=== PATIENT | female | born 1945 | race Caucasian/White ===

== ENCOUNTER → 2017-06-07 09:07 | Outpatient (CLI) | payer MEDICARE, SELFPAY ==
--- NOTE | 2017-06-07 09:11 | US_ITS ---
STUDY: ABDOMINAL ULTRASOUND - RIGHT UPPER QUADRANT REASON FOR VISIT: Female, 71 years old. Elevated liver function tests TECHNIQUE: Transverse and longitudinal imaging of the right upper quadrant was performed using real-time ultrasound. COMPARISON: None. FINDINGS: Liver: The liver measures 14 cm. There is normal echogenicity of the liver. The direction of portal flow is hepatopetal. There is no demonstrated mass in the liver. Gallbladder: The gallbladder is normal in size. The gallbladder wall measures 1.3 mm. There is a negative sonographic Lewis's sign. There is no demonstrated pericholecystic fluid. There are no abnormalities in the lumen of the gallbladder. Common Bile Duct (C.B.D.): The common bile duct measures 3.2 mm. Pancreas: The visualized pancreas is within normal limits. There is no demonstrated mass in the pancreas. Right Kidney: The right kidney measures 10.7 cm. The right cortex measures 1.4 cm. There is no demonstrated mass in the right kidney. There is no dilatation of the collecting system. There is no demonstrated free fluid. US/Liver IMPRESSION: No acute or significant abnormalities are seen on right upper quadrant ultrasound. Electronically Signed: Jeimy Arias MD at 17:24 EST Tel Direct: [phone], Service support ,
== END ==
PROVIDERS: Family Provider Nurse Practitioner; PCP Nurse Practitioner; Visit Provider Nurse Practitioner
DX: R74.8 Abnormal levels of other serum enzymes (principal)
CPT/HCPCS: 76705

== ENCOUNTER → 2017-11-22 11:57 | Outpatient (CLI) | payer MEDICARE, SELFPAY | PROVIDERS: Family Provider Nurse Practitioner; PCP Nurse Practitioner; Visit Provider Nurse Practitioner | DX: Z12.31 Encounter for screening mammogram for malignant neoplasm of breast (principal); Z78.0 Asymptomatic menopausal state | CPT/HCPCS: 77063; 77067; 77085 ==

== ENCOUNTER 2018-01-04 08:30 | Outpatient (RCR) | payer MEDICARE, SELFPAY ==
--- NOTE | 2018-01-04 08:40 | BH.COMM ---
Communication Note - Communication with Client Communication Note: Met with the pt to complete admission paperwork for IOP level of care. No significant changes since pre-admission screening. Denies any active suicidal ideations, plan, or intent. Appears motivated to start IOP.
--- NOTE | 2018-01-04 10:20 | BH.SGPN.GN ---
Behaviors/Verbalizations/Mental Status: [] Pt alert and oriented, eye contact good, casually dressed, motor activity appropriate, speech and tone WNL, mood dysthymic, affect congruent, no evidence of delusions or hallucinations. Client Response/Progress/Benefit: []Pt contributed positively to discussion and listened attentively to others. Pt connected with another peer about high expectations being a barrier to goal success. Pt reported she often has high expectations of herself which she recognizes is setting herself up for failure. Pt shared although she has this awareness it is difficult for her to not expect a lot from herself. Pt shared she needs to focus on having a balance between challenging self and having realistic expectations when setting goals. Pt seemed to benefit from learning about a goal setting method and rehearsing setting SMART goals.
--- NOTE | 2018-01-04 11:42 | BH.NA ---
Physical Data - Vital Signs Pulse Rate: 70 Respiratory Rate: 14 Blood Pressure: 128/80 - Height/Weight Height: 1.61 m Weight:: 54.431 kg Weight in Pounds: 120.0 lbs Current Medication Compliance - Medication Compliance Do you take your medication as prescribed?: Yes Do you need assistance with taking medication?: No Have you had side effects from medication?: No Nutritional History - Appetite Nutritional Instructions:: If client shows signs of a swallowing problem, weight change of 10 pounds or more in the last month, or is on a diabetic diet, the physician will review and request a dietitian consult, as appropriate. All unintentional weight loss will be referred to the physician for decision on need for dietitian consult. Describe your appetite:: Fair Have you noticed a change in your eating habits lately?: No Functional Assessment - Sleep Pattern Describe any problems with sleeping: Client denies trouble falling or staying asleep. - Activities Motor Activity:: Functional Sensory/Communication Assess - Hearing Problems Do you have any hearing problems?: Adequate - Communication Problems Do you have difficulty understanding what people are saying?: No Do you have trouble putting your thoughts into words or expressing what you want to say?: No Do people ever have trouble understanding what you say?: No What is your primary language?: Kyrgyz Learning Assessment - Education What is your level of education?: Bachelor Degree - Learning Barriers Learning Barriers:: Ready to learn Medical Problems/History - Pain Assessment Do you have acute or chronic pain?: No - Female Reproductive Do you think you may be ?: No Have you reached menopause?: Yes Substance Abuse - Substance Abuse Please describe substance abuse in the last 30 days:: Client notes that she is 2 days sober, had been drinking 4-5 beers daily. Former tobacco user, quit age 58, 25-30 pack years. Denies illicit substance use. Drinks 1 caffienated beverage daily. Mental Status Summary - Mental Status Significant Findings/Observations on Appearance and Mood:: Client is A&Ox4, cooperative with interview, makes good eye contact. She has appropriate/neat grooming and hygiene. Casually dressed. Speech is clear and of normal rate and volume. Mild depression and anxiety. Appropriate affect. Logical associations and normal process. No delusions or hallucinations. Denies HI and SI. Suicide Assessment - Suicidal Ideation Are you currently or have you been suicidal in the past?: No Physician Notification: If Active suicidal thoughts/Will not contract for safety is checked, contact physician and document in the Physician Notification section below. Past Psychiatric History - MH Treatment Hx Past Psychiatric Medications:: fluoxetine Age of first mental health symptoms: sometime in my 30's Describe (age, circumstance, etc) any past hospitalizations: N/A Fall Risk Assessment - Age Age: 69 or older - Mental Status Mental Status: Willing & able to ask for assistance when needed - Physical Status Physical Status: No problems - Impairments Impairments: None - Elimination Elimination: Continent AND independent - Gait or Balance Gait or Balance: Walks independently - Hx of Falls History of falls in the past 6 months: No known history - Medications/Substances Psychotropics:: Antidepressants Medications/substances used within the past 24 hours or ordered to administer: 1-2 of the medications/substances listed above - Total Score Total Points:: 3 Physician Notification - Physician Notification Physician Notified: Ines Rousseau Method of Notification: Face to Face Comments: treatment planning discussion RN Summary of Impressions - Impressions Recommendations: Include psychiatric and medical issues, treatment planning recommendations, and discharge planning needs. Impressions: Psychiatric Issues: MDD, anxiety Impression: General Medical Conditions: N/A Impressions: Treatment Planning Recommendations: Encouraged ongoing ETOH abstinence - Level of Care How do the client's current symptoms and functional deficits support need for this level of care?: Client notes increased depression for the past 2-3 months, which she relates to her dysfunctional marriage. She and her are very unhappy together. Client recognizes that she has been isolating and sleeping to avoid her . She also has been drinking daily as a way of escaping her problems. 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 She denies that her ETOH use has interfered with work or relationships outside her marriage. The client will benefit from IOP to learn skills to promote gains and prevent further decompensation.
--- NOTE | 2018-01-04 13:09 | PCM.HP.BLA ---
History and Physical Identifying information Patient is a 72-year-old female who presents to [facility] with chief complaint of I am a recurring depressed person. History is been obtained per interview with patient, discussion with staff, review of chart. Case discussed with treatment team. History of present illness Patient is a 72-year-old female referred to the behavioral medicine [facility] by primary care physician due to worsening depression over the past 1-2 months. She reports a long-standing history of depression throughout my life. It is been recently exacerbated by marital unhappiness and increased alcohol consumption. She reports consuming 3-4 beers per day over the past month. She endorses a depressed mood with lack of motivation, anhedonia, decreased energy, and passive thoughts of . She states I wonder if it really matters. She denies suicide plan or intent. Feels able to maintain safety. Denies homicidal ideation. Denies symptoms consistent with psychosis. Denies symptoms consistent with discrete episode of byron. Reports some ruminative anxiety regarding dynamics with her . Has a remote history of panic attacks but none for several years. She states they resolved with time in counseling. Denies obsessions or compulsions. Appetite is recently been decreased. Denies history of eating disorder. Sleeping 8-9 hours per night. Denies history of trauma. Past psychiatric history Patient reports 1 previous hospitalization for depression and anxiety on a medical floor at [facility] in her mid 30s. Denies previous suicide attempts or self-harm. Does not currently have a counselor or psychiatrist. Substance use history Reports intermittent alcohol use throughout her life drinking up to 5-6 beers daily. 6 months. Of alcohol abstinence in the fall 2016 and winter 06/26/2017. Over the past month she began drinking 3-4 beers daily. Her last alcohol consumption was 2 days ago. No evidence of alcohol withdrawal. Denies smoking cigarettes. Denies illicit drug use. Consumes 1 cup of caffeinated coffee daily. Past medical history Hypertension Elevated cholesterol Denies history of seizure or head injury Review of systems No fevers chills nausea vomiting chest pain dyspnea. All other systems reviewed and negative. Allergies-penicillin Current medications Cymbalta 40 mg daily Vitamin D 2000 IU daily Hydrochlorothiazide 25 mg daily Metoprolol 25 mg daily Amlodipine 5 mg daily Simvastatin 10 mg daily Family medical psychiatric history Mother in August 2015 at age 102 Brother-depression Developmental social history Patient was born and raised in [facility]. She is the youngest of 2 children. She grew up with her parents and her older brother. She states that growing up was all right. She denies abuse. Her father was alcoholic. Her mother made everything right. She reports her father was a good father as best he could be. 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 She has a masters in education from [employer]. 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 She reports that they are both strong willed. She lives in [place] with her . She exercises 3-[facility]. She and her have 2 daughters. One lives adjacent to her in [place]. The other lives in [place] Mental status exam Vital signs reviewed per nursing database and discussed with nursing. Alert and oriented . No acute distress. Ambulatory with normal gait and station. Appears stated age. Casually dressed and groomed. Appropriate hygiene. Cooperative with interview. Good eye contact. No psychomotor agitation or retardation. Mood depressed. Affect congruent. Speech is clear and with regular rate and rhythm. Language fluent. Thought process organized. Associations logical. Thought content significant for ruminative anxiety and themes of depression. Reports history of passive thoughts of . No current suicidal or homicidal ideation related or detected. No symptoms consistent with psychosis noted or detected. Immediate recent and remote memory grossly intact. Attention and concentration are fair. Estimated intelligence and fund of knowledge average. Judgment and insight fair. Labs and testing Lab work will be requested from primary care physician. Further lab work to be obtained as needed. Diagnosis Major depressive disorder recurrent moderate F 33.2 Anxiety unspecified Alcohol use disorder Plan Admit to IOP. Risk-benefit alternative of medications discussed with patient. Patient acknowledges understanding. Continue Cymbalta 40 mg daily. Start Campral 333 mg p.o. daily. Dispense #90 with 1 refill. Encouraged alcohol abstinence. Encouraged to establish with outpatient providers for when IOP complete. Patient acknowledges understanding and is in agreement with plan. Feels able to maintain safety. Agrees to seek help or emergency care if feeling unsafe to self or others.
--- NOTE | 2018-01-04 13:24 | HP.PCM_ITS ---
History and Physical Identifying information Patient is a 72-year-old female who presents to [facility] with chief complaint of I am a recurring depressed person. History is been obtained per interview with patient, discussion with staff, review of chart. Case discussed with treatment team. History of present illness Patient is a 72-year-old female referred to the behavioral medicine [facility] by primary care physician due to worsening depression over the past 1-2 months. She reports a long-standing history of depression throughout my life. It is been recently exacerbated by marital unhappiness and increased alcohol consumption. She reports consuming 3-4 beers per day over the past month. She endorses a depressed mood with lack of motivation, anhedonia, decreased energy, and passive thoughts of . She states I wonder if it really matters. She denies suicide plan or intent. Feels able to maintain safety. Denies homicidal ideation. Denies symptoms consistent with psychosis. Denies symptoms consistent with discrete episode of byron. Reports some ruminative anxiety regarding dynamics with her . Has a remote history of panic attacks but none for several years. She states they resolved with time in counseling. Denies obsessions or compulsions. Appetite is recently been decreased. Denies history of eating disorder. Sleeping 8-9 hours per night. Denies history of trauma. Past psychiatric history Patient reports 1 previous hospitalization for depression and anxiety on a medical floor at [facility] in her mid 30s. Denies previous suicide attempts or self-harm. Does not currently have a counselor or psychiatrist. Substance use history Reports intermittent alcohol use throughout her life drinking up to 5-6 beers daily. 6 months. Of alcohol abstinence in the fall 2016 and winter 06/26/2017. Over the past month she began drinking 3-4 beers daily. Her last alcohol consumption was 2 days ago. No evidence of alcohol withdrawal. Denies smoking cigarettes. Denies illicit drug use. Consumes 1 cup of caffeinated coffee daily. Past medical history Hypertension Elevated cholesterol Denies history of seizure or head injury Review of systems No fevers chills nausea vomiting chest pain dyspnea. All other systems reviewed and negative. Allergies-penicillin Current medications Cymbalta 40 mg daily Vitamin D 2000 IU daily Hydrochlorothiazide 25 mg daily Metoprolol 25 mg daily Amlodipine 5 mg daily Simvastatin 10 mg daily Family medical psychiatric history Mother in August 2015 at age 102 Brother-depression Developmental social history Patient was born and raised in [facility]. She is the youngest of 2 children. She grew up with her parents and her older brother. She states that growing up was all right. She denies abuse. Her father was alcoholic. Her mother made everything right. She reports her father was a good father as best he could be. 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 She has a masters in education from [employer]. 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 She reports that they are both strong willed. She lives in [place] with her . She exercises 3-4 [facility]. She and her have 2 daughters. One lives adjacent to her in [place]. The other lives in [place] Mental status exam Vital signs reviewed per nursing database and discussed with nursing. Alert and oriented . No acute distress. Ambulatory with normal gait and station. Appears stated age. Casually dressed and groomed. Appropriate hygiene. Cooperative with interview. Good eye contact. No psychomotor agitation or retardation. Mood depressed. Affect congruent. Speech is clear and with regular rate and rhythm. Language fluent. Thought process organized. Associations logical. Thought content significant for ruminative anxiety and themes of depression. Reports history of passive thoughts of . No current suicidal or homicidal ideation related or detected. No symptoms consistent with psychosis noted or d etected. Immediate recent and remote memory grossly intact. Attention and concentration are fair. Estimated intelligence and fund of knowledge average. Judgment and insight fair. Labs and testing Lab work will be requested from primary care physician. Further lab work to be obtained as needed. Diagnosis Major depressive disorder recurrent moderate F 33.2 Anxiety unspecified Alcohol use disorder Plan Admit to IOP. Risk-benefit alternative of medications discussed with patient. Patient acknowledges understanding. Continue Cymbalta 40 mg daily. Start Campral 333 mg p.o. daily. Dispense #90 with 1 refill. Encouraged alcohol abstinence. Encouraged to establish with outpatient providers for when IOP complete. Patient acknowledges understanding and is in agreement with plan. Feels able to maintain safety. Agrees to seek help or emergency care if feeling unsafe to self or others.
--- NOTE | 2018-01-04 13:24 | BH.DR.ITP ---
Initial Treatment Plan - Patient Information Visit Information: ADMISSION DATE: EXPECTED LOS: 4-6 weeks Diagnoses:: Major depressive disorder F 33.1 - Problems/Symptoms Problem #1:: Depression Symptom:: Sad mood, anhedonia, decreased energy, decreased appetite, passive thoughts of Problem #2:: Anxiety Symptom:: Rumination Problem #3:: Alcohol use
[2018-02-08 12:13] VITALS: BP 128/80; PULSE 70; RESP 14
== END 2018-01-06 23:59 ==
LOC: BHIOP 08:30
PROVIDERS: Family Provider Nurse Practitioner; PCP Nurse Practitioner; Visit Provider Psychiatry & Neurology Psychiatry
DX: F33.2 Major depressive disorder, recurrent severe without psychotic features (principal); F41.0 Panic disorder [episodic paroxysmal anxiety]; F10.20 Alcohol dependence, uncomplicated
CPT/HCPCS: H0035; 90853

== ENCOUNTER 2018-01-07 09:00 | Outpatient (RCR) | payer MEDICARE, SELFPAY ==
--- NOTE | 2018-01-07 09:10 | BH.SGPN.GN ---
Behaviors/Verbalizations/Mental Status: [] Pt eye contact fair, casually dressed, motor activity restless, speech normal rate and tone, mood anxious, congruent affect, thoughts linear and logical, no evidence of delusions or hallucinations. Reviewed client?s symptom tracker, no signs of suicidal ideation, plan, or intent as of today. Client Response/Progress/Benefit: [] Patient reported over the weekend she spent a lot of time with her grandchildren even watching them play sports or having them over for dinner. Patient shared she went to dinner with her daughter to celebrate her daughter's 54th birthday. Patient shared she was able to status not drink any alcohol over the weekend. Patient reported she is happy she was able to maintain sobriety because when she drinks it often leads to her being mean and negative. Patient reported overall she had a positive weekend to spend time with her grandchildren. Identified her stressor to be of her relationship because her is often negative which impacts her mood. Patient shared ambivalence about her relationship because she has been with him for 52 years but recognizes how the relationship is going is unhealthy for both herself and her . Patient seemed to benefit from receiving support from peers and expressing her thoughts and emotions. Patient to continue IOP level of care to stabilize moods, increase healthy coping skills, and prevent decompensation. Narrative Note: []
--- NOTE | 2018-01-07 10:23 | BH.SGPN.GN ---
Behaviors/Verbalizations/Mental Status: [Client maintained good eye contact throughout. She was neat and casually dressed, appropriate grooming, motor activity WNL, speech normal rate and tone, mood euthymic and positive, affect bright, congruent with mood, thoughts linear and logical, no evidence of delusions or hallucinations. ] Client Response/Progress/Benefit: [Client receptive of session and well engaged throughout. She was able to connect with the discussion regarding fear of failure and how our definition of failure may hold us back from accomplishing things in life or cause self-doubt. Client discussed that fear of failing at maintaining a strong and healthy relationship as well as fear of letting others down are two things she has struggled with recently. Client benefitted from discussing regarding perception of failure and how assuming that we might fail at something can lead to self-sabotaging behaviors or prevent trying in the first place. Client displaying progress in her ability to connect with the content discussed and relate materials to her own mental health struggles. Recommended continued iop tx to continue to improve insights and ability to manage depressive sx.] Narrative Note: []
--- NOTE | 2018-01-09 09:03 | BH.PSA ---
Source of Information - Presenting Problems/Circumstances Problems, Referral Source, Mental Status, Client: Pt was referred by Padmini Chavez. Pt reports she was drinking, lots of anger, and relationship discord. Pt reports depression since she was in her 30 years. Would have depressive episodes since she was in her 30s where she wouldn't get out of bed, isolate, and at one point didn't go to work for 2 weeks. Pt reports for majority of her life she was a social drinker, however started drinking in solitude in her 60s. 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 Pt reports 4 drinks a day prior to starting the program, would get anger, going to bed, crying all the time, passive thoughts of I wouldn't care if I didn't wake up. Psychiatric Presentation - Psych Issues & Need for Admission Psychiatric Issues:: Pt reports hx of depression since age 28 and has hx of anxiety when in her 40s. Recently experienced panic like symptoms.
--- NOTE | 2018-01-09 14:18 | BH.MDN ---
Multi-Disciplinary Note - Note 60-min Individual Time Started:: 09:00 Date: 01/09/18 Purpose of session/treatment goals addressed:: Purpose of session was to assess current symptoms and stressors. Other topics included: identfiying IOP treatment goals and gathering background information. Eye Contact:: Good Motor Activity:: Restless Appearance:: Casual Speech:: Rambling Mood:: Dysthymic, Other - tearful Affect:: Congruent Thoughts:: Logical, No evidence of hallucinations/delusions noted Staff Interventions:: Therapist used open ended questions to elicit pt's current symptoms and stressors. Therapist elicited pt's thoughts about program thus far. Therapist probed for more background information, exploring what brought pt to IOP. Therapist collaborated with pt to identify IOP treatment goals. Therapist provided support by using active listening and providing feedback. Client Response:: Pt reported she is enjoying the IOP program thus far, enjoys having others to relate to and learn or refresh skills and strategies. Pt opened up about what led pt to seeking help. Pt shared for the past two months she started drinking alcohol more frequently 4-5 beers daily. Pt reported when she drinks alcohol she becomes angry and often mean. Pt shared she also was isolated, sad, sleeping more, and overall not functioning at baseline. Pt reported after her nurse practitioner recommended IOP is when she thought maybe she needs help because she doesn't like how her life is currently going. Pt reported her marriage is not healthy, but has known this for at least 20 years. Pt shared she has just ignored what upsets her which has now led to resentment. Pt reported she recognizes she has three choices she can make, but struggles with communicating effectively and hates conflict. Pt identified while in IOP she'd like to work on improving communication and conflict resolution skills, review effective ways to set goals, address negative self-talk, decrease depression and increase healthy coping. Risks/Concerns:: Pt reports she has passive thoughts of at times, denies plan or intention to date. Pt's grandchildren serve as a protective factor for pt. Pt reports I could never follow through with it. Progress Toward Goals/Plan:: Pt has been showing progress with limiting alcohol use signficiantly over past week. Pt to continue to work on decreasing and eventually eliminating alcohol use. Pt first week in program, session focused on identifying treatment goals. Pt to continue IOP level of care to decrease depression, increased use of healthy skills, and prevent decompensation. Time Stopped:: 10:00
--- NOTE | 2018-01-09 16:05 | BH.MTP_ITS ---
Master Treatment Plan - Patient Information Program Physician:: Dr. Rousseau Primary Therapist:: Angella Guzman, [facility] - Psychiatric Diagnoses Psychiatric Diagnoses:: Major depressive disorder recurrent moderate. Anxiety unspecified. Alcohol use disorder Diagnosis Code(s):: F33.2 - Estimated LOS Estimated LOS (in weeks):: 6 Problem/Goal #1 - Problem/Goal #1 Stated Goal:: Client will decrease depressive symptoms, isolation, and agitation due to Major Depressive Disorder through Intensive Outpatient Program. Description of Barriers: Pt's interpersonal conflict with her seems to have signficiant impact on her mental health symptoms which could be a barrier. Other barriers could include: distorted thought patterns, avoidance, negative thoughts, and anxiety. Functional Impact: Pt endorses a depressed mood with lack of motivation, anhedonia, decreased energy, and passive thoughts of . Pt's marital unhappiness and increased alcohol consumption are exasperating mental health symptoms. Goal Relevant Strengths/Supports: Pt is intelligent, resilient and motivated to get better. - Objectives Objective #1 Stated Objective: Identify and replace 3-4 distorted and negative thought patterns that reinforce depressive symptoms. Interventions: Therapist will help client identify distorted, negative beliefs about self and world and replace those messages with positive, affirmative messages. Discharge Criteria: Client will have achieved this goal when can identify at least 3 distorted or negative thought patterns and replace those messages with positive, affirmative messages. Target Date: 02/15/18 Review Date: 02/01/18 Objective #2 Stated Objective: Pt will decrease depressive symptoms AEB pt?s score on the DSM 5 cross-cutting measure and improve pt?s daily functioning. Interventions: Through groups and individual therapy, pt will be provided with education on cognitive distortions, mistaken beliefs, and identifying and combating negative self-talk. Therapist will assist pt with getting back into the activities she once enjoyed as well as increasing healthy coping strategies. Discharge Criteria: Pt will have met this goal when pt?s score on the DSM 5 cross cutting measure for depression has been decreased and per pt?s report daily functioning has improved. Target Date: 02/15/18 Review Date: 02/01/18 Problem/Goal #2 - Problem/Goal #2 Stated Goal:: Stabilize anxiety level while increasing ability to function and decreasing ruminative thoughts on a daily basis through Intensive Outpatient Program. Description of Barriers: Pt's interpersonal conflict with her seems to have signficiant impact on her mental health symptoms which could be a barrier. Other barriers could include: distorted thought patterns, avoidance, negative thoughts, and anxiety. Functional Impact: Pt endorses a depressed mood with lack of motivation, anhedonia, decreased energy, and passive thoughts of . Pt's marital unhappiness and increased alcohol consumption are exasperating mental health symptoms. Goal Relevant Strengths/Supports: Pt is intelligent, resilient and motivated to get better. - Objectives Objective #1 Stated Objective: Client will learn and utilize 2-3 healthy coping strategies to manage anxious symptoms. Interventions: Therapist will assist client in learning internal coping strategies to manage anxious symptoms, along with helping client identify triggers. Discharge Criteria: Client will have achieved this goal when can verbalize and has practiced at least 2 healthy coping strategies. Target Date: 02/15/18 Review Date: 02/01/18 Objective #2 Stated Objective: Pt will decrease anxious symptoms AEB pt?s score on the DSM 5 cross-cutting measure improve pt?s daily functioning. Interventions: Through groups and individual therapy, pt will be provided educa tion about anxiety?s impact on body and common physiological reaction to anxiety. Therapist will teach pt appropriate breathing techniques and build healthy coping skills to manage daily anxieties. Discharge Criteria: Pt will have met this goal when pt?s score on the DSM 5 cross cutting measure for anxiety has been decreased and per pt?s report daily functioning has improved. Target Date: 02/15/18 Review Date: 02/01/18
--- NOTE | 2018-01-11 10:20 | BH.SGPN.GN ---
Behaviors/Verbalizations/Mental Status: [] Pt eye contact good, casually dressed, motor activity appropriate, speech normal rate and tone, mood dysthymic, congruent affect, thoughts linear and intact, no evidence of delusions or hallucinations. Client Response/Progress/Benefit: [] Client engaged throughout group session as evidenced by her contributed to thoughts and feelings and attentively listening to others. Client connected with others that her negative thoughts result in decreased motivation and stagnation in progress. Client shared she could relate to the distortion of mental filter because she give the example that she just took a shower first time in weeks which she did not identify as positive because it something that she should do. Client seemed to benefit from increased awareness of cognitive distortions and recognizing the impact distorted thought patterns can have on functioning. Narrative Note: []
--- NOTE | 2018-01-11 11:30 | BH.SGPN.GN ---
Behaviors/Verbalizations/Mental Status: []Pt eye contact good, casually dressed, motor activity appropriate, speech normal rate and tone, mood dysthymic, congruent affect, thoughts linear and intact, no evidence of delusions or hallucinations. Client Response/Progress/Benefit: [] Client active participant as evidenced by her contributed to discussion and working cooperatively in her small group. When completing the worksheet of identifying personal examples of distorted thought patterns client could connect with the distortion of mind reading especially in regards to her relationship with her . Client able to connect impact distorted thoughts can have on her emotions and behavior. Client seemed to benefit from having opportunity to practice reframing challenging distorted thought patterns. Client to continue IOP level of care to stabilize mood, increase use of healthy coping skills and prevent decompensation. Narrative Note: []
--- NOTE | 2018-01-14 09:05 | BH.SGPN.GN ---
Behaviors/Verbalizations/Mental Status: [Client maintained good eye contact - tearful when expressing current emotion for the day. Able to provide input to discussion. Client was neat and casually dressed, appropriate grooming/hygiene. Motor activity WNL - at times distracted and interrupting others to provide support prior to them completing their thought. Client speech was a normal rate and tone, mood depressed and expressed as fake fine , affect congruent with mood as client appears to be euthymic and bright though identified use of guarding her emotions and became tearful and upset when expressing feeling disconnected or depressed, thoughts linear and logical, no evidence of delusions or hallucinations. Therapist reviewed client?s symptom tracker to assess for intensity of mental health symptoms and identify risk for suicide. No signs of suicidal ideation, plan, or intent to date.] Client Response/Progress/Benefit: [Client responded well to session, engaged throughout and an active participant in the discussion portion of session. Client provided support and worked with fellow participants on processing various stressors they discussed. In regards to her own mental health, Client had some difficulties in opening up at first and initially minimized her current stressors and difficulties in managing mental health symptoms. This was evidenced by Client quickly stating I drank over the weekend and then changing the topic. She benefitted from being challenged by this therapist and the group to further discuss and process her substance use. Client identified I'm self-sabotaging and experienced difficulties in identifying reasons why she may be falling back on old toxic means of coping. CLient did however display increased levels of insight regarding her use of minimization and indicated that she is tired of putting on a mask that she is fine when she does not really feel fine; however, noted not knowing how to really feel and accept her emotions. Client recommended continued IOP to further explore healthy coping and managing emotions as well as to maintain stability.] Narrative Note: []
--- NOTE | 2018-01-14 10:30 | BH.SGPN.GN ---
Behaviors/Verbalizations/Mental Status: []Client alert and oriented, neatly dressed and groomed. Eye contact good. Motor activity appropriate. Speech within normal limits, engaging in side conversations. Affect constricted, mood dysthymic. Thoughts linear, logical, no signs of hallucinations or delusions. Client Response/Progress/Benefit: []Client responded well to session, active participant, engaged in side conversations at times. Client reported one can have conflict with others or within oneself. Client seemed to connect with peers who discussed different types of internal conflict. Client identified barriers to resolving conflict such as assumptions, cognitive distortions, and emotions. Client helped the group discuss the four different conflict resolution styles including when it is helpful and not helpful to use each style. Client shared she uses the avoidant style because ?it is easier to avoid it than deal with it.? Client shared there are personal benefits to this style such as reduced arguments, but client recognizes problems do not get resolved with this style. Client appeared to benefit from gaining awareness of how client?s current conflict resolution style impacts mental health and relationships. Client to continue IOP as client continues to report depressed mood and difficulty managing interpersonal relationships.
--- NOTE | 2018-01-14 11:35 | BH.SGPN.GN ---
Behaviors/Verbalizations/Mental Status: []Client alert and oriented, neatly dressed and groomed. Eye contact good. Motor activity appropriate. Speech within normal limits. Affect full-laughing and joking with peers, mood euthymic. Thoughts linear, logical, no signs of hallucinations or delusions. Client Response/Progress/Benefit: []Client responded well to session, active participant. Client participated in the group activity, passive at times, but sharing her thoughts and ideas in an assertive manner occasionally. Client shared having fun and listening to others? perspectives helped the group resolve conflict. Client helped the group identify strategies to more effectively manage conflict such as regulating emotions, active listening, and taking breaks when needed. Client to continue IOP as she continues to struggle with minimizing her symptoms and managing emotions regarding her interpersonal relationships.
--- NOTE | 2018-01-15 10:20 | BH.SGPN.GN ---
Behaviors/Verbalizations/Mental Status: [] Pt eye contact good, casually dressed, motor activity appropriate, speech normal rate and tone, mood euthymic, congruent affect, thoughts linear and intact, no evidence of delusions or hallucinations. Client Response/Progress/Benefit: []Pt contributed to discussion and listened attentively to others. Pt reported she could connect with the quote about choosing one thought over another being a way to overcome stress, however stated that is not an easy task to do. Pt recognizes her attitude towards something can make a small stressor into something much bigger. Pt identified current stressors to include: unfinished projects at home, physical environment at home being a mess, lack of communication, negative self-talk, lack of control, and using alcohol as way to cope. Pt reported when feels overwhelmed with stress she will gets sad, isolates and at times drinks alcohol. Pt recognizes her current way of responding to stress only exasperates the problem. Pt seemed to benefit from increased awareness of current stressors. Narrative Note: []
--- NOTE | 2018-01-15 11:30 | BH.SGPN.GN ---
Behaviors/Verbalizations/Mental Status: [] Pt eye contact good, casually dressed, motor activity appropriate, speech normal rate and tone, mood euthymic, congruent affect, thoughts linear and intact, no evidence of delusions or hallucinations. Client Response/Progress/Benefit: []Pt active participant AEB contributing to discussion, working with others, and listening to peers. Pt appeared to be frustrated at times during the activity and did not communicate her thoughts and feelings directly at the time. When reflecting on activity pt able to verbalize frustration, with assistance from therapist recognized it would be helpful to communicate her thoughts and feelings at the time so things can change instead of keeping her thoughts in. Pt identified her goal is to go to the gym to relieve stress. Pt seemed to benefit from increased repertoire of healthy stress relieving skills and strategies. Narrative Note: []
--- NOTE | 2018-01-16 09:05 | BH.SGPN.GN ---
Behaviors/Verbalizations/Mental Status: [] Pt eye contact fair, casually dressed, motor activity restless, speech normal rate and tone, mood anxious, congruent affect, thoughts linear and logical, no evidence of delusions or hallucinations. Reviewed client?s symptom tracker, no signs of suicidal ideation, plan, or intent as of today. Client Response/Progress/Benefit: [] Client reported she accomplished her goal yesterday by doing something for her. 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 Client reported the informational course was really interesting in is making her want to explore this route of helping her hip versus doing another hip replacement. Client reported her last hip replacement resulted in increased depression due to bad reaction from the medications of surgery. Client reports she also spent time just driving around which helped clear her head. Client stated she is feeling a little anxious because she feels like I should be doing more. Client demonstrating progress as evidenced by her following through with the goal she set earlier in the week. Client continuing to struggle with relationship discord and consistent application of healthy skills. Client to continue IOP level of care to decrease depression, improve daily functioning, and prevent decompensation. Narrative Note: []
--- NOTE | 2018-01-16 11:20 | BH.SGPN.GN ---
Behaviors/Verbalizations/Mental Status: []Client alert and oriented, neatly dressed and groomed. Eye contact good. Motor activity appropriate. Speech within normal limits. Affect congruent, mood anxious. Thoughts linear, logical, no signs of hallucinations or delusions. Client Response/Progress/Benefit: []Client responded well to session, participating when prompted. Client engaged in the activity, commenting on how expectations of change can impact the outcome. Client reported coming to IOP was a positive change that gives client hope she can have positive change again in the future. Client filled out the decisional balance sheet and shared she needs to focus on the positives of change. Client appeared to benefit from reflecting on a positive change she went through. Client to continue IOP as she continues to report avoidance behaviors and mood instability.
--- NOTE | 2018-01-23 09:05 | BH.SGPN.GN ---
Behaviors/Verbalizations/Mental Status: [] Eye contact is good. Motor activity is appropriate. Appearance is neat. Speech is Appropriate. Mood is anxious. Affect is congruent. Thoughts are linear and logical. No evidence of psychosis. Reviewed daily check in sheet and no reports of suicidal ideations or intent. Client Response/Progress/Benefit: [] Pt is an active participant in group discussion. Provided appropriate feedback to peers. Emotion for today is stagnant. States I have done nothing to improve myself or make changes that i need to make. Reports that she continues to be stuck in same patterns at home. Does not feel needed or appreciated at home and relationship continues to deteriorate. Discussed how she gets satisfaction and feels needed at work however since [employer] she does not work that much. Admits that fear is the main obstacle to change. Fear of the unknown, fear of finances, and fear of stepping outside of comfort zone. Admits that comfort zone includes daily depressive symptoms and isolative behaviors. States that she continues to ponder actions however never takes action which keeps her stuck and stagnant. States that she is getting ready to have a talk with spouse however is unsure if it will ever happen. Limited progress noted due to fear of making changes. Will continue in IOP to prevent decompensation, stabilize mood, and manage depressive symptoms. Narrative Note: []
--- NOTE | 2018-01-23 09:26 | BH.MDN_ITS ---
Multi-Disciplinary Note - Note 60-min Individual Time Started:: 10:10 Date: 01/16/18 Purpose of session/treatment goals addressed:: Purpose of session was to assess pt's current symptoms and stressors. Other topics included: decisional balance worksheet. Eye Contact:: Good Motor Activity:: Restless Appearance:: Casual Speech:: Appropriate Mood:: Anxious, Depressed Affect:: Constricted Thoughts:: Racing, Circular, No evidence of hallucinations/delusions noted Staff Interventions:: Therapist used open ended questions to elicit pt's current symptoms and stressors. Therapist processed relationship stressor. Therapist taught pt about decisional balance worksheet that can help when ambivalent about two situations. Therapist completed sample of decisional balance worksheet in session to help pt understand what she can do. Therapist gave pt homework to complete decisional balance worksheet about her relationship. Client Response:: Pt noted progress for herself by taking time yesterday to do something she was interested in doing. Pt shared previously she would have talked herself out of going to the stem cell seminar because there are other things that need done. Pt starting to recognize importance of taking care of he rself. Pt reported she took a long car ride to help clear her head, which pt reported she spent a lot of her time thinking about her relationship. Pt stated she is frustrated with how her situation in her relationship has gotten so bad, recognizing she has been ignoring the relationship issues for a very long time. Pt discussed the frustrations within her relationship, verbalizing a lot of animosity towards her in regards to a build up of negativity for many years. Pt reported she knows her options are to either stay in her relationship and find a way to not let the relationship have such an impact on her or she can leave the relationship. Pt agreeable to complete the decisional balance worksheet about her relationship. Risks/Concerns:: Pt denies suicidal ideation, plan or intention to date. Progress Toward Goals/Plan:: Progress noted AEB pt following through with goal established earlier in the week for pt to do one thing that she wants to do. Pt's relationship issues seem to be a significant sources of stress, which appears to be impacting her progress. Pt to continue IOP level of care to decrease depression, improve daily functioning, and prevent decompensation. Time Stopped:: 11:10
--- NOTE | 2018-01-23 10:14 | BH.SGPN.GN ---
Behaviors/Verbalizations/Mental Status: [Client engaged in group and maintained good eye contact. Casual and weather appropriate attire. Appropriate grooming/hygiene. Motor activity WNL - at times appearing restless AEB difficulties in sitting still, fidgeting with materials provided for activity. Client speech was a normal rate and tone - at times appearing puzzled due to client being distracted by own thoughts and missing some of the instruction provided, mood dysthymic, affect congruent with mood - distant, thoughts linear and logical - evidence of rumination as client at times appearing distracted or preoccupied by own thoughts and stressors outside of group environment, no evidence of delusions or hallucinations.] Client Response/Progress/Benefit: [Client receptive of session and a positive participant throughout. She appeared to connect well with group discussion regarding benefits of change and potential barriers to making healthy changes. Client provided input and asked questions relating to the various impacts of change on mental health sx management. CLient additionally indicated connecting with the other group participants as they shared feeling uncomfortable with making healthy changes or struggle to put in the effort needed to sustain these changes. She appeared to benefit from reflecting upon what healthy changes she could benefit from making in order to better manage her own mental health. Client shared wanting to prioritize her own needs before worrying about the needs of others, increase communication with supports, as well as decrease use of distraction. She made progress in her ability to identify how these changes may improve overall mental health sx management as well as what barriers are preventing client from making these changes. Client identified that she often talks herself out of trying things, is self-critical, becomes overwhelmed, or responds emotionally and not rationally. Client would benefit from continuing in [facility] tx to further work on identifying strategies for overcoming the various barriers identified. . ] Narrative Note: []
--- NOTE | 2018-01-24 09:05 | BH.SGPN.GN ---
Behaviors/Verbalizations/Mental Status: [] Eye contact is good. Motor activity is appropriate. Appearance is neat. Speech is Appropriate. Mood is anxious. Affect is congruent. Thoughts are linear and logical. No evidence of psychosis. Reviewed daily check in sheet and no reports of suicidal ideations or intent. Client Response/Progress/Benefit: [] Pt was an active participant in group discussion. Provided appropriate feedback to peers. Emotion for today is calm and quiet. Reports that he thoughts and mood are more stable today than the past week. States that during group activity yesterday it was suggested that she simply be present at home, which meant not isolating or avoiding her spouse. She reports that by being present it led to productive conversation with her spouse in which he was open to conversation about their relationship and what she wants. Continues to struggle with her anxiety, depression, and isolative behaviors however reports progress yesterday and today. Feels that she is finally taking some action with her MH symptoms and needs which makes her more optimistic for the future. Benefited from group support and praise. Will continue in IOP to prevent decompensation, decrease avoidant/isolative behaviors, and decrease depression. Narrative Note: []
--- NOTE | 2018-01-24 11:10 | BH.SGPN.GN ---
Behaviors/Verbalizations/Mental Status: []Client alert and oriented, neatly dressed and groomed. Eye contact good. Motor activity appropriate. Speech within normal limits. Affect congruent, mood anxious. Thoughts linear, logical, no signs of hallucinations or delusions. Client Response/Progress/Benefit: []Client responded well to session, providing feedback. Client helped the group discuss the different categories of coping skills and the purpose each one serves in managing mental health symptoms. Client created a coping skills menu with a coping skill from each category- distraction, grounding, emotional release, self-love, and thought challenge. Client?s menu included: reading ?good fiction,? exercise and eating well, listening to music, spending time outside, and getting another perspective. Client shared ?you have to have a variety because you can?t just self-love or distract all the time.? Client appeared to benefit from gaining numerous coping skills and learning the pros and cons of each coping skill category. Client to continue IOP to prevent decompensation and reduce depressive symptoms.
--- NOTE | 2018-01-24 11:11 | BH.MDN ---
Multi-Disciplinary Note - Note 45-min Individual Time Started:: 10:15 Date: 01/24/18 Purpose of session/treatment goals addressed:: Asessed current functioning and symptoms. Reviewed progress in IOP. Reviewed decisional balance worksheet regarding her relationship which is significant stressor. Eye Contact:: Good Motor Activity:: Restless Appearance:: Casual Speech:: Rambling Mood:: Anxious, Depressed Affect:: Congruent Thoughts:: Linear, Logical, No evidence of hallucinations/delusions noted Staff Interventions:: Reviewed pt's decisional balance worksheet regarding her relationship with spouse. Developed outline to utilize for her talk with her . Client Response:: Pt reviewed the pro's and con's to staying in her relationship. She was tearful for a majority of this exercise. She reprots that she wants to work on improving relationship with spouse and if no progress is made she will re-evaluate. She states I want to find order in my life. Wants structure and clarity with her relationship and daily life. States that she desires 1. physcial order; which is cleaning up house and having own personal space; 2. Financial/Business order- which includes being knowledable about couple's projects, future, and and fianances; 3. Emotional Order- she wants to know spouse's feelings, thoughts on relationship, and his view on thier future. Risks/Concerns:: no risks or concerns noted. Progress Toward Goals/Plan:: Progress noted as she was able to develop a concrete plan to tackle significant emotional stressor which is relationship with spouse. Reports being proud that she is startng to take action rather that avoiding or simply ruminating on the negative. Will continue in IOP to stabilize mood, decrease isolative/avoidant behaviors, decrease depression, and decrease stressors. Time Stopped:: 11:00
--- NOTE | 2018-01-25 09:15 | BH.SGPN.GN ---
Behaviors/Verbalizations/Mental Status: []Client alert and oriented, neatly dressed and groomed. Eye contact good. Motor activity appropriate. Speech within normal limits. Affect congruent-tearful throughout session. Mood anxious, depressed. Thoughts linear, logical, no signs of hallucinations or delusions. Reviewed client?s symptom tracker, no risk for suicidal ideation, plan, or intent as of 01/25/18. Client Response/Progress/Benefit: []Client responded well to session, tearful throughout, receptive to feedback. Client reports feeling ?apprehensive and mentally tired? today as client is in the process of preparing herself to have a conversation with her about the future of their relationship. Client stated this conversation has needed to happen for years, but ?I always say I?ll do it and never follow through.? Client reported the difference this time is she is tired of ?wearing the mask? and only being strong for others. Client shared her goal is to have the conversation without getting emotional. The group gave client ideas to help prepare such as writing out what client wants to say, practicing saying it, managing stress, and recognizing her emotions. Client stated her is aware of the conversation and that her anxiety is making ?this a bigger deal than it probably is.? Client appeared to benefit from gaining support from peers and processing her emotions. Progress noted as client is taking steps to have the conversation, but she continues to struggle with following through with goals which could hinder progress.
--- NOTE | 2018-01-28 09:03 | BH.SGPN.GN ---
Behaviors/Verbalizations/Mental Status: [Client maintained good eye contact - at times appearing intense, casually and neatly dressed, motor activity restless - bouncing legs often nodding her head or fidgeting with hands, speech normal rate and tone, mood anxious, agitated, expressed as irritable, affect constricted, thoughts linear and logical -content appearing self-deprecating in nature at times, no evidence of delusions or hallucinations. Therapist reviewed client?s symptom tracker to assess for intensity of mental health symptoms and identify risk for suicide. No signs of suicidal ideation, plan, or intent to date.] Client Response/Progress/Benefit: [Client engaged and remained an active listener throughout. She discussed feeling irritated and upset with herself on this date as she had not followed through with her goal for the weekend. CLient indicated that she had intended to have a conversation with her regarding the relationship and their plans for moving forward. Client indicated that she is not sure why she had not followed through with the discussion as she knows this is a conversation she both desires and that they need to have in order for them both to work towards improving overall happiness. CLient explained that her has expressed willingness to discuss their relationship and that she had been presented with an opportunity to do so; however, created an excuse to get out of it. CLient benefitted from processing with the group factors that may be preventing her from moving forward in doing so as well as strategies that may ease her anxiety and allow her to take that next step. Client indicated connecting with the idea of having her start the conversation or writing down what she wants to say for him to read so she does not initially have to vocalize her concerns. CLient displaying progress in her decreased use of minimization regarding concerns with the relationship and it's impacts on her overall mental health. Recommended continued IOP tx to improve communication skills and use of healthy coping and emotion release skills. ] Narrative Note: []
--- NOTE | 2018-01-28 10:32 | BH.SGPN.GN ---
Behaviors/Verbalizations/Mental Status: [] Pt eye contact good, casually dressed, motor activity appropriate, speech normal rate and tone, mood anxious, congruent affect, thoughts linear and intact, no evidence of delusions or hallucinations. Client Response/Progress/Benefit: [] Patient listened attentively to others and at times contradictory thoughts and ideas to discussion. Client connected with the quote that sometimes she sees opportunities or situations as impossible to overcome or do what, resulting client not trying to do anything. Client could connect her thought patterns impact whether she tried something new or not he has recognizes if she is negative and she is less likely to try something different. Client seemed to benefit from increasing understanding that there is more than one way to solve a problem and get a positive outcome. Narrative Note: []
--- NOTE | 2018-01-28 11:37 | BH.SGPN.GN ---
Behaviors/Verbalizations/Mental Status: [] Pt eye contact good, casually dressed, motor activity appropriate, speech normal rate and tone, mood anxious, congruent affect, thoughts linear and intact, no evidence of delusions or hallucinations. Client Response/Progress/Benefit: []Pt quiet, listened to others and contributed thoughts and ideas to discussion at times. Pt elected to not share about a time she overcame something that seemed impossible. Pt shared ideas when brainstorming strategies that can help overcome what seems impossible. Pt shared she connects most with importance of changing her mindset because how she thinks impacts how she acts. Pt seemed to benefit from learning about different strategies to help overcome what seems impossible. Pt progress could be hindered by pt struggling to generalize skills she has learned. Pt to continue IOP level of care to decrease anxiety, increase generalization of skills, and prevent decompensation. Narrative Note: []
--- NOTE | 2018-01-29 09:02 | BH.SGPN.GN ---
Behaviors/Verbalizations/Mental Status: [] Pt eye contact fair, casually dressed, motor activity restless, speech normal rate and tone, mood anxious, congruent affect, thoughts linear and logical, no evidence of delusions or hallucinations. Reviewed client?s symptom tracker, no signs of suicidal ideation, plan, or intent as of today. Client Response/Progress/Benefit: [] Client reported she is feeling less anxious compared to yesterday. Client shared she gave her a list of things she wants discussed when they have a conversation about the relationship. Client discounted the positive of giving her the list, recognizing she often disqualifies her positives. Client shared she did recognize after giving her a list of things she wants to discuss she felt a sense of relief. Client reported she went to her granddaughter's soccer game and noticed she was more present throughout the game versus ruminating about how things are going well in her relationship. Client reported the plan is to have the discussion with her today but his concern either herself or will find some way to push it off. Client recognizes avoiding the conversation does not resolve anything and it will continue to build. Client demonstrating progress as evidenced by taking the first step to facing 1 of her main stressors. Client to continue IOP level of care to stabilize mood, increase use of healthy coping skills, and prevent decompensation. Narrative Note: []
--- NOTE | 2018-01-29 10:05 | BH.SGPN.GN ---
Behaviors/Verbalizations/Mental Status: []Client alert and oriented, neatly dressed and groomed. Eye contact good. Motor activity appropriate. Speech within normal limits. Affect congruent, mood anxious. Thoughts linear, logical, no signs of hallucinations or delusions. Client Response/Progress/Benefit: []Client responded well to session, participating in discussion. Client shared effective communication is needed to help set expectations and assert needs. Client identified stress, crying, and ongoing relationship issues as barriers to communication. Client contributed to discussion of the different communication styles. Client reported her upbringing impacted her communication with others as client?s family did not talk about emotions. Client stated now she often uses passive or passive-aggressive communication. Client reported this style negatively impacts her mental health. ?Client appeared to benefit from gaining awareness to how communication styles impact mental health. Client to continue IOP to prevent decompensation and reduce anxiety.
--- NOTE | 2018-01-29 11:10 | BH.SGPN.GN ---
Behaviors/Verbalizations/Mental Status: []Client alert and oriented, neatly dressed and groomed. Eye contact good. Motor activity appropriate. Speech within normal limits. Affect congruent-laughing, mood euthymic. Thoughts linear, logical, no signs of hallucinations or delusions. Client Response/Progress/Benefit: []Client responded well to session, active throughout session. Client engaged in the communication activity and identified barriers that impact one?s communication with supports. Client shared growing up her family did not communicate ?how we felt or what was bothering us? which client reports belief is why it is hard for her verbalize her emotions and needs. Client helped the group identify strategies to improve communication including: one issue at a time, awareness of tone and body language, and being direct. Client appeared to benefit from practicing effective communication and gaining awareness of personal barriers. Client to continue IOP to reduce anxiety and avoidance behaviors.
--- NOTE | 2018-01-30 09:10 | BH.SGPN.GN ---
Behaviors/Verbalizations/Mental Status: []Client alert and oriented, neatly dressed and groomed. Eye contact good. Motor activity appropriate. Speech within normal limits. Affect incongruent AEB client smiling but reporting feeling down and anxious, mood anxious. Thoughts linear, logical, no signs of delusions or hallucinations. Therapist reviewed client's symptom tracker, no signs of risk AEB client denying suicidal ideation, plan, and intent as of 01/30/18. Client Response/Progress/Benefit: []Client responded well to session, engaged and providing supportive statements to peers. Client reports feeling bummed today as client shared she still has not had the conversation with her regarding their relationship. Client stated wanting to have the talk yesterday, but her was not home when she was home. Client reported the anticipatory anxiety she is experiencing because of the talk is a barrier to following through with it. Client receptive to group feedback and client appeared to recognize that by doing the anxious thing it may be uncomfortable at first, but client's anxiety will reduce after. Client identified going to her grandson's soccer game and making it into group today as positives. Client appeared to benefit from peer support. Progress noted as client appears to be using healthy coping skills to manage anxiety such as exercise and being with family, but she continues to put off an important conversation which is leading to increased anxiety symptoms.
--- NOTE | 2018-01-30 10:10 | BH.SGPN.GN ---
Behaviors/Verbalizations/Mental Status: [] Pt eye contact good, casually dressed, motor activity appropriate, speech normal rate and tone, mood euthymic, congruent affect, thoughts linear and intact, no evidence of delusions or hallucinations. Client Response/Progress/Benefit: []Pt engaged in session AEB pt sharing thoughts and feelings and listened attentively to others. Pt connected with the quote reported fear that what she wants isn't as good as she thought it'd be is something that keeps her from making change. Pt reported she is seeking help so she can make changes because she doesn't want the fear to hold her back and knows she doesn't want to be unhappy for the rest of her life. Pt shared the following are things that keep her stuck: unmanaged emotions, minimizing her problems, negativity from others, and other's actions/behavior. Pt identified negativity from others to be keeping her stuck the most. Pt reported she would like the negativity from others to not impact her as much as it currently does. Pt seemed to benefit from increased awareness of what is contributing to pt staying stuck and not moving forward. Narrative Note: []
--- NOTE | 2018-01-30 11:15 | BH.SGPN.GN ---
Behaviors/Verbalizations/Mental Status: [] Pt eye contact good, casually dressed, motor activity appropriate, speech normal rate and tone, mood anxious, congruent affect, thoughts linear and intact, no evidence of delusions or hallucinations. Client Response/Progress/Benefit: []Pt listened attentively to others and was engaged in creating small goals for the next couple of weeks. Pt reported for her plan she is focusing on decreasing avoidance of difficult things. Pt reported working on this will benefit her by improving her personal relationship so she becomes an important and contributing person in her marriage. Pt shared her first small goal is to have a 5 minute conversation with her about something she learned in group. Pt reported her second small goal is to work with to create a plan of cleaning out the garage. Pt seemed to benefit from creating small goals she can focus on throughout the month. Pt to continue IOP level of care to maintain gains and prevent decompensation. Narrative Note: []
--- NOTE | 2018-02-01 09:48 | BH.MDN_ITS ---
Multi-Disciplinary Note - Note 30-min Individual Time Started:: 13:37 Date: 01/31/18 Purpose of session/treatment goals addressed:: Purpose of session was to assess pt's current symptoms and stressors. Other topics: emotional regulation, challenging distorted thoughts, and setting goals. Eye Contact:: Good Motor Activity:: Appropriate Appearance:: Casual Speech:: Appropriate Mood:: Irritable, Depressed Affect:: Congruent Thoughts:: Linear, Logical, No evidence of hallucinations/delusions noted Staff Interventions:: Therapist used open ended questions to elicit pt's current symptoms and stressors. Therapist processed pt's recent argument prior to session. Therapist gently challenged pt's distorted thought patterns. Therapist assisted pt with focusing on what is in her control. Therapist worked with pt on goal setting to help decrease avoidance. Therapist provided support by using active listening and validating emotions. Client Response:: Pt came into session already upset and tearful. Pt shared before she left for counseling she was trying to plan with her when they would sit down to have their talk about the relationship and instead her changed topics to talk about a tenat they have. Pt reported she tried to set the boundary that she didn't have time to talk about that situation, but her persisted then told her she turns everything into an argument. Pt reported this argument has again brought up all the things she is angry about in their relationship and has set me back. Pt shared she has less interest in having the conversation with her in regards to what they will do with their relationship. After therapist challenged pt's distorted thoughts, pt able to recognize she is using this arguement as another reason to avoid dealing with what is difficult. Pt reported she recognizes her pattern of avoiding situations that bring up uncomfortable emotions. Pt shared she recognizes her relationship impacts her mental health. Pt reported her goal for today is to ask her if he will sit down with her tomorrow at 5pm to start their conversation. Risks/Concerns:: Pt denies suicidal ideation, plan or intention to date. Progress Toward Goals/Plan:: Pt has demonstrated progress with increased awareness of her negative thought patterns and recognition of her barriers. Pt continuing to struggle with putting into action her skills and strategies, which seems to be hindrance to treatment progress. Pt to continue IOP level of care to decrease depression, improve use of healthy coping skills, and prevent decompe nsation. Time Stopped:: 14:12
--- NOTE | 2018-02-01 12:40 | PCM.PN.BLA ---
Progress Note Patient seen in follow-up for major depressive disorder recurrent moderate, anxiety unspecified, alcohol use disorder. History is been obtained per interview with patient, discussion with staff, review of chart. Case discussed with treatment team. Chief complaint Depression and anxiety Interim history Moderate depressive symptoms persist but of decreased intensity. Reports feeling sad regarding relationship with . Moderate ruminative anxiety regarding anticipation of an ongoing conversation with her . Tonight is the beginning of a nice conversation. Acknowledges avoidant behavior. I have not taken any action of what my goal is. Recognizes the avoidance and using skills gained through IOP to challenge it. No suicidal or homicidal ideation. No symptoms consistent with psychosis. Sleeping from 11 PM to 8 AM. Appetite normal. Denies nausea vomiting or diarrhea. Compliant with Cymbalta consistently. Reports inconsistent compliance with Campral. Consuming 2 beers per day as a coping mechanism. Able to verbalize adverse effects of beer. Mental status exam Alert and oriented . No acute distress. Ambulatory with normal gait and station. Appears stated age. Casually dressed and groomed. Appropriate hygiene. Cooperative with interview. Good eye contact. No psychomotor agitation or retardation. Mood depressed. Affect congruent. Speech is clear and with regular rate and rhythm. Language fluent. Thought process organized. Associations logical. Thought content significant for ruminative anxiety and themes of depression. No suicidal or homicidal ideation related or detected.. No symptoms consistent with psychosis noted or detected. Immediate recent and remote memory grossly intact. Attention and concentration are fair. Estimated intelligence and fund of knowledge average. Judgment and insight fair. Diagnosis Major depressive disorder recurrent moderate F 33.2 Anxiety unspecified Alcohol use disorder Plan Continue IOP as the structured setting is necessary to maintain gains and prevent decompensation. Risks benefits alternatives of medications discussed with patient. Patient acknowledges understanding. Continue Cymbalta 30 mg daily. Confirm dose. Encouraged Campral compliance. Encouraged alcohol abstinence. Encouraged to establish with outpatient providers for when IOP complete. 18 minutes of Insight oriented psychotherapy provided regarding emotion regulation and alcohol abstinence. Patient acknowledges understanding and is in agreement with plan. Feels able to maintain safety. Agrees to seek help or emergency care if feeling unsafe to self or others.
--- NOTE | 2018-02-01 14:13 | BH.TPR ---
Treatment Plan Review Date of Admission:: 01/04/18 Date of Treatment Plan Review:: 02/01/18 Admitting Diagnoses:: Major depressive disorder recurrent moderate F 33.2. Anxiety unspecified. Alcohol use disorder Current Diagnoses:: Major depressive disorder recurrent moderate F 33.2. Anxiety unspecified. Alcohol use disorder Patient's Response to Treatment:: Pt mala attends her scheduled IOP days. Pt is often engaged in group sessions AEB contributions to discussion and cooperating with others throughout challenges. Pt doesn't often complete goals set during group or individual counseling. Pt has been given several homework assignments in individual session with no follow through. Pt does seem to be more open during group sessions AEB increased sharing and connecting with others. Despite challenges with not following through on established goals pt does report improved moods. Status of Current Problems and Symptoms: Pt continuing to experience moderate depressive symptoms but reports to lesser intensity. Pt continuing to have marital problems that have negative impact on pt's mental health symptoms. Pt reports her biggest stressor to be her marital discord, but continues to avoid dealing with the situation. Pt admits she is continuing to avoid dealing with her relationship because it makes her too anxious. Plan is to continue IOP level of care. She is showing increased awareness of negative thought patterns, decreased isolative behavior, and decreased depression. Pt decrease in alcohol use which has decreased her anger outbursts. Problem #1 Problem Name:: Client will decrease depressive symptoms, isolation, and agitation. Status of Goals:: Objective 1 - Pt can identify at least 3 distorted thought patterns, but struggles to reframe or challenge those thought patterns on a consistent basis. Objective 2 - Pt has shown decrease in depressive symptoms AEB pt's self-reported scores on the DSM 5 cross cutting measure. Pt's intake score was a 5 out of 8 with 8 being severe on depression scale and pt's mid-point score is a 2 out of 8 for the depression scale. Team Recommendations:: Team recommends continued focus on current goal and objective until pt can challenge her distorted thoughts on a more consistent basis. Problem #2 Problem Name:: Stabilize anxiety level while increasing ability to function. Status of Goals:: Objective 1 - pt does know at least 3 healthy coping skills that she could utilize to help manage anxoius symptoms, however pt struggles with generalizing skills. Pt has been taught mindfulness skills, breathing, and thought challenge. Objective 2 - Pt has not met this objective of reducing anxious symptoms as evidenced by pt's scores on the DSM 5 cross cutting measure. Pt's intake score on the anxious scale was a 2 out of 12 with 12 being severe, pt's mid-point score is a 4 out of 12. Pt's score on the DSM 5 cross cutting measure shows increase in anxious symptoms. Team Recommendations:: Team recommends continued focus on goal and objectives until pt is consistently applying skills learned and for continued focus on decreasing anxious symptoms.
--- NOTE | 2018-02-04 09:05 | BH.SGPN.GN ---
Behaviors/Verbalizations/Mental Status: []Client alert and oriented, neatly dressed and groomed. Eye contact good. Motor activity appropriate. Speech within normal limits. Affect incongruent AEB smiling, but reporting feeling tense, mood anxious. Thoughts linear, logical, no signs of hallucinations or delusions. Reviewed client?s symptom tracker, no risk for suicidal ideation, plan, or intent as of 02/04/18. Client Response/Progress/Benefit: []Client responded well to session, active participant. Client reports feeling ?tense? today after starting a conversation with her that client has been dreading. Client shared ?after all these weeks I finally started the talk.? Client identified starting the conversation with her as both a positive and a stressor. Client stated they did not finish the talk due to client becoming ?too emotional to handle it.? Client shared she plans to write down what she wants to say as well as clarifying questions for when they finish the conversation. Client reports the plan is to talk again tonight. Client appeared to benefit from gaining supportive statements from peers. Progress noted as client partially accomplished her goal of talking with her , but she continues to report ongoing anxiety about the situation and difficulty managing her emotions.
--- NOTE | 2018-02-06 09:10 | BH.SGPN.GN ---
Behaviors/Verbalizations/Mental Status: [] Eye contact is good. Motor activity is appropriate. Appearance is neat. Speech is Appropriate. Mood is anxious. Affect is congruent. Thoughts are linear and logical. No evidence of psychosis. Reviewed daily check in sheet and no reports of suicidal ideations or intent. Client Response/Progress/Benefit: [] Pt was an active participant in group discussion. Provided appropriate feedback. Emotion for today is anxious and uncertain. Shared with the group that she is continuing to converse with her spouse and is optimistic. States that this conversation is life changing. ble to identify emotions related to change which group discussed. Benefited from group support and feedback. Will continue in IOP to prevent decompensation and improve mood. Narrative Note: []
== END 2018-02-06 23:59 ==
LOC: BHIOP 09:00
PROVIDERS: Family Provider Nurse Practitioner; PCP Nurse Practitioner; Visit Provider Psychiatry & Neurology Psychiatry
DX: F33.2 Major depressive disorder, recurrent severe without psychotic features (principal); F41.9 Anxiety disorder, unspecified; Z72.89 Other problems related to lifestyle
CPT/HCPCS: H0035; 90832; 90834; 90837; 90853

== ENCOUNTER 2018-02-11 09:00 | Outpatient (RCR) | payer MEDICARE, SELFPAY ==
--- NOTE | 2018-02-11 09:02 | BH.SGPN.GN ---
Behaviors/Verbalizations/Mental Status: []Client alert and oriented, neatly dressed and groomed. Eye contact good. Motor activity appropriate. Speech within normal limits. Affect constricted, mood anxious. Thoughts linear, logical, no signs of hallucinations or delusions. Reviewed client?s symptom tracker, no risk for suicidal ideation, plan, or intent as of 02/11/18. Client Response/Progress/Benefit: []Client responded well to session, active participant. Client reports feeling ?anxious? today due to ongoing communication issues at home. Client shared her relationship with her continues to be an ongoing stressor as client feels ?on edge? whenever she is around him. Client reported she has tried to continue the conversation about their relationship, but ?he shuts it down.? The group helped client reflect that she was able to talk about the situation without crying which demonstrates progress. The group also told client her confidence has improved since starting IOP which client reported appreciating. Client identified current positives including getting new sinks, going to the book fair, and watching her granddaughter play soccer. Client appeared to benefit from receiving supportive statements from peers. Progress noted as evidenced by client?s increased assertive communication and emotional regulation skills when discussing stressors. Client to continue IOP to prevent decompensation and increase mood stability.
--- NOTE | 2018-02-11 10:10 | BH.SGPN.GN ---
Behaviors/Verbalizations/Mental Status: [] Pt eye contact good, casually dressed, motor activity appropriate, speech normal rate and tone, mood anxious, congruent affect, thoughts linear and intact, no evidence of delusions or hallucinations. Client Response/Progress/Benefit: []Pt active participant AEB pt contributing thoughts and ideas throughout session and listened attentively to peers. When processing activity pt connected the group was resilient by not giving up when the group dropped the ball, instead kept going and not focusing on the fails. Pt agreed with peers that resilience is something that can be learned and strengthened. Pt worked cooperatively with her small group to identify how the different factors can help improve one's resilience. Pt seemed to benefit from increased awareness of the different components that can help increase pt's resiliency. Narrative Note: []
--- NOTE | 2018-02-11 11:15 | BH.SGPN.GN ---
Behaviors/Verbalizations/Mental Status: []Pt eye contact good, casually dressed, motor activity appropriate, speech normal rate and tone, mood euthymic, congruent affect, thoughts linear and intact, no evidence of delusions or hallucinations. Client Response/Progress/Benefit: []Pt engaged throughout session AEB pt contributing thoughts and ideas to discussion and listening attentively to peers. Pt worked cooperatively with others during the challenge activity. When processing activity pt reported the factors that helped the group be successful were adapting to change and being persistent. Pt reported the resiliency factor she wants to strengthen is moving towards her goals. Pt reported she has hx of avoiding goals she makes due to fear of the unknown, however pt recognizes the importance of working on her goals or she will remain stagnant. Pt seemed to benefit from focusing on which resiliency factor pt would like to strengthen. Pt to continue IOP level of care to decrease depression and prevent decompensation. Narrative Note: []
--- NOTE | 2018-02-12 10:10 | BH.SGPN.GN ---
Behaviors/Verbalizations/Mental Status: []Eye contact is good. Motor activity is appropriate. Appearance is casual. Speech is Appropriate. Mood is depressed and anxious. Affect is congruent. Thoughts are linear and logical. No evidence of psychosis. Client Response/Progress/Benefit: []Pt active participant as evidenced by pt contributing to discussion and engaging in group activity. Pt connected with the quote that we can create problems that aren't there just by the way we think. Pt shared a personal example of how she has made situations worse when having disagreement with her due to the negative thoughts like he doesn't care, that she creates with her thinking and ultimately creates more problems with . Pt agreed with peers problem solving requires ability and willingness to do something different and challenge distorted thought patterns. When processing activity pt noted importance of communicating to others when brainstorming solutions as well as communicating throughout the implementation of the plan. Pt seemed to benefit from increased awareness of a problem solving method. Narrative Note: []
--- NOTE | 2018-02-12 11:20 | BH.SGPN.GN ---
Behaviors/Verbalizations/Mental Status: []Eye contact is good. Motor activity is appropriate. Appearance is casual. Speech is Appropriate. Mood is anxious. Affect is congruent. Thoughts are linear and logical. No evidence of psychosis. Client Response/Progress/Benefit: []Pt listened attentively to others and contributed to discussion. Pt reported her problem to be: not being social. Pt identified steps she can take to reach solution of increased socialization include: finding a book club, contacting other people to start own book club, go to library for book club, setting routine of that includes social events. Pt reported she believed the steps she identified to increase her social network were attainable. Pt stated she will work on step one first by finding different book clubs she can attend. Pt seemed to benefit from identifying ways to overcome one of her identified problems. Pt to continue IOP level of care to maintain gains, increase social network and prevent decompensation. Narrative Note: []
--- NOTE | 2018-02-12 13:22 | BH.MDN ---
Multi-Disciplinary Note - Note 45-min Individual Time Started:: 09:10 Date: 02/12/18 Purpose of session/treatment goals addressed:: Purpose of session was to assess pt's current symptoms and stressors. other topics: processing recent conversation with , challenging thoughts, and increasing social interactions/extracurricular activities. Eye Contact:: Fair Motor Activity:: Appropriate Appearance:: Casual Speech:: Appropriate Mood:: Anxious, Other - tearful Affect:: Congruent Thoughts:: Linear, Logical, No evidence of hallucinations/delusions noted Staff Interventions:: Therapist utilized open ended questions to elicit pt's current symptoms and stressors. Therapist processed pt's recent discussion with pt's . Therapist gently challenged pt's distorted thought patterns. Therapist assisted pt with identifying potential activities she could engage in with goal of increase social interactions and connections. Pt provided pt with homework to follow through with getting more information on at least one of the ideas developed in session. Client Response:: Pt reported she did have the conversation with her about her unhappienss with the relationship. Pt shared she was able to verbalize what she is not happy about in the marriage. Reported both herself and agree the relationship is unhealthy and not something that will be fixed. Pt stated neither or herself are interested in , but the plan is for pt's to live in the downstairs apartment of their house at the end of February. Pt shared she is anxious her will back out of this agreed upon plan because he is asking for another sit down. Pt reported she gets frustrated with him when he starts being nice. After challenging of thoughts, pt able to recognize if she continues to be mean to her it will be challenging to coexist in the same house. Pt reported feeling much better the conversation has finally occurred because she has been putting it off for a long time. Pt reported she has a desire to increase her social network becasue right now she has a limited support network. Pt shared she has interest in joining a book club. Pt also open to the idea of joining yoga and seeing what the local library has to offer. Pt agreeable to go to the library to see what options the library has to offer to increase her social interactions. Risks/Concerns:: Pt denies suicidal ideation, plan or intention to date. Progress Toward Goals/Plan:: Pt demonstrating progress AEB pt following through with goal of talking with about marital dissatisfaction and coming up with a plan that both pt's and self agree upon. Pt also demonstrating progress with expressed interest in increasing her social connections and interactions. Pt continuing to express anxiety when around her , but hopes when her moves to the apartment her anxiety will reduce. Pt to continue IOP level of care to decrease anxiety, increase social support and prevent decompensation. Time Stopped:: 09:55
--- NOTE | 2018-02-13 09:02 | BH.SGPN.GN ---
Behaviors/Verbalizations/Mental Status: []Client alert and oriented, neatly dressed and groomed. Eye contact good. Motor activity appropriate. Speech within normal limits. Affect congruent to mood, mood anxious Thoughts linear, logical, no signs of hallucinations or delusions. Reviewed client?s symptom tracker, no risk for suicidal ideation, plan, or intent as of 02/13/18. Client Response/Progress/Benefit: []Client responded well to session, providing supportive statements to peers. Client reports feeling ?impatient? today due to ongoing issues at home. Client shared she continues to struggle with ?the waiting game? and client would like to know what the next steps will look like based on the decisions she and her have made regarding their relationship. Client able to identify current positives which included client going to the library to find out more about book club, exercising, and voting yesterday. Client appeared to benefit from connecting with peers. Client to continue IOP as she has made progress with regulating her emotions, but she continues to struggle with anxiety and interpersonal relationship issues.
--- NOTE | 2018-02-13 10:08 | BH.SGPN.GN ---
Behaviors/Verbalizations/Mental Status: []Client alert and oriented, neatly dressed and groomed. Eye contact good. Motor activity appropriate. Speech within normal limits. Affect congruent, mood euthymic, anxious. Thoughts linear, logical, no signs of hallucinations or delusions. Client Response/Progress/Benefit: []Client responded well to session, active participant. Client appeared to connect with the quote and topic of cognitive distortions sharing, ?your thoughts make your reality so if they?re negative then you?re negative.? Client stated negative people can reinforce cognitive distortions. Client reported if one does not challenge cognitive distortions it can lead to increased anxiety, avoidance, and rumination. Client helped the group discuss the most common types of distortions and stated she most often uses all or nothing thinking, catastrophizing, and personalizing. Client shared she sometimes uses all or nothing thinking with others which leads to anger. Client appeared to benefit from gaining insight to the cognitive distortions she uses and how they impact mental health. Client to continue IOP to promote emotional regulation and reduce anxiety.
--- NOTE | 2018-02-13 11:15 | BH.SGPN.GN ---
Behaviors/Verbalizations/Mental Status: [Client receptive of session and engaged throughout. She maintained positive eye contact and provided supportive feedback. Client wearing neat and comfortable attire, appropriate grooming/hygiene. Motor activity remained WNL some restlessness AEN shifting in seat and moving around room. Client speech a normal rate and tone remaining on topic throughout w/little side conversation, mood euthymic. Affect congruent with mood. Client thoughts remained linear and logical, no evidence of delusions or hallucinations.] Client Response/Progress/Benefit: [Client responded well to session and indicated connecting well with topic of challenging negative thoughts. Client contributed to discussion reviewing potential barriers in combating distorted thoughts as well as strategies for improving ability to do so. Client benefitted from the visual illustration provided by egg drop activity regarding how thought distortions reinforce negative and mistaken core believes. She noted connecting with the fact that sometimes replacing distorted thoughts takes a lot of effort and practice and indicated that she has had some of her negative thoughts for more than 30 years. Client displaying progress in her ability to recognize small strategies for improving daily self-talk and challenging her expectations for herself. Client reports wanting to continue to work on reducing her use of minimization.] Narrative Note: []
--- NOTE | 2018-02-18 09:10 | BH.SGPN.GN ---
Behaviors/Verbalizations/Mental Status: [] Eye contact is good. Motor activity is appropriate. Appearance is casual. Speech is Appropriate. Mood is anxious and irritable. Affect is congruent. Thoughts are linear and logical. No evidence of psychosis. Reviewed daily check in sheet and no reports of suicidal ideations or intent. Client Response/Progress/Benefit: [] Pt was an active participant in group activity. Provided appropriate feedback to peers. Emotion for today is anxious and angry. Notes a positive this weekend was spending time playing cards with daughter and grand-daughter. She reports that she believes that she has gotten better at managing her emotions more effectively however continues to feel stuck. Shared stressors related to spouse. States that she wants to continue to be active in managing her concerns and plans on engaging spouse in more conversations about the future. No progress noted per pt. Will continue in IOP to prevent decompensation and manage life stressors. Benefited from group support and encouragement. Narrative Note: []
--- NOTE | 2018-02-18 10:20 | BH.SGPN.GN ---
Behaviors/Verbalizations/Mental Status: []Client alert and oriented, neatly dressed and groomed. Eye contact good. Motor activity appropriate. Speech within normal limits. Affect congruent-looking confused at times, mood anxious. Thoughts linear, logical, no signs of hallucinations or delusions. Client Response/Progress/Benefit: []Client responded well to session, contributing to discussion. Client connected with the quote sharing ?there?s things we don?t sign up for, but we can make it worse.? Client helped the group identify things in life that can keep a person stuck. Client reported one?s negative thought patterns can keep a person stuck as thoughts impact behaviors and emotions. Client shared negative thought patterns that have kept her stuck such as ?there?s nothing I can do? ?I don?t know how to handle this? and ?I?m too emotional and nothing will change.? Client stated the negative thoughts have kept her trapped because they have led to avoidance or client ?exploding.? Client appeared to benefit from gaining awareness of negative thoughts keeping client trapped. Progress noted as client reported she can challenge these thoughts more easily. Client to continue IOP to promote gains and increase emotional regulation.
--- NOTE | 2018-02-18 11:25 | BH.SGPN.GN ---
Behaviors/Verbalizations/Mental Status: []Client alert and oriented, neatly dressed and groomed. Eye contact good. Motor activity appropriate. Speech within normal limits. Affect constricted, mood anxious. Thoughts linear, logical, no signs of hallucinations or delusions. Client Response/Progress/Benefit: []Client responded well to session, active in discussion. Client participated in a thought challenging activity to help client reframe a thought keeping her stuck. Client selected ?there?s nothing I can do about it? as the thought she wanted to reframe. Client shared the thought is unrealistic and realistic stating, ?nothing is an absolute?I can?t change others, but I can change what I can control.? Client reported this thought leads to increased depression, isolation, criticism of others, and anger. Client replaced this thought with a more realistic, positive thought of ?I cannot make someone else change, I can change my part.? Client shared this thought would help client be more mindful of her emotions and hopeful. Client appeared to benefit from learning strategies to replace one of the negative thoughts keeping her stuck. Progress noted in client?s report of increase emotional regulation, but she continues to struggle with avoidance behaviors.
--- NOTE | 2018-02-21 09:10 | BH.SGPN.GN ---
Behaviors/Verbalizations/Mental Status: [] Client Response/Progress/Benefit: [] Narrative Note: []
--- NOTE | 2018-02-21 10:10 | BH.SGPN.GN ---
Behaviors/Verbalizations/Mental Status: []Client alert and oriented, casual dress. Eye contact good. Motor activity appropriate. Speech within normal limits. Affect full, mood euthymic, anxious during the activity. Thoughts linear, logical, no signs of hallucinations or delusions Client Response/Progress/Benefit: []Client responded well to session, contributing positively to discussion. Client appeared to connect with the quote sharing, ?you can manage your emotions in a way that doesn?t hurt anyone.? Client reported being able to communicate when experiencing strong emotions is important, but one can face communication barriers. Client shared communication style, avoidance, and negative thinking can be barriers. Client participated in the activity and recognized her anxiety during the activity was impacting her ability to communicate. Client stated, ?I kept doubting myself and reacting anxiously.? Client processed the activity with peers and gained insight to how emotional regulation impacts communication. Progress noted as shown by client?s report of generalization of coping skills to manage mental health symptoms. Recommended to continue IOP increase mood stability and application of healthy coping skills.
--- NOTE | 2018-02-21 11:15 | BH.SGPN.GN ---
Behaviors/Verbalizations/Mental Status: []Client alert and oriented, casual dress. Eye contact good. Motor activity appropriate. Speech within normal limits-went off topic once. Affect congruent to mood, mood euthymic, anxious. Thoughts linear, logical, no signs of hallucinations or delusions Client Response/Progress/Benefit: []Client responded well to session, providing to discussion. Client reported relating to the zones of regulation and re-triggering emotions. Client stated, ?we can think ourselves into emotions.? Client helped the group identify emotions and behaviors in the different zones and what a person might need in each zone to help them return to baseline or maintain baseline. Client reported ?we can get stuck in a zone.. it can be a comfort zone.? Client reported today she is in the ?yellow/green? zones as she feels stable now, ?but I know I?m going to feel anxious when I get home to my .? Client?s goal for today is to change her communication style with her which client hopes will help her return to baseline. Client appeared to benefit from learning different emotions, behaviors, and coping skills for each zone. Client to continue IOP to further increase emotional regulation and application of healthy coping skills.
--- NOTE | 2018-02-22 10:12 | BH.SGPN.GN ---
Behaviors/Verbalizations/Mental Status: [] Pt eye contact good, casually dressed, motor activity appropriate, speech normal rate and tone, mood euthymic, congruent affect, thoughts linear and intact, no evidence of delusions or hallucinations. Client Response/Progress/Benefit: []Pt shared thoughts and ideas during discussion, attentively listened to others. Pt reported making changes is not easy for her because it becomes easier to stay on the current path even when know the decisions she were making wouldn't help her move forward. Pt shared barrier to making positive changes to be the need for immediate gratification. Pt shared she has always wanted the quick fix, struggling to be patient and take things step by step. pt recognized by wanting immediate gratification it typically led to impulsive and unhealthy coping skills. During activity about avoiding pitfalls pt tended to use humor as a defense mechanism and often impulsive in her reactions which negatively impacted group process. Pt able to connect that her impulsivity tends to be a problem in her daily life. Pt seemed to benefit from increased awareness of how pitfalls can impact her ability to progress. Narrative Note: []
--- NOTE | 2018-02-22 11:20 | BH.SGPN.GN ---
Behaviors/Verbalizations/Mental Status: [] Pt eye contact good, casually dressed, motor activity appropriate, speech normal rate and tone, mood anxious, congruent affect, thoughts linear and logical, no evidence of delusions or hallucinations. Client Response/Progress/Benefit: [] Client listened to others and share thoughts and feelings throughout discussion. Client identified her personal pitfalls to include: Not thinking she has any control, impulsivity, negative thoughts about self and others, cognitive distortions, and avoidance. Client could connect how the various pitfalls are interconnected. Client identified her focus is on increasing her sense of control by increasing her social activities outside the home and focusing on little projects on her property that she can take care of to show progress. Client demonstrating progress as evidenced by client's increased focus on positive thoughts and focusing on what she can do to take back control in her life. Client to continue IOP level of care to maintain gains, increase social connections, and prevent decompensation. Narrative Note: []
--- NOTE | 2018-02-22 15:34 | BH.MDN ---
Multi-Disciplinary Note - Note 45-min Individual Time Started:: 09:14 Date: 02/22/18 Purpose of session/treatment goals addressed:: Purpose of session was to assess current symptoms and stressors. Other topics: review treatment progress, review homework from last session, and discuss aftercare follow up. Eye Contact:: Good Motor Activity:: Appropriate Appearance:: Casual Speech:: Appropriate Mood:: Euthymic, Other - tearful at times Affect:: Congruent Thoughts:: Linear, Logical, No evidence of hallucinations/delusions noted Staff Interventions:: Therapist utilized open ended questions to elicit pt's current symptoms and stressors. Therapist reviewed pt's homework from last individual session. Therapist elicited pt's thoughts about treatment progress. Therapist elicited thoughts about discharge and aftercare. Provided support by using active listening and providing feedback. Client Response:: Pt reported she has followed through with the goals set from last individual session of potentially joining yoga and getting more information on joining a book club. Pt shared she attended a yoga class and is planning to attend at least twice a week because she really enjoyed it. Pt reported she went to the local [employer] and plans to attend the next book club to see if she will like it. Pt shared thngs at home have been improving with her . Pt stated the plan is still for [facility] of [facility]. Pt shared she believes things are less tense when around her because she finally communicated her thoughts and feelings to him. Pt reported she notes decrease in depression and anxiety. Pt reported she is continuing to work on challenging her negative thoughts, especially towards her . Pt shared she recognizes she would rather have a cordial relationship with her rather than being angry constantly. Pt reported she is willing to attend outpatient counseling so she has continued support and accountability. Pt stated she would like to continue IOP through the upcoming holiday and allow herself time to get appointment with an outpatient counselor. Risks/Concerns:: Pt denies suicidal ideation, plan or intention to date. Progress Toward Goals/Plan:: Pt demonstrating progress AEB pt reporting decreased depression and anxiety. Pt reported following through with attending yoga and planning to attend a book club in an effort to be more active and increase social connections. Pt also showing progress with increased awareness of her unhealthy thought patterns, with ability to challenge and reframe thoughts. Pt to continue IOP level of care to maintain gains, consitently apply healthy skills, and prevent decompensation. Time Stopped:: 10:00
--- NOTE | 2018-02-25 09:05 | BH.SGPN.GN ---
Behaviors/Verbalizations/Mental Status: [] Pt eye contact good, casually dressed, motor activity appropriate, speech normal rate and tone, mood euthymic, congruent affect, thoughts linear and intact, no evidence of delusions or hallucinations. Reviewed client?s symptom tracker, no signs of suicidal ideation, plan, or intent as of today. Client Response/Progress/Benefit: [] Client reported a negative is her sister in law and has been are staying the night over the holiday which client identified this is a stressor because she does not tend to get along with her [id number] . However client able to do this negative as a positive because it is encouraging her to clean the spare bedroom that he is currently sleeping and which client reports is a disaster. Client recognizes this upcoming stressor is going to help reduce a different stressor of having the spare bedroom to be a mess. Client reported a positive over the weekend was having a situation in which her and self were laughing at a situation together and it felt really relieving to have that since typically it has been anger and animosity when the 2 are together. Client shared another positive is going to the gym when needing to get a house when feeling stressed. Client demonstrated progress as evidenced by being able to see a negative and change into a positive as well as changed behavior and attitude when around her which seems to be positively impacting the relationship. Client to continue IOP level of care to maintain gains in preventing decompensation. Narrative Note: []
--- NOTE | 2018-02-25 10:10 | BH.SGPN.GN ---
Behaviors/Verbalizations/Mental Status: [] Eye contact is good. Motor activity is appropriate. Appearance is neat. Speech is Appropriate. Mood is anxious. Affect is congruent. Thoughts are linear and logical. No evidence of psychosis. Client Response/Progress/Benefit: [] Pt was an active participant in group activity and discussion. Provided some thoughts into the definition and benefits to social support in mental wellness. Also participated in group discussion on obstacles to seeking support. Did well during activity and was able to connect activity to social supports stating that asking questions, being specific, clarifying perspectives, and clarifying emotions are necessary when seeking support. Benefited from psychoeducation. Progress noted as pt was able to identify the role that support plays in recovery and some obstacles to utilizing support. Will continue in IOP to maintain gains and manage psycho-social stressors. Narrative Note: []
--- NOTE | 2018-02-25 11:40 | BH.MDN ---
Multi-Disciplinary Note - Note 30-min Individual Time Started:: 11:08 Date: 02/25/18 Purpose of session/treatment goals addressed:: Purpose of session was to assess current symptoms and stressors. Other topics: set up aftercare, and identify positives. Eye Contact:: Good Motor Activity:: Appropriate Appearance:: Neat Speech:: Appropriate Mood:: Euthymic Affect:: Congruent Thoughts:: Linear, Logical, No evidence of hallucinations/delusions noted Staff Interventions:: Therapist used open ended questions to elicit pt's current symptoms and stressors. Therapist elicited positives and processed upcoming stressor. Discussed upcoming discharge and provided handout listing various counselors that pt can choose to have continued counseling once discharges from IOP. Client Response:: Pt reported she is continuing to have decreased anxiety and depression. Pt shared relatinship with is improving because now can be around him without feeling anger and constantly being tense. Pt recognizes both her and self have changed the way they communicate to each other. Pt reported previously she would be nasty to her and viewed even nice comments as a negative. Pt identified her change in attitude has made a positive impact on how she sees herself and others. Pt reported the change in attitude has decreased her negativity and now she is trying to be more active and social throughout her day. Pt initially was stressed that her husbands sister and will be staying the night at pt's house for the holiday. However, pt reported she was able to reframe this situation from a negative to a positive by viewing it has the catalyst to getting the guest bedroom clean, which has been a stressor for pt. Pt reported she is continuing to attend yoga and [facility] Pt reported she will call the potential counselors provided to her today and set up an appointment for either next week or the week after. Risks/Concerns:: Pt denies suicidal ideation, plan or intention to date. Progress Toward Goals/Plan:: Pt demonstrating progress with reporting decrease depressive and anxious symptoms. Pt continuing to be mindful of her thought patterns and is able to reframe her thoughts on a more consistent basis. Pt reports changing the way she communicates to her which has postivitely impacted relationship and decreased anger in pt. Plan is for pt to discharge from [facility] level of care next week. Pt homework is to schedule counseling to have once discharges from [facility]. Pt to continue IOP to maintain gains, set up aftercare and prevent decompensation. Time Stopped:: 11:34
--- NOTE | 2018-02-25 11:53 | BH.MDN_ITS ---
Multi-Disciplinary Note - Note 30-min Individual Time Started:: 11:08 Date: 02/25/18 Purpose of session/treatment goals addressed:: Purpose of session was to assess current symptoms and stressors. Other topics: set up aftercare, and identify positives. Eye Contact:: Good Motor Activity:: Appropriate Appearance:: Neat Speech:: Appropriate Mood:: Euthymic Affect:: Congruent Thoughts:: Linear, Logical, No evidence of hallucinations/delusions noted Staff Interventions:: Therapist used open ended questions to elicit pt's current symptoms and stressors. Therapist elicited positives and processed upcoming stressor. Discussed upcoming discharge and provided handout listing various counselors that pt can choose to have continued counseling once discharges from IOP. Client Response:: Pt reported she is continuing to have decreased anxiety and depression. Pt shared relatinship with is improving because now can be around him without feeling anger and constantly being tense. Pt recognizes both her and self have changed the way they communicate to each other. Pt reported previously she would be nasty to her and viewed even nice comments as a negative. Pt identified her change in attitude has made a positive impact on how she sees herself and others. Pt reported the change in attitude has decreased her negativity and now she is trying to be more active and social throughout her day. Pt initially was stressed that her husbands sister and will be staying the night at pt's house for the holiday. However, pt reported she was able to reframe this situation from a negative to a positive by viewing it has the catalyst to getting the guest bedroom clean, which has been a stressor for pt. Pt reported she is continuing to attend yoga and is [facility]. Pt reported she will call the potential counselors provided to her today and set up an appointment for either next week or the week after. Risks/Concerns:: Pt denies suicidal ideation, plan or intention to date. Progress Toward Goals/Plan:: Pt demonstrating progress with reporting decrease depressive and anxious symptoms. Pt continuing to be mindful of her thought patterns and is able to reframe her thoughts on a more consistent basis. Pt reports changing the way she communicates to her which has postivitely impacted relationship and decreased anger in pt. Plan is for pt to discharge from [facility] level of care next week. Pt homework is to schedule counseling to have once discharges from [facility]. Pt to continue IOP to maintain gains, set up aftercare and prevent decompensation. Time Stopped:: 11:34
--- NOTE | 2018-02-26 09:10 | BH.SGPN.GN ---
Behaviors/Verbalizations/Mental Status: [] Eye contact is good. Motor activity is appropriate. Appearance is casual. Speech is Appropriate. Mood is anxious. Affect is congruent. Thoughts are linear and logical. No evidence of psychosis. Reviewed daily check in sheet and no reports of suicidal ideations or intent. Client Response/Progress/Benefit: [] Pt was an active participant in group discussion. Provided appropriate feedback to peers. Emotion for today is calm. Pt states that she has been feeling more at ease in the past week. Completed assignments that were given to her by counselor. Shared how she attended a book club last evening with the goals of increase social outlets. She was unsure of the club however is willing to keep an open mind. Progress noted as she feels that she is managing her emotions, specifically her anxiety more effectively. Benefited from group support and encouragement. Will continue in IOP to maintain gains and decrease psychosocial stressors. Narrative Note: []
--- NOTE | 2018-02-26 10:10 | BH.SGPN.GN ---
Behaviors/Verbalizations/Mental Status: []Client alert and oriented, neatly dressed and groomed. Eye contact good. Motor activity appropriate. Speech within normal limits. Affect constricted, mood euthymic. Thoughts linear, logical, no signs of hallucinations or delusions. Client Response/Progress/Benefit: [] Client responded well to session, active participant. Client appeared to connect with quote sharing ?communication is all practice.? Client stated she has been working on overcoming barriers by advocating for herself and communicating her needs which demonstrates progress. Client able to identify benefits of effective communication and helped the group discuss the four different communication styles. Client reported before coming to IOP she mostly used passive or passive-aggressive communication styles. However, client stated she now more assertive and can control her emotions while communicating with her . Client appeared to benefit from increasing awareness of how her communication style impacts her mental health and wellbeing. Progress noted per client?s report of improved communication and emotional regulation, but she can continue to increase consistent application of healthy coping skills.
--- NOTE | 2018-02-26 11:12 | BH.SGPN.GN ---
Behaviors/Verbalizations/Mental Status: []Client alert and oriented, neatly dressed and groomed. Eye contact good. Motor activity appropriate. Speech within normal limits. Affect constricted, mood anxious during activity, euthymic overall. Thoughts linear, logical, no signs of hallucinations or delusions. Client Response/Progress/Benefit: []Client responded well to session, providing to discussion. Client participated in the activity and at one point struggled to remember the name of something, but with support from the group was able to figure it out. Client stated, ?I was so anxious about getting it right my mind blanked.? The group used the situation to process how high emotions can be a barrier to communication. Client helped the group identify ways to improve communication including being specific, direct, and avoiding blaming statements. Client acknowledged that overall, she has improved with using more assertive communication with her . Client?s goal to increase effective communication is to continue to ?expressive my needs and advocate for myself? as client works on finding hobbies that support her mental health. Client appeared to benefit from reflecting on progress and learning strategies to improve communication. Progress noted in per client?s report of improved communication.
--- NOTE | 2018-03-04 09:05 | BH.SGPN.GN ---
Behaviors/Verbalizations/Mental Status: [] Eye contact is good. Motor activity is appropriate. Appearance is neat. Speech is Appropriate. Mood is euthymic. Affect is full. Thoughts are linear and logical. No evidence of psychosis. Reviewed daily check in sheet and no reports of suicidal ideations or intent. Client Response/Progress/Benefit: [] Pt was an active participant in group discussion. Emotion for today is relaxed. Group noticed that her check-ins for the past couple weeks have been calm and relaxed. Pt shared that she is not allowing others in her life to control her emotions or take up space in her head. States I'm not tapping into the negatives and believes that she is better able to manage emotions. Reports that she is completing self-care and focusing on activities that she wants to do (i.e. book club). Reports that her anxiety was elevated at one point over the holiday weekend however she utilized skills which were effective. Progress noted per pt report. Benefited from group support and feedback. Will continue in IOP to maintain gains. Expected discharge tomorrow. Narrative Note: []
--- NOTE | 2018-03-04 10:15 | BH.SGPN.GN ---
Behaviors/Verbalizations/Mental Status: [] Eye contact is good. Motor activity is appropriate. Appearance is casual. Speech is Appropriate. Mood is euthymic. Affect is full. Thoughts are linear and logical. No evidence of psychosis. Client Response/Progress/Benefit: [] Pt was an active participant in group discussion and activity. Participated in group discussion on the role of fear on mental health. Along with peers discussed how failure impacts motivation and mental health. Group identified that failure often leads to thinking such as; I'm not good enough, I've let other down, failure is a reflection of who I am, and feelings of being dumb or inadequate. Further group discussion on how fear of failing can impact behaviors, choices, and mental health. Pt benefited by being able to connect group activity with fear of failure by identifying how fear of failing impacts decisions and actions. During group activity made several connections even if I fail I still will learn something Will continue in IOP to maintain gains. Narrative Note: []
--- NOTE | 2018-03-04 11:16 | BH.SGPN.GN ---
Behaviors/Verbalizations/Mental Status: [Client alert and oriented. Appearance is casual, grooming well tended to - wearing eye liner. Eye contact good. Motor activity appropriate. Speech appropriate, positive input provided. Affect full. mood reflective, euthymic. Thoughts linear, logical, no signs of hallucinations or delusions.] Client Response/Progress/Benefit: [Client receptive of session, actively engaged. Reflected with group on barriers and supports identified in challenge activity during previous session and connected this with fear of failure in dx life. Identified how impatience has caused client to miss warning signs in her own life and resulted in making mistakes or setbacks. Client willing to complete reflection worksheet aimed at identifying how fear of failure is currently holding her back as well as barriers in overcoming this. Indicated currently fears failing at ?communicating openly/clearly about my needs for being successful? and reports current barriers include: worrying about others, being realistic about progress, not prioritizing self-care. Benefitted from working with group to identify strategies for overcoming fear of failure. Progress in levels of insight regarding internal barriers, as well as ability to distinguish one step she could take to begin overcoming fears. Plans to work on improving ability to identify what she truly needs and wants as well as increase ability to ?be kinder with myself?. ] Narrative Note: []
--- NOTE | 2018-03-05 09:06 | BH.SGPN.GN ---
Behaviors/Verbalizations/Mental Status: []Client alert and oriented, neatly dressed and groomed. Eye contact good. Motor activity appropriate. Speech rapid-talking over others at times. Affect congruent, mood euthymic, calm. Thoughts linear, logical, no signs of hallucinations or delusions. Reviewed client?s symptom tracker, no risk for suicidal ideation, plan, or intent as of 03/05/18. Client Response/Progress/Benefit: []Client responded well to session, providing encouragement to peers and reflecting on her last day. Client reports feeling ?balanced? today. Client shared ?I had a revelation while I was here, and it took looking inward.? Client?s advice to peers in the program was to have awareness and not let ?the outside? control one's personal emotions and thoughts. Client stated she is somewhat scared to leave as per client?s report she has become somewhat dependent on the groups. After gentle challenging from therapist, client acknowledged she deserves the credit as client applied the coping skills and made changes. Client identified maintaining a routine, using self-reflection, and focusing on what she can control as ways client can maintain progress once she discharges. Client appeared to benefit from gaining support from peers and acknowledging personal strengths. Client to discharge from [facility] as she has made significant progress.
--- NOTE | 2018-03-05 10:05 | BH.SGPN.GN ---
Behaviors/Verbalizations/Mental Status: [] Pt eye contact good, casually dressed, motor activity appropriate, speech normal rate and tone, mood euthymic, congruent affect, thoughts linear and intact, no evidence of delusions or hallucinations. Client Response/Progress/Benefit: []Pt contributed positively to group AEB many contributions to discussion and attentive to others. Pt reported when in a crisis it can be challenging to open your heart to others because sometimes pushing others away or isolation becomes the way people cope with crisis. Pt shared she recognizes the importance of being willing to open up to others because when closes others off it can exasperate symptoms. Pt reported when she is in a crisis she feels sadness, anger, and disappointment. pt shared she has hx of going from one crisis to another crisis in which she stayed stuck in some crises for a long time. Pt seemed to benefit from increased awareness of how she experiences crisis and how her reaction to crisis can result in a personal crisis. Narrative Note: []
--- NOTE | 2018-03-05 11:07 | BH.SGPN.GN ---
Behaviors/Verbalizations/Mental Status: [] Pt eye contact good, casually dressed, motor activity appropriate, speech normal rate and tone, mood euthymic, congruent affect, thoughts linear and intact, no evidence of delusions or hallucinations. Client Response/Progress/Benefit: []Pt listened attentively to others and shared thoughts and feelings throughout discussion. Pt identified top warning signs of a personal crisis includes: isolating/avoiding, increased sleep, crying more frequently, and increased negativity. Pt reported for her crisis survival kit she chose the following items that will remind her of either a positive skill or happy memory: rock that reminds her she is strong, letter C to remind her she is important, star to remind her she is doing the best she can, bubble to remind her to let things go, and a straw to remind her to use deep breathing. Pt seemed to benefit from creating a crisis kit that will remind her of skills that could help when noticing warning signs of a personal crisis. Pt to continue IOP level of care to decrease depression, increase self-confidence, and prevent decompensation. Narrative Note: []
--- NOTE | 2018-03-05 12:24 | BH.AFTERPLAN ---
Aftercare Plan - Demographics Treatment End Date:: 03/05/18 Psychiatrist:: Ines Rousseau Psychiatrist Office #:: [phone] [facility] Therapist:: Angella Guzman Therapist Phone #:: [phone] - Medications Home Medications: Home Medications Acamprosate Calcium 333 mg PO DAILY 02/08/18 Duloxetine Hcl [Cymbalta] 30 mg PO DAILY 02/08/18 - Plan Details Progress/Aftercare Plan Details:: You have made significant progress since starting IOP! You report decrease in anger, resentment, and animosity which has had a positive impact on your mind and body. You report experiencing a calm and relaxed state with decreased negativity. You are able to recognize unhelpful and distorted thoughts with ability to challenge those thoughts. Your anxiety and depressive symptoms have decreased significantly and you are getting back to you. Progress noted with getting out of the house and engaging in activities that you enjoy. Aftercare plan is to attend counseling at [facility] and return to nurse practitioner for medication management. Strategies for Success:: 1. Recognize and challenge the negative. 2. Look for positives in self and others. 3. Remember things take time, delay the need for immediate gratification. 4. Radical Acceptance - accept those things that are out of your control. 5. Get out of the house! 6. Social connections are important - reach out to others. 7. Continue to exercise, attend book club and yoga! 8. Communicate, communicate,communicate!! no one can read your mind and nothing gets accomplished by bottling thoughts and feelings. 9. Remember to take care of you! 10. Refer back to [facility] binder for refresher of skills. - Appointments Appointments/Referrals to Other Services:: 1. Odilia Nova - March 21 for counseling. 2. Padmini Santoro - April 2018 for medication management.
--- NOTE | 2018-03-05 12:31 | BH.IGGP_ITS ---
Aftercare Plan - Demographics Treatment End Date:: 03/05/18 Psychiatrist:: Ines Rousseau Psychiatrist Office #:: [phone] [facility] Therapist:: Angella Guzman Therapist Phone #:: [phone] - Medications Home Medications: Home Medications Acamprosate Calcium 333 mg PO DAILY 02/08/18 Duloxetine Hcl [Cymbalta] 30 mg PO DAILY 02/08/18 - Plan Details Progress/Aftercare Plan Details:: You have made significant progress since starting IOP! You report decrease in anger, resentment, and animosity which has had a positive impact on your mind and body. You report experiencing a calm and relaxed state with decreased negativity. You are able to recognize unhelpful and distorted thoughts with ability to challenge those thoughts. Your anxiety and depressive symptoms have decreased significantly and you are getting back to you. Progress noted with getting out of the house and engaging in activities that you enjoy. Aftercare plan is to attend counseling at [facility] and return to nurse practitioner for medication management. Strategies for Success:: 1. Recognize and challenge the negative. 2. Look for positives in self and others. 3. Remember things take time, delay the need for immediate gratification. 4. Radical Acceptance - accept those things that are out of your control. 5. Get out of the house! 6. Social connections are important - reach out to others. 7. Continue to exercise, attend book club and yoga! 8. Communicate, communicate,communicate!! no one can read your mind and nothing gets accomplished by bottling thoughts and feelings. 9. Remember to take care of you! 10. Refer back to [facility] binder for refresher of skills. - Appointments Appointments/Referrals to Other Services:: 1. Odilia Nova - March 21 for counseling. 2. Padmini Santoro - April 2018 for medication management.
--- NOTE | 2018-03-05 14:00 | BH.MDN ---
Multi-Disciplinary Note - Note 30-min Individual Time Started:: 12:07 Date: 03/05/18 Purpose of session/treatment goals addressed:: Purpose of session was to assess current symptoms and stressors. Other topics included: progress, strategies for success and aftercare. Eye Contact:: Good Motor Activity:: Appropriate Appearance:: Casual Speech:: Appropriate Mood:: Euthymic, Other - tearful Affect:: Congruent Thoughts:: Linear, Logical, No evidence of hallucinations/delusions noted Staff Interventions:: Therapist used open ended questions to elicit pt's current symptoms and stressors. Therapist explored pt's thoughts about treatment progress while in IOP. Therapist collaborated with pt to identify strategies and skills that will assist pt with maintaining progress. Therapist reviewed aftercare plan with pt. Client Response:: Pt reported she is feeling a little sad today that it is her last day in IOP because the program has become a comfort to her. Pt shared she can recognize a lot of treatment progress since starting IOP. Pt stated she has decreased anger, animosity and resentment towards her . Pt reported she no longer feels tense when around her . Recognizes her constant negativity made it extremely difficult for her to see any positive in her , but now is able to challenge and view life in a more positive light. Pt reported although she will not get back with her she does believe she can have a more cordial relationship with her instead of in constant state of anxiety and tenseness. Pt shared she is not experiencing any depressive or anxious symptoms. Is able to manage her emotions by thought challenge and other healthy skills. Pt reported she is more active throughout her day with going to [employer], attending yoga, and bookclub. Pt shared she is finally doing things for herself and is feeling more balanced in her life. Pt reported strategies to help her maintain success include: staying positive, remembering things take time, getting out of the house, using healthy skills, socializing, and self-care. Pt shared she has an appointmen to March 21 to see her counseling Odilia Nova. Pt reported she has appointment with her nurse practitioner for medication management in 2018. Risks/Concerns:: Pt denies suicidal ideation, plan or intention to date. Progress Toward Goals/Plan:: Pt has demonstrated progress with decreased anxiety, decreased depression and overall improvement in daily functioning. Pt has awareness of her distorted thought patterns with ability to challenge and reframe. Pt going to the gym several times a week, attending yoga, and joining a book club to stay active and socialize. Pt agreeable to follow up with counseling and medication management. Plan is for pt to discharge from [facility] today. Time Stopped:: 12:36
--- NOTE | 2018-03-05 14:28 | BH.MDN_ITS ---
Multi-Disciplinary Note - Note 30-min Individual Time Started:: 12:07 Date: 03/05/18 Purpose of session/treatment goals addressed:: Purpose of session was to assess current symptoms and stressors. Other topics included: progress, strategies for success and aftercare. Eye Contact:: Good Motor Activity:: Appropriate Appearance:: Casual Speech:: Appropriate Mood:: Euthymic, Other - tearful Affect:: Congruent Thoughts:: Linear, Logical, No evidence of hallucinations/delusions noted Staff Interventions:: Therapist used open ended questions to elicit pt's current symptoms and stressors. Therapist explored pt's thoughts about treatment progress while in IOP. Therapist collaborated with pt to identify strategies and skills that will assist pt with maintaining progress. Therapist reviewed aftercare plan with pt. Client Response:: Pt reported she is feeling a little sad today that it is her last day in IOP because the program has become a comfort to her. Pt shared she can recognize a lot of treatment progress since starting IOP. Pt stated she has decreased anger, animosity and resentment towards her . Pt reported she no longer feels tense when around her . Recognizes her constant negativity made it extremely difficult for her to see any positive in her , but now is able to challenge and view life in a more positive light. Pt reported although she will not get back with her she does believe she can have a more cordial relationship with her instead of in constant state of anxiety and tenseness. Pt shared she is not experiencing any depressive or anxious symptoms. Is able to manage her emotions by thought challenge and other healthy skills. Pt reported she is more active throughout her day with going to [employer], attending yoga, and bookclub. Pt shared she is finally doing things for herself and is feeling more balanced in her life. Pt reported strategies to help her maintain success include: staying positive, remembering things take time, getting out of the house, using healthy skills, socializing, and self- care. Pt shared she has an appointmen to March 21 to see her counseling Odilia Nova. Pt reported she has appointment with her nurse practitioner for medication management in 2018. Risks/Concerns:: Pt denies suicidal ideation, plan or intention to date. Progress Toward Goals/Plan:: Pt has demonstrated progress with decreased anxiety, decreased depression and overall improvement in daily functioning. Pt has awareness of her distorted thought patterns with ability to challenge and reframe. Pt going to the gym several times a week, attending yoga, and joining a book club to stay active and socialize. Pt agreeable to follow up with counseling and medication management. Plan is for pt to discharge from [facility] today. Time Stopped:: 12:36
--- NOTE | 2018-03-05 14:28 | BH.DS ---
Discharge Summary - Demographics Date of Admission:: 01/04/18 Discharge Date: 03/05/18 Presenting Problems at Admission:: Patient referred to the behavioral health [facility] by primary care physician due to worsening depression over the past 1-2 months. She reported a long-standing history of depression throughout my life. Depression was exacerbated by marital unhappiness and increased alcohol consumption. She reported consuming 3-4 beers per day over the past month. She endorsed a depressed mood with lack of motivation, anhedonia, decreased energy, and passive thoughts of . She stated I wonder if it really matters. Discharge Diagnoses:: Major depressive disorder recurrent moderate F 33.2. Anxiety unspecified. Alcohol use disorder Reason for Discharge:: Pt has made significant progress on her treatment goals and no longer meets medical necessity for [facility] level of care. - Treatment Progress During Treatment & Response: Pt has made progress with decreasing depressive symptoms AEB pt scores on DSM 5 cross-cutting measure. At intake pt scored a 5 out of 8 for the depression scale with 8 being severe and at discharge pt scored a 0 out of 8. This demonstrates a significant reduction in depressive symptoms. Pt has also decreased anxious symptoms AEB pt's scores on DSM 5 measure. At intake pt scored a 2 out of 12 with 12 being severe on anxiety scale and at discharge pt scored a 1 out of 12. This also demonsrates a reduction in anxious symptoms. Pt also shown progress with increased awareness of distorted thought patterns. Pt able to defeat and reframe unhelpful thinking. Pt reports being able to see positive in self and others. Pt reports significant decrease in use of alcohol, denies use of alcohol as a form of coping. Pt responded well to [facility] AEB contributions during group discussion, engaging in activities, and open during individual sessions.pt did initially struggle with generalization of skills, seemed to gain insight but lacked follow through. Towards last couple weeks of pt's time in [facility] she showed increased generalization of skills and applying skills more consistently. Issues Still to be Addressed:: Pt could benefit from continued focus on managing emotions and conflict resolution with her . Pt needs continued work on identifying and challenging negative thoughts about self and others. Pt could benefit from exploring the concept of Radical Acceptance further. Continued work on emotional regulation and use of healthy coping skills. Discharge Recommendations/Instructions:: Pt is recommended to follow up with outpatient counseling Odilia Nova and follow up with Padmini Santoro for medication management. It is also encouraged pt continue to attend [employer], yoga, and book club to help pt get out of the house and increase socialization. Discharge Handout: Complete Discharge Handout with client on aftercare options and continuity of care.
--- NOTE | 2018-03-05 15:13 | BH.DS_ITS ---
Discharge Summary - Demographics Date of Admission:: 01/04/18 Discharge Date: 03/05/18 Presenting Problems at Admission:: Patient referred to the behavioral health [facility] by primary care physician due to worsening depression over the past 1-2 months. She reported a long-standing history of depression throughout my life. Depression was exacerbated by marital unhappiness and increased alcohol consumption. She reported consuming 3-4 beers per day over the past month. She endorsed a depressed mood with lack of motivation, anhedonia, decreased energy, and passive thoughts of . She stated I wonder if it really matters. Discharge Diagnoses:: Major depressive disorder recurrent moderate F 33.2. Anxiety unspecified. Alcohol use disorder Reason for Discharge:: Pt has made significant progress on her treatment goals and no longer meets medical necessity for [facility] level of care. - Treatment Progress During Treatment & Response: Pt has made progress with decreasing depr essive symptoms AEB pt scores on DSM 5 cross-cutting measure. At intake pt scored a 5 out of 8 for the depression scale with 8 being severe and at discharge pt scored a 0 out of 8. This demonstrates a significant reduction in depressive symptoms. Pt has also decreased anxious symptoms AEB pt's scores on DSM 5 measure. At intake pt scored a 2 out of 12 with 12 being severe on anxiety scale and at discharge pt scored a 1 out of 12. This also demonsrates a reduction in anxious symptoms. Pt also shown progress with increased awareness of distorted thought patterns. Pt able to defeat and reframe unhelpful thinking. Pt reports being able to see positive in self and others. Pt reports significant decrease in use of alcohol, denies use of alcohol as a form of coping. Pt responded well to [facility] AEB contributions during group discussion, engaging in activities, and open during individual sessions.pt did initially struggle with generalization of skills, seemed to gain insight but lacked follow through. Towards last couple weeks of pt's time in [facility] she showed increased generalization of skills and applying skills more consistently. Issues Still to be Addressed:: Pt could benefit from continued focus on managing emotions and conflict resolution with her . Pt needs continued work on identifying and challenging negative thoughts about self and others. Pt could b enefit from exploring the concept of Radical Acceptance further. Continued work on emotional regulation and use of healthy coping skills. Discharge Recommendations/Instructions:: Pt is recommended to follow up with outpatient counseling Odilia Rohini and follow up with Padmini Santoro for medication management. It is also encouraged pt continue to attend [employer]point, yoga, and b ook club to help pt get out of the house and increase socialization. Discharge Handout: Complete Discharge Handout with client on aftercare options and continuity of care.
== END 2018-03-05 14:00 | disposition home or self-care (01) ==
LOC: BHIOP 09:00
PROVIDERS: Family Provider Nurse Practitioner; PCP Nurse Practitioner; Visit Provider Psychiatry & Neurology Psychiatry
DX: F33.2 Major depressive disorder, recurrent severe without psychotic features (principal); F41.9 Anxiety disorder, unspecified; F10.20 Alcohol dependence, uncomplicated
CPT/HCPCS: H0035; 90832; 90834; 90853

== ENCOUNTER → 2018-12-06 | Outpatient (CLI) | payer MEDICARE, SELFPAY ==
[2018-07-08 16:18] VITALS: BMI 22.0
--- NOTE | 2018-12-06 15:15 | BI_ITS ---
MAMMOGRAPHY - BILATERAL SCREENING REASON FOR EXAM: Female, 73 years old. Routine annual screening examination. PERTINENT HISTORY: Non-contributory. TECHNIQUE: Digital bilateral breast maria e (3D mammographic acquisition) in the CC and MLO projections. 2-D mediolateral oblique (MLO) and craniocaudad (CC) views of both breasts were obtained. CAD: Full Field Digital Mammography with Computer Added Detection was performed. COMPARISON: Comparison is made with prior study dated November 22, 2017 and November 21, 2016. FINDINGS: Breast Composition: The breasts are heterogeneously dense, which may obscure small masses. There are no dominant masses or suspicious calcifications. No other significant abnormalities are identified. There has been no significant change since the prior study. BI/SCREEN MAMM (CAD) W/MARIA E BILAT IMPRESSION: Stable bilateral screening mammogram. Yearly follow-up mammogram recommended. (A) ASSESSMENT CATEGORY: BIRADS Category 1: Negative. A letter regarding these results will be sent to the patient by the facility within 30 days. Approximately 10% of breast cancers are not detected by mammography. A normal mammogram should not delay biopsy of a clinically suspicious abnormality. [id number] Electronically Signed: Dimitry Franco, at 8:30 EDT , Service support ,
== END | disposition home or self-care (01) ==
LOC: OPBI 15:13
PROVIDERS: Family Provider Nurse Practitioner; PCP Nurse Practitioner; Referring Provider Nurse Practitioner; Visit Provider Nurse Practitioner
DX: Z12.31 Encounter for screening mammogram for malignant neoplasm of breast (principal)
CPT/HCPCS: 77063; 77067

== ENCOUNTER → 2019-02-25 15:00 | Outpatient (CLI) | payer MEDICARE, SELFPAY ==
[2019-01-10 11:35] VITALS: BMI 22.0
[2019-02-25 15:19] VITALS: BP 124/72; PULSE 65; RESP 16; TEMP 36.9; O2SAT 98; BMI 21.6
--- NOTE | 2019-02-25 15:33 | SDCEKG_ITS ---
Test Reason : Blood Pressure : / mmHG Vent. Rate : 060 BPM Atrial Rate : 060 BPM P-R Int : 180 ms QRS Dur : 090 ms QT Int : 468 ms P-R-T Axes : 038 031 033 degrees QTc Int : 468 ms Normal sinus rhythm Normal ECG Confirmed by CARROL CAMPBELL, ORA ([id number]), book or script editor CORTEZ MARTINEZ ([id number]) on 03/03/2019 9:50:47 AM Referred By: Jarrell Welsh Confirmed By:ORA BRANHAM MD
[2019-02-25 16:34] LABS: Absolute Lymphocyte Count 1.82 X10^3/uL (0.83-4.51); Absolute Neutrophil Count 4.3 X10^3/uL (2.0-7.7); Basophil# 0.06 X10^3/uL; Basophil% 0.9 % (0-1); Eosinophils% 1.4 % (0-5); Hematocrit 44.6 % (37-47); Hemoglobin 14.3 g/dL (12.0-15.0); Lymphocyte # 1.82 X10^3/ul (4.0); Lymphocyte % 26.3 % (19-41); Mean Corp Hgb Conc 32.1 g/dL (32-36); Mean Corpuscular Hgb 29.7 pg (27.0-32.0); Mean Corpuscular Volume 92.5 fL (81-99); Mean Platelet Vol. 9.2 fl (6.2-12.0); Monocyte% 8.7 % (0-10); NRBC Flagged by Analyzer 0 % (0-5); Neutrophil # 4.31 X10^3/uL (2.7-7.7); Neutrophil % 62.4 % (47-70); Platelet Count 403 K/mm3 (150-450); RBC Distribution Width CV 13.6 % (11.6-14.6); RBC Distribution Width SD 46.5 fl (35.1-43.9); Red Blood Count 4.82 M/mm3 (4.2-5.4); White Blood Count 6.9 K/mm3 (4.4-11.0)
[2019-02-25 16:54] LABS: Anion Gap 7 (5-15); BUN 10 mg/dL (7-18); BUN/Creat Ratio 12.5 RATIO (10-20); Calcium,Total 9.6 mg/dL (8.5-10.1); Chloride 99 mmol/L (98-107); EST Glomerular Filtration Rate 74 mL/min (>60); Est Glom Filt Rate - Afr Amer 90 mL/min (>60); Estimated Creatinine Clearance 50.26 ml/min; Glucose 88 mg/dL (74-106); Potassium 3.5 mmol/L (3.5-5.1); Sodium Level 134 mmol/L (136-145)
== END ==
PROVIDERS: Family Provider Nurse Practitioner; PCP Nurse Practitioner; Referring Provider Orthopaedic Surgery; Visit Provider Orthopaedic Surgery
DX: Z01.810 Encounter for preprocedural cardiovascular examination (principal); Z01.818 Encounter for other preprocedural examination
CPT/HCPCS: 36415; 80048; 85025; 87081; 93005

== ENCOUNTER 2019-05-19 07:42 | Inpatient (IN) | payer MEDICARE, SELFPAY ==
[2019-03-05 12:40] VITALS: BMI 21.6
[2019-05-08 15:21] VITALS: BP 132/77; PULSE 63; RESP 16; TEMP 36.8; O2SAT 98; BMI 21.5
[2019-05-08 16:09] LABS: Absolute Lymphocyte Count 1.58 X10^3/uL (0.83-4.51); Absolute Neutrophil Count 3.1 X10^3/uL (2.0-7.7); Basophil# 0.06 X10^3/uL; Basophil% 1.1 % (0-1); Eosinophil# 0.09 X10^3/uL; Eosinophils% 1.6 % (0-5); Hematocrit 42.2 % (37-47); Hemoglobin 13.9 g/dL (12.0-15.0); Lymphocyte # 1.58 X10^3/ul (4.0); Lymphocyte % 28.8 % (19-41); Mean Corp Hgb Conc 32.9 g/dL (32-36); Mean Corpuscular Hgb 30.2 pg (27.0-32.0); Mean Corpuscular Volume 91.5 fL (81-99); Mean Platelet Vol. 8.6 fl (6.2-12.0); Monocyte# 0.66 X10^3/uL; NRBC Flagged by Analyzer 0 % (0-5); Neutrophil # 3.08 X10^3/uL (2.7-7.7); Neutrophil % 56.1 % (47-70); Platelet Count 395 K/mm3 (150-450); RBC Distribution Width CV 13.4 % (11.6-14.6); RBC Distribution Width SD 45.2 fl (35.1-43.9); Red Blood Count 4.61 M/mm3 (4.2-5.4); White Blood Count 5.5 K/mm3 (4.4-11.0)
[2019-05-08 16:48] LABS: Anion Gap 6 (5-15); BUN 8 mg/dL (7-18); BUN/Creat Ratio 10.5 RATIO (10-20); Calcium,Total 9.5 mg/dL (8.5-10.1); Chloride 97 mmol/L (98-107); Creatinine, Serum 0.76 mg/dL (0.55-1.02); EST Glomerular Filtration Rate 79 mL/min (>60); Est Glom Filt Rate - Afr Amer 95 mL/min (>60); Estimated Creatinine Clearance 41.97 ml/min; Glucose 80 mg/dL (74-106); Potassium 3.5 mmol/L (3.5-5.1); Sodium Level 131 mmol/L (136-145)
[2019-05-09 11:30] LABS: Thyroid Stim Hormone (TSH) 1.96 uIU/mL (0.358-3.74)
[2019-05-19] VITALS (15 sets, daily range): BP systolic 78–132; BP diastolic 45–77; PULSE 60–77; RESP 14–18; TEMP 35.9–36.8; O2SAT 95–100; BMI 21.2
[2019-05-19 08:15] LABS: Bedside Glucose 152 mg/dL (70-110)
[2019-05-19] MEDS: Acetaminophen 500 MG Tablet 1000 MG PO ×2 (08:24→21:54)
[2019-05-19] MEDS: Gabapentin 600 MG Tablet PO (08:25)
[2019-05-19] MEDS: Scopolamine 1mg/72hr Patch 1 PATCH TRANSDERM. (08:25)
[2019-05-19] MEDS: Lactated Ringers 1,000 ML 999 ML IV (08:30)
[2019-05-19] MEDS: Magnesium Sulfate 4gm/100mL 4 GM/100 ML IV.SOLN. IV (08:35)
--- NOTE | 2019-05-19 10:00 | HIP_PTH ---
PATIENT: RORY MALDONADO LOC: MS3 U#:[id number] AGE/SX: 73/F ROOM: SD321 RE05/19/[address]: Dr. Jarrell Welsh DO : 1945 BED: 1 DIS: 05/20/2019 SPEC #: [id number] RECD: 05/19/19 14:15 STATUS: JUNO RELuca #: [id number] GRACY: 05/19/19 10:[address]: Jarrell Welsh DEPT: SURGICAL PATHOLOGY RECD BY: Philomena Burk ENTERED: 05/19/19 14:16 SP TYPE: TOTAL HIP OTHR DR: Padmini Santoro, REVERSER-C Tissues: Hip, NOS Procedures: Decalcification bone/plaque Surgery Specimen Level IV HEADER OPERATION: Total hip replacement PRE-OP DIAGNOSIS: Unilateral primary osteoarthritis right hip TISSUE SUBMITTED: Bone and soft tissue right hip MICROSCOPIC DIAGNOSIS Bone and soft tissue of right hip, total hip resection: Consistent with degenerative joint disease. Mild synovial hyperplasia. AM:sharad 05/22/19 MICROSCOPIC DESCRIPTION Slides are reviewed. GROSS DESCRIPTION Received is one container labeled with the patient's name and designated bone and soft tissue hip, right. The specimen consists of a berrios femoral head measuring 5.8 x 4 x 4 cm. The articular surface displays prominent osteophyte formation and eburnation. Also present in the specimen container are multiple irregular fragments of bone reamings and pink-yellow soft tissue measuring in aggregate 9.5 x 6 x 1 cm. Cake Puller sections are submitted in two cassettes as follows: 1 - soft tissue, 2 - bone after decalcification. / AM:sharad 05/19/19 TC:5 CPT: 59685, 71442
[2019-05-19] MEDS: Lactated Ringers 1,000 ML 75 ML IV (12:00)
--- NOTE | 2019-05-19 12:14 | RAD_ITS ---
STUDY: X-RAY - PELVIS AND RIGHT HIP REASON FOR EXAM: Female, 73 years old. Post op right hip TECHNIQUE: 1 views of the pelvis and hip. COMPARISON: None. FINDINGS: In view of both hips and a spot of the right is provided. There is a right hip arthroplasty subcutaneous gas surgical skin sergio. There is a left hip arthroplasty. Both appear to be in anatomic position and alignment. RAD/Hip Min 2 Views (Portable) IMPRESSION: Bilateral hip arthroplasties. Recent postoperative changes right hip. Electronically Signed: Savanna Nevarez MD at 13:47 EST Tel , Service support ,
[2019-05-19 12:43] LABS: Hemoglobin 12.4 g/dL (12.0-15.0); Mean Corp Hgb Conc 32.6 g/dL (32-36); Mean Corpuscular Hgb 30.5 pg (27.0-32.0); Mean Corpuscular Volume 93.6 fL (81-99); Mean Platelet Vol. 8.5 fl (6.2-12.0); Platelet Count 341 K/mm3 (150-450); RBC Distribution Width CV 13.4 % (11.6-14.6); Red Blood Count 4.06 M/mm3 (4.2-5.4); White Blood Count 11.3 K/mm3 (4.4-11.0)
[2019-05-19 12:51] LABS: Anion Gap 5 (5-15); BUN 14 mg/dL (7-18); BUN/Creat Ratio 18.8 RATIO (10-20); Calcium,Total 8.5 mg/dL (8.5-10.1); Chloride 104 mmol/L (98-107); Creatinine, Serum 0.74 mg/dL (0.55-1.02); EST Glomerular Filtration Rate 81 mL/min (>60); Est Glom Filt Rate - Afr Amer 98 mL/min (>60); Estimated Creatinine Clearance 41.97 ml/min; Glucose 143 mg/dL (74-106); Potassium 3.7 mmol/L (3.5-5.1); Sodium Level 136 mmol/L (136-145)
[2019-05-19] MEDS: Lactated Ringers 1,000 ML 125 ML IV ×2 (13:43→21:53)
--- NOTE | 2019-05-19 16:25 | PCM.OPRPT ---
Report of Operation Date of Procedure: 05/19/19 Pre-Operative Diagnosis: OA right hip Post-Operative Diagnosis: same Surgery/Procedure Performed:: Right THR Description of Surgical Findings:: Primary Surgeon/Physician: Jarrell Welsh promotor group ticket sales: Fidel Brownlee PA-C promotor group ticket sales: Pre-Operative Diagnosis: OA right hip Post-Operative Diagnosis: same Surgery/Procedure Performed: Right THR Estimated Blood Loss: 75 cc Specimen's Removed: bone Type of Anesthesia: spinal ASA Class: ASA3 Severe Disease Implants: [Praful Tritanium cup size 48 mm with MDM liner, Size 2 Accolade 2 stem, 132 degree neck, +0] Surgical Indications: Patient has severe end-stage osteoarthritic changes in the [right ] hip. They have failed conservative measures including activity modification, anti-inflammatories, use of assistive devices. This to the point where the pain affects their ability to enjoy life and complete activities of daily living without discomfort. Patient has elected to undergo the above procedure Procedure Description: The patient was greeted in the preoperative area the [right ] hip was marked with surgical marker preoperative antibiotics administered. The patient was then taken to or suite in stable condition. Preoperative tranexamic acid was also utilized. Once the patient was placed in the supine position on the operating room table and once adequate anesthesia was obtained they were then placed in the lateral decubitus position with the surgical hip facing the field. All bony prominences were well-padded. A commercial hip position was utilized. The appropriate extremity was then prepped and draped in usual sterile fashion. Ioban was placed on the skin. Surgical timeout was performed and surgery was commenced. A standard posterior approach to the hip was then performed. Incision was planned and carried out with a #10 blade scalpel. Dissection was then carried length of the incision to the IT band which was split proximally and distally. A Charnley retractor was then placed for soft tissue retraction exposing the piriformis. A standard posterior capsulotomy was performed. Severe eburnation of bone was noted and periarticular osteophytes were identified consistent with severe end-stage osteoarthritis. A femoral neck osteotomy guide was used to noah the proximal femur. A femoral osteotomy was then created approximately 1 fingerbreadth above the lesser trochanter. This was measured and placed on the back table. Once this was complete acetabular retractors were placed anteriorly and posteriorly. Labrum was then removed from the acetabulum exposing the entire cup of the acetabulum. Sequential reaming was then commenced and the acetabulum was medialized and sequentially widened in order to accommodate appropriate size cup. The acetabular cup was then impacted into position to the appropriate depth referencing approximately 30? anteversion and 45? of inclination. Excellent purchase was obtained. An appropriate size MDM liner was then placed. Attention was then turned to the femoral preparation. The hip was placed in the 90/90 position and a lateralizing box osteotome was utilized. Femoral starting awl was used followed by sequential broaching to the appropriate size. Excellent purchase was obtained with the stem no stem subsidence and excellent rotational stability was confirmed. A calcar reamer was then used in the trial head neck was placed on the broach. The hip was then located and taken through full range of motion flexion internal and external rotation as well as extension. Excellent stability was noted no impingement was identified of the components and leg lengths appear to be appropriate. The hip was at this point dislocated and the trial femoral components were removed. The final femoral stem was then implanted and impacted to the appropriate depth. Again excellent purchase was obtained no stem subsidence or rotational instability was noted. The hip was once again trialed and confirmation of leg length and stability was performed. Soft tissue tension also appeared to be appropriate. At this point the hip was redislocated and the trunnion was cleaned and dried meticulously in the appropriate size MDM femoral head was placed on the clean dry trunnion using a 12/14 Rao taper. The hip was once again relocated and again taken through full range of motion. I did inject a cocktail of postoperative pain medication in the deep and superficial tissues. Copious irrigation was performed. Anatomic closure of the piriformis tendon was performed through drill holes in the greater trochanter. A #1 Vicryl 0 Vicryl was utilized in subcutaneous tissue and surgical sergio were placed in the skin. A well-padded nonadherent dressing was applied. Patient was taken to PACU in stable condition. No complications were identified. Will follow standard postop protocol for total hip arthroplasty. My assistant corporation counsel played a vital role in the procedure beginning with positioning, holding retraction of soft tissues, positioning the leg to optimize visualization during the procedure and assisting with wound closure. promotor group ticket sales: Juan Brownlee Type of Anesthesia:: Spinal Anesthesiologist: DeHorta,Ryan Estimated Blood Loss (mL): 75cc - Admit VTE Documentation VTE Present on Admission: No VTE Mechan Device Prophylaxis: SCD's, Thigh High KYLAH Hose VTE Pharm Prophylaxis ordered?: Yes
[2019-05-19] MEDS: Ondansetron 4 MG/2 ML Vial IV (20:29)
[2019-05-19] MEDS: Senna/Docusate Sodium 1 Tablet 2 TABLET PO (21:53)
[2019-05-19] MEDS: Atorvastatin Calcium 10 MG Tablet 5 MG PO (21:53)
[2019-05-20 03:47] VITALS: BP 133/70; PULSE 64; RESP 16; TEMP 36.4; O2SAT 95
[2019-05-20] MEDS: 0.9% Saline Lock 10 ML Syringe IV (05:20)
[2019-05-20] MEDS: Acetaminophen 500 MG Tablet 1000 MG PO ×2 (05:22→14:05)
[2019-05-20 05:54] LABS: Hematocrit 33.4 % (37-47); Hemoglobin 11.1 g/dL (12.0-15.0); Mean Corp Hgb Conc 33.2 g/dL (32-36); Mean Corpuscular Hgb 31.1 pg (27.0-32.0); Mean Corpuscular Volume 93.6 fL (81-99); Mean Platelet Vol. 8.5 fl (6.2-12.0); Platelet Count 300 K/mm3 (150-450); RBC Distribution Width CV 13.3 % (11.6-14.6); RBC Distribution Width SD 45.9 fl (35.1-43.9); Red Blood Count 3.57 M/mm3 (4.2-5.4); White Blood Count 7.3 K/mm3 (4.4-11.0)
[2019-05-20 06:12] LABS: Anion Gap 6 (5-15); BUN 11 mg/dL (7-18); BUN/Creat Ratio 15.9 RATIO (10-20); Calcium,Total 8.5 mg/dL (8.5-10.1); Chloride 100 mmol/L (98-107); Creatinine, Serum 0.69 mg/dL (0.55-1.02); EST Glomerular Filtration Rate 88 mL/min (>60); Est Glom Filt Rate - Afr Amer 106 mL/min (>60); Estimated Creatinine Clearance 41.97 ml/min; Glucose 90 mg/dL (74-106); Potassium 3.4 mmol/L (3.5-5.1); Sodium Level 135 mmol/L (136-145)
[2019-05-20 07:29] VITALS: PULSE 70
--- NOTE | 2019-05-20 08:13 | PN.ORTHO_ITS ---
Subjective: Patient sitting at bedside eating breakfast. Patient states pain is well- managed. Patient denies chest pain, shortness of breath, calf pain, nausea vomiting. She has no other complaints at this time. Patient states she is ready for discharge home. - Physical Exam Vitals/I&O's: Vital Signs Temp Pulse Resp BP Pulse Ox 97.6 F L 70 16 133/70 H 95 05/20/19 03:47 05/20/19 07:29 05/20/19 03:47 05/20/19 03:47 05/20/19 03:47 Oxygen Flow Rate (L/min) 6 Oxygen Delivery Method Room Air Weight: 55.973 kg Body Mass Index (BMI) 21.2 Intake and Output for Last 24 Hours 05/18/19 05/19/19 05/20/19 23:59 23:59 23:59 Intake Total 3017.49 / 3337.49 1260.08 / 1260.08 Balance 3017.49 / 3337.49 1260.08 / 1260.08 General: Alert, Oriented x3, Cooperative HEENT: PERRLA Oral: Moist Mucosa Cardiovascular: Regular rate Neurological: Cranial nerves II-XII grossly intact Psych/Mental Status: Normal Affect, Alert and oriented to time, place, person, mood and affect Laboratory Results 05/19/19 08:09: POC Glucose 152 H 05/19/19 12:30: WBC 11.3 H, RBC 4.06 L, Hgb 12.4, Hct 38.0, MCV 93.6, MCH 30.5, MCHC 32.6, RDW Std Deviation 46.0 H, RDW Coeff of Jam 13.4, Plt Count 341, MPV 8.5 05/19/19 12:30: Sodium 136, Potassium 3.7, Chloride 104, Carbon Dioxide 27.0, Anion Gap 5, BUN 14, Creatinine 0.74, Estim Creat Clear Calc 41.97, Est GFR (MDRD) Af Amer 98, Est GFR (MDRD) Non-Af 81, BUN/Creatinine Ratio 18.8, Glucose 143 H, Calcium 8.5 05/20/19 05:20: WBC 7.3, RBC 3.57 L, Hgb 11.1 L, Hct 33.4 L, MCV 93.6, MCH 31.1, MCHC 33.2, RDW Std Deviation 45.9 H, RDW Coeff of Jam 13.3, Plt Count 300, MPV 8.5 05/20/19 05:20: Sodium 135 L, Potassium 3.4 L, Chloride 100, Carbon Dioxide 29.0, Anion Gap 6, BUN 11, Creatinine 0.69, Estim Creat Clear Calc 41.97, Est GFR (MDRD) Af Amer 106, Est GFR (MDRD) Non-Af 88, BUN/Creatinine Ratio 15.9, Glucose 90, Calcium 8.5 Current Medications Acetaminophen (Tylenol) 1,000 mg PO Q8 [facility] Last Admin: 05/20/19 05:22 Dose: 1,000 mg Documented by: Amlodipine Besylate (Norvasc) 5 mg PO DAILY [facility] Aspirin (Aspirin, Baby) 81 mg PO BID [facility] Atorvastatin Calcium (Lipitor) 5 mg PO QHS [facility] Last Admin: 05/19/19 21:53 Dose: 5 mg Documented by: Cholecalciferol (Vitamin D) 2,000 unit PO DAILY [facility] Duloxetine HCl (Cymbalta) 40 mg PO DAILY [facility] Hydrochlorothiazide (Hctz) 25 mg PO DAILY [facility] Insulin Human Lispro (Humalog Kwikpen (Bkc)) 1 - 6 unit SC Q4H PRN PRN; Protocol PRN Reason: BG>/= 180, SEE PROTOCOL Metoprolol Tartrate (Lopressor (Beta Pio)) 25 mg PO DAILY [facility] Nutritional Formula (Lactose Free) (Ensure Enlive) 120 ml PO 4X/DAY [facility] Last Admin: 05/19/19 21:52 Dose: 120 ml Documented by: Ondansetron HCl (Zofran) 4 mg IV Q8H PRN PRN PRN Reason: NAUSEA Last Admin: 05/19/19 20:29 Dose: 4 mg Documented by: Oxycodone HCl (Oxyir) 5 - 10 mg PO Q4H PRN PRN PRN Reason: Pain Score 4-10/10 Promethazine HCl (Phenergan) 12.5 mg IM Q6H PRN PRN; Protocol PRN Reason: NAUSEA/VOMITING Senna/Docusate Sodium (Senokot-S, [place]-Colace) 2 tablet PO BID [facility] Last Admin: 05/19/19 21:53 Dose: 2 tablet Documented by: Sodium Chloride () 10 - 40 ml IV UD PRN PRN Reason: SALINE FLUSH Last Admin: 05/20/19 05:20 Dose: 10 ml Documented by: Medical Necessity - Tobacco Use Smoking Status: Former smoker Assessment/Plan All Active Problems (Last Updated 07/08/18 @ 16:26 by Loly Montelongo) Impacted cerumen of right ear (Acute) Status post right total hip arthroplasty Plan 1. Continue all pain medications as prescribed 2. Continue physical therapy weight-bear as tolerated with walker. 3. Aspirin 81 mg 1 p.o. every 12 hours x30 days for postop DVT prophylaxis 4. Encourage incentive spirometry 5. Continue physical therapy outpatient 6. Discharge home today
--- NOTE | 2019-05-20 08:20 | PCM.DC.THR ---
Discharge Diet: No Restrictions Discharge Activity: May Drive, May Shower, Use Walker May shower in (days): 3 - only if incision is dry and without drainage. Do NOT soak/submerge in tub/pool/duke/stream/hot tub. May resume sexual activity in: No Restrictions Ice area for (Minutes): 20 - every hour while awake Weight Bearing Status: Weight bearing as tolerated Lifting Restrictions: 20 pounds Elevate: Operative Extremity Call your doctor if your incision/area has: Continuous Slow Oozing, Sudden Increased Bleeding, Increased Pain/ Swelling, Increased Redness, Foul Smelling Discharge Call your doctor if you observe: Fever of 101 or Higher, Inability to urinate, Inability to have a bowel movement, Shortness of breath, Fainting spells, Chest pain, Increased palpitations (irregular heartbeat), Calf discomfort, Uncontrolled pain Change Dressing in (Days):: 0 - Change daily and as needed. Remove Dressing in (days):: 8 Cleanse incision/area with: Soap & Water Allergies/Adverse Reactions: Allergies Penicillins [PCN] Allergy (Verified 05/19/19 08:15) Hives Medications to take at Discharge amlodipine 5 mg tablet 5 mg PO DAILY 30 Days #30 tab 07/08/18 duloxetine 40 mg capsule,delayed release 40 mg PO DAILY 30 Days #30 cap 07/08/18 hydrochlorothiazide 25 mg tablet 25 mg PO DAILY 30 Days #30 tab 07/08/18 simvastatin 10 mg tablet 10 mg PO QHS 30 Days #30 tab 07/08/18 Cholecalciferol (Vitamin D3) [Vitamin D3] 2,000 unit PO DAILY 02/25/19 Metoprolol Tartrate 25 mg PO DAILY 02/25/19 Acetaminophen [Tylenol] 1,000 mg PO Q8 #90 tab 05/20/19 Aspirin [Aspirin, Baby] 81 mg PO BID #60 tab.chew 05/20/19 Oxycodone [Oxyir] 5 - 10 mg PO Q6H PRN PRN 7 Days #56 tablet 05/20/19 Senna/Docusate Sodium [Senokot-S] 2 tablet PO BID tablet 05/20/19 The following prescriptions were given: Aspirin [Aspirin, Baby] 81 mg PO BID #60 tab.chew Transmission Status: Pending to [facility] Oxycodone [Oxyir] 5 - 10 mg PO Q6H PRN PRN 7 Days #56 tablet PRN Reason: Pain Score 4-1010 Transmission Status: Sent to [facility] Acetaminophen [Tylenol] 1,000 mg PO Q8 #90 tab Transmission Status: Pending to [facility] Orders to be completed after discharge: Thyroid Stim Hormone (TSH) Time Frame: 05/09/19, Facility: [facility], Location: Laboratory Primary Care Physician: Padmini Santoro NP-C [Primary Care Provider] - Test Results: Test results from this visit will be discussed in further detail at your follow-up appointment, if applicable. Please Follow Up With: Juan Brownlee PA-C When: see pink sheet
[2019-05-20 09:04] VITALS: BP 125/67; PULSE 67; RESP 16; TEMP 36.7; O2SAT 94
[2019-05-20 09:07] VITALS: PULSE 67
[2019-05-20] MEDS: DULoxetine Hcl 20 MG Capsule 40 MG PO (09:07)
[2019-05-20] MEDS: Aspirin 81 MG TAB.CHEW PO (09:07)
[2019-05-20] MEDS: hydroCHLOROthiazide 25 MG Tablet PO (09:07)
[2019-05-20] MEDS: Metoprolol Tartrate 25 MG Tablet PO (09:07)
[2019-05-20] MEDS: Senna/Docusate Sodium 1 Tablet 2 TABLET PO (09:08)
[2019-05-20] MEDS: amLODIPine 5 MG Tablet PO (09:08)
--- NOTE | 2019-05-20 09:40 | CASEMGMT ---
GIOVANNA HARGROVE Face to Face with patient for initial transition planning/care coordination assessment. RN BEENA introduced self and role at [facility]. Patient lying in bed, alert and oriented. Patient willing to participate in assessment and is able to answer all questions appropriately. Care providers, pharmacy, and demographics verified. Patient wishes to discharge home and is setup with [facility] for outpatient therapy. Patient states she has no further needs or concerns at this time. CM to follow for discharge planning needs that may arise. PCP: Maude Specialists: Anitha Sharma Pharmacy: [facility] Insurance: [employer] [facility] Prescription Benefit: yes Living Will/HPOA: none LNOK: Living Arrangements: Patient lives with in 2 story home with first floor setup. Patient independent at home prior to surgery Transportation: DME/HHC: Patient has walker, shower chair, raised toilet Disposition Plan: Patient to discharge home with outpatient therapy, family support, and follow-up plans in place. Evi ISIDRO, RN, CM
[2019-05-20 13:55] VITALS: BP 137/64; PULSE 64; RESP 18; TEMP 36.9; O2SAT 94
== END 2019-05-20 14:56 | disposition home or self-care (01) | DRG 470 ==
LOC: MS3 13:28 → ACINP 05-20 07:23 → MS3 05-20 07:24
PROVIDERS: Admitting Provider Orthopaedic Surgery; Family Provider Nurse Practitioner; PCP Nurse Practitioner; Referring Provider Orthopaedic Surgery; Visit Provider Orthopaedic Surgery
PROC: 0SR90JZ Replacement of Right Hip Joint with Synthetic Substitute, Open Approach (ICD-10-PCS; CPT 27130; principal; 2019-05-19 09:35)
DX: M16.11 Unilateral primary osteoarthritis, right hip (principal); Z79.1 Long term (current) use of non-steroidal anti-inflammatories (NSAID); Z79.899 Other long term (current) drug therapy; I10 Essential (primary) hypertension; E78.00 Pure hypercholesterolemia, unspecified; F32.9 Major depressive disorder, single episode, unspecified; F41.9 Anxiety disorder, unspecified; Z87.891 Personal history of nicotine dependence
CPT/HCPCS: 36415; 73502; 80048; 82962; 84443; 85025; 85027; 87081; 88305; 88311; 97116; 97161; 97167; 97530; 97535; 99251; C1776; J7120; A4216; G0463; J2405

== ENCOUNTER → 2019-06-04 14:29 | Outpatient (CLI) | payer MEDICARE, SELFPAY ==
[2019-05-19 13:32] VITALS: BMI 21.2
[2019-06-04 16:31] LABS: Vitamin D,25 Hydroxy 53.8 ng/mL
[2019-06-05 08:32] LABS: PTHIN 32.6 pg/mL (18.4-80.1)
[2019-06-06 16:08] LABS: Alkaline Phosphatase, Serum 265 IU/L (39-117); Bone Fraction 32 % (14-68); Liver Fraction 64 % (18-85)
[2019-06-07 00:14] LABS: Intestinal Fraction 4 % (0-18)
== END ==
PROVIDERS: PCP Nurse Practitioner; Referring Provider Nurse Practitioner; Visit Provider Nurse Practitioner
DX: E83.52 Hypercalcemia (principal)
CPT/HCPCS: 36415; 82306; 83970; 84075; 84080

== ENCOUNTER 2019-11-25 09:00 | Outpatient (RCR) | payer MEDICARE, SELFPAY ==
[2019-05-19 13:32] VITALS: BMI 21.2
--- NOTE | 2019-11-25 09:05 | BH.SGPN.GN ---
Behaviors/Verbalizations/Mental Status: [] Client alert and oriented, casual dress, hygiene tended to. Eye contact fair to good, though often struggling with connection errors via telehealth. Motor activity appropriate. Speech within normal limits. Affect unable to accurately assess as client internet connection poor and screen often freezing- though appeared congruent, mood dysthymic. Thoughts linear, logical, no signs of hallucinations or delusions. Reviewed client?s symptom tracker, pt denies suicidal ideation, plan, or intent as of 11/25/19. Client Response/Progress/Benefit: [] Pt new to IOP treatment on this date. She responded well to session, remaining attentive and willing to provide input. Reports feeling ?relieved to be back here as pt had been in the IOP program previously and found it to be beneficial. Pt reported struggling with ongoing marital issues that have begun to impact her mood more significantly since the COVID-19 pandemic. Indicated she had previously been getting out and exercising more often, but now is less able to do so and has found herself resorting back to prior unhealthy means of coping. Indicated her goals for tx include improving healthy coping skill application, better challenging negative thoughts, and increasing use of healthy communication with her spouse. Appeared to benefit from support of the group environment. Pt to continue IOP tx to increase coping skill repertoire, improve thought challenge skills, reduce depressive symptoms, and prevent decompensation. Narrative Note: []
--- NOTE | 2019-11-25 11:13 | BH.SGPN.GN ---
This psychotherapy group was provided via telehealth using two-way, real-time interactive telecommunication technology between the patients and the provider. The interactive telecommunication technology included audio and video. The patient was offered telemedicine as an option for care delivery during the COVID-19 pandemic and consented to the option. Patient location: [place]. Provider located at [facility] Behaviors/Verbalizations/Mental Status: []Client alert and oriented, casual appearance. Eye contact good. Motor activity appropriate. Speech within normal limits. Affect congruent, mood euthymic. Thoughts linear, logical, no signs of hallucinations or delusions. Connection was poor at times which made it difficult to understand client's responses. Client Response/Progress/Benefit: []Client responded well to session, participating, but due to internet connection issues client was unable to fully engage. Client reported that fear of failure has kept client from changing her marriage status. Client able to identify barriers that reinforce her fear of failure which included: effort needed for change, negative thinking, and anxiety. Client attentive during discussion of the different strategies to help overcome fear of failure. Group identified strategies such as: self-compassion, grounding, using ?fan? thinking, challenging distortions, and positive affirmations. Client?s connection prevented client from sharing what past failures has taught client. Client appeared to benefit from learning ways to overcome fear of failure. First day of IOP tx. Will continue to reduce drinking, improve mood stability, and reduce isolation. Narrative Note: []
--- NOTE | 2019-11-26 11:48 | PCM.BH.PSYEV ---
Psychiatric Evaluation - Initial Evaluation Initial Evaluation: Chief Complaint: [] I am depressed and drinking again. History of Present Illness: [] Patient is a 74-year-old female who was referred to [facility] behavior health IOP program by her primary care doctor due to worsening symptoms of depression, anxiety and increased alcohol use. Patient has been for 54 years and describes her marriage as tense and states that her and her are both very critical of each other. She currently lives in a house she owns with her only. Apparently she has numerous acres and other houses on the property where family lives nearby. The patient says that her home is very disorganized because her is kind of a hoarder. Patient says she cannot do or say anything about this because her then gets mad. Her is critical and says things that make her cry. The patient did cry during the interview when speaking of the derogatory comments her makes about her. For primary support she says I do not have anyone.. She denies hopelessness or worthlessness. She currently walks with friends once a week for exercise. She used to exercise more but cannot go to the health gym anymore due to the COVID pandemic. She feels her marriage has gotten worse since the pandemic since they are more homebound. Patient states her alcohol use has increased in the past few months and it is up to 4-5 beers per day. She said that she drinks heavily and then this makes her depression worse. She also is somewhat irritable especially with her . She denies any seizures, blackouts, or withdrawal from alcohol use. She states that she avoids coming home in recent months because she does like to be with her . She endorses feeling sad and frustrated and somewhat irritable and overwhelmed. She enjoys reading and being on her property. Her weight is stable but her appetite is somewhat decreased. Her sleep is good at 8 to 9 hours a night. She says her energy level is okay but she has no motivation to do much. Her concentration is good. She denies any passive thoughts of . Denies suicidal or homicidal ideation. Denies any history of self-harm or plan for suicide. She denies symptoms of byron, seizures, head trauma, OCD, panic attacks, eating disorder, trauma, PTSD. She states that she does describe her self as a worrier. Current Psychiatric Medications: [] Duloxetine 40 mg p.o. daily (x10 years and dose has changed but she has been on the same dose for 2 years or more.) Past Psychiatric History: [] The patient had one psychiatric admission many years ago around age 18. She denies any suicide attempts. She did the [facility] IOP program from December to February 2018 and did find it beneficial. She says she has been depressed since she was very young. She has no counselor now but she saw in the past and it was helpful. Her past medications include Prozac and Cymbalta but no other meds. She drinks 1 cup of coffee in the morning only. Substance Use History: [] The patient first used alcohol in college and has been drinking alcohol heavily off and on all her life. The most she drinks is 5-6 beers daily. She was abstinent from alcohol in the fall 2016 and in June 2017. She smokes cigarettes 20 years ago for about 5 years but then quit. She denies any rehab ever. Denies any other illicit drug use. No marijuana use. Allergies: [] Penicillin Medications: [] Zocor, hydrochlorothiazide, Toprol XL, amlodipine, vitamin D, probiotic Past Medical History: [] High blood pressure, elevated cholesterol, 2 para 2 postmenopausal female, 2 hip replacement surgeries with the most recent one in May 2019. Family Psychiatric History: [] Her mother in August 2015 at age 102. Father, paternal uncles and maternal grandfather were all alcoholics. She says depression was undiagnosed in her family but she feels her mother and grandson have depression. She had a maternal great uncle who committed suicide. Personal/Social History: [] Patient was born and raised in [place]. She is the youngest of 2 children. She grew up with her parents and her older brother. She denies abuse growing up. Her father was an alcoholic but her mother made everything right. Her father was as good a father as he could be. 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 She has a masters in education from [employer]. 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 She has been for 54 years. She describes her marriage as tense and not great. She lives in [place] with her . She exercises few times a week by walking or at [employer] when it is open. She and her have 2 daughters and one lives adjacent to her in [place]. The other lives in [facility] [place] [facility]. Legal History: [] Negative Review of Systems: [] Negative except as noted in present illness Vital Signs: [] We will review in nurse's notes. Mental Status Examination: [] Patient is a 74-year-old female who is seen by telehealth and appears normal for stated age and casually dressed and groomed with good hygiene. Eye contact is good and speech is normal rate and rhythm and fluent with no pressure. Mood is depressed and affect is constricted and tearful at times and consistent with depression. Thought process is goal-directed and organized. Thought content: No evidence of suicidal or homicidal ideation. No passive thoughts of . No evidence of hallucinations or delusions. Concentration is intact. Judgment is intact. Insight is good. Impulsivity is moderate due to alcohol use. Diagnoses: [] [place] I: [] Major depressive disorder, recurrent, severe without psychosis; generalized anxiety disorder; alcohol use disorder [place] II: [] Deferred [place] III: [] Hypertension [place] IV: [] Primary support (marital) issues Plan: [] Patient will do the IOP program at [facility] as the structure, support, education, individual and group therapy will hopefully prevent worsening of the patient's symptoms that might require hospitalization. The patient felt safe during the interview and if at any time she does not feel safe she will let us know or go to the emergency room. The risks, options, possible complications and side effects of medications were discussed with the patient and she understands and accepts these. She agreed to increase her duloxetine to 60 mg p.o. daily. Prescription was sent in for this. In addition discussion was had about naltrexone 50 mg p.o. daily. I will see the patient in 2 weeks and at that time if she agrees and is tolerating the Cymbalta we will start naltrexone 50 mg p.o. daily to decrease the craving for alcohol and to decrease the amount of alcohol she drinks. Patient will continue to follow-up with outpatient providers.
--- NOTE | 2019-11-26 12:02 | BH.PSY.EVA_ITS ---
Initial Treatment Plan - Patient Information Visit Information: ADMISSION DATE: EXPECTED LOS: 4-6 weeks - Problems/Symptoms Problem #1:: Depression Symptom:: Sadness, feeling overwhelmed, decreased appetite, low motivation, irr itable Problem #2:: Anxiety Symptom:: Worrying, avoidance
--- NOTE | 2019-11-28 09:00 | BH.SGPN.GN ---
Behaviors/Verbalizations/Mental Status: [] Eye contact is good. Motor activity is appropriate. Appearance is casual. Speech is Appropriate. Mood is depressed. Affect is flat. Thoughts are linear and logical. No evidence of psychosis. Reviewed daily check in sheet and no reports of suicidal ideations or intent. Client Response/Progress/Benefit: [] Pt participated at times during the group discussion. Emotion for today is anxious. Shared that her goal today is to be less critical of others and to appreciate things more. She did not elaborate on these goals except to say that this has been difficult for her to do recently. No progress noted. Benefited from group support, encouragement, and feedback. Will continue in IOP to prevent decompensation, increase healthy coping, and improve functioning. Narrative Note: [] This psychotherapy group was provided via telehealth using two-way, real-time interactive telecommunication technology between the patients and the provider.?The interactive telecommunication technology included audio and video.? ?The patient was offered telemedicine as an option for care delivery during the COVID-19 pandemic and consented to this option. ?Patient location: [place] ?Provider located at [facility]
--- NOTE | 2019-11-28 10:00 | BH.SGPN.GN ---
This psychotherapy group was provided via telehealth using two-way, real-time interactive telecommunication technology between the patients and the provider.?The interactive telecommunication technology included audio and video.? ?The patient was offered telemedicine as an option for care delivery during the COVID-19 pandemic and consented to this option. ?Patient location: [place] ?Provider located at [facility] Behaviors/Verbalizations/Mental Status: []Client alert and oriented, casual appearance. Eye contact good. Motor activity appropriate. Speech within normal limits. Affect constricted, mood dysthymic. Thoughts linear, logical, no signs of hallucinations or delusions. Client Response/Progress/Benefit: []Client attempted to join group session, but her wifi connection was a barrier to client fully engaging in the group. Client connected with the quote and the barriers associated with making changes. Client appeared to be taking notes. Group reported even though change can be scary, change can be positive. Listened to the group as they identified barriers to making change, which included: toxic supports, lack of resources and money, lack of time, cognitive distortions, and fear of failure. Client participated in the activity where they identified and discussed the emotions related to change. Benefited from increased awareness and understanding of emotions, benefits, and barriers related to change. Will continue IOP tx to reduce intensity of depression and decrease the use of unhealthy coping skills. Narrative Note: []
--- NOTE | 2019-11-28 11:14 | BH.SGPN.GN ---
This psychotherapy group was provided via telehealth using two-way, real-time interactive telecommunication technology between the patients and the provider. The interactive telecommunication technology included audio and video. The patient was offered telemedicine as an option for care delivery during the COVID-19 pandemic and consented to this option. Patient location: [place] Provider located at [facility] Behaviors/Verbalizations/Mental Status: [] Client alert and oriented, casually dressed and groomed. Eye contact fair to good, often struggling with internet connection which impacted pt ability to engage at times. Motor activity appropriate. Speech within normal limits. Affect unable to gather due to attending telehealth and struggling with poor internet connection, mood euthymic. Thoughts linear, logical, no signs of hallucinations or delusions. Client Response/Progress/Benefit: []Client was an active participant throughout AEB actively listening, providing some input, taking notes. Client attentive during discussion on the change process and review of emotions one might experience throughout the process of change. Expressed feeling she is currently in the ?precontemplation to contemplation stages?. Client indicated frustration, impatience, and anxiety as emotions she has associated with change in the past. Client benefited from working with the group to identify potential strategies for promoting healthy change behaviors. Identified wanting to make more of an effort to track personal progress as a means of reminding herself of progress she has already made towards the desired change. Shared this will help challenge negative mindset when faced with setbacks. Progress variable as pt continues to struggle with distorted thought patterns impacting overall mood. Recommended continued IOP tx to prevent decompensation, promote increase use of thought challenging, and increase application of healthy coping skills. Narrative Note: []
--- NOTE | 2019-12-01 09:01 | BH.SGPN.GN ---
This psychotherapy group was provided via telehealth using two-way, real-time interactive telecommunication technology between the patients and the provider. The interactive telecommunication technology included audio and video. The patient was offered telemedicine as an option for care delivery during the COVID-19 pandemic and consented to this option. Patient location: [place] Provider located at [facility] Behaviors/Verbalizations/Mental Status: []Client alert and oriented, casually dressed and groomed. Eye contact good. Motor activity appropriate. Speech within normal limits. Affect congruent-tearful, mood dysthymic. Thoughts linear, logical, no signs of hallucinations or delusions. Reviewed client?s symptom tracker, no risk for suicidal ideation, plan, or intent as of 12/01/19. Client Response/Progress/Benefit: []Client responded well to session, attentive and participating. Client's connection to the internet was poor, so there were times when client's screen froze. Client reports feeling tired and negative today. Client shared she is struggling with managing her 's negativity towards client. Client stated she constantly fees criticized by him and that he invades my space. When asked what client can do to cope she said I'll find something to do today. Client shared she could go for a walk to get some space and get exercise. Client also encouraged to challenge distortions and remind herself she is enough. Client shared she wrote in her COVID journal this weekend and tracked her mood which was helpful. Appeared to benefit from gaining emotional support. Will continue IOP tx to prevent decompensation, reduce negative thinking, and improve mood stability. Narrative Note: []
--- NOTE | 2019-12-01 10:10 | BH.SGPN.GN ---
Behaviors/Verbalizations/Mental Status: [] Client alert and oriented, casual dress, hygiene tended to. Eye contact fair to good, though difficult to assess due to telehealth connectivity issues. Motor activity appropriate. Speech within normal limits. Affect could not be assessed due to issues with telehealth connectivity. Mood depressed. Thoughts linear, logical, no signs of hallucinations or delusions. Client Response/Progress/Benefit: [] Pt remained a mostly passive participant AEB pt providing limited input during discussion, however did well to listen attentively to peers throughout. Difficulties with telehealth connection may have contributed to limited input provided. Appeared to connect with topic of healthy boundaries. Identified that for her a barrier to establishing healthy boundaries in the past has been a desire to please others as well as avoid conflict. She listened to the group identify potential benefits of healthy boundaries which included: increased mental health stability, improved balance regarding responsibilities, improved relationships, and letting others know what we are and are not okay with. Pt participated in self-assessment activity in which participants analyzed their own personal boundaries. Identified struggling say ?no? to others and often has difficulties in setting aside time for her own self-care. Shared that she believes this has had significant impacts on her ability to manage her own mental health sx and prevented her from ensuring her needs get met. Appeared to benefit from increased awareness of benefits and costs associated with healthy and unhealthy boundaries, as well as gaining insight into her own personal boundaries. Progress variable as difficulties with telehealth connection continue to impact overall ability to engage in group. Will continue IOP tx to improve self-care, improve communication, challenge negative and distorted thoughts, and prevent decompensation. Narrative Note: []
--- NOTE | 2019-12-01 11:15 | BH.SGPN.GN ---
This psychotherapy group was provided via telehealth using two-way, real-time interactive telecommunication technology between the patients and the provider. The interactive telecommunication technology included audio and video. The patient was offered telemedicine as an option for care delivery during the COVID-19 pandemic and consented to this option. Patient location: [place] Provider located at [facility] Behaviors/Verbalizations/Mental Status: [] Client alert and oriented, casually dressed. Eye contact fair. Motor activity appropriate. Speech within normal limits. Affect constricted, mood depressed. Thoughts linear, logical, no signs of hallucinations or delusions. Client Response/Progress/Benefit: [] Client responded well to session, contributing at times to discussion, and appeared to listen attentively to peers. Remained attentive during psychoeducation on the boundary setting styles and nodded as fellow participants discussed areas in which they have struggled with each style. Pt stated she has porous boundaries with others which she stated negatively impacts her mental health because feels like she has lost her self-identity. Pt attributed having porous boundaries to having a whom is very rigid so she doesn't feel like her opinions matter. Pt did complete task of identifying a small goal she can work towards to improve her boundaries. Seemed to benefit from increased awareness of how her current boundary style impacts her mental health. Will continue IOP tx to increase use of healthy coping skills, decrease alcohol use, and prevent decompensation. Narrative Note: []
--- NOTE | 2019-12-02 10:05 | BH.SGPN.GN ---
This psychotherapy group was provided via telehealth using two-way, real-time interactive telecommunication technology between the patients and the provider.?The interactive telecommunication technology included audio and video.? ?The patient was offered telemedicine as an option for care delivery during the COVID-19 pandemic and consented to this option. ?Patient location: [place] ?Provider located at [facility] Behaviors/Verbalizations/Mental Status: []Client alert and oriented, casual appearance. Eye contact good. Motor activity appropriate. Speech within normal limits. Affect constricted, mood dysthymic. Thoughts linear, logical, no signs of hallucinations or delusions. Client Response/Progress/Benefit: []Client was an attentive participant AEB by client taking notes, but client did not participate in the discussion. Client?s wifi connection continues to be a barrier to participating in group sessions. Listened as the group discussed the costs of not practicing self-care which included: poor functioning, increased depression and anxiety, poor memory, lack of concentration, more negative thinking, and harms relationships. Listened to the discussion of the common myths about self-care including: ?one and done,? selfish, not a big deal, makes a person look weak, and not having time. Listened to the discussion on debunking of these myths. Client seemed to benefit from increased awareness of the importance of self-care and challenging common myths that prevent practicing self-care. Will continue IOP tx to decrease depressive symptoms and use of unhealthy coping skills such as drinking. Narrative Note: []
--- NOTE | 2019-12-02 13:44 | BH.MDN_ITS ---
Multi-Disciplinary Note - Note 45-min Individual Time Started:: 11:42 Date: 12/02/19 Purpose of session/treatment goals addressed:: Purpose of session was to assess pt's current symptoms and stressors. Other topics included: conflict resolution strateiges, setting boundaries, and discussion about decreasing alcohol consumption. Eye Contact:: Fair Motor Activity:: Restless Appearance:: Casual Speech:: Appropriate Mood:: Anxious, Depressed, Other - tearful Affect:: Constricted Thoughts:: Linear, Logical, No evidence of hallucinations/delusions noted Staff Interventions:: Therapist used open ended questions to elicit pt's current symptoms and stressors. Therapist validated pt's frustrations about her . Provided psychoeducation about fair fighting rules during a conflict. Reviewed importance of setting firm, clear boundaries with . Discussed and reviewed strategies to increase assertiveness. Taught pt calming skills including breathing techniques and grounding tools to help pt mananage emotions in the moment. Provided pt with handout about fair fighting rules. Client Response:: Pt stated she has been having ups and downs over the past week. Pt reported continually stressed and overwhelmed with her 's hoarding behavior. Pt stated this morning her agreed that he was also frustrated and was willing to work with pt to create a plan to organize and clean. Pt reported she is worried once they start to have this conversation it will turn into an argument. Pt stated she often will feel attacked by her and blamed which results in her being defensive and nothing gets accomp lished. Pt receptive and connected with various conflict resolution strategies and connected with fair fighting rules. Pt stated she often feels invalidated by her which results in feeling resentment towards him and increased anger. Pt reported she knows she needs to work on keeping herself calm by using calming tools in the moment. Pt reported she does struggle with setting firm boundaries, but recognizes she needs to follow through. Pt stated she does think it will be better to break up her conversation with her into smaller parts. Pt stated she is still drinking 2-4 beers daily. Stated she wants to cut back on her drinking and admits to not using other skills to replace the behavior. Pt reported feeling less anxious after talking out her stressor and creating a plan of action. Risks/Concerns:: Pt denies current suicidal ideation, plan or intention to date. Progress Toward Goals/Plan:: Progress noted with pt expressing increased motivation to address frustrations she has with her versus continuing to avoid the stressor. Pt continuing to struggle with depressive and anxious symptoms as well as using alcohol as a coping skill daily. Pt to continue IOP level of care to increase consistent application of healthy skills, improve assertive communication and prevent decompensation. Time Stopped:: 12:25
--- NOTE | 2019-12-02 15:52 | BH.MTP ---
Master Treatment Plan - Patient Information Program Physician:: Dr. Worthington Primary Therapist:: Angella Guzman, [facility] - Psychiatric Diagnoses Psychiatric Diagnoses:: Major depressive disorder, recurrent, severe without psychosis; generalized anxiety disorder; alcohol use disorder Diagnosis Code(s):: F33.2 - Estimated LOS Estimated LOS (in weeks):: 6 Problem/Goal #1 - Problem/Goal #1 Stated Goal:: Client will reduce depressive symptoms, irritability, and alcohol use as a coping skill due to Major Depressive Disorder through Intensive Outpatient Program. Description of Barriers: Pt's distorted thought patterns, low self confidence, difficulty setting boundaries, and avoidance of anxious provoking situations are all potential barriers to treatment. Functional Impact: Pt referred to [facility] behavior health IOP program by her primary care doctor due to worsening symptoms of depression, anxiety and increased alcohol use. Pt identifies her marriage to be a significant source of stress for several years. Pt reported COVID-19 has further worsened their relationship due to having to be around each other more often. Pt has limited support system. Pt endorses depressed mood with crying, anhedonia, no motivation, irritability, avoidance and passive thoughts of . Pt reported using 4-5 beers everyday has a way to cope with mental health symptoms. Pt?s mental health symptoms interfering with ADLs, social relationships, and familial relationships. Goal Relevant Strengths/Supports: Intelligent, resilient, and expresses motivation to get better. - Objectives Objective #1 Stated Objective: Client will learn and utilize 2-3 healthy coping strategies to manage depressive symptoms and decrease use of unhealthy coping skills. Interventions: Therapist will assist client in learning internal coping strategies to manage depressive symptoms, along with helping client identify triggers and replace unhealthy coping skills. Discharge Criteria: Client will have achieved this goal when can verbalize 2-3 healthy coping skills and reports coping skills effectively managing depressive symptoms. Target Date: 01/06/20 Review Date: 12/23/19 Objective #2 Stated Objective: Pt will decrease depressive symptoms AEB pt?s score on the DSM 5 cross-cutting measure and improve pt?s daily functioning. Interventions: Through groups and individual therapy, pt will be provided with education on cognitive distortions, mistaken beliefs, and identifying and combating negative self-talk. Therapist will assist pt with getting back into the activities she once enjoyed as well as increasing healthy coping strategies. Discharge Criteria: Pt will have met this goal when pt?s score on the DSM 5 cross cutting measure for depression has been decreased and per pt?s report daily functioning has improved Target Date: 01/06/20 Review Date: 12/23/19 Problem/Goal #2 - Problem/Goal #2 Stated Goal:: Stabilize anxiety level while increasing ability to function and decreasing ruminative thoughts on a daily basis through Intensive Outpatient Program. Description of Barriers: Pt's distorted thought patterns, low self confidence, difficulty setting boundaries, and avoidance of anxious provoking situations are all potential barriers to treatment. Functional Impact: Pt referred to [facility] behavior health IOP program by her primary care doctor due to worsening symptoms of depression, anxiety and increased alcohol use. Pt identifies her marriage to be a significant source of stress for several years. Pt reported COVID-19 has further worsened their relationship due to having to be around each other more often. Pt has limited support system. Pt endorses depressed mood with crying, anhedonia, no motivation, irritability, avoidance and passive thoughts of . Pt reported using 4-5 beers everyday has a way to cope with mental health symptoms. Pt?s mental health symptoms interfering with ADLs, social relationships, and familial relationships. Goal Relevant Strengths/Supports: Intelligent, resilient, and expresses motivation to get better. - Objectives Objective #1 Stated Objective: Client will learn and implement 2-3 calming skills to reduce overall anxiety and decrease avoidance behavior. Interventions: Therapist will teach client calming/relaxation skills. Assist pt with identifying warning signs and triggers to increased anxiety. Teach pt in the moment strategies to manage emotions when in anxiety provoking situation. Discharge Criteria: Client will have achieved this goal when can verbalize at least 2 calming skills and report decrease in avoidance of anxious situations. Target Date: 01/06/20 Review Date: 12/23/19 Objective #2 Stated Objective: Pt will decrease anxious symptoms AEB pt?s score on the DSM 5 cross-cutting measure improve pt?s daily functioning. Interventions: Through groups and individual therapy, pt will be provided education about anxiety?s impact on body and common physiological reaction to anxiety. Therapist will teach pt appropriate breathing techniques and build healthy coping skills to manage daily anxieties. Discharge Criteria: Pt will have met this goal when pt?s score on the DSM 5 cross cutting measure for anxiety has been decreased and per pt?s report daily functioning has improved. Target Date: 01/06/20 Review Date: 12/23/19
--- NOTE | 2019-12-04 09:03 | BH.SGPN.GN ---
This psychotherapy group was provided via telehealth using two-way, real-time interactive telecommunication technology between the patients and the provider. The interactive telecommunication technology included audio and video. The patient was offered telemedicine as an option for care delivery during the COVID-19 pandemic and consented to this option. Patient location: [place] Provider located at [facility] Behaviors/Verbalizations/Mental Status: []Client alert and oriented, casually dressed and groomed. Eye contact good. Speech soft. Motor activity appropriate. Affective- congruent. Mood euthymic. Thoughts linear, no signs of hallucinations or delusions. Reviewed client's symptoms tracker, no risk noted today. Client Response/Progress/Benefit: []Client responded well to session, attentive and offering supportive feedback. Client reports feeling confident and prepared this morning. Client shared her gameplan from group was to communicate her needs with her . Client stated I only put this off for a day which is really good for me. Client reported she took the first step in communicating with her and they plan to have a discussion tonight. Client's other positives today were that client has been journaling, breaking down her stressors into chunks, and using calming skills more during confrontation. Client reports she has some anxiety anticipating the conversation tonight, but reports it is manageable. Appeared to benefit from reflecting on her generalization of coping skills. Will continue IOP tx to prevent decompensation, improve mood stability, and increase interpersonal effectiveness skills. Narrative Note: []
--- NOTE | 2019-12-04 10:15 | BH.SGPN.GN ---
This psychotherapy group was provided via telehealth using two-way, real-time interactive telecommunication technology between the patients and the provider. The interactive telecommunication technology included audio and video. The patient was offered telemedicine as an option for care delivery during the COVID-19 pandemic and consented to this option. Patient location: [place] Provider located at [facility] Behaviors/Verbalizations/Mental Status: []Client alert and oriented, casually dressed and appropriately groomed. Eye contact fair. Motor activity appropriate. Speech within normal limits. Affect constricted. mood anxious. Thoughts linear, logical, no signs of hallucinations or delusions. Client Response/Progress/Benefit: []Pt was an active participant AEB pt providing input throughout discussion and attentively listening to peers. Pt stated ?past experiences? can impact our perspective. Pt reported she has made a comment like ?nothing ever goes right?, which she stated results in her looking for evidence to support this thought. Pt reported having a negative perspective can keep you stuck and leads to no personal growth. Pt worked with group to identify how negative perspective can impact mental health which included: self-fulfilling prophecy, staying stuck, increase depression, and increase anxiety.?Pt appeared to benefit from increasing understanding of mental health benefits of a positive perspective and potential consequences to progress when perspective is negative. Pt to continue IOP level of care to continue use of healthy coping, increase assertive communication, and prevent decompensation. Narrative Note: []
--- NOTE | 2019-12-04 11:14 | BH.SGPN.GN ---
This psychotherapy group was provided via telehealth using two-way, real-time interactive telecommunication technology between the patients and the provider.?The interactive telecommunication technology included audio and video.? ?The patient was offered telemedicine as an option for care delivery during the COVID-19 pandemic and consented to this option. ?Patient location: [place] ?Provider located at [facility] Behaviors/Verbalizations/Mental Status: [] Client alert and oriented, casually dressed, hygiene appeared to be tended to. Eye contact good. Motor activity appropriate. Speech within normal limits. Affect congruent, mood dysthymic. Thoughts linear, logical, no signs of hallucinations or delusions Client Response/Progress/Benefit: []Client responded well to session, attentive and actively sharing input throughout session. Group discussed the mental health consequences of not acknowledging one?s strengths and benefits in actively doing so. Connected with the benefits of recognizing personal strengths which included: increased self-confidence, increased willingness to try new things, improved relationships, and increased resilience. Client able to identify personal strengths she possesses which includes: creativity, love to learn, kindness, confidence, humor, and open-mindedness. Group discussed how personal strengths can help client make progress for mental health and identified strategies to help them acknowledge strengths more often. Client noted she often becomes easily distracted which has prevented effective use of strengths in the past. Identified making a more intentional effort to schedule uninterrupted time for specifically learning to do new things or develop new hobbies as a means of better utilizing that strength. Appeared to benefit from recognizing personal strengths and identifying strategies to increase recognition of strengths. Will continue IOP tx to prevent decompensation, better use healthy communication, as well as reduce avoidance behaviors. Narrative Note: []
--- NOTE | 2019-12-08 09:05 | BH.SGPN.GN ---
This psychotherapy group was provided via telehealth using two-way, real-time interactive telecommunication technology between the patients and the provider. The interactive telecommunication technology included audio and video. The patient was offered telemedicine as an option for care delivery during the COVID-19 pandemic and consented to this option. Patient location: [place] Provider located at [facility] Behaviors/Verbalizations/Mental Status: []Client alert and oriented, casual dress, hygiene tended to. Eye contact fair. Motor activity appropriate. Speech within normal limits. Affect congruent, mood euthymic, slightly anxious. Thoughts linear, logical, no signs of hallucinations or delusions. Reviewed client?s symptom tracker, pt denies current suicidal thoughts or intention to date. Client Response/Progress/Benefit: []Pt responded well to session AEB pt listening attentively to others and openly sharing thoughts and feelings. Pt stated her game plan from last week was to communicate with her her thoughts and feelings about what needs to get done at their house to decrease clutter. Pt reported she was able to have two short conversations with her . Pt stated she managed her emotions during both conversations and they were able to create a list of what needs to get done. Pt reported she was pleased that they would be civil with each other. Pt recognizes the next step will to talk to her about when the plan they created will start. Pt stated she is feeling more hopeful. Progress noted with pt facing her anxiety of talking with and regulating her emotions during the conversation. Pt to continue IOP to continue to increase assertiveness, challenge distorted thoughts and prevent decompensation. Narrative Note: []
--- NOTE | 2019-12-08 10:13 | BH.SGPN.GN ---
This psychotherapy group was provided via telehealth using two-way, real-time interactive telecommunication technology between the patients and the provider.?The interactive telecommunication technology included audio and video.? ?The patient was offered telemedicine as an option for care delivery during the COVID-19 pandemic and consented to this option. ?Patient location: [place] ?Provider located at [facility] Behaviors/Verbalizations/Mental Status: []Client alert and oriented, casual dress, hygiene tended to. Eye contact fair. Motor activity appropriate. Speech within normal limits. Affect constricted, mood anxious. Thoughts linear, logical, no signs of hallucinations or delusions. Client Response/Progress/Benefit: []Client responded well to session, attentive throughout. Listened and participated throughout group discussion defining conflict and the differences between internal and external conflict. Group reported the benefits of addressing conflict as well as identified and discussed consequences of not addressing conflict. Client attentive and contributing during psychoeducation of the different conflict resolution styles. Client reports her conflict style is ?all of them? but she is not trying to be more collaborating. Client shared she used to be avoiding and competing, especially with her . Client stated these styles negatively impacted client?s mental health and caused resentment in her relationship. Progress noted as client reports she has been practicing assertive communication with her . Will continue IOP tx to promote the use of health coping skills, further reduce depressive symptoms, and improve mood stability. Narrative Note: []
--- NOTE | 2019-12-08 11:13 | BH.SGPN.GN ---
This psychotherapy group was provided via telehealth using two-way, real-time interactive telecommunication technology between the patients and the provider. The interactive telecommunication technology included audio and video. The patient was offered telemedicine as an option for care delivery during the COVID-19 pandemic and consented to this option. Patient location: [place] Provider located at [facility] Behaviors/Verbalizations/Mental Status: []Client alert and oriented, casually dressed and groomed. Eye contact fair to good, at times struggling with becoming distracted by outside stimuli. Motor activity appropriate. Speech within normal limits. Affect appearing congruent, mood dysthymic. Thoughts linear, logical, no signs of hallucinations or delusions, at times appearing distracted. Client Response/Progress/Benefit: []Pt engaged in session AEB listening attentively to others and providing input throughout, however at times struggled with becoming distracted by outside interruptions as pt attending via telehealth. Did well to redirect attention when prompted, however. Pt participated during the activity in which participants were challenged to eliminate various items through group census. Pt contributed to discussion identifying conflict resolution skills used to complete the task, as well as additional skills for better managing conflict in daily life. Reported that asking for clarification in an area she has struggled with in the past and has been making efforts to improve upon as miscommunication can often result in avoidable conflict. Appeared to benefit from psychoeducation regarding impact of conflict on mental health and relationships. Worked with group to identify healthy skills for conflict resolution. Pt identified ?attacking the problem not the person? as a conflict resolution skill she could use this week to improve her ability to improve communication and better cope with potential conflict. Progress noted in pt self-report of improved boundaries and assertive communication with supports. Will continue IOP tx to promote use of healthy coping skills, continue to improve boundaries and effective communication, and improve mood stability. Narrative Note: []
== END 2019-12-08 23:59 ==
LOC: BHIOP 09:00
PROVIDERS: PCP Nurse Practitioner; Referring Provider Psychiatry & Neurology Psychiatry; Visit Provider Psychiatry & Neurology Psychiatry
DX: F33.2 Major depressive disorder, recurrent severe without psychotic features (principal); F41.8 Other specified anxiety disorders; Z72.89 Other problems related to lifestyle; I10 Essential (primary) hypertension; Z79.899 Other long term (current) drug therapy; Z87.891 Personal history of nicotine dependence
CPT/HCPCS: H0035; 90834; 90853

== ENCOUNTER 2019-12-09 09:00 | Outpatient (RCR) | payer MEDICARE, SELFPAY ==
[2019-05-19 13:32] VITALS: BMI 21.2
--- NOTE | 2019-12-09 09:03 | BH.SGPN.GN ---
Behaviors/Verbalizations/Mental Status: [] Client alert and oriented, casually dressed and groomed. Eye contact good. Motor activity appropriate. Speech within normal limits. Affect congruent, mood dysthymic. Thoughts linear, logical, no signs of hallucinations or delusions. Reviewed client?s symptom tracker, no risk for suicidal ideation, plan, or intent as of 12/09/19. Client Response/Progress/Benefit: [] Pt responded well to session, engaged and willing to process with group. Reports feeling ?anxious today and expressed that this is related to an ongoing current stressor of setting boundaries with her . Shared wanting to organize the house more but often struggles to get her to aid in doing so and finds it difficult to assert her needs when becoming frustrated by unkept promises. Pt identified use of catastrophizing and predicting the future regarding current thoughts that ?things are just going to revert back to the way they always are?. Did well to challenge these thoughts and appeared to benefit from supportive suggestions for increasing use of assertive communication provided by the group. Progress noted in improved communication and use of healthy emotion regulation skills. Will continue IOP tx to continue to promote healthy change behaviors, reduce anxiety and depression, and prevent decompensation. Narrative Note: []
--- NOTE | 2019-12-09 10:20 | BH.SGPN.GN ---
This psychotherapy group was provided via telehealth using two-way, real-time interactive telecommunication technology between the patients and the provider. The interactive telecommunication technology included audio and video. The patient was offered telemedicine as an option for care delivery during the COVID-19 pandemic and consented to this option. Patient location: [place] Provider located at [facility] Behaviors/Verbalizations/Mental Status: []Client alert and oriented, casually dressed and groomed. Eye contact good. Motor activity appropriate. Speech within normal limits. Affect congruent to mood. Mood euthymic. Thoughts linear, logical, no signs of hallucinations or delusions. Client Response/Progress/Benefit: []Client responded well to session, engaged and contributed throughout session. Client listened during group discussion on importance of managing emotions on continued mental health and wellness. Appeared to connect with group as participants identified potential costs of not managing their emotions. Group identified barriers emotions can cause during communication. These barriers included: jumping topics, irrational thinking, shutting down, name-calling, and passive-aggressive behaviors. Client participated in the challenge activity and did well to remain calm and positive despite running into barriers. Expressed experiencing some stress, but mostly had fun during the activity. Client appeared to benefit from increasing awareness of how emotions can impact mental health and practicing in the moment coping skills. Progress noted in client?s self-report of less avoidance behaviors. Will continue IOP tx to further decrease depressive and anxiety symptoms. Narrative Note: []
--- NOTE | 2019-12-09 11:22 | BH.SGPN.GN ---
This psychotherapy group was provided via telehealth using two-way, real-time interactive telecommunication technology between the patients and the provider. The interactive telecommunication technology included audio and video. The patient was offered telemedicine as an option for care delivery during the COVID-19 pandemic and consented to this option. Patient location: [place] Provider located at [facility] Behaviors/Verbalizations/Mental Status: []Client alert and oriented, casually dressed and appropriately groomed. Eye contact fair. Motor activity appropriate. Speech within normal limits. Affect constricted. mood euthymic. Thoughts linear, logical, no signs of hallucinations or delusions. Client Response/Progress/Benefit: []Client engaged in session AEB client providing input during discussion and completing worksheet. Attentive during psychoeducation on 4 zones of regulation. Client able to identify feelings and behaviors for each zone. Client connected with the various emotions and behaviors for each of the zones. Group identified coping skills one can use to support self in each zone which included: opposite action, exercise, positive self-talk, upbeat music, self-care, thought challenge and grounding. Client reported she will practice the skills of walking, positive self-talk, and positive affirmations. Benefited from increased education on zones of regulation or stages of alertness for emotions and healthy coping skills to use for each zone. Will continue IOP tx to continue use of healthy coping skills, work on following through with boundaries and prevent decompensation. Narrative Note: []
--- NOTE | 2019-12-10 15:34 | BH.MDN ---
Multi-Disciplinary Note - Note 30-min Individual Time Started:: 11:18 Date: 12/12/19 Time Stopped:: 11:50
--- NOTE | 2019-12-12 09:07 | BH.SGPN.GN ---
Behaviors/Verbalizations/Mental Status: []Client alert and oriented, neatly dressed and groomed. Eye contact good. Motor activity appropriate. Speech within normal limits. Affect congruent, mood agitated. Thoughts linear, logical, no signs of hallucinations or delusions. Reviewed client?s symptom tracker, no risk for suicidal ideation, plan, or intent as of 12/12/19. Client Response/Progress/Benefit: []Client responded well to session, connecting with peers and providing supportive statements. Client reports feeling slow and impatient this morning. Client shared she has been following through with her gameplan which has been to have small conversations with her . Client stated the environment at home has been more calm and that her has been respecting her needs. Client shared she has been journaling and sticking to a schedule which has been helpful to manage her mental health. Client stated because there is less tension at home there's more energy for me. Client stated she is feeling a little impatient and worries that things will just go back to how it was before. Client encouraged to practice self-compassion and realistic expectations. Client stated she knows change will require a lot of work, but client reports I'm up for it. Appeared to benefit from reflecting on wins and progress. Will continue IOP tx t promote use of healthy coping skills, decrease drinking, and further improve interpersonal effectiveness skills. Narrative Note: []
--- NOTE | 2019-12-12 10:13 | BH.SGPN.GN ---
This psychotherapy group was provided via telehealth using two-way, real-time interactive telecommunication technology between the patients and the provider. The interactive telecommunication technology included audio and video. The patient was offered telemedicine as an option for care delivery during the COVID-19 pandemic and consented to this option. Patient location: [place] Provider located at [facility] Behaviors/Verbalizations/Mental Status: []Client alert and oriented, casual dress, hygiene tended to. Eye contact fair. Motor activity appropriate. speech and tone WNL. Affect congruent, mood euthymic. Thoughts linear, logical, no signs of hallucinations or delusions. Client Response/Progress/Benefit: []Client was an engaged participant AEB client providing input throughout session and listened attentively to others. When discussing quote client reported we all have choices but doesn't mean it is easy. Client reported there are a lot of obstacles that keep us from making healthy choices. The group worked together to identify barriers that keep one from choosing a new and healthier path to mental wellness. Attentive during psychoeducation on the chapters of life. Benefited from increased awareness and education on barriers to choosing new wellness paths and chapters of life. Progress noted with client continuing to be engaged in sessions and reporting decrease in depressive symptoms. Will continue IOP tx continue use of healthy coping skills and prevent decompensation. Narrative Note: []
--- NOTE | 2019-12-16 09:07 | BH.SGPN.GN ---
This psychotherapy group was provided via telehealth using two-way, real-time interactive telecommunication technology between the patients and the provider.?The interactive telecommunication technology included audio and video.? ?The patient was offered telemedicine as an option for care delivery during the COVID-19 pandemic and consented to this option. ?Patient location: [place] ?Provider located at [facility] Behaviors/Verbalizations/Mental Status: []Client alert and oriented, neatly dressed and groomed. Eye contact good. Motor activity appropriate. Speech within normal limits. Affect congruent, mood anxious. Thoughts linear, logical, no signs of hallucinations or delusions. Reviewed client?s symptom tracker, no risk for suicidal ideation, plan, or intent as of 12/16/19. Client Response/Progress/Benefit: []Client responded well to session, attentive and providing good insight to group discussion. Client reports feeling apprehensive today. Client stated she has been following through with her goal to be more open and assertive with her needs to client's . Client shared now I have to follow through with my end of things. Client reported she should be more excited about taking steps to accomplish tasks she has wanted accomplished for a long time, but I'm apprehensive in my ability to get excited. Driver Messenger helped client normalize her emotions and encouraged client to practice opposite action. Client shared she has been practicing setting realistic goals and small steps as well as emotional regulation skills. Appeared to benefit from reframing her thinking in the moment. Progress noted in client's report of increased follow through with goals. Will continue IOP tx to promote the use of healthy coping skills and to further improve mood stability. Narrative Note: []
--- NOTE | 2019-12-16 10:11 | BH.SGPN.GN ---
This psychotherapy group was provided via telehealth using two-way, real-time interactive telecommunication technology between the patients and the provider. The interactive telecommunication technology included audio and video. The patient was offered telemedicine as an option for care delivery during the COVID-19 pandemic and consented to this option. Patient location: [place] Provider located at [facility] Behaviors/Verbalizations/Mental Status: []Client alert and oriented, casually dressed and appropriately groomed. Eye contact fair. Motor activity appropriate. Speech within normal limits. Affect congruent, mood euthymic, slightly anxious. Thoughts linear, logical, no signs of hallucinations or delusions. Client Response/Progress/Benefit: []Client was an engaged participant AEB client providing input throughout discussion and appeared to listen attentively to others. Client connected with the topic of obstacles and solutions and worked with group to identify common obstacles that keep people stuck. Client shared current reality as feeling isolated and disconnected within her home environment. Stated feeling stuck which impacts her depression and increases anger. Client's realistic, desired reality is to have improved communication, working cooperatively with her , having a more organized environment, and feeling more mentally stable. Identified barriers holding her back from desired reality to include: avoidance, disappointment with self and others, feeling overwhelmed, and having no clear path. Benefited from group as client was able to identify current and desired mental health state and increase awareness of how barriers can impact progress. Progress noted with pt able to recognize making gains with being more assertive and less avoidant within her relationship. Will continue IOP to continuing improve assertive communication, decrease avoidance behaviors, and prevent decompensation. Narrative Note: []
--- NOTE | 2019-12-16 11:10 | BH.SGPN.GN ---
This psychotherapy group was provided via telehealth using two-way, real-time interactive telecommunication technology between the patients and the provider.?The interactive telecommunication technology included audio and video.? ?The patient was offered telemedicine as an option for care delivery during the COVID-19 pandemic and consented to this option. ?Patient location: [place] ?Provider located at [facility] Behaviors/Verbalizations/Mental Status: []Client alert and oriented, casually dressed and appropriately groomed. Eye contact good. Motor activity appropriate. Speech within normal limits. Affect congruent, mood euthymic. Thoughts linear, logical, no signs of hallucinations or delusions. Client Response/Progress/Benefit: [] Client was an active participant in group discussion and attentive during the activity. Engaged during activity and provided ideas on how to cope with internal barriers that keep clients stuck from moving towards goals. Barriers identified by client were: poor communication skills, avoiding thoughts, and disappointment in self and others. Group helped identify strategies to combat barriers identified by group members. Client reported she would like to work on communication skills. Client shared she will do this by practicing her communication skills daily and ?chunking it down.? Benefited from group by identifying obstacles and solutions to desired reality. Progress noted in client?s increased social skills and continue to be more assertive with her . Will continue IOP tx to continue the use of coping skills and decrease depression. Narrative Note: []
--- NOTE | 2019-12-18 09:04 | BH.SGPN.GN ---
This psychotherapy group was provided via telehealth using two-way, real-time interactive telecommunication technology between the patients and the provider.?The interactive telecommunication technology included audio and video.? ?The patient was offered telemedicine as an option for care delivery during the COVID-19 pandemic and consented to this option. ?Patient location: [place] ?Provider located at [facility] Behaviors/Verbalizations/Mental Status: []Client alert and oriented, casually dressed and groomed. Eye contact good. Motor activity appropriate. Speech within normal limits. Affect congruent, mood dysthymic, anxious. Thoughts linear, logical, no signs of hallucinations or delusions. Reviewed client?s symptom tracker, no risk for suicidal ideation, plan, or intent as of 12/18/19. Client Response/Progress/Benefit: []Client responded well to session, receptive of support, and providing feedback to the group. Client reports feeling somewhat skeptical this morning as she continues to struggle with worrying that things with her will revert back to how they had been in the past. Did well to identify that continuing to use open and assertive communication would aid in preventing that. Additionally recognized that one setback does not mean they are back at ?square one?. Did well to work with the group to identify strategies she can use to hold herself accountable for continuing to communicate with him as well as follow through with personal goals she has set for herself. Shared that she could report back to the group tomorrow as to whether or not she completed her goal of spending 2 hours organizing the garage rather than letting it consume her entire day. Client progress noted in improved use of emotion regulation skills, however continues to struggle with passive communication and maintaining boundaries with supports. Appeared to benefit from connecting with others and reflecting on application of coping skills. Will continue IOP tx to reinforce healthy coping skills, continue to reduce depressive sx, and prevent decompensation. Narrative Note: []
--- NOTE | 2019-12-18 11:00 | BH.SGPN.GN ---
This psychotherapy group was provided via telehealth using two-way, real-time interactive telecommunication technology between the patients and the provider. The interactive telecommunication technology included audio and video. The patient was offered telemedicine as an option for care delivery during the COVID-19 pandemic and consented to this option. Patient location: [place] Provider located at Behaviors/Verbalizations/Mental Status: [] Client alert and oriented, casually dressed and appropriately groomed. Eye contact good. Motor activity appropriate. Speech within normal limits. Affect congruent, mood euthymic, Thoughts linear, logical, no signs of hallucinations or delusions. Client Response/Progress/Benefit: []Client responded well to the session, attentive and contributing to discussion. Group discussed the benefits of healthy communication on mental health which included: getting help, better relationships, less misinterpretations, and improved emotional regulation. Group additionally discussed potential barriers to communication including: shutting down, tone of voice, assumptions, yelling, passive aggressive behaviors, and poor emotional regulation. Attentive during psychoeducation on the four communication styles. Client self-reports identifying most with the passive communication style. As a result of being passive, client is impacted by feelings of increased depression and avoidance behaviors. Client desires to to be more assertive with her communication. Progress noted in increased insight into personal communication styles and barriers, as well as continue to be more assertive with her . Client will continue in IOP to continue the use of communication skills, coping skills, and decrease depression. Narrative Note: []
--- NOTE | 2019-12-18 11:15 | BH.SGPN.GN ---
This psychotherapy group was provided via telehealth using two-way, real-time interactive telecommunication technology between the patients and the provider. The interactive telecommunication technology included audio and video. The patient was offered telemedicine as an option for care delivery during the COVID-19 pandemic and consented to this option. Patient location: [place] Provider located at [facility] Behaviors/Verbalizations/Mental Status: []Client alert and oriented, casually dressed and appropriately groomed. Eye contact fair. Motor activity appropriate. Speech within normal limits. Affect congruent, mood euthymic. Thoughts linear, logical, no signs of hallucinations or delusions. Client Response/Progress/Benefit: []Client responded well to session AEB client listening attentively to others and providing input at times during discussion. Engaged in activity and processing importance of being clear and specific when communicating with others. Attentive during psychoeducation on reviewing assertiveness strategies to improve communication, and selected a assertiveness skill to practice. Client stated she plans to work on changing her verbiage from passive to assertive. Pt stated instead of saying what do you think about this she will work on saying I will be doing this. Client reported she recognizes being passive within her relationship has increased her anger so she is driven to improve her communication now. Client seemed to benefit from increasing awareness of healthy strategies to improve communication. Progress noted with client stating improved ability to be assertive. Will continue IOP tx to promote the use of healthy coping skills, continuing improving communication and prevent decompensation.
--- NOTE | 2019-12-18 14:56 | BH.MDN ---
Multi-Disciplinary Note - Note 30-min Individual Time Started:: 12:10 Date: 12/18/19 Purpose of session/treatment goals addressed:: Purpose of session was to assess pt's current symptoms and stressors. Reinforced assertiveness, discussed gameplan for today and discussed treatment progress. Eye Contact:: Good Motor Activity:: Appropriate Appearance:: Casual Speech:: Appropriate Mood:: Euthymic, Anxious Affect:: Congruent Thoughts:: Linear, Logical, No evidence of hallucinations/delusions noted Staff Interventions:: Therapist used open ended questions to elicit pt's current symptoms and stressors. Therapist reviewed homework from last session. Discussed strategies to continue assertiveness with . Collaborated with pt to identify plan of action for today. Elicited pt's thoughts about treatment progress. Provided support by using active listening and validating emotions. Client Response:: Pt reported she was able to accomplish her goal from last session of having another conversation with her to identify an area of their property to focus on decluttering. Pt stated they had come up with a plan and she knew what tasks she was responsible to complete. Pt reported despite having a plan in place when she got home yesterday she found out her had worked on areas of the plan that were supposed to be her tasks. Pt stated instead of blowing up on him she expressed her frustration that he did not follow the plan. Pt reported her seemed to understand her perspective. Pt reported her gameplan today is to work on the garage for two hours when she gets home. Pt expressed worry that she will become overwhlemed by everything that needs to get done in the garage. With assistance from therapist pt narrowed her focus to emptying a desk in the garage that they are donating. Pt stated having a focus area to clean/organize her will be helpful. Pt identified treatment progress to include improved motivation, improved mood, decreased anger, able to be around her for longer time periods, reduction in alcohol use and finding enjoyment in her day. Pt reported I'm no longer waking up and thinking that I can't wait until night time so I can go back to sleep. Pt agreeable to work on goal of completing two hours of work in her garage. Risks/Concerns:: denies suicidal ideation, plan or intention to date. Pt reports decrease in alcohol use and no longer planning her day around getting alcohol. Progress Toward Goals/Plan:: Pt identified treatment progress to include improved motivation, improved mood, decreased anger, able to be around her for longer time periods, reduction in alcohol use and finding enjoyment in her day. Pt applying skills consistently outside treatment enviornment. Continues to struggle with moderate anxiety and depressive symptoms but starting to observe improvement in symptoms. Pt to continue IOP to continue use of healthy coping, challenge distorted thougths and prevent decompensation. Time Stopped:: 12:35
--- NOTE | 2019-12-22 09:05 | BH.SGPN.GN ---
This psychotherapy group was provided via telehealth using two-way, real-time interactive telecommunication technology between the patients and the provider. The interactive telecommunication technology included audio and video. The patient was offered telemedicine as an option for care delivery during the COVID-19 pandemic and consented to this option. Patient location: [place] Provider located at [facility] Behaviors/Verbalizations/Mental Status: []Client alert and oriented, casual dress, hygiene tended to. Eye contact fair. Motor activity appropriate. Speech within normal limits. Affect congruent, mood euthymic. Thoughts linear, logical, no signs of hallucinations or delusions. Reviewed client?s symptom tracker, pt denies current suicidal thoughts or intention to date. Client Response/Progress/Benefit: []Pt responded well to session AEB pt listening attentively to others and sharing thoughts and feelings. Pt stated she has been less reactive and no crying for the past couple of days. Pt reported her goal was to work in her garage for two hours to organize it. Pt stated she struggled the first day of her goal because she got overwhelmed. Pt reported she went back the next day and was able to get through one of her tasks. Pt stated she utilized the skills of: facing anxieties, calming skills, self-awareness of emotions, and ability to walk away. Pt identified her current stressor is continuing to work on the garage with her . Pt seemed to benefit from support from peers. pt to continue IOP to promote use of healthy coping, reinforce assertiveness skills, and prevent decompensation. Narrative Note: []
--- NOTE | 2019-12-22 10:14 | BH.SGPN.GN ---
This psychotherapy group was provided via telehealth using two-way, real-time interactive telecommunication technology between the patients and the provider.?The interactive telecommunication technology included audio and video.? ?The patient was offered telemedicine as an option for care delivery during the COVID-19 pandemic and consented to this option. ?Patient location: [place] ?Provider located at [facility] Behaviors/Verbalizations/Mental Status: []Client alert and oriented, neatly dressed and groomed. Eye contact fair-often looking off in the distance. Motor activity appropriate. Speech within normal limits. Affect constricted, mood euthymic. Thoughts linear, logical, no signs of hallucinations or delusions. Client Response/Progress/Benefit: []Client was an active participant in group discussion and was engaged in group. Client discussed the quote and stated, ?chances come along, but growth isn?t a chance.? Client stated one has to actively decide to grow from hardships. Group discussed and then identified forces that can impact growth and overall mental health. Client worked with peers to identify and define internal and external forces in mental health and their role in growth. Client gave examples of self-awareness, adverse experiences, people, and thought patterns during group psychoeducation on examples and impact of negative/positive internal and external forces. Progress noted in client?s self-report of more assertive communication and active thought challenging, but client continues to struggle with managing her emotions. Will continue in IOP to promote gains, further improve emotional regulation, and improve interpersonal effectiveness skills. Narrative Note: []
--- NOTE | 2019-12-22 11:15 | BH.SGPN.GN ---
Addendum entered and electronically signed by Kell Buchanan LSW 12/22/19 16:06: his psychotherapy group was provided via telehealth using two-way, real-time interactive telecommunication technology between the patients and the provider.?The interactive telecommunication technology included audio and video.? ?The patient was offered telemedicine as an option for care delivery during the COVID-19 pandemic and consented to this option. ?Patient location: [place] ?Provider located at [facility] Original Note: Behaviors/Verbalizations/Mental Status: []Eye contact is good. Motor activity is appropriate. Appearance is casual. Speech is Appropriate. Mood is euthymic. Affect is congruent. Thoughts are linear and logical. No evidence of psychosis. Client Response/Progress/Benefit: [] Pt receptive of session, actively engaged in activity AEB providing supportive feedback and encouragement to fellow participants. Worked with group to process the challenge activity and did well to relate this back to daily life. Pt identified personal negative forces impacting mental health progress to include: negative thoughts, poor communication, self-doubt, habit, and being passive. Group then worked together to identify common positive forces in activity and life which help us grow. Pt identified personal positive forces to include: positive supports, counseling, and willingness to keep learning and working on her mental health. Pt was attentive during psychoeducation and appeared to benefit from increased insight on the impact of negative and positive forces on mental wellness. Identified wanting to improve her willingness to more actively use her supports by increasing her awareness of when she needs them as well as more actively communicating. Progress noted in pt ability to identify areas she is improving communication as well as more actively challenge negative thoughts. Pt recommended continued IOP tx to improve emotion regulation, improve healthy boundaries, and continue to work on increasing use of effective communication skills. Narrative Note: []
--- NOTE | 2019-12-24 08:55 | PCM.BH.PN ---
Progress Note Progress Note: History of Present Illness/Interim History: [] Patient is a 74-year-old female who is seen in follow-up at the [facility] behavioral health IOP program. I last saw the patient about 4 weeks ago and at that time I increased her Cymbalta to 60 mg daily. The patient feels that she has improved significantly on this dose. She feels that her mood is still tends to be somewhat depressed but much less sad and much less irritable than a month ago. She feels that she can make some choice full decisions when she becomes sad or upset which she was unable to do before. Her alcohol use has been improved in the past 3 weeks also. She says she will have 1-2 beers on some days but yesterday was the first day that she had 6 beers. She does estimate that in the past 3 weeks or 2 weeks she is only had about 112 pack of beer per week. So that she has somewhat decreased her alcohol use on her own. Patient feels she is learning valuable skills in the IOP program that helps her set boundaries with her and with her other issues. The ongoing stressor of the pandemic and being isolated with her somewhat is still quite stressful. She is still enjoying reading and being on her property. Sleep and energy level remains okay and motivation is somewhat improved. She denies any passive thoughts of , suicidal or homicidal ideation. She denies any hallucinations or delusions. Current Psychiatric Medications: [] Duloxetine 60 mg p.o. daily (dose increased 1 month ago). Mental Status Examination: [] Patient is a 74-year-old female who is seen by telehealth and appears casually dressed and groomed with good hygiene. She had no psychomotor agitation or retardation. Eye contact was good and speech is normal rate and rhythm and fluent with no pressure. Mood is depressed but much improved. Affect is approaching euthymia and there were no tears during the interview. Thought process is goal-directed and organized. Thought content: No evidence of suicidal or homicidal ideation. No evidence of passive thoughts or thoughts of self-harm. No evidence of hallucinations or delusions. Impulsivity: Moderate. Judgment: Intact. Insight: Improving and some present. Diagnoses: [] Mcgraw I: [] Major depressive disorder recurrent, severe without psychosis; generalized anxiety disorder; alcohol use disorder Mcgraw II: [] Deferred Mcgraw III: [] Hypertension Mcgraw IV:[]] Primary support (marital) issues and pandemic issues Plan: [] Patient will continue the IOP program at [facility] as the structure, support, education, individual and group therapy will hopefully prevent worsening of the patient's symptoms that might require hospitalization. The patient felt safe during the interview and if at any time she does not feel safe she will let us know or go to the emergency room. The risks, options, possible side effects and complications of the medications were discussed with the patient and she understands and accepts these. We discussed again the addition of naltrexone to decrease the amount of alcohol she uses and the patient felt at this time that since she has been somewhat successful in decreasing her use we will wait and not start naltrexone at this time. The patient is 74 years old and wishes to take the least amount of medication possible Pap. If her alcohol use increases again later I may consider starting naltrexone with at a lower dose of 25 mg daily. No medication changes were made and a prescription was sent in for Cymbalta 60 mg, #30, 1 refill. Patient will continue to follow-up with outpatient providers and I will see the patient regularly in follow-up while she is in the IOP program.
--- NOTE | 2019-12-25 10:17 | BH.SGPN.GN ---
This psychotherapy group was provided via telehealth using two-way, real-time interactive telecommunication technology between the patients and the provider.?The interactive telecommunication technology included audio and video.? ?The patient was offered telemedicine as an option for care delivery during the COVID-19 pandemic and consented to this option. ?Patient location: [place] ?Provider located at [facility] Behaviors/Verbalizations/Mental Status: []Client alert and oriented, casually dressed and groomed. Eye contact fair. Motor activity appropriate. Speech within normal limits. Affect constricted, mood euthymic. Thoughts linear, logical, no signs of hallucinations or delusions. Client Response/Progress/Benefit: []Client was an engaged participant throughout group session, providing frequent insight to session. Client connected with the quote sharing ?you can take on other people?s issues until the load bursts.? Group discussed healthy versus unhealthy coping skills and what contributes to people using unhealthy skills. The group stated unhealthy coping skills tend to be easy and habitual, temporary relief, and learned behaviors. Client gained aware of unhealthy coping skills she has used such as overworking, avoiding, drinking, and binge-watching TV. Client shared she know recognizes that using these skills only worsened client?s mental health. Client reports she now has more awareness. Client seemed to benefit from increased awareness of importance of increasing healthy coping skills and consequences of utilizing unhealthy coping skills. Client will continue IOP tx to further improve emotional regulation skills and decrease depression. Narrative Note: []
--- NOTE | 2019-12-25 11:21 | BH.SGPN.GN ---
Addendum entered and electronically signed by Kell Buchanan LSW 12/26/19 12:05: This psychotherapy group was provided via telehealth using two-way, real-time interactive telecommunication technology between the patients and the provider.?The interactive telecommunication technology included audio and video.? ?The patient was offered telemedicine as an option for care delivery during the COVID-19 pandemic and consented to this option. ?Patient location: [place] ?Provider located at [facility] Original Note: Behaviors/Verbalizations/Mental Status: []Client alert and oriented, casually dressed and groomed. Eye contact good. Motor activity appropriate. Speech within normal limits. Affect congruent, mood euthymic. Thoughts linear, logical, no signs of hallucinations or delusions Client Response/Progress/Benefit: []Client responded well to session, connected with fellow participant?s contributions, and participating in discussion. Client contributed as the group discussed the different categories of coping skills which included distraction, emotional release, grounding, self-love, and thought challenging. Provided examples for each category, but reported she struggles with the categories of thought challenging and self-love. Client participated in creating a coping skills ?menu? for the five categories of coping skills. Client's coping skill menu included: reaching out to supports, meditation, journaling and writing letters, self-forgiveness, and asking others to help reframe her thoughts. Client appeared to benefit from increasing repertoire of healthy coping skills. Client progress shown by increased engagement in groups and improved communication with supports. Will continue IOP tx to further decrease anxiety, depression, and improve mood stability. Narrative Note: []
--- NOTE | 2019-12-26 09:00 | BH.SGPN.GN ---
Behaviors/Verbalizations/Mental Status: [] Eye contact is good. Motor activity is appropriate. Appearance is causal. Speech is Appropriate. Mood is euthymic. Affect is full. Thoughts are linear and logical. No evidence of psychosis. Reviewed daily check in sheet and no reports of suicidal ideations or intent. Client Response/Progress/Benefit: [] Pt was an active participant in group discussion. Attentive. Provided appropriate feedback to peers. Pt began her check-in by discussing the ways in which she has made progress in IOP. Mentioned less negative self-talk, increased communication skills, and feeling overall much more positive. States that she is beginning to laugh again which she did not do for several months. Insight into significant obstacles that are keeping her from progressing and discussed that she is feeling stuck in certain areas of her life. Fearful and worry if she addresses these obstacles it could cause regression. Has given these obstacles much thought and talked about the necessity of setting up a plan to address these obstacle with her therapist. Progress noted per pt reported. Benefited from group support, encouragement, and feedback. Will continue in IOP to improve functioning, increase healthy coping, and stabilize mood. Narrative Note: []
--- NOTE | 2019-12-26 10:05 | BH.SGPN.GN ---
This psychotherapy group was provided via telehealth using two-way, real-time interactive telecommunication technology between the patients and the provider.?The interactive telecommunication technology included audio and video.? ?The patient was offered telemedicine as an option for care delivery during the COVID-19 pandemic and consented to this option. ?Patient location: [place] ?Provider located at [facility] Behaviors/Verbalizations/Mental Status: []Client alert and oriented, casually dressed and groomed. Eye contact good. Motor activity appropriate. Speech within normal limits. Affect congruent, mood anxious and euthymic. Thoughts linear, logical, no signs of hallucinations or delusions. Client Response/Progress/Benefit: []Client was an active participant AEB providing input during discussion and listening attentively to others. Contributed to discussion of the quote and expressed agreement that sitting with the uncomfortable is something she has struggled significantly with in the past. Did well to identify benefits of sitting with the uncomfortable and facing anxieties rather than ?running?. Client connected with discussion on the difference between ?normal? anxiety and when anxiety becomes problematic. Gained awareness of personal physical symptoms of anxiety which included: crying, increased heart rate, and nausea. Client also identified common negative or anxious thoughts she has used when experiencing anxiety which included: self-doubting, catastrophizing, and thoughts that ?things will always be the same and there?s nothing I can do about it?. Client appeared to benefit from gaining insight into physical signs of anxiety and common cognitive symptoms as well. Progress noted in increased willingness to address her fears and communicate more with supports, as well as self-report of improved thought challenging. Continues to struggle with negative thoughts and passive communication. Will continue IOP to increase application of healthy coping skills, challenge distorted thoughts, and continue to promote healthy change behaviors. Narrative Note: []
--- NOTE | 2019-12-26 15:25 | BH.MDN ---
Multi-Disciplinary Note - Note 30-min Individual Time Started:: 11:32 Date: 12/26/19 Time Stopped:: 12:00
--- NOTE | 2019-12-26 15:29 | BH.TPR ---
Treatment Plan Review Date of Admission:: 11/25/19 Date of Treatment Plan Review:: 12/26/19
--- NOTE | 2019-12-29 09:05 | BH.SGPN.GN ---
This psychotherapy group was provided via telehealth using two-way, real-time interactive telecommunication technology between the patients and the provider. The interactive telecommunication technology included audio and video. The patient was offered telemedicine as an option for care delivery during the COVID-19 pandemic and consented to this option. Patient location: [place] Provider located at [facility] Behaviors/Verbalizations/Mental Status: []Client alert and oriented, casually dressed. Eye contact good. Motor activity appropriate. Speech within normal limits. Affect congruent, mood dysthymic. Thoughts linear, logical, no signs of hallucinations or delusions. Reviewed client?s symptom tracker, no risk for suicidal ideation, plan, or intent as of 12/29/19. Client Response/Progress/Benefit: []Client responded well to session, attentive and engaged throughout session. Client?s goal was to decrease negative self-talk and to have a meeting with her . Client shared that the meeting with her was stressful, as her started using blameful messages. Client left the situation and used I-statements to express her feelings. Client was able to set boundaries with her and did not ruminate on the conflict. Client was tearful, but she was able to recognize all of the positives like making progress, taking control, remaining calm, walking away, and setting boundaries. Client engaged in self-care yesterday which included reading, eating ice cream, and spending time outside. Client shared she was feeling ?hesitant for today, but hopeful.? Client benefited from group by sharing processing her stressors and reflecting on generalization of skill application. Will continue IOP to improve self-confidence with setting appropriate boundaries and to promote mood stability. Narrative Note: []
--- NOTE | 2019-12-29 10:24 | BH.SGPN.GN ---
This psychotherapy group was provided via telehealth using two-way, real-time interactive telecommunication technology between the patients and the provider.?The interactive telecommunication technology included audio and video.? ?The patient was offered telemedicine as an option for care delivery during the COVID-19 pandemic and consented to this option. ?Patient location: [place] ?Provider located at [facility] Behaviors/Verbalizations/Mental Status: []Client alert and oriented, casually dressed and groomed. Eye contact fair-distracted at times. Motor activity appropriate. Speech within normal limits. Affect constricted, mood anxious. Thoughts linear, logical, no signs of hallucinations or delusions. Client Response/Progress/Benefit: []Client active participant AEB client providing input to discussion and listening attentively to peers. Group identified the benefits of having a support system such as: accountability, increased self-esteem, gain perspective, and not feeling alone. Client discussed different types of support, and client noted self, mentors, and counselors as supports. Group also discussed the barriers to accessing support and client shared sometimes supports are not healthy to a person?s mental health. Seemed to benefit from increased awareness of different supports available and identifying benefits of social support. Progress noted in client?s self-report of practicing assertive communication. Will continue IOP tx to promote gains and further decrease depression. Narrative Note: []
--- NOTE | 2020-01-01 09:05 | BH.SGPN.GN ---
This psychotherapy group was provided via telehealth using two-way, real-time interactive telecommunication technology between the patients and the provider. The interactive telecommunication technology included audio and video. The patient was offered telemedicine as an option for care delivery during the COVID-19 pandemic and consented to this option. Patient location: [place] Provider located at [facility] Behaviors/Verbalizations/Mental Status: []Client alert and oriented, casual dress, hygiene tended to. Eye contact fair. Motor activity appropriate. Speech within normal limits. Affect congruent, mood euthymic. Thoughts linear, logical, no signs of hallucinations or delusions. Reviewed client?s symptom tracker, pt denies current suicidal thoughts or intention to date. Client Response/Progress/Benefit: [] Patient reported her game plan has been to communicate more effectively, set boundaries, and utilize positive self talk. Patient stated she has been doing well with working on all of her goals. Patient stated early in the week she attempted to have her conversation with her about creating a plan of action for cleaning of the garage however she stated her started to utilize blaming communication so she stopped that conversation. Patient stated the next day she addressed the conversation again and they were able to set a date to work together in the garage to identify what would be thrown away, given away, or kept. Patient stated on Sunday they were together and identified with tape what they were to do with the different items. Patient reported feeling less overwhelmed because now she has an idea of what she can do. Patient stated she has been working on compromising with her instead of getting fed up and ending with an argument. Progress noted with patient continuing to communicate with her , decrease in isolation, and decrease in avoidance behavior. Patient to continue IOP level of care to maintain gains, continue to work on communicating honestly, and prevent decompensation. Narrative Note: []
--- NOTE | 2020-01-01 10:16 | BH.SGPN.GN ---
This psychotherapy group was provided via telehealth using two-way, real-time interactive telecommunication technology between the patients and the provider.?The interactive telecommunication technology included audio and video.? ?The patient was offered telemedicine as an option for care delivery during the COVID-19 pandemic and consented to this option. ?Patient location: [place] ?Provider located at [facility] Behaviors/Verbalizations/Mental Status: []Client alert and oriented, neatly dressed and groomed. Eye contact poor-appeared distracted by surroundings. Motor activity appropriate. Speech within normal limits. Affect constricted, mood euthymic. Thoughts linear, logical, no signs of hallucinations or delusions Client Response/Progress/Benefit: []Client was an active participant in group discussion, but did appear distracted AEB poor eye contact. Client worked with peers on defining what goals are. Brainstormed with the group the benefits of goal setting which included: increased motivation, sense of accomplishment, increased confidence, growth, and purpose. Client stated personally goal setting gives her a sense of self-worth. Client helped group discussed the barriers that keep people from either setting goals are following through with goals. Client gave an example of black and white thinking and fear of success as barriers to following through with goals. Able to provide feedback during psychoeducation on SMART goals. Client appeared to benefit from learning the mental health benefits of setting goals that are SMART. Will continue IOP tx to further improve mood stability and reinforce boundary setting. Narrative Note: []
--- NOTE | 2020-01-01 11:19 | BH.SGPN.GN ---
Behaviors/Verbalizations/Mental Status: []Eye contact is fair to good. Motor activity is appropriate. Appearance is casual. Speech is Appropriate. Mood is euthymic. Affect congruent. Thoughts are linear and logical. No evidence of psychosis Client Response/Progress/Benefit: []Client was engaged during discussion, did well to provide encouragement throughout activity and process with the group. Provided input regarding the importance of focusing on positives rather than setbacks to continue to promote goal progress. Client was willing to develop a personal SMART goal for her own mental health. Client however indicated she would rather not share her goal with the group. Identified potential barriers and solutions for continuing to work towards he goal. One solution or resource client identified she could use was positive self-talk and continuing to remind herself why she wants to work towards her goal in the first place. Benefited from this group by developing a short-term SMART goal related to mental health. Progress continued in area s of communication and boundary setting with herself and her . Will continue IOP tx to prevent decompensation, improve daily functioning, and continue to promote healthy change behaviors. Narrative Note: []
--- NOTE | 2020-01-05 10:15 | BH.SGPN.GN ---
This psychotherapy group was provided via telehealth using two-way, real-time interactive telecommunication technology between the patients and the provider. The interactive telecommunication technology included audio and video. The patient was offered telemedicine as an option for care delivery during the COVID-19 pandemic and consented to this option. Patient location: [place] Provider located at [facility] Behaviors/Verbalizations/Mental Status: []Client alert and oriented, casual dress, hygiene tended to. Eye fair. Motor activity appropriate. Speech within normal limits. Affect congruent. mood euthymic. Thoughts linear, logical, no signs of hallucinations or delusions. Client Response/Progress/Benefit: []Pt responded well to session AEB contributing to discussion. Pt appeared to connect well with the topic of resilience AEB pt stating being flexible helps us cope because gives the opportunity to look at the stressor/emotion in a different way. Pt worked with the group during discussion of the costs of resisting change and the benefits of adapting to adversity. Group identified costs of resisting change included: staying stuck, difficulty managing crises, increased depression, increased anxiety, and decrease in self-care. Attentive during psychoeducation on various stewart factors in developing personal resilience. Pt contributed during group discussion identifying benefits of each factor in fostering resilience. Pt seemed to benefit from increasing awareness of strategies to increase personal resilience and the impacts of resilience on managing mental health sx. Progress noted with pt continuing to practice assertiveness. Will continue IOP tx to promote the use of healthy coping skills, maintain gains, and decrease negative self-talk. Narrative Note: []
--- NOTE | 2020-01-05 11:15 | BH.SGPN.GN ---
This psychotherapy group was provided via telehealth using two-way, real-time interactive telecommunication technology between the patients and the provider.?The interactive telecommunication technology included audio and video.? ?The patient was offered telemedicine as an option for care delivery during the COVID-19 pandemic and consented to this option. ?Patient location: [place] ?Provider located at [facility] Behaviors/Verbalizations/Mental Status: []Client alert and oriented, casually dressed and groomed. Eye contact fair. Motor activity appropriate. Speech within normal limits. Affect congruent, mood euthymic. Thoughts linear, logical, no signs of hallucinations or delusions. Client's internet connection was poor at times. Client Response/Progress/Benefit: []Client engaged participant as evidenced by client providing input throughout discussion and listening attentively to peers. Client participated in the discussion of how each resiliency component can help increase personal resiliency. Client identified current resiliency traits she currently possesses and then identified what trait she would like to improve. Client reports belief she has been using the resiliency traits of making connections, being flexible, and self-care. Client stated she would like to work on having a more positive attitude and challenging her perspective. Client shared ?I?m making progress, but I?m still very rigid on some things.? Client reported she will do this by practicing self-talk statements such as ?what is important right now and what is possible.? Client appeared to benefit from increasing insight to ways in which client can improve resilience to adversity and daily stressors. Client to continue IOP tx to reduce negative thinking, increase assertive communication, and improve daily functioning. Narrative Note: []
--- NOTE | 2020-01-06 09:05 | BH.SGPN.GN ---
This psychotherapy group was provided via telehealth using two-way, real-time interactive telecommunication technology between the patients and the provider. The interactive telecommunication technology included audio and video. The patient was offered telemedicine as an option for care delivery during the COVID-19 pandemic and consented to this option. Patient location: [place] Provider located at [facility] Behaviors/Verbalizations/Mental Status: []Client alert and oriented, casual dress, hygiene tended to. Eye contact fair. Motor activity appropriate. Speech within normal limits. Affect congruent, mood euthymic. Thoughts linear, logical, no signs of hallucinations or delusions. Reviewed client?s symptom tracker, pt denies current suicidal thoughts or intention to date. Client Response/Progress/Benefit: []Pt responded well to session AEB pt appearing to listen attentively to peers and openly sharing thoughts and feelings. Pt stated her goal has been to change her perspective which she reported she is now in a place in which she can see situations in a different way. Pt identified a positive is since making changes she has noticed a calmer household and ability to be around her without feeling the need to go off. Pt stated her stressor is things going slowly with cleaning the garage but keeps reminding herself it will take time. Progress noted with pt continuing to challenge perspective, face anxieties, and improved emotional regulation. Pt to continue IOP level of care to maintain gains, continue being assertive, and prevent decompensation. Narrative Note: []
--- NOTE | 2020-01-06 11:22 | BH.SGPN.GN ---
This psychotherapy group was provided via telehealth using two-way, real-time interactive telecommunication technology between the patients and the provider. The interactive telecommunication technology included audio and video. The patient was offered telemedicine as an option for care delivery during the COVID-19 pandemic and consented to this option. Patient location: [place] Provider located at [facility] Behaviors/Verbalizations/Mental Status: []Client alert and oriented, casually dressed and groomed. Eye contact fair to good. Motor activity appropriate. Speech within normal limits. Affect congruent. mood euthymic. Thoughts linear, logical, no signs of hallucinations or delusions. Client Response/Progress/Benefit: [] Client actively listening during discussion, as well as provided some input and taking notes throughout. She did well to listen as group worked on identifying characteristics and benefits of adopting a growth mindset. Client discussed one potential benefit as improved relationships and willingness to take constructive feedback more positively. CLient again remained attentive during activity in which participants helped reframe examples of fixed thoughts into growth mindset thoughts. Client worked to apply skills learned to reframe own personal fixed thoughts; however, indicated she did not want to share her fixed or growth mindset thoughts with the group. Client did report she was able to connect with potential benefits of reframing her thoughts and indicated one potential benefit as feeling more capable and motivated to keep moving forwards when faced with potential setbacks. Benefitted from discussing benefits of growth mindset and brainstorming strategies for prompting growth-mindset. Client progress noted in continued improvements with healthy communication as well as increased use of thought challenging. Will continue IOP tx to continue to promote use of healthy change behaviors and improve skill application as well as improve healthy coping repertoire. Narrative Note: []
--- NOTE | 2020-01-06 15:26 | BH.MDN ---
Multi-Disciplinary Note - Note 30-min Individual Time Started:: 10:25 Date: 01/06/20 Time Stopped:: 10:55
== END 2020-01-07 23:59 ==
LOC: BHIOP 09:00
PROVIDERS: PCP Nurse Practitioner; Referring Provider Psychiatry & Neurology Psychiatry; Visit Provider Psychiatry & Neurology Psychiatry
DX: F33.2 Major depressive disorder, recurrent severe without psychotic features (principal); F41.8 Other specified anxiety disorders; Z72.89 Other problems related to lifestyle; Z79.899 Other long term (current) drug therapy
CPT/HCPCS: H0035; 90832; 90853

== ENCOUNTER 2020-01-08 09:00 | Outpatient (RCR) | payer MEDICARE, SELFPAY ==
[2019-05-19 13:32] VITALS: BMI 21.2
--- NOTE | 2020-01-05 09:05 | BH.SGPN.GN ---
This psychotherapy group was provided via telehealth using two-way, real-time interactive telecommunication technology between the patients and the provider. The interactive telecommunication technology included audio and video. The patient was offered telemedicine as an option for care delivery during the COVID-19 pandemic and consented to this option. Patient location: [place] Provider located at [facility] Behaviors/Verbalizations/Mental Status: []Behaviors/Verbalizations/Mental Status: []Client alert and oriented, casually dressed. Eye contact fair. Motor activity appropriate. Rapid speech. Affect congruent, mood euthymic. Thoughts linear, logical, no signs of hallucinations or delusions. Reviewed client?s symptom tracker, no risk for suicidal ideation, plan, or intent as of 01/05/20. Client Response/Progress/Benefit: []Client responded well to session and engaged in self-check in and provided feedback to other group members. Client?s goal was to increase communication skills in her relationships. Progress was noted over the weekend due to accomplishing goals at home with . When an argument arose, client remained patient and both client and her apologized the following morning which allowed the client to feel ?relieved.? Client shared that she recognizes her growth in IOP and reports she refuses to be talked to in a blameful way from supports. Client applied communication skills and participated in self-care. Client was excited to see her grandson play soccer over the weekend. Client will continue IOP to further promote the use of communication skills and setting healthy boundaries with and other supports. Narrative Note: []
--- NOTE | 2020-01-08 09:05 | BH.SGPN.GN ---
Addendum entered and electronically signed by Kell Buchanan LSW 01/09/20 12:16: This psychotherapy group was provided via telehealth using two-way, real-time interactive telecommunication technology between the patients and the provider. The interactive telecommunication technology included audio and video. The patient was offered telemedicine as an option for care delivery during the COVID-19 pandemic and consented to this option. Patient location: [place] Provider located at [facility] Original Note: This psychotherapy group was provided via telehealth using two-way, real-time interactive telecommunication technology between the patients and the provider. The interactive telecommunication technology included audio and video. The patient was offered telemedicine as an option for care delivery during the COVID-19 pandemic and consented to this option. Patient location: [place] Provider located at [facility] Behaviors/Verbalizations/Mental Status: []Client alert and oriented, casually dressed and groomed. Eye contact good. Motor activity appropriate. Speech within normal limits. Affect congruent, mood euthymic. Thoughts linear, logical, no signs of hallucinations or delusions. Reviewed client?s symptom tracker, no risk for suicidal ideation, plan, or intent as of 01/08/20. Client Response/Progress/Benefit: []Pt responded well to session, provided supportive feedback to peers, and openly processed with group. Client reports feeling weary this morning as she continues to struggle with ?waiting for the other shoe to drop? regarding her progress and improved communication with her . Client did well to identify distortions reinforcing her doubts and worked to challenge these thoughts. She identified that reminding herself to ?be more open to the possibility of things improving? as an affirmation that has been effective thus far. Reports positives include: continued progress on maintaining positive communication with her , as well as doing well to practice self-care. Noted however, that her stressor is concern she is ?overdoing? self-care. Expressed feeling she is falling behind on other responsibilities as a result. Receptive of education on tough areas of self-care. Client appeared to benefit from connecting with peers and identifying personal wins. Progress noted in self-report of continued application of self-care and thought challenge skills. Will continue IOP tx to prevent decompensation, continue to promote mood stability, and improve daily functioning. Narrative Note: []
--- NOTE | 2020-01-08 10:16 | BH.SGPN.GN ---
This psychotherapy group was provided via telehealth using two-way, real-time interactive telecommunication technology between the patients and the provider. The interactive telecommunication technology included audio and video. The patient was offered telemedicine as an option for care delivery during the COVID-19 pandemic and consented to this option. Patient location: [place] Provider located at [facility] Behaviors/Verbalizations/Mental Status: []Client alert and oriented, casually dressed, hygiene appeared to be tended to. Eye contact fair. Motor activity appropriate. Speech within normal limits. Affect constricted, mood anxious and distracted. Thoughts linear, logical, no signs of hallucinations or delusions Client Response/Progress/Benefit: []Client active participant as shown by contribution to discussion and active listening, but client was sharing feeling disengaged today. Client shared connecting to group topic of self-care, but she shared she struggles to practice self-care. Client helped the group discuss benefits of self-care which included; less irritability, increased productivity, improved emotional regulation, and better relationships. Client stated for her self-care ?helps me value myself.? Client participated in the discussion of the common myths about self-care. Client participated in the discussion on debunking of these myths. Client?s group challenged the myths: costs too much, makes a person weak, not deserving of it, and there are more important things than self-care. Client did well to encourage the use of self-care and challenge barriers with the group. Client seemed to benefit from increased awareness of the importance of self-care and challenging common myths that prevent practicing self-care. Will continue IOP tx to promote the use of healthy coping skills and reduce avoidance behaviors that reinforce depression and anxiety. Narrative Note: []
--- NOTE | 2020-01-08 11:15 | BH.SGPN.GN ---
This psychotherapy group was provided via telehealth using two-way, real-time interactive telecommunication technology between the patients and the provider. The interactive telecommunication technology included audio and video. The patient was offered telemedicine as an option for care delivery during the COVID-19 pandemic and consented to this option. Patient location: [place] Provider located at [facility] Behaviors/Verbalizations/Mental Status: [] Client alert and oriented, casually dressed, hygiene appeared to be tended to. Eye contact distracted. Motor activity appropriate. Speech within normal limits. Affect restricted, mood agitated. Thoughts linear, logical, no signs of hallucinations or delusions. Client Response/Progress/Benefit: []Client appeared to be distracted AEB client being on her phone throughout the group. Client stated she was tired and was in and out of discussion. Participated in some group discussion on the various areas of self-care, benefits, and types of self-care activities for each area. Client identified her current self-care practices to be ?reaching out to support, walking with friends once a week at a park, and reflecting on personal needs vs wants.? Client completed self-assessment activity on her own utilization of the different areas of self-care and was able to identify current practices she actively practices and areas she can improve upon. Client stated that her laptop was overheating, and lost connection before client was able to share goals. Progress noted as client has been able to increase application of healthy coping skills. Will continue IOP tx to further promote the use of self-care practice and set appropriate boundaries with . Narrative Note: []
--- NOTE | 2020-01-13 10:20 | BH.SGPN.GN ---
This psychotherapy group was provided via telehealth using two-way, real-time interactive telecommunication technology between the patients and the provider.?The interactive telecommunication technology included audio and video.? ?The patient was offered telemedicine as an option for care delivery during the COVID-19 pandemic and consented to this option. ?Patient location: [place] ?Provider located at [facility] Behaviors/Verbalizations/Mental Status: []Client alert and oriented, neatly dressed and groomed. Eye contact good. Motor activity appropriate. Speech within normal limits. Affect congruent, mood euthymic. Thoughts linear, logical, no signs of hallucinations or delusions. Client Response/Progress/Benefit: []Client was an active participant AEB contributing to discussion and participating in activity. Connected with the topic of pitfalls and helped the group discuss barriers that keep them from choosing a healthier path to mental wellness such as pitfalls. Client defined personal pitfalls as ?berry we put up and not letting people in.? Group worked together to identify examples of personal pitfalls which included; not expressing self, not reaching out to supports, having the mindset ?that I can do it on my own,? and not having awareness. Engaged during the activity and did well to provide support and encouragement to the group. Client reported even though she was on telehealth, client still experienced some tension and anxiety. Client coped with these emotions by breathing and self-talk. Client benefited from increased awareness on the impact that pitfalls can have on mental health. Will continue IOP tx to further decrease negative thinking that impacts anxiety, improve communication with supports, and better manage her mental health sx. Narrative Note: []
--- NOTE | 2020-01-19 10:15 | BH.SGPN.GN ---
This psychotherapy group was provided via telehealth using two-way, real-time interactive telecommunication technology between the patients and the provider. The interactive telecommunication technology included audio and video. The patient was offered telemedicine as an option for care delivery during the COVID-19 pandemic and consented to this option. Patient location: [place] Provider located at [facility] Behaviors/Verbalizations/Mental Status: []Client alert and oriented, casually dressed. Eye contact fair. Motor activity appropriate. Speech within normal limits. Affect congruent, mood euthymic, anxious. Thoughts linear, logical, no signs of hallucinations or delusions. Client Response/Progress/Benefit: []Client engaged throughout session AEB providing input to discussion and receptive to feedback. Connected with discussion on how coping with external crises by using unhealthy coping skills could result in a personal crisis. Group reported that it is important to have awareness of warning signs which can prevent reaching crisis point. Group identified warning signs for crisis and client completed the personal warning signs worksheet. Client identified personal crisis warning signs to include: isolation, negative thinking, lack of confidence, and loss of appetite. Client stated ignoring warning signs can cause physical issues. Benefited by increasing awareness of crisis and personal warning signs. Progress noted AEB client?s self-report of reduce depression and isolation. Will discharge from IOP as client has made significant progress. Narrative Note: []
--- NOTE | 2020-01-19 11:15 | BH.SGPN.GN ---
This psychotherapy group was provided via telehealth using two-way, real-time interactive telecommunication technology between the patients and the provider. The interactive telecommunication technology included audio and video. The patient was offered telemedicine as an option for care delivery during the COVID-19 pandemic and consented to this option. Patient location: [place] Provider located at [facility] Behaviors/Verbalizations/Mental Status: []Client alert and oriented, casually dressed, hygiene appeared to be tended to. Eye contact fair. Motor activity appropriate. Speech within normal limits. Affect congruent, mood euthymic. Thoughts linear, logical, no signs of hallucinations or delusions Client Response/Progress/Benefit: []Client responded well to session as evidenced by client listening attentively to others and providing strategies during discussion. Client used the warning signs: isolation, negative thinking and decreased eating to create her crisis plan. Client created a crisis action plan to help client better manage warning signs for crisis. Client?s plan included: opposite action, challenging perspective, starting small, asking for help, and setting boundaries. Client appeared to benefit from creating a crisis action plan and increasing self-awareness. Client has made significant progress since starting IOP and will discharge from IOP today. Narrative Note: []
--- NOTE | 2020-01-19 14:41 | BH.MDN_ITS ---
Multi-Disciplinary Note - Note 45-min Individual Time Started:: 09:29 Date: 01/19/20 Purpose of session/treatment goals addressed:: Purpose of session was to review treatment progress, identify strategies to maintain success and solidify aftercare plans. Eye Contact:: Good Motor Activity:: Appropriate Appearance:: Casual Speech:: Appropriate Mood:: Euthymic Affect:: Full Thoughts:: Linear, Logical, No evidence of hallucinations/delusions noted Staff Interventions:: Therapist used open ended questions to elicit pt's thoughts about treatment progress since starting IOP. Therapist collaborated with pt to identify strategies to help pt maintain treatment progress. Worked with pt to identify aftercare plans following discharge today. Client Response:: Pt stated she has observed so much progress within herself since starting IOP. Pt reported she has a calming mindset with increased awareness of her emotions and improved ability to manage emotions in the moment. Pt stated she is able to set boundaries specifically with her which is something she has struggled with for some time. Pt reported she is able to see more positives and her perspective has switched. Pt stated her relationship with her is improving AEB pt being able to be in the same room as her without extreme anger and less arguing. Pt stated improved confidence with verbalizing her opinions and not backing down. Pt identified some strateiges to maintain progress include: self-care, being aware of thoughts, challenging distorted thoughts, challenging perspective and using healthy communication. Pt stated she would call her previous outpatient counselor Odilia oNva for individual counseling and return to her PCP for medication management. Pt reported she would also join the [facility] Transitions Aftercare Group. Risks/Concerns:: denies suicidal ideation, plan or intention to date. Progress Toward Goals/Plan:: Pt has demonstrated signficiant progress with improved mood, increased self-awareness, improved emotional regulation, growth mindset, and improved ability to set boundaries. Pt's progress has positively impacted her relationship with her . Pt stated since having a better relatoinship with her she feels less tense, anxious and irritable at home. Pt coudl benefit from continued work on decreasing alcohol consumption. Pt stated she did not decreae in how much she driniks but reported she no longer wakes up planning when she will drink. Pt is to discharge from IOP today. Time Stopped:: 10:10
--- NOTE | 2020-01-19 15:14 | BH.DS_ITS ---
Discharge Summary - Demographics Date of Admission:: 11/25/19 Discharge Date: 01/19/20 Presenting Problems at Admission:: Pt referred to [facility] health IOP program by her primary care doctor due to worsening symptoms of depression, anxiety and increased alcohol use. Pt identified her marriage to be a significant source of stress for several years. Pt reported COVID-19 had further worsened their relationship due to having to be around each other more often. Pt has limited support system. Pt endorsed depressed mood with crying, anhedonia, no motivation, irritability, avoidance and passive thoughts of . Pt reported using 4-5 beers everyday as a way to cope with mental health symptoms. Pt?s mental health symptoms were interfering with ADLs, social relationships, and familial relationships. 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 - Treatment Progress During Treatment & Response: Pt demonstrated significant treatment progress in decreasing her depression and anxiety per results of DSM 5 self- report. Compared to pt's intake scores on the DSM 5 questionnaire pt decreased depression by 100% and anxiety by 50%. Pt's scores on her alcohol use has increased compared to intake. However, pt states she no longer wakes up waiting until the evening so she can drink. Pt reports she isn't planning out when she is going to drink everyday. Pt states she believes she has decreased using alcohol as a form of coping. Pt showing progress with increased assertiveness, decreased avoidance behaviors, and improved emotional regulation. Pt responded well to IOP AEB pt consistently attending IOP and following through with homework from individual sessions. Pt often active participant throughout group sessions. Issues Still to be Addressed:: Pt could benefit from continued reinforcement of healthy coping skills, assertive communication, and self-advocacy. Pt also could benefit from working on strategies to decrease alcohol use. Discharge Recommendations/Instructions:: Pt is to continue medication management with PCP and follow up with outpatient therapist Odilia Nova at [facility]. Pt will also be joining the [facility] Transitions Aftercare group once a week. Discharge Handout: Complete Discharge Handout with client on aftercare options a nd continuity of care.
== END 2020-01-19 13:58 | disposition home or self-care (01) ==
LOC: BHIOP 09:00
PROVIDERS: PCP Nurse Practitioner; Referring Provider Psychiatry & Neurology Psychiatry; Visit Provider Psychiatry & Neurology Psychiatry
DX: F33.2 Major depressive disorder, recurrent severe without psychotic features (principal); F41.8 Other specified anxiety disorders; Z72.89 Other problems related to lifestyle; Z79.899 Other long term (current) drug therapy
CPT/HCPCS: H0035; 90834; 90853

== ENCOUNTER 2020-01-29 14:00 | Outpatient (RCR) | payer MEDICARE, SELFPAY ==
[2019-05-19 13:32] VITALS: BMI 21.2
--- NOTE | 2020-02-20 11:29 | BH.MTP ---
Master Treatment Plan - Patient Information Program Physician:: Dr. Gricelda Han Primary Therapist:: Angella Guzman - Psychiatric Diagnoses Psychiatric Diagnoses:: Major depressive disorder, recurrent, severe without psychosis; generalized anxiety disorder; alcohol use disorder Diagnosis Code(s):: F 33.2 - Estimated LOS Estimated LOS (in weeks):: 12 Problem/Goal #1 - Problem/Goal #1 Stated Goal:: Client will maintain or see a reduction in symptoms AEB client score on the DSM 5 cross-cutting measure and improve client's daily functioning. - Objectives Objective #1 Stated Objective: Client will continue to consistently apply healthy coping skills to maintain progress made in IOP tx. Interventions: Through group therapy, client will review warning signs and triggers as well as healthy coping skills learned in IOP tx to successfully maintain gains while transitioning into outpatient therapy. Discharge Criteria: Client will have accomplished this goal when client's score on the DSM-5 cross-cutting measure has either maintained or reduced over a 12 week period. Target Date: 04/15/20 Review Date: 02/26/20 Objective #2 Stated Objective: Client will learn and utilize 2-3 maintenance strategies to prevent decompensation. Interventions: Through group therapy, client will be provided with education on healthy maintenance behaviors, relapse prevention techniques, and healthy coping strategies. Discharge Criteria: Client will have accomplished this goal when can report using at least 2 maintenance skills to prevent decompensation. Target Date: 04/15/20 Review Date: 02/26/20
--- NOTE | 2020-02-26 14:01 | BH.SGPN.GN ---
Behaviors/Verbalizations/Mental Status: []Client alert and oriented, neat and casual dress, hygiene tended to. Eye contact good. Motor activity appropriate. Speech within normal limits. Affect congruent, mood euthymic. Thoughts linear, logical. No signs of hallucinations or delusions. Client Response/Progress/Benefit: [] Client responded well to session, attentive and engaged throughout. Client reported she made progress on goal to remind herself of her own self-worth. Expressed that she has been making more active efforts to practice daily gratitude which has aided in applying self-gratitude. Identified skills used to work towards goal as: reframing negative thoughts, reminding herself of her boundaries, and reaching out to supports. Client stated stressor today as struggling to adjust to the reduced contact she has had with her supports as a result of the COVID-19 pandemic. Contributed during discussion on making healthy choices and the barriers that prevent doing so. Client identified personal barriers to be: fear, difficulties accepting help and advocating for her own needs, as well as self-doubt. Client attentive throughout discussion of strategies to improve healthy decision making. Noted wanting to improve healthy decision making regarding personal relationships and selected the strategies of writing a letter and not sending it, as well as creating a pro/con list as the game plan for the week. Appeared to benefit from reflecting on application of coping skills, identifying barriers, and creating a game plan to improve healthy decision-making skills. Narrative Note: []
== END 2020-02-07 23:59 ==
LOC: BHOG 14:00
PROVIDERS: PCP Nurse Practitioner; Referring Provider Psychiatry & Neurology Psychiatry; Visit Provider Psychiatry & Neurology Psychiatry
DX: F33.2 Major depressive disorder, recurrent severe without psychotic features (principal); F41.1 Generalized anxiety disorder; Z72.89 Other problems related to lifestyle
CPT/HCPCS: 90853

== ENCOUNTER 2020-02-18 14:00 | Outpatient (RCR) | payer MEDICARE, SELFPAY ==
[2019-05-19 13:32] VITALS: BMI 21.2
--- NOTE | 2020-02-26 13:47 | BH.TPR ---
Treatment Plan Review Date of Admission:: 01/29/20 Date of Treatment Plan Review:: 02/26/20 Admitting Diagnoses:: F33.2 Major depressive disorder, recurrent, severe without psychosis; generalized anxiety disorder; alcohol use disorder Current Diagnoses:: F33.2 Major depressive disorder, recurrent, severe without psychosis; generalized anxiety disorder; alcohol use disorder Patient's Response to Treatment:: Pt responding well to program AEB pt attending most aftercare sessions. Pt active participant in sessions AEB pt openly sharing thoughts and feelings, providing feedback and support to others, and engaging in group discusions. Status of Current Problems and Symptoms: Client has been reaching out to supports, thought challenging, and focusing on maintaining boundaries to help manage symptoms and stressors. Recently client has reported some increased sadness due to not being able to see her supports because of the coronavirus. Despite being isolated due to the coronavirus, client has been able to manage stressors more effectively on a daily basis. Problem #1 Problem Name:: Pt. will maintain or see a reduction in sx Status of Goals:: Obj 1 - Unable to attain DSM 5 cross-cutting measure scores. Per pt's report she is recently struggling with loneliness and sadness. However pt reporting being able to use healthy coping skills to manage her mental health symptoms. Obj 2 - complete with ongoing work encouraged. Client has been consistently reporting use of thought challenging and reaching out to supports. Team Recommendations:: Recommended client continue IOP aftercare group to promote consistent use of healthy coping skills.
--- NOTE | 2020-04-15 14:00 | BH.SGPN.GN ---
This psychotherapy group was provided via telehealth using two-way, real-time interactive telecommunication technology between the patients and the provider.?The interactive telecommunication technology included audio and video.? ?The patient was offered telemedicine as an option for care delivery during the COVID-19 pandemic and consented to this option. ?Patient location: [place] ?Provider located at [facility] Behaviors/Verbalizations/Mental Status: []Client alert and oriented, casually dressed and groomed. Eye contact good. Motor activity appropriate. Speech within normal limits. Affect congruent- tearful at times, mood anxious and frustrated. Thoughts linear, logical, no signs of hallucinations or delusions. Client Response/Progress/Benefit: []Client responded well to session, actively contributing. Client?s last day of aftercare group and client expressed she will miss the support. Client reports feeling overwhelmed and frustrated today as client and her tested positive for COVID after being very cautious for the last several months. Client stated the symptoms are mild and they will recover. Client has been practicing gratitude and challenging her perspective to cope with symptoms and stressors this week. Client contributed to the discussion on gratitude and its benefits. Client attentive during discussion of internal vs. external gratitude. Client receptive to participating in the group seven-day gratitude challenge. Client selected one gratitude reflection per day and stated she will implement this through drawing each evening. Receptive to discussion on intentionality and self-accountability. Appeared to benefit from connecting with peers and practicing gratitude. Will continue discharge from [facility] aftercare as client has received maximum benefit from the program. Narrative Note: []
== END 2020-03-08 23:59 ==
LOC: BHOG 14:00
PROVIDERS: PCP Nurse Practitioner; Referring Provider Psychiatry & Neurology Psychiatry; Visit Provider Psychiatry & Neurology Psychiatry
DX: F33.2 Major depressive disorder, recurrent severe without psychotic features (principal); F41.8 Other specified anxiety disorders; Z72.89 Other problems related to lifestyle
CPT/HCPCS: 90853

== ENCOUNTER 2020-03-11 14:00 | Outpatient (RCR) | payer MEDICARE, SELFPAY ==
[2019-05-19 13:32] VITALS: BMI 21.2
--- NOTE | 2020-03-11 14:00 | BH.SGPN.GN ---
This psychotherapy group was provided via telehealth using two-way, real-time interactive telecommunication technology between the patients and the provider.?The interactive telecommunication technology included audio and video.? ?The patient was offered telemedicine as an option for care delivery during the COVID-19 pandemic and consented to this option. ?Patient location: [place] ?Provider located at [facility] Behaviors/Verbalizations/Mental Status: []Client alert and oriented, casually dressed and groomed. Eye contact good. Motor activity appropriate. Speech within normal limits. Affect constricted, mood dysthymic. Thoughts linear, logical, no signs of hallucinations or delusions. Client Response/Progress/Benefit: []Client responded well to session, checking in using GAPS. Client?s emotion today is ?impatient? due to feeling distant from her friends and family because of COVID. Client reported multiple wins including being able to reframe negative thinking and remind self of all client is grateful for during this stressful time. Client states using opposite action and reaching out to friends through letters to cope with daily stressors. Receptive of discussion on self-talk and its influence in maintaining long-term mental health stability. Contributed to strategies for improving effective creation and application of believable personal affirmations. Client?s affirmational statements were ?I am still learning,? ?I have the ability to cope,? and ?I choose to listen and understand others.? Progress noted in client?s ability to reframe negative thinking. Client to continue aftercare group to promote gains and further increase application of healthy coping skills. Narrative Note: []
--- NOTE | 2020-03-25 14:00 | BH.SGPN.GN ---
This psychotherapy group was provided via telehealth using two-way, real-time interactive telecommunication technology between the patients and the provider.?The interactive telecommunication technology included audio and video.? ?The patient was offered telemedicine as an option for care delivery during the COVID-19 pandemic and consented to this option. ?Patient location: [place] ?Provider located at [facility] Behaviors/Verbalizations/Mental Status: []Client alert and oriented, casually dressed and groomed. Eye contact good. Motor activity appropriate. Speech within normal limits. Affect constricted, mood euthymic. Thoughts linear, logical, no signs of hallucinations or delusions. Client Response/Progress/Benefit: []Client responded well to session, checked in using her GAPs worksheet. Client?s goal from last session was to work on patience and being a better active listener. Client reports this has been going well most of the time. Client states she has been reframing her thinking and enjoying the ?slower moments.? Client reports ongoing isolation due to COVID has been very hard for client. Client engaged well during the discussion of the components of self-compassion. Client connected with the benefits of self-compassion and agreed with peers that it is much easier to be compassionate to others than to self. Client participated in the activity of reframing a recent setback using self-compassion. Client used the example of a recent argument with her . Client was able to reframe this situation using self-compassion and stated, ?the other person has struggles also and communication takes time.? Client appeared to benefit from practicing self-compassion and connecting with peers. Will continue aftercare to promote mood stability and reinforce healthy coping skills. Narrative Note: []
--- NOTE | 2020-03-25 14:34 | BH.TPR ---
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 Pt cotinues to be an active participant in sessions AEB pt openly sharing thoughts and feelings, providing feedback and support to others, and engaging in group discussions. Status of Current Problems and Symptoms: Client reports continuing to struggle with being isolated due to the coronavirus. Client reports still connecting with supports at times. Client reports doing better with reframing negative thought patterns. Client states struggles at times with managing emotions in the moment when frustrated with . Client has increased awareness when she needs to take a break from a situation. Problem #1 Problem Name:: Pt. will maintain or see a reduction in sx Status of Goals:: Obj 1 - Unable to attain DSM 5 cross-cutting measure scores. Per pt's report she is continuing to struggle with being isolated due to the pandemic. However pt reporting being able to use healthy coping skills and thought challenge to manage mental health symptoms. Obj 2 - complete with ongoing work encouraged. Client has been consistently reporting use of thought challenging and reaching out to supports. Team Recommendations:: Recommended client continue IOP aftercare group to promote consistent use of healthy coping skills.
== END 2020-04-08 23:59 ==
LOC: BHOG 14:00
PROVIDERS: PCP Nurse Practitioner; Referring Provider Psychiatry & Neurology Psychiatry; Visit Provider Psychiatry & Neurology Psychiatry
DX: F33.2 Major depressive disorder, recurrent severe without psychotic features (principal); F41.1 Generalized anxiety disorder; Z72.89 Other problems related to lifestyle
CPT/HCPCS: 90853

== ENCOUNTER 2020-04-15 14:00 | Outpatient (RCR) | payer MEDICARE, SELFPAY ==
[2019-05-19 13:32] VITALS: BMI 21.2
--- NOTE | 2020-04-15 14:49 | BH.DS_ITS ---
Discharge Summary - Demographics Date of Admission:: 01/29/20 Discharge Date: 04/15/20 Presenting Problems at Admission:: Client discharged from IOP tx and transitioned to IOP aftercare to maintain gains client made in IOP and to reinforce healthy coping skills. At admission to IOP aftercare, client reported worsening symptoms of depression, anxiety, and increased alcohol use. Pt identified her marriage to be a significant source of stress for several years. Pt reported COVID-19 had further worsened their relationship due to having to be around each other more often. Pt had limited support system. Pt endorsed depressed mood with crying, anhedonia, no motivation, irritability, avoidance, and passive thoughts of . At admission to aftercare pt reported significant decrease in depression, however continuing to report anxoius symptoms. 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 Client will transition to traditional outpatient counseling. - Treatment Progress During Treatment & Response: Client was engaged in IOP aftercare as evidenced by client's participation in group discussions and self-report of consistently applying coping skills. Client reported challenges throughout therapy, especially connected with the isolation from covid, but overall client was positive and reported mood stability. Client reported an improved mood, more positive thinking patterns, improved communication, consistent use of healthy coping skills, improved boundary setting, and improved emotional regulatoin. Issues Still to be Addressed:: client can benefit from continued individual counseling to maintain symptom reductoin. Discharge Recommendations/Instructions:: Client is encouraged to re-engage in o utpatient counseling with her previous counselor, Odilia Nova. Client recommended to follow up with PCP for medication managment. Discharge Handout: Complete Discharge Handout with client on aftercare options and continuity of care.
== END 2020-04-15 16:00 | disposition home or self-care (01) ==
LOC: BHOG 14:00
PROVIDERS: PCP Nurse Practitioner; Referring Provider Psychiatry & Neurology Psychiatry; Visit Provider Psychiatry & Neurology Psychiatry
DX: F33.1 Major depressive disorder, recurrent, moderate (principal); F41.1 Generalized anxiety disorder; Z72.89 Other problems related to lifestyle
CPT/HCPCS: 90853

== ENCOUNTER → 2020-12-23 10:59 | Outpatient (CLI) | payer MEDICARE, SELFPAY ==
--- NOTE | 2020-12-23 11:02 | BI_ITS ---
MAMMOGRAPHY - BILATERAL SCREENING REASON FOR EXAM: Female, 75 years old. Routine annual screening examination. PERTINENT HISTORY: Non-contributory. TECHNIQUE: Digital bilateral breast maria e (3D mammographic acquisition) in the CC and MLO projections. 2-D mediolateral oblique (MLO) and craniocaudad (CC) views of both breasts were obtained. CAD: Full Field Digital Mammography with Computer Added Detection was performed. COMPARISON: Comparison is made with prior study 11/09/2018 and 11/22/2017. FINDINGS: Breast Composition: The breasts are heterogeneously dense, which may obscure small masses. There are no dominant masses or suspicious calcifications. No other significant abnormalities are identified. There has been no significant change since the prior study. BI/SCRN MAMM (CAD)W/MARIA E BILAT IMPRESSION: Stable bilateral screening mammogram. Yearly follow-up mammogram recommended. (A) ASSESSMENT CATEGORY: BIRADS Category 1: Negative. A letter regarding these results will be sent to the patient by the facility within 30 days. Approximately 10% of breast cancers are not detected by mammography. A normal mammogram should not delay biopsy of a clinically suspicious abnormality. [id number] Electronically Signed: Dimitry Franco MD at 12:27 EDT , Service support ,
--- NOTE | 2020-12-23 11:02 | BD_ITS ---
STUDY: DUAL ENERGY X-RAY ABSORPTIOMETRY / DXA REASON FOR EXAM: Female, 75 years old. 627.8Menopausal postmenopausalBONE DENSITY REASON FOR EXAM TECHNIQUE: Bone Mineral Density (BMD) measurements of lumbar spine and both forearms were obtained. COMPARISON: Comparison is made with prior examination in 11/22/2017. FINDINGS: Lumbar Spine (L1-L4): g/cm2 (0.998) / T-score (-0.4) / Z-score (2.1) Findings are suggestive of normal bone density with a low fracture risk. Right Forearm: g/cm2 (0.466) / T-score (-2.1) / Z-score (0.6) Left Forearm: g/cm2 (0.55) / T-score (-1.4) / Z-score (1.3) The T-Scores on the most recent prior examination were: Lumbar Spine (L1-L4): There has been worsening of bone density since the previous examination. BD/Dexa Bone Density Study IMPRESSION: The patient is considered osteopenic as outlined below according to World Sameer Organization (WHO) criteria with a moderate fracture risk. There has been worsening of bone density since the previous examination. Reference Information: The T-score is the number of standard deviations above or below the standard which is normal for young adults at their peak bone mineral density. The World Health Organization (WHO) interprets the T-scores as follows: Above -1 Normal bone density Between -1 and -2.5 Osteopenia Equal to / or below -2.5 Osteoporosis As a practical clinical guideline, osteopenia may be graded as follows: Mild -1 through -1.5 Moderate -1.6 through -2.0 Severe -2.1 through -2.4 The Z-score is the number of standard deviations above or below age-matched controls. A Z-score of less than -1.5 would be considered abnormal. References: 1. NIH Osteoporosis and Related Bone Diseases www osteo.org 2. International Society for Clinical Densitometry www iscd.org 3. National Osteoporosis Foundation www nof.org Electronically Signed: Dimitry Franco MD at 13:26 EDT , Service support ,
== END ==
PROVIDERS: PCP Nurse Practitioner; Referring Provider Nurse Practitioner; Visit Provider Nurse Practitioner
DX: Z78.0 Asymptomatic menopausal state (principal); Z12.31 Encounter for screening mammogram for malignant neoplasm of breast
CPT/HCPCS: 77063; 77067; 77080

== ENCOUNTER → 2021-03-24 08:14 | Outpatient (CLI) | payer MEDICARE, SELFPAY ==
--- NOTE | 2021-03-24 08:20 | US_ITS ---
STUDY: ABDOMINAL ULTRASOUND REASON FOR EXAM: Female, 75 years old. ABD PAIN TECHNIQUE: Transabdominal ultrasound was performed with real-time and static anna scale imaging. TECHNICAL QUALITY: Adequate. COMPARISON: Comparison is made with prior examination dated 06/07/2017. FINDINGS: Liver: The liver measures 11.4 cm. There is increased echogenicity consistent with mild degree of fatty infiltration. The bile ducts are within normal limits. There is hepatic color flow. The direction of portal flow is hepatopetal. There is no demonstrated mass lesion. Portal vein measurement: Gallbladder: Normal distended gallbladder. The gallbladder wall measures 2.2 mm. There is a negative sonographic Lewis''s sign. There is no pericholecystic fluid. There are no gallstones. Common Bile Duct (C.B.D.): The common bile duct measures 2.4 mm. Pancreas: Normal size of the head, body of the pancreas. The tail portion was obscured due to overlying bowel gas. There is normal echogenicity of the pancreas. There is no demonstrated pancreatic mass or cyst. Spleen: Normal size of the spleen. The spleen measures 7 cm x 2 cm x 2.8 cm. Right Kidney: Normal size of the right kidney. The right kidney measures 9.3 cm x 4.5 cm x 3.7 cm. Normal renal cortex. The right cortex measures 1.2 cm. There is no demonstrated renal mass or cyst. There is no right hydronephrosis. Left Kidney: Normal size of the left kidney. The left kidney measures 11 cm x 4 cm x 4.6 cm. Normal renal cortex. The left cortex measures 1.8 cm. There is a 1 cm x 0.8 cm x 1 cm cyst. There is no left hydronephrosis. Aorta: Unremarkable I.V.C.: The IVC is patent. There is no ascites. US/Abdomen Complete IMPRESSION: Mild degree of fatty infiltration of the liver. Small right renal cyst. Electronically Signed: Dmiitry Franco MD at 12:20 EST , Service support ,
== END ==
PROVIDERS: PCP Nurse Practitioner; Referring Provider Nurse Practitioner; Visit Provider Nurse Practitioner
DX: R10.9 Unspecified abdominal pain (principal)
CPT/HCPCS: 76700

== ENCOUNTER 2021-04-11 14:06 | Outpatient (CLI) | payer MEDICARE, SELFPAY ==
[2021-04-11 15:16] LABS: Absolute Lymphocyte Count 1.48 X10^3/uL (0.83-4.51); Absolute Neutrophil Count 4.6 X10^3/uL (2.0-7.7); Basophil# 0.06 X10^3/uL; Basophil% 0.9 % (0-1); Eosinophil# 0.08 X10^3/uL; Eosinophils% 1.2 % (0-5); Hematocrit 45.1 % (37-47); Hemoglobin 14.7 g/dL (12.0-15.0); Lymphocyte # 1.48 X10^3/ul (0.83-4.51); Lymphocyte % 21.7 % (19-41); Mean Corp Hgb Conc 32.6 g/dL (32-36); Mean Corpuscular Hgb 30.2 pg (27.0-32.0); Mean Corpuscular Volume 92.8 fL (81-99); Mean Platelet Vol. 8.6 fl (6.2-12.0); Monocyte# 0.56 X10^3/uL; Monocyte% 8.2 % (0-10); NRBC Flagged by Analyzer 0 % (0-5); Neutrophil # 4.62 X10^3/uL (2.7-7.7); Neutrophil % 67.6 % (47-70); Platelet Count 389 K/mm3 (150-450); RBC Distribution Width SD 47.8 fl (35.1-43.9); Red Blood Count 4.86 M/mm3 (4.2-5.4); White Blood Count 6.8 K/mm3 (4.4-11.0)
[2021-04-11 15:36] LABS: Erythrocyte Sedimentation Rate 9 mm/hr (0-30)
[2021-04-11 15:37] LABS: International Normalized Ratio 0.9; Partial Thromboplast Time 35.6 Seconds (24.1-36.2); Prothrombin Time (Protime)PT. 11.3 SECONDS (11.7-14.9)
[2021-04-11 16:09] LABS: BUN 10 mg/dL (7-18); Creatinine, Serum 0.82 mg/dL (0.55-1.02); Glucose 89 mg/dL (74-106)
[2021-04-11 16:10] LABS: AST(SGOT) 27 U/L (15-37); Alanine Aminotransfer ALT/SGPT 38 U/L (13-56); Albumin, Serum 4.3 g/dL (3.2-5.0); Alkaline Phosphatase 106 U/L (45-117); Anion Gap 9 (5-15); BUN/Creat Ratio 12.1 RATIO (10-20); Bilirubin, Direct 0.18 mg/dL (0.00-0.30); CRP < 2.90 mg/L (0.0-3.0); Calcium,Total 9.6 mg/dL (8.5-10.1); Chloride 96 mmol/L (98-107); EST Glomerular Filtration Rate 71 mL/min (>60); Est Glom Filt Rate - Afr Amer 86 mL/min (>60); Globulin 4.3 g/dL (2.2-4.2); LDH 205 U/L (84-246); Potassium 3.6 mmol/L (3.5-5.1); Protein, Total 8.6 g/dL (6.4-8.2); Sodium Level 133 mmol/L (136-145)
[2021-04-13 16:21] LABS: ANTINUCLEAR ANTIBODIES DIRECT Negative (Negative); Anti-Mitochondrial AB <20.0 Units (0.0-20.0)
[2021-04-14 16:10] LABS: Angiotensin Convert Enzyme 57 U/L (14-82); Ceruloplasmin 33.2 mg/dL (19.0-39.0); Cytoplasmic Ab (C-ANCA) <1:20 titer (Neg:<1:20); HEPATITIS B SURFACE AG Negative (Negative); Hepatitis A IgM Antibody Negative (Negative); Hepatitis B Core AB IgM Negative (Negative)
[2021-04-15 14:16] LABS: AFP, Tumor Marker 6.5 ng/mL (0.0-8.3); Anti-Smooth Muscle ABS 5 Units (0-19); Copper, Serum or Plasma 128 ug/dL (80-158); Haptoglobin 186 mg/dL (42-346); Hep C Antibodies 0.1 s/co ratio (0.0-0.9); Perinuclear Ab (P-ANCA) <1:20 titer (Neg:<1:20)
== END 2021-04-11 23:59 | disposition short-term general hospital (02) ==
LOC: LAB 14:07
PROVIDERS: PCP Nurse Practitioner; Referring Provider Nurse Practitioner Adult Health; Visit Provider Nurse Practitioner Adult Health
DX: K76.0 Fatty (change of) liver, not elsewhere classified (principal)
CPT/HCPCS: 36415; 80053; 80074; 82105; 82164; 82248; 82390; 82525; 83010; 83516; 83615; 85025; 85610; 85652; 85730; 86038; 86140; 86256

== ENCOUNTER 2021-04-12 11:47 | Outpatient (CLI) | payer MEDICARE, SELFPAY ==
[2021-04-15 13:59] LABS: Calprotectin, Stool 24 ug/g (0-120)
== END 2021-04-12 23:59 | disposition short-term general hospital (02) ==
LOC: LABSPEC 11:49
PROVIDERS: PCP Nurse Practitioner; Referring Provider Nurse Practitioner Adult Health; Visit Provider Nurse Practitioner Adult Health
DX: K76.0 Fatty (change of) liver, not elsewhere classified (principal); R15.9 Full incontinence of feces; R19.7 Diarrhea, unspecified
CPT/HCPCS: 83993; 87493; 87506

== ENCOUNTER 2021-04-19 10:13 | Outpatient (CLI) | payer MEDICARE, SELFPAY ==
--- NOTE | 2021-04-19 10:24 | US_ITS ---
STUDY: ABDOMINAL ULTRASOUND - ELASTOGRAPHY REASON FOR VISIT: Female, 75 years old. Fatty infiltration of the liver. TECHNIQUE: Liver stiffness measurements were obtained on a CITIA RS 85 ultrasound machine using a CA 1-7 probe following the SRU guidelines. 3 measurements were obtained using a 2-D-SWE method. The IQR/M was 19% suggesting a quality data set. TECHNICAL QUALITY: Adequate. COMPARISON: Comparison is made with prior sonogram of the right upper quadrant dated 03/24/2021. FINDINGS: Liver: Fatty infiltration of the liver. Median liver stiffness measured 6.6 kPa. US/Elastography Parenchyma/Organ IMPRESSION: Liver stiffness measures 6.6 kPa compatible with F2 Metavir score. Electronically Signed: Dimitry Franco MD at 12:17 EST , Service support ,
== END 2021-04-19 23:59 | disposition short-term general hospital (02) ==
LOC: US 10:16
PROVIDERS: PCP Nurse Practitioner; Referring Provider Nurse Practitioner Adult Health; Visit Provider Nurse Practitioner Adult Health
DX: K76.0 Fatty (change of) liver, not elsewhere classified (principal)
CPT/HCPCS: 76981

== ENCOUNTER 2021-06-09 06:23 | Day surgery (SDC) | payer MEDICARE, SELFPAY ==
[2021-06-09] VITALS (7 sets, daily range): BP systolic 84–147; BP diastolic 55–81; PULSE 63–76; RESP 16–18; TEMP 36.1–36.8; O2SAT 96–100; BMI 20.7
[2021-06-09] MEDS: Lactated Ringers 1,000 ML 15 ML IV (07:05)
--- NOTE | 2021-06-09 07:30 | EGD_PTH ---
PATIENT: RORY MALDONADO LOC: [facility] U#:[id number] AGE/SX: 75/F ROOM: RE06/09/[address]: Dr. Hay Ayala DO : 1945 BED: DIS: 06/09/2021 SPEC #: [id number] RECD: 06/09/21 13:42 STATUS: JUNO KRISTINE #: [id number] GRACY: 06/09/21 07:[address]: Hay Ayala DEPT: SURGICAL PATHOLOGY RECD BY: Eduarda Valadez ENTERED: 06/10/21 09:31 SP TYPE: EGD BIOPSY OT DR: Padmini Santoro, TEST EXAMINER-C Tissues: A - Duodenum, NOS B - Stomach, NOS C - Esophagus, NOS D - Cecum, NOS Procedures: Special Stain Group II Surgery Specimen Level IV Alcian Blue/PAS (control) HEADER OPERATION: Colonoscopy, E[place] [place] PRE-OP DIAGNOSIS: Fatty liver, fecal incontinence, diarrhea TISSUE SUBMITTED: A ? Duodenum biopsy, B ? Greater curvature submucosal region biopsy, C ? Distal esophagus biopsy, D ? Cecal polyp biopsy MICROSCOPIC DIAGNOSIS A. Duodenum, biopsy: Fragments of duodenal mucosa, no pathologic diagnosis. B. Greater curvature submucosal region, biopsy: A submucosal calcified fibrous nodule. Focal minimal chronic inflammation. See comment. C. 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 Chronic inflammation. Negative for dysplasia. See comment. D. Cecal polyp, biopsy: Hyperplastic polyp. SJ:sharad 06/13/2021 COMMENT B. Immunohistochemistry for Helicobacter pylori can be performed if clinically indicated. Please notify the Laboratory if it is needed. C. Alcian blue/PAS stain with matched control is used in the evaluation of the specimen. Case has been reviewed in consultation with Dr. Ely who concurs with the above diagnosis. IDC:AM MICROSCOPIC DESCRIPTION Slides are reviewed. GROSS DESCRIPTION A - Received in fixative is one container labeled with the patient's name and designated duodenum biopsy. The specimen consists of multiple irregular fragments of light berrios soft tissue that in aggregate measure 0.6 x 0.5 x 0.1 cm. The specimen is totally submitted in one cassette. B - Received in fixative is one container labeled with the patient's name and designated greater curvature submucosal region biopsy. The specimen consists of multiple irregular fragments of light berrios soft tissue that in aggregate measure 0.8 x 0.4 x 0.1 cm. The specimen is totally submitted in one cassette. C - Received in fixative is one container labeled with the patient's name and designated distal esophagus biopsy. The specimen consists of two irregular fragments of light berrios soft tissue that in aggregate measure 0.6 x 0.4 x 0.1 cm. The specimen is totally submitted in one cassette. D - Received in fixative is one container labeled with the patient's name and designated cecal polyp biopsy. The specimen consists of multiple irregular fragments of light berrios soft tissue that in aggregate measure 0.8 x 0.3 x 0.1 cm. The specimen is totally submitted in one cassette. / SJ:rg 06/10/2021 TC:3 CPT: 80972 x4, [id number]
--- NOTE | 2021-06-09 08:35 | OP.EGD_ITS ---
Patient Name: Ruthann Medina Procedure Date: 06/09/2021 8:05 AM Date of : 1945 Age: 75 Procedure: Upper GI endoscopy Indications: Dyspepsia, Dysphagia Providers: Hay Ayala DO Medicines: See the Anesthesia note for documentation of the administered medications Patient Profile: This is a 75 year old female. Refer to note in patient chart for documentation of history and physical. Patient has symptoms of acute abdominal cramping and acute dysphagia. Complications: No immediate complications. Procedure: Pre-Anesthesia Assessment: - Prior to the procedure, a History and Physical was performed, and patient medications and allergies were reviewed. The risks and benefits of the procedure and the sedation options and risks were discussed with the patient. All questions were answered and informed consent was obtained. Patient identification and proposed procedure were verified by the physician in the pre-procedure area. Mental Status Examination: alert and oriented. Airway Examination: normal oropharyngeal airway and neck mobility. Respiratory Examination: clear to auscultation. CV Examination: normal. Prophylactic Antibiotics: The patient does not require prophylactic antibiotics. Prior Anticoagulants: The patient has taken no previous anticoagulant or antiplatelet agents. ASA Grade Assessment: II - A patient with mild systemic disease. After reviewing the risks and benefits, the patient was deemed in satisfactory condition to undergo the procedure. The anesthesia plan was to use moderate sedation / analgesia (conscious sedation). Immediately prior to administration of medications, the patient was re-assessed for adequacy to receive sedatives. The heart rate, respiratory rate, oxygen saturations, blood pressure, adequacy of pulmonary ventilation, and response to care were monitored throughout the procedure. The physical status of the patient was re-assessed after the procedure. After obtaining informed consent, the endoscope was passed under direct vision. Throughout the procedure, the patient's blood pressure, pulse, and oxygen saturations were monitored continuously. The pediatric colonoscope was introduced through the mouth, and advanced to the second part of duodenum. The upper GI endoscopy was accomplished without difficulty. The patient tolerated the procedure well. Moderate Sedation: Moderate (conscious) sedation was administered by the endoscopy nurse and supervised by the endoscopist. The patient's oxygen saturation, heart rate, blood pressure and response to care were monitored. Total physician intraservice time was 15 minutes. Moderate (conscious) sedation was administered by the endoscopy nurse and supervised by the endoscopist. The patient's oxygen saturation, heart rate, blood pressure and response to care were monitored. Total physician intraservice time was 15 minutes. Scope In: 8:20:51 AM Scope Out: 8:29:16 AM Total Procedure Duration Time 0 hours 8 minutes 25 seconds Findings: LA Grade A (one or more mucosal breaks less than 5 mm, not extending between tops of 2 mucosal folds) esophagitis with no bleeding was found 34 to 38 cm from the incisors. Biopsies were taken with a cold forceps for histology. Verification of patient identification for the specimen was done. Estimated blood loss was minimal. A medium-sized, submucosal, non-circumferential mass with no bleeding and no stigmata of recent bleeding was found on the greater curvature of the stomach. Biopsies were taken with a cold forceps for histology. Verification of patient identification for the specimen was done. Estimated blood loss was minimal. There were multiple small bowel gastric polyps seen. These were all benign in appearance. Patchy mild inflammation characterized by friability was found in the first portion of the duodenum. Biopsies were taken with a cold forceps for histology. Verification of patient identification for the specimen was done. Estimated blood loss was minimal. Impression: - LA Grade A reflux esophagitis. Biopsied. 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 Biopsied. - Duodenitis. Biopsied. Recommendation: - Discharge patient to home. - Resume previous diet. - Continue present medications. - Await pathology results. - Repeat upper endoscopy (date not yet determined) for surveillance based on pathology results. Procedure Code(s): --- Professional --- 22462, Esophagogastroduodenoscopy, flexible, transoral; with biopsy, single or multiple 85853, 59, Moderate sedation services provided by the same physician or other qualified health medicare specialist performing the diagnostic or therapeutic service that the sedation supports, requiring the presence of an independent trained observer to assist in the monitoring of the patient's level of consciousness and physiological status; initial 15 minutes of intraservice time, patient age 5 years or older 36473, 59, Moderate sedation services provided by the same physician or other qualified health medicare specialist performing the diagnostic or therapeutic service that the sedation supports, requiring the presence of an independent trained observer to assist in the monitoring of the patient's level of consciousness and physiological status; initial 15 minutes of intraservice time, patient age 5 years or older CPT copyright 2017 [employer]. All rights reserved. The codes documented in this report are preliminary and upon sheriffs review may be revised to meet current compliance requirements. Hay Ayala DO 06/09/2021 8:34:28 AM This report has been signed electronically. Number of Addenda: 1 Note Initiated On: 06/09/2021 8:05 AM Addendum Number: 1 Addendum Date: 01/04/2022 6:38:54 AM MAC was used as sedation for this procedure. Hay Ayala DO 01/04/2022 6:38:58 AM This report has been signed electronically.
--- NOTE | 2021-06-09 08:36 | OP.CCLET_ITS ---
01/04/2022 Padmini Santoro, SEVERINO [address] [place] [address] Re : Upper GI endoscopy procedure for Ruthann Rosefelice Dear Ms. Santoro This procedure was performed on June. My impressions and recommendations are as follows: Impressions : - LA Grade A reflux esophagitis. Biopsied. 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 Biopsied. - Duodenitis. Biopsied. Recommendations : - Discharge patient to home. - Resume previous diet. - Continue present medications. - Await pathology results. - Repeat upper endoscopy (date not yet determined) for surveillance based on pathology results. My findings are described in the full procedure note, which is enclosed. If I can be of further assistance, please feel free to contact me at . Sincerely, Hay Ayala, 06/09/2021 8:34:28 AM This report has been signed electronically.
--- NOTE | 2021-06-09 09:05 | OP.CCLET_ITS ---
01/04/2022 Padmini Santoro, SEVERINO [address] [place] [address] Re : Colonoscopy procedure for Ruthann Medina Dear Ms. Santoro This procedure was performed on June. My impressions and recommendations are as follows: Impressions : - Two 1 to 2 mm polyps in the cecum, removed with a jumbo cold forceps. Resected and retrieved. - Moderate diverticulosis in the recto-sigmoid colon, in the sigmoid colon and in the descending colon. There was narrowing of the colon in association with the diverticular opening. There was evidence of diverticular spasm. Recommendations : - Discharge patient to home. - Resume regular diet. - Continue present medications. - Await pathology results. - Repeat colonoscopy in 5 years for surveillance based on pathology results. - Return to GI office. My findings are described in the full procedure note, which is enclosed. If I can be of further assistance, please feel free to contact me at . Sincerely, Hay Ayala, 06/09/2021 9:04:09 AM This report has been signed electronically.
--- NOTE | 2021-06-09 09:05 | OP.COLON_ITS ---
Patient Name: Ruthann Medina Procedure Date: 06/09/2021 8:29 AM Date of : 1945 Age: 75 Procedure: Colonoscopy Indications: Abdominal pain in the left lower quadrant Providers: Hay Ayala DO Medicines: See the Anesthesia note for documentation of the administered medications Patient Profile: This is a 75 year old female. Refer to note in patient chart for documentation of history and physical. Patient has symptoms of acute abdominal cramping and acute dysphagia. Last Colonoscopy: date unknown. Complications: No immediate complications. Procedure: Pre-Anesthesia Assessment: - Prior to the procedure, a History and Physical was performed, and patient medications and allergies were reviewed. The risks and benefits of the procedure and the sedation options and risks were discussed with the patient. All questions were answered and informed consent was obtained. Patient identification and proposed procedure were verified by the physician in the pre-procedure area. Mental Status Examination: alert and oriented. Airway Examination: normal oropharyngeal airway and neck mobility. Respiratory Examination: clear to auscultation. CV Examination: normal. Prophylactic Antibiotics: The patient does not require prophylactic antibiotics. Prior Anticoagulants: The patient has taken no previous anticoagulant or antiplatelet agents. ASA Grade Assessment: II - A patient with mild systemic disease. After reviewing the risks and benefits, the patient was deemed in satisfactory condition to undergo the procedure. The anesthesia plan was to use moderate sedation / analgesia (conscious sedation). Immediately prior to administration of medications, the patient was re-assessed for adequacy to receive sedatives. The heart rate, respiratory rate, oxygen saturations, blood pressure, adequacy of pulmonary ventilation, and response to care were monitored throughout the procedure. The physical status of the patient was re-assessed after the procedure. After I obtained informed consent, the scope was passed under direct vision. Throughout the procedure, the patient's blood pressure, pulse, and oxygen saturations were monitored continuously. The pediatric colonoscope was introduced through the anus and advanced to the cecum, identified by appendiceal orifice and ileocecal valve. The colonoscopy was performed without difficulty. The patient tolerated the procedure well. The quality of the bowel preparation was good. Moderate Sedation: Moderate (conscious) sedation was administered by the endoscopy nurse and supervised by the endoscopist. The patient's oxygen saturation, heart rate, blood pressure and response to care were monitored. Total physician intraservice time was 15 minutes. Moderate (conscious) sedation was administered by the endoscopy nurse and supervised by the endoscopist. The patient's oxygen saturation, heart rate, blood pressure and response to care were monitored. Total physician intraservice time was 15 minutes. Scope In: 8:36:16 AM Scope Withdrawal Time 0 hours 10 minutes 44 seconds Scope Out: 8:54:22 AM Total Procedure Duration Time 0 hours 18 minutes 6 seconds Findings: The perianal and digital rectal examinations were normal. Two sessile polyps were found in the cecum. The polyps were 1 to 2 mm in size. These polyps were removed with a jumbo cold forceps. Resection and retrieval were complete. Verification of patient identification for the specimen was done. Estimated blood loss was minimal. Multiple small and large-mouthed diverticula were found in the recto-sigmoid colon, sigmoid colon and descending colon. There was narrowing of the colon in association with the diverticular opening. There was evidence of diverticular spasm. Impression: - Two 1 to 2 mm polyps in the cecum, removed with a jumbo cold forceps. Resected and retrieved. - Moderate diverticulosis in the recto-sigmoid colon, in the sigmoid colon and in the descending colon. There was narrowing of the colon in association with the diverticular opening. There was evidence of diverticular spasm. Recommendation: - Discharge patient to home. - Resume regular diet. - Continue present medications. - Await pathology results. - Repeat colonoscopy in 5 years for surveillance based on pathology results. - Return to GI office. Procedure Code(s): --- Professional --- 18534, Colonoscopy, flexible; with biopsy, single or multiple 77507, 59, Moderate sedation services provided by the same physician or other qualified health urgent care technician performing the diagnostic or therapeutic service that the sedation supports, requiring the presence of an independent trained observer to assist in the monitoring of the patient's level of consciousness and physiological status; initial 15 minutes of intraservice time, patient age 5 years or older 42941, 59, Moderate sedation services provided by the same physician or other qualified health urgent care technician performing the diagnostic or therapeutic service that the sedation supports, requiring the presence of an independent trained observer to assist in the monitoring of the patient's level of consciousness and physiological status; initial 15 minutes of intraservice time, patient age 5 years or older CPT copyright 2017 [employer]. All rights reserved. The codes documented in this report are preliminary and upon research group director review may be revised to meet current compliance requirements. Hay Ayala DO 06/09/2021 9:04:09 AM This report has been signed electronically. Number of Addenda: 1 Note Initiated On: 06/09/2021 8:29 AM Addendum Number: 1 Addendum Date: 01/04/2022 6:39:06 AM MAC was used as sedation for this procedure. Hay Ayala DO 01/04/2022 6:39:12 AM This report has been signed electronically.
--- NOTE | 2021-06-10 16:30 | PCM.HP.BLA ---
History and Physical Date of Admission: 06/09/21 75 F who presents to the office today for Ruthann has been having issues with bowel incontinence with urgent BM and some stool leaking, hemorrhoids and LUQ abdominal pain. BM consistency is always loose. This occurs a couple times a week with explosive type incontinence occurring every couple of weeks usually in the morning. Food intake, food types are not identified as triggers. Last colonoscopy six years prior. Reports rectal itching with stool leaking and some blood she then uses hemorrhoid cream and feels this is helpful. Has attempted to increase roughage and attempted to identify diet sources but this has not been helpful. Reports some bloating, abdominal pain and cramping. Reports urinary incontinence and is seeing someone for this. Additional history elevated LFT, JANA positive, osteopenia/osteoporosis, HTN, depression (duloxetine), history of alcohol abuse. US abdomen performed 03/24/21. Liver measures 11.4cm with findings consistent with fatty infiltration. Small right renal cyst. Otherwise unremarkable. ROS Gastro GI: Positive for abdominal pain, bloating, change in bowel habits, diarrhea and heartburn Musc Musculoskeletal: Positive for Arthritis Exam Const General: cooperative and comfortable Nutritional Appearance: average body habitus and well nourished HENMT Head: normal to inspection Ears: hearing grossly normal bilaterally Nose: external nose normal Face and sinus: normal facial exam Mouth: oral mucosae normal Throat: posterior oropharynx normal Eyes General: appearance normal, both eyes and all related structures Neck Neck: normal visual inspection Chest Chest palpation & inspection: normal inspection of the chest and normal palpation of entire chest wall Resp Effort & Inspection: normal respiratory effort Auscultation: Bilateral: Clear to Auscultation Cardio Palpation: normal PMI Rate: regular rate Rhythm: regular rhythm GI Inspection: normal to inspection Auscultation: normal bowel sounds Percussion: normal to percussion Palpation: no hepatosplenomegaly Skin General: no rashes or lesions noted Neuro General: patient alert Extrem General: normal to inspection Psych Affect: normal affect Quality Reporting Tobacco Screening ([facility] 138) Smoking Status: Former smoker Assessment and Plan Assessment and Plan (1) Fatty liver: Status: Acute Orders: Orders: Elastography Parenchyma/Organ Today Comprehensive Metabolic Profil Today CRP Today LDH Today CBC W/Diff, Automated Today Erythrocyte Sed Rate Today Anti-Mitochondrial AB Today Angiotensin Convert Enzyme Today AFP, Tumor Marker Today ANCA Today Anti-Smooth Muscle ABS Today Ceruloplasmin Today Copper, Serum or Plasma Today Partial Thromboplast Time Today Prothrombin Time w/INR Today Hepatitis Panel Acute Today Haptoglobin Today Calprotectin, Stool Today CDIFF (PCR) Today ENTERIC PATHOGEN PANEL STOOL Today Plan - Dr. Hay Ayala, DO: Who was previously 14 cm and is down to 11 cm. In the setting of fatty liver disease possibly secondary to alcohol I am concerned that she may be developing cirrhosis. We will send the chemical work-up for underlying chronic liver disease and we will also order a FibroScan to see if she needs a liver biopsy. (2) Fecal incontinence: Status: Acute Orders: Orders: Calprotectin, Stool Today CDIFF (PCR) Today ENTERIC PATHOGEN PANEL STOOL Today Plan - Dr. Hay Ayala, DO: She has not sent any stairs any signs of infection we will check and see if there are any signs of infection in her stool (3) Diarrhea: Status: Acute Orders: Orders: ENTERIC PATHOGEN PANEL STOOL Today Plan - Dr. Hay Ayala, DO: Diagnosis for diarrhea could be overflow incontinence, bile induced with diarrhea, microscopic colitis. I feel that colestipol is the safest thing to give her at this time. After we get stool studies and blood work back she will undergo colonoscopy so we can do biopsies for eosinophilic gastroenteritis, microscopic colitis, villous adenoma secreting potassium leading to diarrhea and overflow incontinence secondary to diverticular disease. I have re-examined the patient. There are no clinical changes since date of exam.
== END 2021-06-09 23:59 | disposition home or self-care (01) ==
LOC: EN 06:23 → AC 06:26
PROVIDERS: PCP Nurse Practitioner; Referring Provider Nurse Practitioner; Visit Provider Internal Medicine Gastroenterology
PROC: 0DJD8ZZ Inspection of Lower Intestinal Tract, Via Natural or Artificial Opening Endoscopic (ICD-10-PCS; CPT 45378; principal; 2021-06-09 07:25)
DX: K29.70 Gastritis, unspecified, without bleeding (principal); K21.00 Gastro-esophageal reflux disease with esophagitis, without bleeding; K76.0 Fatty (change of) liver, not elsewhere classified; Z87.891 Personal history of nicotine dependence; K63.5 Polyp of colon; K57.30 Diverticulosis of large intestine without perforation or abscess without bleeding; K29.80 Duodenitis without bleeding; M81.0 Age-related osteoporosis without current pathological fracture; I10 Essential (primary) hypertension; F32.A Depression, unspecified; Z79.899 Other long term (current) drug therapy; F41.9 Anxiety disorder, unspecified; E78.00 Pure hypercholesterolemia, unspecified; K31.7 Polyp of stomach and duodenum
CPT/HCPCS: 45380; 43239; 88305; 88313; J7120; J2405

== ENCOUNTER 2021-07-21 13:02 | Outpatient (CLI) | payer MEDICARE, SELFPAY ==
--- NOTE | 2021-07-21 13:05 | RAD_ITS ---
STUDY: X-RAY - LEFT HAND REASON FOR EXAM: Female, 75 years old. INFLAMMATORY POLYARTHROPATHY TECHNIQUE: 3 view(s) of the hand. COMPARISON: None. FINDINGS: Normal radiocarpal articulation. Normal distal radioulnar joint. Normal visualized carpal bones. There is degenerative joint disease of the scaphotrapezium / trapezoid articulation. The remainder of the carpal articulations are normal. There is degenerative arthrosis of the carpometacarpal (CMC) articulation of the thumb. Normal second through fifth carpometacarpal joints. Normal metacarpi. Normal metacarpophalangeal joint of the thumb. Normal interphalangeal joint of the thumb. Normal proximal and distal phalanges of the thumb. Normal metacarpophalangeal joints of the second through fifth fingers. There is diffuse articular joint space narrowing of the proximal and distal interphalangeal joints of the second through fifth fingers, but without erosive changes or periarticular soft tissue swelling. Normal phalanges of the second through fifth fingers. The soft tissue structures are unremarkable. RAD/Hand Min 3 Views IMPRESSION: Degenerative joint disease of the hand and wrist, as described above. Electronically Signed: Jacob Ya MD at 15:27 EDT ,
--- NOTE | 2021-07-21 13:05 | RAD_ITS ---
STUDY: X-RAY - RIGHT HAND REASON FOR EXAM: Female, 75 years old. INFLAMMATORY POLYARTHROPATHY TECHNIQUE: 3 view(s) of the hand. COMPARISON: None. FINDINGS: Normal radiocarpal articulation. Normal distal radioulnar joint. Normal visualized carpal bones. There is degenerative joint disease of the scaphotrapezium / trapezoid articulation. The remainder of the carpal articulations are normal. There is degenerative arthrosis of the carpometacarpal (CMC) articulation of the thumb. Normal second through fifth carpometacarpal joints. Normal metacarpi. Normal metacarpophalangeal joint of the thumb. Normal interphalangeal joint of the thumb. Normal proximal and distal phalanges of the thumb. Normal metacarpophalangeal joints of the second through fifth fingers. There is diffuse articular joint space narrowing of the proximal and distal interphalangeal joints of the second through fifth fingers, but without erosive changes or periarticular soft tissue swelling. Normal phalanges of the second through fifth fingers. The soft tissue structures are unremarkable. RAD/Hand Min 3 Views IMPRESSION: Degenerative joint disease of the hand and wrist, as described above. Electronically Signed: Jacob Ya MD at 15:27 EDT ,
[2021-07-21 15:10] LABS: Absolute Lymphocyte Count 1.16 X10^3/uL (0.83-4.51); Absolute Neutrophil Count 7.2 X10^3/uL (2.0-7.7); Basophil# 0.05 X10^3/uL; Basophil% 0.5 % (0-1); Color, Urine Yellow (Yellow); Eosinophil# 0.05 X10^3/uL; Eosinophils% 0.5 % (0-5); Glucose, Dipstick Normal (Normal); Hematocrit 41.7 % (37-47); Hemoglobin 13.9 g/dL (12.0-15.0); Ketone-Dipstick 5 mg/dl (Negative); Leukocyte Esterase-Dipstick 100 /ul (Negative); Lymphocyte # 1.16 X10^3/ul (0.83-4.51); Lymphocyte % 12.3 % (19-41); Mean Corp Hgb Conc 33.3 g/dL (32-36); Mean Corpuscular Hgb 30.5 pg (27.0-32.0); Mean Corpuscular Volume 91.6 fL (81-99); Mean Platelet Vol. 9.1 fl (6.2-12.0); Monocyte# 0.87 X10^3/uL; Monocyte% 9.3 % (0-10); NRBC Flagged by Analyzer 0 % (0-5); Neutrophil # 7.24 X10^3/uL (2.7-7.7); Neutrophil % 77.1 % (47-70); Nitrite-Dipstick Negative (Negative); Occult Blood-Urine 10 /ul (Negative); Platelet Count 402 K/mm3 (150-450); Protein-Dipstick 30 mg/dl (Negative); RBC Distribution Width CV 12.8 % (11.6-14.6); RBC Distribution Width SD 43.3 fl (35.1-43.9); Red Blood Count 4.55 M/mm3 (4.2-5.4); Urine Clarity Clear (Clear); Urine Urobilinogen 1 mg/dl (Normal); White Blood Count 9.4 K/mm3 (4.4-11.0)
[2021-07-21 15:11] LABS: Urine Bilirubin Dipstick 1 mg/dL (Negative)
[2021-07-21 15:36] LABS: Protein, Urine (Random) 27.9 mg/dL (<11.9); Protein:Creat Ratio 91 mg/g CRE (0-200)
[2021-07-21 15:37] LABS: AST(SGOT) 24 U/L (15-37); Alanine Aminotransfer ALT/SGPT 24 U/L (13-56); Albumin, Serum 3.8 g/dL (3.2-5.0); Alkaline Phosphatase 127 U/L (45-117); Anion Gap 8 (5-15); BUN 11 mg/dL (7-18); Calcium,Total 8.9 mg/dL (8.5-10.1); Chloride 93 mmol/L (98-107); Creatinine, Serum 0.85 mg/dL (0.55-1.02); EST Glomerular Filtration Rate 69 mL/min (>60); Est Glom Filt Rate - Afr Amer 84 mL/min (>60); Glucose 88 mg/dL (74-106); Potassium 3.1 mmol/L (3.5-5.1); Protein, Total 7.8 g/dL (6.4-8.2); Rheumatoid Factor < 10.0 IU/mL (<15); Sodium Level 131 mmol/L (136-145)
[2021-07-21 15:43] LABS: Erythrocyte Sedimentation Rate 36 mm/hr (0-30)
[2021-07-24 16:19] LABS: ANTINUCLEAR ANTIBODIES DIRECT Negative (Negative)
[2021-07-25 14:43] LABS: CCP IgG Antibodies 1 units (0-19)
== END 2021-07-21 23:59 | disposition home or self-care (01) ==
PROVIDERS: PCP Nurse Practitioner; Referring Provider Internal Medicine Rheumatology; Visit Provider Internal Medicine Rheumatology
DX: M06.4 Inflammatory polyarthropathy (principal); M19.041 Primary osteoarthritis, right hand; M18.0 Bilateral primary osteoarthritis of first carpometacarpal joints; M16.0 Bilateral primary osteoarthritis of hip; Q66.70 Congenital pes cavus, unspecified foot; K52.9 Noninfective gastroenteritis and colitis, unspecified; H93.13 Tinnitus, bilateral; I10 Essential (primary) hypertension; E78.5 Hyperlipidemia, unspecified; K22.70 Barrett's esophagus without dysplasia; M81.0 Age-related osteoporosis without current pathological fracture; F41.9 Anxiety disorder, unspecified
CPT/HCPCS: 36415; 73130; 80053; 81002; 82570; 84156; 85025; 85652; 86038; 86140; 86200; 86431

== ENCOUNTER 2021-09-13 12:06 | Day surgery (SDC) | payer MEDICARE, SELFPAY ==
[2021-09-13 12:33] VITALS: BP 162/76; PULSE 63; RESP 16; TEMP 36.4; O2SAT 100; BMI 21.4
[2021-09-13] MEDS: Lactated Ringers 1,000 ML 15 ML IV (12:39)
--- NOTE | 2021-09-13 12:42 | HP.PCM_ITS ---
History and Physical Date of Admission: 09/13/21 CATALINA MALDONADO, is a 75 F who presents to the office today for discussion of EGD and colonoscopy results. She is being evaluated and treated for diarrhea with bowel incontinence. Colestipol helps with diarrhea but she has difficulty with the size of the pills, she would much prefer powder form of the medication. Biochemical work up revealed positive p-ANCA titer; colon biopsy negative for IBD so we will now refer to Rheumatology. The size of her liver decreased, so because of that and hx of alcohol, we got a liver elastography which showed liver stiffness of F2 (F0-F4). 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 She is positive for Billings's esophagus, negative for dysplasia. Benign colon polyp. 06/09/21 EGD: Impression: - LA Grade A reflux esophagitis. Biopsied. 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 Biopsied. - Duodenitis. Biopsied. 06/09/21 Colonoscopy: Impression: - Two 1 to 2 mm polyps in the cecum, removed with a jumbo cold forceps. Resected and retrieved. - Moderate diverticulosis in the recto-sigmoid colon, in the sigmoid colon and in the descending colon. There was narrowing of the colon in association with the diverticular opening. There was evidence of diverticular spasm. MICROSCOPIC DIAGNOSIS A. Duodenum, biopsy:Fragments of duodenal mucosa, no pathologic diagnosis. B. Greater curvature submucosal region, biopsy:A submucosal calcified fibrous nodule.Focal minimal chronic inflammation.See comment. C. Distal esophagus, biopsy:Fragments of gastroesophageal mucosa with rare cells with intestinal metaplasia (goblet cell metaplasia).Chronic inflammation.Negative for dysplasia.See comment. D. Cecal polyp, biopsy:Hyperplastic polyp ROS Const Constitutional: Positive for weight change (lost a few lbs from colonoscopy prep); No fatigue, fever(s), headache(s), sleep problems, abnormal sleep pattern or change in appetite ENT ENT: No headache(s), difficulty swallowing, hoarseness or sore throat Resp Respiratory: No cough, hemoptysis or shortness of breath Cardio Cardiology: No chest pain at rest or generalized swelling Gastro GI: Positive for bloating and diarrhea; No abdominal pain, belching, change in bowel habits, change in stool character, coffee ground emesis, constipation, cramping, heartburn, difficulty swallowing, feeling full early, excessive flatus, incontinent of stools, Vomiting blood/hematemesis, Blood in stool, loose stools, Black,tarry stools, nausea/dyspepsia, pain with swallowing or vomiting Musc Musculoskeletal: No joint pain, back pain, joint swelling, numbness or tingling Skin Skin: Positive for itchy eyes; No rash Neuro Neurology: No behavioral changes, confusion, headache(s), numbness or tingling Psych Psychiatric: No abnormal sleep pattern, No anxiety, No behavioral changes, No change in appetite, No confusion and No depression Endo Endocrine: Positive for weight change (lost a few lbs from colonoscopy prep); No cold intolerance, fatigue, heat intolerance or increased thirst/drinking Aller/Imm Allergy/Immunologic: Positive for itchy eyes; No food intolerance Nelson/Lymp Hematologic/Lymphatic: No easy bleeding, easy bruising or enlarged lymph nodes Exam Const General: cooperative, healthy appearing, comfortable, no acute distress, well developed and well groomed Eyes Conjunctivae: conjunctivae normal Sclera: sclerae normal GI Inspection: normal to inspection Palpation: soft Quality Reporting Tobacco Screening ([facility] 138) Smoking Status: Former smoker Assessment and Plan Assessment and Plan (1) Barretts esophagus: Status: Acute (2) Gastric lesion: Status: Acute (3) Diarrhea: Status: Acute (4) P-ANCA titer positive: Status: Acute Orders: Referrals: Rheumatology R76.8 Plan: We discussed results from upper and lower endoscopy in detail. The gastric tumor was benign but Dr Ayala would like to re-biopsy it in 3 mos. Because of that stomach lesion and new diagnosis of Billings's esophagus, we will treat with PPI--she will take pantoprazole 40 mg bid x 2 mos and then will decrease to once daily which she will continue indefinitely. She will take sucralfate for one month. We will change to powder form of cholestyramine, start with once a day but we can increase dose of needed for diarrhea. Referral to Rheumatology for positive p-ANCA. f/u 2 wks after the EGD which is scheduled in September. Plan Details Other Medications: New: pantoprazole 40 mg PO DAILY 90 tabs 3RF cholestyramine (with sugar) 4 gram administer w/meal; avoid other meds within 1hr before or 4-6hr after dose 4 grams PO DAILY 60 ea 5RF sucralfate 1 g PO QAC 90 tabs 0RF Discontinued: colestipol (Colestid) Discontinued Reason: Discontinued by PCP/other physicians 1 g PO BID I have re-examined the patient. There are no clinical changes since date of exam.
--- NOTE | 2021-09-13 13:15 | IMM_PTH ---
PATIENT: RORY MALDONADO LOC: [facility] U#:[id number] AGE/SX: 76/F ROOM: RE09/13/[address]: Dr. Hay Ayala DO : 1945 BED: DIS: 09/13/2021 SPEC #: [id number] RECD: 09/14/21 11:53 STATUS: JUNO RELuca #: [id number] GRACY: 09/13/21 13:[address]: Hay Ayala DEPT: IMMUNOHISTOCHEMISTRY RECD BY: Yolie Ward ENTERED: 09/14/21 11:54 SP TYPE: IMMUNO OTHR DR: Padmini Santoro, BAT LATHE OPERATOR-C Tissues: B - Stomach, NOS A - Esophageal mucous membrane Procedures: H Pylori (initial) P53 (initial) KI-67 (add) PHYSICIAN & INSTITUTION [place] [id number] SPECIMEN INFORMATION: Tissue Source: A ? Distal esophagus biopsy, B ? Greater curvature biopsy Clinical Info: Billings?s esophagus, gastric lesion, diarrhea Specimen Number: [id number] A & B CPT code: 38084 x2, 24644 METHODOLOGY: Deparaffinized sections of prefer/formalin-fixed tissue or PAP/DQ stained slides are incubated with monoclonal/polyclonal antibodies/oligonucleotide probes. Localization is made via biotin free immunoperoxidase method. Appropriate controls are performed and reacted as expected. Results on target cell population are indicated in the following table: RESULTS: ANTIBODY / CLONE RESULT Block A P53 (DO-7) negative Ki-67 (30-9) positive, very low Block B H Pylori (polyclonal) negative These tests were developed and their performance characteristics determined by [facility]. They may not have been cleared or approved by the U.S. Food and Drug Administration. The FDA has determined that such clearance or approval is not necessary. The above immunohistochemical/dualISH markers are ordered and reviewed by the Pathologist. INTERPRETATION: A. Distal esophagus, biopsy: Negative for dysplasia. B. Greater curvature, biopsy: Negative for Helicobacter pylori organisms. SJ:sharad 09/16/2021
--- NOTE | 2021-09-13 13:15 | EGD_PTH ---
PATIENT: RORY MALDONADO LOC: [facility] U#:[id number] AGE/SX: 76/F ROOM: RE09/13/[address]: Dr. Hay Ayala DO : 1945 BED: DIS: 09/13/2021 SPEC #: [id number] RECD: 09/13/21 16:03 STATUS: JUNO KRISTINE #: [id number] GRACY: 09/13/21 13:[address]: Hay Ayala DEPT: SURGICAL PATHOLOGY RECD BY: Eduarda Valadez ENTERED: 09/14/21 08:26 SP TYPE: EGD BIOPSY OT DR: Padmini Santoro, FISHER TROT LINE-C Tissues: A - Esophagus, NOS B - Stomach, NOS Procedures: Special Stain Group II Surgery Specimen Level IV Alcian Blue/PAS (control) HEADER OPERATION: EGD with biopsy and dilation (MAC) PRE-OP DIAGNOSIS: Billings?s esophagus, gastric lesion, diarrhea TISSUE SUBMITTED: A ? Distal esophagus biopsy, B ? Greater curvature biopsy MICROSCOPIC DIAGNOSIS A. Distal esophagus, biopsy: Fragments of gastroesophageal mucosa with intestinal metaplasia (goblet cell metaplasia), consistent with Billings?s esophagus. Focal chronic inflammation. Negative for dysplasia. See comment. B. Greater curvature, biopsy: Mild gastritis, mucosal congestion and hemorrhage. See microscopic description and comment. SJ:rg 09/15/2021 COMMENT A. Immunohistochemistry ([id number]) for P53 and Ki-67 will be performed and results will be reported separately. Alcian blue/PAS stain with matched control is used in the evaluation of the specimen. B. The results of immunohistochemistry for Helicobacter pylori will be reported separately ([id number]). MICROSCOPIC DESCRIPTION Slides are reviewed. B. The specimen shows fragments of gastric mucosa with chronic inflammatory cell infiltrates in the lamina propria consisting of lymphocytes and plasma cells, consistent with mild chronic gastritis. Focal mucosal congestion and hemorrhage are also noted. GROSS DESCRIPTION A - Received in fixative is one container labeled with the patient's name and designated distal esophagus biopsy. The specimen consists of multiple irregular fragments of light berrios soft tissue that in aggregate measure 0.8 x 0.3 x 0.1 cm. The specimen is totally submitted in one cassette. B - Received in fixative is one container labeled with the patient's name and designated greater curvature biopsy. The specimen consists of multiple irregular fragments of light berrios soft tissue that in aggregate measure 0.5 x 0.5 x 0.1 cm. The specimen is totally submitted in one cassette. / SJ:rg 09/14/2021 TC:3 CPT: 63581 x2, 14517
[2021-09-13 13:45] VITALS: BP 121/59; BP 162/76; PULSE 75; RESP 16; TEMP 36.9; O2SAT 93
--- NOTE | 2021-09-13 13:47 | OP.EGD_ITS ---
Patient Name: Ruthann Medina Procedure Date: 09/13/2021 1:15 PM Date of : 1945 Age: 76 Procedure: Upper GI endoscopy Indications: Surveillance procedure, Billings's esophagus Providers: Hay Ayala DO Medicines: Monitored Anesthesia Care Patient Profile: This is a 76 year old female. Refer to note in patient chart for documentation of history and physical. Complications: No immediate complications. Procedure: Pre-Anesthesia Assessment: - Prior to the procedure, a History and Physical was performed, and patient medications and allergies were reviewed. The patient is competent. The risks and benefits of the procedure and the sedation options and risks were discussed with the patient. All questions were answered and informed consent was obtained. Patient identification and proposed procedure were verified by the physician in the pre-procedure area. Mental Status Examination: alert and oriented. Airway Examination: normal oropharyngeal airway and neck mobility. Respiratory Examination: clear to auscultation. CV Examination: normal. Prophylactic Antibiotics: The patient does not require prophylactic antibiotics. Prior Anticoagulants: The patient has taken no previous anticoagulant or antiplatelet agents. ASA Grade Assessment: II - A patient with mild systemic disease. After reviewing the risks and benefits, the patient was deemed in satisfactory condition to undergo the procedure. The anesthesia plan was to use moderate sedation / analgesia (conscious sedation). Immediately prior to administration of medications, the patient was re-assessed for adequacy to receive sedatives. The heart rate, respiratory rate, oxygen saturations, blood pressure, adequacy of pulmonary ventilation, and response to care were monitored throughout the procedure. The physical status of the patient was re-assessed after the procedure. After obtaining informed consent, the endoscope was passed under direct vision. Throughout the procedure, the patient's blood pressure, pulse, and oxygen saturations were monitored continuously. The gastroscope was introduced through the mouth, and advanced to the second part of duodenum. The upper GI endoscopy was accomplished without difficulty. The patient tolerated the procedure well. Scope In: 1:28:42 PM Scope Out: 1:38:41 PM Total Procedure Duration Time 0 hours 9 minutes 59 seconds Findings: One benign-appearing, intrinsic stenosis was found 20 to 21 cm from the incisors. This stenosis was moderately severe and. The stenosis was traversed. A guidewire was placed and the scope was withdrawn. Dilation was performed with a Savary dilator with no resistance at 60 Fr. The dilation site was examined following endoscope reinsertion and showed complete resolution of luminal narrowing. Estimated blood loss was minimal. Multiple 5 mm sessile polyps with no stigmata of recent bleeding were found in the gastric body. Mild mucosal changes characterized by congestion and nodularity were found on the greater curvature of the stomach. Biopsies were taken with a cold forceps for histology. Verification of patient identification for the specimen was done. Estimated blood loss was minimal. The first portion of the duodenum was normal. Impression: - Benign-appearing esophageal stenosis. Dilated. - Multiple gastric polyps. - Congested and nodular mucosa in the greater curvature. Biopsied. - Normal first portion of the duodenum. Recommendation: - Discharge patient to home. - Resume previous diet. - Continue present medications. - Await pathology results. Procedure Code(s): --- Professional --- 81560, Esophagogastroduodenoscopy, flexible, transoral; with insertion of guide wire followed by passage of dilator(s) through esophagus over guide wire 53499, 59,51, Esophagogastroduodenoscopy, flexible, transoral; with biopsy, single or multiple CPT copyright 2017 [employer]. All rights reserved. The codes documented in this report are preliminary and upon technical clerk review may be revised to meet current compliance requirements. Hay Ayala DO 09/13/2021 1:46:54 PM This report has been signed electronically. Number of Addenda: 1 Note Initiated On: 09/13/2021 1:15 PM Addendum Number: 1 Addendum Date: 01/10/2022 6:28:18 AM MAC was used as sedation for this procedure. Hay Ayala DO 01/10/2022 6:28:22 AM This report has been signed electronically.
--- NOTE | 2021-09-13 13:48 | OP.CCLET_ITS ---
01/10/2022 Padmini Santoro, SEVERINO [address] [place] [address] Re : Upper GI endoscopy procedure for Ruthann Carol Dear Ms. Santoro This procedure was performed on Monday, September 13, 2021. My impressions and recommendations are as follows: Impressions : - Benign-appearing esophageal stenosis. Dilated. - Multiple gastric polyps. - Congested and nodular mucosa in the greater curvature. Biopsied. - Normal first portion of the duodenum. Recommendations : - Discharge patient to home. - Resume previous diet. - Continue present medications. - Await pathology results. My findings are described in the full procedure note, which is enclosed. If I can be of further assistance, please feel free to contact me at . Sincerely, Hay Ayala, 09/13/2021 1:46:54 PM This report has been signed electronically.
[2021-09-13 13:50] VITALS: BP 162/76; BP 98/63; PULSE 69; RESP 16; O2SAT 94
[2021-09-13 13:55] VITALS: BP 115/47; BP 162/76; PULSE 62; RESP 16; O2SAT 96
[2021-09-13 14:00] VITALS: BP 124/63; BP 162/76; PULSE 61; RESP 17; TEMP 36.5; O2SAT 98
[2021-09-13 14:07] VITALS: BP 162/76
== END 2021-09-13 14:35 | disposition home or self-care (01) ==
LOC: EN 12:07 → AC 12:08
PROVIDERS: PCP Nurse Practitioner; Referring Provider Nurse Practitioner; Visit Provider Internal Medicine Gastroenterology
PROC: 0DJ08ZZ Inspection of Upper Intestinal Tract, Via Natural or Artificial Opening Endoscopic (ICD-10-PCS; CPT 43235; principal; 2021-09-13 13:10)
DX: K31.7 Polyp of stomach and duodenum (principal); K31.89 Other diseases of stomach and duodenum; K29.50 Unspecified chronic gastritis without bleeding; K22.2 Esophageal obstruction; K22.70 Barrett's esophagus without dysplasia; E78.00 Pure hypercholesterolemia, unspecified; I10 Essential (primary) hypertension; Z87.891 Personal history of nicotine dependence; Z79.899 Other long term (current) drug therapy
CPT/HCPCS: 43248; 43239; 88305; 88313; 88341; 88342; J7120; C1769

== ENCOUNTER → 2021-10-03 | Outpatient (CLI) | payer MEDICARE, SELFPAY ==
[2021-10-03 15:17] LABS: Absolute Lymphocyte Count 1.47 X10^3/uL (0.83-4.51); Basophil# 0.06 X10^3/uL; Basophil% 1.1 % (0-1); Eosinophil# 0.08 X10^3/uL; Eosinophils% 1.5 % (0-5); Hematocrit 42.2 % (37-47); Hemoglobin 13.7 g/dL (12.0-15.0); Lymphocyte # 1.47 X10^3/ul (0.83-4.51); Lymphocyte % 27.4 % (19-41); Mean Corp Hgb Conc 32.5 g/dL (32-36); Mean Corpuscular Hgb 29.7 pg (27.0-32.0); Mean Corpuscular Volume 91.5 fL (81-99); Mean Platelet Vol. 9.2 fl (6.2-12.0); Monocyte# 0.72 X10^3/uL; Monocyte% 13.4 % (0-10); NRBC Flagged by Analyzer 0 % (0-5); Neutrophil # 3.01 X10^3/uL (2.7-7.7); Neutrophil % 56.2 % (47-70); Platelet Count 434 K/mm3 (150-450); RBC Distribution Width CV 13.7 % (11.6-14.6); RBC Distribution Width SD 46.3 fl (35.1-43.9); Red Blood Count 4.61 M/mm3 (4.2-5.4); White Blood Count 5.4 K/mm3 (4.4-11.0)
[2021-10-03 15:38] LABS: AST(SGOT) 16 U/L (15-37); Alanine Aminotransfer ALT/SGPT 19 U/L (13-56); Albumin, Serum 3.9 g/dL (3.2-5.0); Alkaline Phosphatase 79 U/L (45-117); Anion Gap 9 (5-15); BUN 11 mg/dL (7-18); BUN/Creat Ratio 16.3 RATIO (10-20); Chloride 95 mmol/L (98-107); Creatinine, Serum 0.68 mg/dL (0.55-1.02); EST Glomerular Filtration Rate 90 mL/min (>60); Est Glom Filt Rate - Afr Amer 108 mL/min (>60); Globulin 3.8 g/dL (2.2-4.2); Glucose 90 mg/dL (74-106); Potassium 3.7 mmol/L (3.5-5.1); Protein, Total 7.7 g/dL (6.4-8.2); Sodium Level 132 mmol/L (136-145)
== END | disposition home or self-care (01) ==
LOC: MTLAB 13:35
PROVIDERS: PCP Nurse Practitioner; Referring Provider Internal Medicine Rheumatology; Visit Provider Internal Medicine Rheumatology
DX: M06.4 Inflammatory polyarthropathy (principal); M19.041 Primary osteoarthritis, right hand; M19.042 Primary osteoarthritis, left hand; M18.0 Bilateral primary osteoarthritis of first carpometacarpal joints; M16.0 Bilateral primary osteoarthritis of hip; Q66.70 Congenital pes cavus, unspecified foot; K52.9 Noninfective gastroenteritis and colitis, unspecified; H93.13 Tinnitus, bilateral; I10 Essential (primary) hypertension; E78.5 Hyperlipidemia, unspecified; F41.9 Anxiety disorder, unspecified; F10.11 Alcohol abuse, in remission
CPT/HCPCS: 36415; 80053; 85025

== ENCOUNTER → 2021-11-16 | Outpatient (CLI) | payer MEDICARE, SELFPAY ==
[2021-11-16 14:59] LABS: Absolute Lymphocyte Count 1.45 X10^3/uL (0.83-4.51); Absolute Neutrophil Count 2.9 X10^3/uL (2.0-7.7); Basophil# 0.04 X10^3/uL; Basophil% 0.8 % (0-1); Eosinophil# 0.11 X10^3/uL; Eosinophils% 2.2 % (0-5); Hematocrit 40.5 % (37-47); Hemoglobin 13.4 g/dL (12.0-15.0); Lymphocyte # 1.45 X10^3/ul (0.83-4.51); Lymphocyte % 28.4 % (19-41); Mean Corp Hgb Conc 33.1 g/dL (32-36); Mean Corpuscular Hgb 30.5 pg (27.0-32.0); Mean Platelet Vol. 8.9 fl (6.2-12.0); Monocyte# 0.56 X10^3/uL; NRBC Flagged by Analyzer 0 % (0-5); Neutrophil # 2.92 X10^3/uL (2.7-7.7); Platelet Count 416 K/mm3 (150-450); RBC Distribution Width SD 50.5 fl (35.1-43.9); White Blood Count 5.1 K/mm3 (4.4-11.0)
[2021-11-16 15:25] LABS: ALB/GLOB Ratio 0.9 RATIO (0.9-2.4); AST(SGOT) 24 U/L (15-37); Alanine Aminotransfer ALT/SGPT 28 U/L (13-56); Albumin, Serum 3.6 g/dL (3.2-5.0); Alkaline Phosphatase 105 U/L (45-117); Anion Gap 7 (5-15); BUN 12 mg/dL (7-18); BUN/Creat Ratio 12.4 RATIO (10-20); Calcium,Total 9.5 mg/dL (8.5-10.1); Chloride 98 mmol/L (98-107); Creatinine, Serum 0.96 mg/dL (0.55-1.02); EST Glomerular Filtration Rate 59 mL/min (>60); Est Glom Filt Rate - Afr Amer 72 mL/min (>60); Globulin 3.8 g/dL (2.2-4.2); Glucose 105 mg/dL (74-106); Potassium 4.1 mmol/L (3.5-5.1); Protein, Total 7.4 g/dL (6.4-8.2); Sodium Level 133 mmol/L (136-145)
== END | disposition home or self-care (01) ==
LOC: MTLAB 11:43
PROVIDERS: PCP Nurse Practitioner; Referring Provider Internal Medicine Rheumatology; Visit Provider Internal Medicine Rheumatology
DX: M06.4 Inflammatory polyarthropathy (principal); M19.041 Primary osteoarthritis, right hand; M18.0 Bilateral primary osteoarthritis of first carpometacarpal joints; M16.0 Bilateral primary osteoarthritis of hip; Q66.70 Congenital pes cavus, unspecified foot; K52.9 Noninfective gastroenteritis and colitis, unspecified; H93.13 Tinnitus, bilateral; I10 Essential (primary) hypertension; E78.5 Hyperlipidemia, unspecified; K22.70 Barrett's esophagus without dysplasia; M81.0 Age-related osteoporosis without current pathological fracture; F41.9 Anxiety disorder, unspecified; F10.11 Alcohol abuse, in remission; Z79.899 Other long term (current) drug therapy
CPT/HCPCS: 36415; 80053; 85025

== ENCOUNTER → 2022-01-03 | Outpatient (CLI) | payer MEDICARE, SELFPAY ==
[2022-01-03 17:42] LABS: Absolute Lymphocyte Count 1.02 X10^3/uL (0.83-4.51); Absolute Neutrophil Count 4.4 X10^3/uL (2.0-7.7); Basophil# 0.04 X10^3/uL; Basophil% 0.6 % (0-1); Eosinophil# 0.09 X10^3/uL; Eosinophils% 1.4 % (0-5); Hematocrit 39.1 % (37-47); Hemoglobin 13.2 g/dL (12.0-15.0); Lymphocyte # 1.02 X10^3/ul (0.83-4.51); Lymphocyte % 15.9 % (19-41); Mean Corp Hgb Conc 33.8 g/dL (32-36); Mean Corpuscular Hgb 31.9 pg (27.0-32.0); Mean Corpuscular Volume 94.4 fL (81-99); Mean Platelet Vol. 8.6 fl (6.2-12.0); Monocyte# 0.82 X10^3/uL; Monocyte% 12.8 % (0-10); NRBC Flagged by Analyzer 0 % (0-5); Neutrophil # 4.44 X10^3/uL (2.7-7.7); Platelet Count 411 K/mm3 (150-450); RBC Distribution Width CV 15.1 % (11.6-14.6); RBC Distribution Width SD 52.2 fl (35.1-43.9); Red Blood Count 4.14 M/mm3 (4.2-5.4); White Blood Count 6.4 K/mm3 (4.4-11.0)
[2022-01-03 18:01] LABS: ALB/GLOB Ratio 0.9 RATIO (0.9-2.4); AST(SGOT) 21 U/L (15-37); Alanine Aminotransfer ALT/SGPT 21 U/L (13-56); Albumin, Serum 3.6 g/dL (3.2-5.0); Alkaline Phosphatase 97 U/L (45-117); Anion Gap 9 (5-15); BUN 15 mg/dL (7-18); BUN/Creat Ratio 16.1 RATIO (10-20); Calcium,Total 9.4 mg/dL (8.5-10.1); Chloride 97 mmol/L (98-107); Creatinine, Serum 0.93 mg/dL (0.55-1.02); EST Glomerular Filtration Rate 62 mL/min (>60); Est Glom Filt Rate - Afr Amer 75 mL/min (>60); Glucose 89 mg/dL (74-106); Potassium 3.6 mmol/L (3.5-5.1); Protein, Total 7.6 g/dL (6.4-8.2); Sodium Level 135 mmol/L (136-145)
== END | disposition home or self-care (01) ==
LOC: MTLAB 15:23
PROVIDERS: PCP Nurse Practitioner Family; Referring Provider Internal Medicine Rheumatology; Visit Provider Internal Medicine Rheumatology
DX: M06.4 Inflammatory polyarthropathy (principal); M19.041 Primary osteoarthritis, right hand; M18.0 Bilateral primary osteoarthritis of first carpometacarpal joints; M16.0 Bilateral primary osteoarthritis of hip; Q66.70 Congenital pes cavus, unspecified foot; I10 Essential (primary) hypertension; E78.5 Hyperlipidemia, unspecified; K22.70 Barrett's esophagus without dysplasia; M81.0 Age-related osteoporosis without current pathological fracture; F10.11 Alcohol abuse, in remission; Z79.899 Other long term (current) drug therapy
CPT/HCPCS: 36415; 80053; 85025

== ENCOUNTER → 2022-01-31 | Outpatient (CLI) | payer MEDICARE, SELFPAY ==
--- NOTE | 2022-01-31 12:13 | BI_ITS ---
MAMMOGRAPHY - BILATERAL SCREENING REASON FOR EXAM: Female, 76 years old. Routine annual screening examination. PERTINENT HISTORY: Non-contributory. TECHNIQUE: Digital bilateral breast maria e (3D mammographic acquisition) in the CC and MLO projections. 2-D mediolateral oblique (MLO) and craniocaudad (CC) views of both breasts were obtained. CAD: Full Field Digital Mammography with Computer Added Detection was performed. COMPARISON: Comparison is made with prior study of 12/23/2020 and 12/06/2018. FINDINGS: Breast Composition: The breasts are heterogeneously dense, which may obscure small masses. There are no dominant masses or suspicious calcifications. No other significant abnormalities are identified. There has been no significant change since the prior study. BI/SCRN MAMM (CAD)W/MARIA E BILAT IMPRESSION: Stable bilateral screening mammogram. Yearly follow-up mammogram recommended. (A) ASSESSMENT CATEGORY: BIRADS Category 1: Negative. A letter regarding these results will be sent to the patient by the facility within 30 days. Approximately 10% of breast cancers are not detected by mammography. A normal mammogram should not delay biopsy of a clinically suspicious abnormality. [id number] Electronically Signed: Dimitry Franco MD at 13:00 EDT ,
== END | disposition home or self-care (01) ==
LOC: OPBI 12:12
PROVIDERS: PCP Nurse Practitioner Family; Visit Provider Nurse Practitioner Family
DX: Z12.31 Encounter for screening mammogram for malignant neoplasm of breast (principal)
CPT/HCPCS: 77063; 77067

== ENCOUNTER → 2022-02-24 | Outpatient (CLI) | payer MEDICARE, SELFPAY ==
[2022-02-24 17:45] LABS: Absolute Neutrophil Count 3.1 X10^3/uL (2.0-7.7); Basophil# 0.05 X10^3/uL; Eosinophil# 0.06 X10^3/uL; Eosinophils% 1.2 % (0-5); Hematocrit 41.5 % (37-47); Hemoglobin 13.8 g/dL (12.0-15.0); Lymphocyte % 22.1 % (19-41); Mean Corp Hgb Conc 33.3 g/dL (32-36); Mean Corpuscular Hgb 32.5 pg (27.0-32.0); Mean Corpuscular Volume 97.9 fL (81-99); Monocyte# 0.61 X10^3/uL; Monocyte% 12.3 % (0-10); NRBC Flagged by Analyzer 0 % (0-5); Neutrophil # 3.13 X10^3/uL (2.7-7.7); Platelet Count 406 K/mm3 (150-450); RBC Distribution Width CV 14.3 % (11.6-14.6); RBC Distribution Width SD 50.6 fl (35.1-43.9); Red Blood Count 4.24 M/mm3 (4.2-5.4)
[2022-02-24 18:15] LABS: ALB/GLOB Ratio 0.9 RATIO (0.9-2.4); AST(SGOT) 16 U/L (15-37); Alanine Aminotransfer ALT/SGPT 24 U/L (13-56); Albumin, Serum 3.7 g/dL (3.2-5.0); Alkaline Phosphatase 73 U/L (45-117); Anion Gap 6 (5-15); BUN 11 mg/dL (7-18); BUN/Creat Ratio 14.6 RATIO (10-20); Calcium,Total 9.1 mg/dL (8.5-10.1); Chloride 94 mmol/L (98-107); Creatinine, Serum 0.75 mg/dL (0.55-1.02); EST Glomerular Filtration Rate 79 mL/min (>60); Est Glom Filt Rate - Afr Amer 96 mL/min (>60); Globulin 3.9 g/dL (2.2-4.2); Glucose 92 mg/dL (74-106); Potassium 4.2 mmol/L (3.5-5.1); Protein, Total 7.6 g/dL (6.4-8.2); Sodium Level 129 mmol/L (136-145)
== END | disposition home or self-care (01) ==
LOC: MTLAB 14:49
PROVIDERS: PCP Nurse Practitioner Family; Referring Provider Internal Medicine Rheumatology; Visit Provider Internal Medicine Rheumatology
DX: M06.4 Inflammatory polyarthropathy (principal); Z79.899 Other long term (current) drug therapy; M19.041 Primary osteoarthritis, right hand; M18.0 Bilateral primary osteoarthritis of first carpometacarpal joints; M16.0 Bilateral primary osteoarthritis of hip; Q66.70 Congenital pes cavus, unspecified foot; K52.9 Noninfective gastroenteritis and colitis, unspecified; H93.13 Tinnitus, bilateral; I10 Essential (primary) hypertension; E78.5 Hyperlipidemia, unspecified; K22.70 Barrett's esophagus without dysplasia; M81.0 Age-related osteoporosis without current pathological fracture; F41.9 Anxiety disorder, unspecified; F10.11 Alcohol abuse, in remission
CPT/HCPCS: 36415; 80053; 85025

== ENCOUNTER → 2022-04-05 | Outpatient (CLI) | payer MEDICARE, SELFPAY ==
[2022-04-05 18:19] LABS: Anion Gap 8 (5-15); BUN 15 mg/dL (7-18); BUN/Creat Ratio 17.7 RATIO (10-20); Calcium,Total 9.4 mg/dL (8.5-10.1); Chloride 93 mmol/L (98-107); Creatinine, Serum 0.85 mg/dL (0.55-1.02); EST Glomerular Filtration Rate 69 mL/min (>60); Est Glom Filt Rate - Afr Amer 83 mL/min (>60); Glucose 100 mg/dL (74-106); Potassium 4.2 mmol/L (3.5-5.1); Sodium Level 129 mmol/L (136-145)
== END | disposition home or self-care (01) ==
PROVIDERS: PCP Nurse Practitioner Family; Referring Provider Internal Medicine Nephrology; Visit Provider Internal Medicine Nephrology
DX: N18.2 Chronic kidney disease, stage 2 (mild) (principal)
CPT/HCPCS: 36415; 80048

== ENCOUNTER → 2022-05-23 | Outpatient (CLI) | payer MEDICARE, SELFPAY ==
[2022-05-23 15:43] LABS: Absolute Lymphocyte Count 1.21 X10^3/uL (0.83-4.51); Absolute Neutrophil Count 3.2 X10^3/uL (2.0-7.7); Basophil# 0.04 X10^3/uL; Basophil% 0.8 % (0-1); Eosinophil# 0.05 X10^3/uL; Hematocrit 39.8 % (37-47); Hemoglobin 13.2 g/dL (12.0-15.0); Lymphocyte # 1.21 X10^3/ul (0.83-4.51); Lymphocyte % 23.1 % (19-41); Mean Corp Hgb Conc 33.2 g/dL (32-36); Mean Corpuscular Hgb 32.5 pg (27.0-32.0); Mean Platelet Vol. 9.2 fl (6.2-12.0); Monocyte% 13.4 % (0-10); NRBC Flagged by Analyzer 0 % (0-5); Neutrophil # 3.21 X10^3/uL (2.7-7.7); Neutrophil % 61.3 % (47-70); Platelet Count 371 K/mm3 (150-450); RBC Distribution Width CV 13.7 % (11.6-14.6); RBC Distribution Width SD 49.2 fl (35.1-43.9); Red Blood Count 4.06 M/mm3 (4.2-5.4); White Blood Count 5.2 K/mm3 (4.4-11.0)
[2022-05-23 16:29] LABS: AST(SGOT) 21 U/L (15-37); Alanine Aminotransfer ALT/SGPT 22 U/L (13-56); Albumin, Serum 3.6 g/dL (3.2-5.0); Alkaline Phosphatase 79 U/L (45-117); Anion Gap 9 (5-15); BUN 14 mg/dL (7-18); CRP 6.82 mg/L (0.0-3.0); Chloride 96 mmol/L (98-107); Creatinine, Serum 0.82 mg/dL (0.55-1.02); EST Glomerular Filtration Rate 71 mL/min (>60); Est Glom Filt Rate - Afr Amer 86 mL/min (>60); Globulin 3.7 g/dL (2.2-4.2); Glucose 86 mg/dL (74-106); Potassium 3.5 mmol/L (3.5-5.1); Protein, Total 7.3 g/dL (6.4-8.2); Sodium Level 132 mmol/L (136-145)
[2022-05-23 19:33] LABS: Erythrocyte Sedimentation Rate 21 mm/hr (0-30)
== END | disposition home or self-care (01) ==
LOC: MTLAB 13:44
PROVIDERS: PCP Nurse Practitioner Family; Referring Provider Internal Medicine Rheumatology; Visit Provider Internal Medicine Rheumatology
DX: M06.4 Inflammatory polyarthropathy (principal); M19.041 Primary osteoarthritis, right hand; M18.11 Unilateral primary osteoarthritis of first carpometacarpal joint, right hand; Z79.899 Other long term (current) drug therapy
CPT/HCPCS: 36415; 80053; 85025; 85652; 86140

== ENCOUNTER → 2022-08-11 | Outpatient (CLI) | payer MEDICARE, SELFPAY ==
[2022-08-11 16:18] LABS: AST(SGOT) 21 U/L (15-37); Alanine Aminotransfer ALT/SGPT 30 U/L (13-56); Albumin, Serum 3.7 g/dL (3.2-5.0); Alkaline Phosphatase 98 U/L (45-117); Anion Gap 9 (5-15); BUN 10 mg/dL (7-18); Calcium,Total 9.3 mg/dL (8.5-10.1); Chloride 95 mmol/L (98-107); Creatinine, Serum 0.77 mg/dL (0.55-1.02); EST Glomerular Filtration Rate 77 mL/min (>60); Est Glom Filt Rate - Afr Amer 93 mL/min (>60); Globulin 3.8 g/dL (2.2-4.2); Glucose 104 mg/dL (74-106); Potassium 4.1 mmol/L (3.5-5.1); Protein, Total 7.5 g/dL (6.4-8.2); Sodium Level 130 mmol/L (136-145)
[2022-08-11 16:23] LABS: Absolute Lymphocyte Count 1.32 X10^3/uL (0.83-4.51); Absolute Neutrophil Count 3.5 X10^3/uL (2.0-7.7); Basophil# 0.04 X10^3/uL; Basophil% 0.7 % (0-1); Eosinophil# 0.09 X10^3/uL; Eosinophils% 1.6 % (0-5); Erythrocyte Sedimentation Rate 18 mm/hr (0-30); Hematocrit 40.7 % (37-47); Hemoglobin 13.4 g/dL (12.0-15.0); Lymphocyte # 1.32 X10^3/ul (0.83-4.51); Lymphocyte % 22.8 % (19-41); Mean Corp Hgb Conc 32.9 g/dL (32-36); Mean Corpuscular Hgb 32.3 pg (27.0-32.0); Mean Corpuscular Volume 98.1 fL (81-99); Mean Platelet Vol. 9.5 fl (6.2-12.0); Monocyte% 13.8 % (0-10); NRBC Flagged by Analyzer 0 % (0-5); Neutrophil # 3.52 X10^3/uL (2.7-7.7); Neutrophil % 60.6 % (47-70); Platelet Count 423 K/mm3 (150-450); RBC Distribution Width CV 13.4 % (11.6-14.6); RBC Distribution Width SD 48.1 fl (35.1-43.9); Red Blood Count 4.15 M/mm3 (4.2-5.4); White Blood Count 5.8 K/mm3 (4.4-11.0)
== END | disposition home or self-care (01) ==
LOC: MTLAB 13:40
PROVIDERS: PCP Nurse Practitioner Family; Referring Provider Internal Medicine Rheumatology; Visit Provider Internal Medicine Rheumatology
DX: M06.4 Inflammatory polyarthropathy (principal); Z79.899 Other long term (current) drug therapy
CPT/HCPCS: 36415; 80053; 85025; 85652; 86140

== ENCOUNTER 2022-09-13 08:05 | Day surgery (SDC) | payer MEDICARE, SELFPAY ==
--- NOTE | 2022-09-13 | IMM_PTH ---
PATIENT: RORY MALDONADO LOC: [facility] U#:[id number] AGE/SX: 77/F ROOM: RE09/13/[address]: Dr. Hay Ayala DO : 1945 BED: DIS: 09/13/2022 SPEC #: [id number] RECD: 09/14/22 12:47 STATUS: JUNO REQ #: [id number] GRACY: 09/13/22 00:[address]: Hay Ayala DEPT: IMMUNOHISTOCHEMISTRY RECD BY: Yolie Ward ENTERED: 09/14/22 12:47 SP TYPE: IMMUNO OTHR DR: Adela Montoya, SOLDER TECHNICIAN-C Tissues: Esophageal mucous membrane Procedures: P53 (initial) KI-67 (add) PHYSICIAN & INSTITUTION [place] [id number] SPECIMEN INFORMATION: Tissue Source: Distal esophagus Clinical Info: GERD, Billings?s esophagus, gastric lesion Specimen Number: [id number] CPT code: 29350, 65221 METHODOLOGY: Deparaffinized sections of prefer/formalin-fixed tissue or PAP/DQ stained slides are incubated with monoclonal/polyclonal antibodies/oligonucleotide probes. Localization is made via biotin free immunoperoxidase method. Appropriate controls are performed and reacted as expected. Results on target cell population are indicated in the following table: RESULTS: ANTIBODY / CLONE RESULT P53 (DO-7) negative Ki-67 (30-9) positive, very low These tests were developed and their performance characteristics determined by [facility]. They may not have been cleared or approved by the U.S. Food and Drug Administration. The FDA has determined that such clearance or approval is not necessary. The above immunohistochemical/dualISH markers are ordered and reviewed by the Pathologist. INTERPRETATION: Distal esophagus, biopsy: Negative for dysplasia. LEON:sharad 09/15/2022
[2022-09-13] MEDS: Lactated Ringers 1,000 ML 15 ML IV (08:42)
[2022-09-13 08:43] VITALS: BP 130/71; PULSE 60; RESP 18; TEMP 36.9; O2SAT 96; BMI 22.4
--- NOTE | 2022-09-13 09:00 | EGD_PTH ---
PATIENT: RORY MALDONADO LOC: [facility] U#:[id number] AGE/SX: 77/F ROOM: RE09/13/[address]: Dr. Hay Ayala DO : 1945 BED: DIS: 09/13/2022 SPEC #: [id number] RECD: 09/13/22 10:15 STATUS: JUNO KRISTINE #: [id number] GRACY: 09/13/22 09:[address]: Hay Ayala DEPT: SURGICAL PATHOLOGY RECD BY: Eduarda Valadez ENTERED: 09/13/22 11:03 SP TYPE: EGD BIOPSY OT DR: Adela Montoya, INDUSTRIAL CONTROLLER-C Tissues: Esophagus, NOS Procedures: Special Stain Group II Surgery Specimen Level IV Alcian Blue/PAS (control) HEADER OPERATION: EGD ([facility]) PRE-OP DIAGNOSIS: GERD, Billings?s esophagus, gastric lesion TISSUE SUBMITTED: Distal esophagus biopsy MICROSCOPIC DIAGNOSIS Distal esophagus, biopsy: Fragments of gastroesophageal mucosa with focal intestinal metaplasia (goblet cell metaplasia), consistent with Billings's esophagus. Chronic inflammation. Negative for dysplasia. See comment. LEON:sharad 09/14/2022 COMMENT Immunohistochemistry ([id number]) for P53 and Ki-67 will be performed and results will be reported separately. Alcian blue/PAS stain with matched control is used in the evaluation of the specimen. MICROSCOPIC DESCRIPTION Slides are reviewed. GROSS DESCRIPTION Received in fixative is one container labeled with the patient's name and designated distal esophagus biopsy. The specimen consists of multiple irregular fragments of light berrios soft tissue that in aggregate measure 1.0 x 0.5 x 0.1 cm. The specimen is totally submitted in one cassette. / LEON:sharad 09/13/2022 TC:5 CPT: 45099, 47024
--- NOTE | 2022-09-13 09:28 | PCM.HP.BLA ---
History and Physical Date of Admission: 09/13/22 76 F who presents to the office today for discussion of EGD that was done on 09/13/2021 to follow-up Billings's esophagus and stomach lesion.? She was diagnosed with Billings's esophagus in June 2021, she remains on pantoprazole 40 mg daily.? After her last EGD she took pantoprazole 40 mg twice daily x2 months.? 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 Dr. Ayala wanted to reevaluate that tumor, therefore endoscopy was repeated this month.? Fortunately the biopsy was again benign.? She was positive again for Billings's esophagus, she was again negative for dysplasia.? Diarrhea is controlled as long as she takes cholestyramine powder.? She prefers the cholestyramine powder over the colestipol pills. Biochemical work up in spring 2021 revealed positive p-ANCA titer; colon biopsy negative for IBD so we referred to Rheumatology. She saw Dr Martinez. The size of her liver decreased, so because of that and hx of alcohol, we got a liver elastography which showed liver stiffness of F2 (F0-F4). 09/13/2021 EGD Impression: ?- Benign-appearing esophageal stenosis. Dilated. ? - Multiple gastric polyps. ? - Congested and nodular mucosa in the greater ? curvature. Biopsied. ? - Normal first portion of the duodenum. MICROSCOPIC DIAGNOSIS A.? Distal esophagus, biopsy: Fragments of gastroesophageal mucosa with intestinal metaplasia (goblet cell metaplasia), consistent with Billings?s esophagus. Focal chronic inflammation. Negative for dysplasia. See comment. B.? Greater curvature, biopsy: ?Mild gastritis, mucosal congestion and hemorrhage. negative H. pylori ?See microscopic description and comment Block A P53? (DO-7) ? negative Ki-67? (30-9)? positive, very low ROS Const Constitutional: No fatigue ENT ENT: No difficulty swallowing Gastro GI: No abdominal pain, belching, bloating, change in bowel habits, change in stool character, coffee ground emesis, constipation, cramping, diarrhea, heartburn, difficulty swallowing, feeling full early, excessive flatus, incontinent of stools, Vomiting blood/hematemesis, Blood in stool, loose stools, Black,tarry stools, nausea/dyspepsia, pain with swallowing, vomiting or other Musc Musculoskeletal: Positive for joint pain, joint swelling and Arthritis Skin Skin: No yellowing of the eye or itchy eyes Psych Psychiatric: No anxiety and No depression Endo Endocrine: No fatigue Aller/Imm Allergy/Immunologic: No itchy eyes Nelson/Lymp Hematologic/Lymphatic: Positive for easy bruising; No easy bleeding Exam Const General: cooperative, healthy appearing, comfortable and well developed Nutritional Appearance: average body habitus Eyes General: appearance normal, both eyes and all related structures Skin General: no jaundice Quality Reporting Tobacco Screening ([facility] 138) Smoking Status: Former smoker Assessment and Plan Assessment and Plan (1) GERD (gastroesophageal reflux disease): ?Status:?Acute ?Plan: Continue pantoprazole 40 mg daily (2) Barretts esophagus: ?Status:?Acute ?Plan: Continue pantoprazole 40 mg daily for lifetime Repeat EGD in 1 year (3) Gastric lesion: ?Status:?Acute ?Plan: Repeat EGD in 1 year (4) Diarrhea: ?Status:?Acute ?Plan: Continue cholestyramine BID (5) Fatty liver: ?Status:?Acute ?Plan: Discussed, handout provided, vitamin E 400 IU daily, she'll consider ursodiol, avoid alcohol ? ? ? Medications: Refilled cholestyramine (with sugar) 4 gram ?? administer w/meal; avoid other meds within 1hr before or 4-6hr after dose 4 grams? PO DAILY 180 ea 3RF ? ? I have examined the patient and the H&P has been reviewed. There are no clinical changes since date of exam.
[2022-09-13 09:55] VITALS: BP 130/71; BP 137/68; PULSE 66; RESP 16; O2SAT 96
[2022-09-13 09:58] VITALS: BP 130/71; BP 155/73; PULSE 67; RESP 18; TEMP 36.3; O2SAT 95
--- NOTE | 2022-09-13 09:58 | OP.EGD_ITS ---
Patient Name: Ruthann Medina Procedure Date: 09/13/2022 9:32 AM Date of : 1945 Age: 77 Procedure: Upper GI endoscopy Indications: Follow-up of Billings's esophagus Providers: Hay Ayala DO Medicines: Monitored Anesthesia Care Patient Profile: This is a 77 year old female. Refer to note in patient chart for documentation of history and physical. Patient has symptoms of chronic heartburn. Complications: No immediate complications. Procedure: Pre-Anesthesia Assessment: - Prior to the procedure, a History and Physical was performed, and patient medications and allergies were reviewed. The patient is competent. The risks and benefits of the procedure and the sedation options and risks were discussed with the patient. All questions were answered and informed consent was obtained. Patient identification and proposed procedure were verified by the physician in the pre-procedure area. Mental Status Examination: alert and oriented. Airway Examination: normal oropharyngeal airway and neck mobility. Respiratory Examination: clear to auscultation. CV Examination: normal. Prophylactic Antibiotics: The patient does not require prophylactic antibiotics. Prior Anticoagulants: The patient has taken no previous anticoagulant or antiplatelet agents. ASA Grade Assessment: II - A patient with mild systemic disease. After reviewing the risks and benefits, the patient was deemed in satisfactory condition to undergo the procedure. The anesthesia plan was to use monitored anesthesia care (MAC). Immediately prior to administration of medications, the patient was re-assessed for adequacy to receive sedatives. The heart rate, respiratory rate, oxygen saturations, blood pressure, adequacy of pulmonary ventilation, and response to care were monitored throughout the procedure. The physical status of the patient was re-assessed after the procedure. After obtaining informed consent, the endoscope was passed under direct vision. Throughout the procedure, the patient's blood pressure, pulse, and oxygen saturations were monitored continuously. The Endoscope was introduced through the mouth, and advanced to the second part of duodenum. The upper GI endoscopy was accomplished without difficulty. The patient tolerated the procedure well. Scope In: 9:42:54 AM Scope Out: 9:46:23 AM Total Procedure Duration Time 0 hours 3 minutes 29 seconds Findings: The Z-line was irregular and was found 37 cm from the incisors. Biopsies were taken with a cold forceps for histology. Verification of patient identification for the specimen was done. Estimated blood loss was minimal. A medium-sized hiatal hernia was present. Multiple medium semi-sessile polyps with no stigmata of recent bleeding were found in the cardia, in the gastric fundus and in the gastric body. The second portion of the duodenum was normal. Impression: - Z-line irregular, 37 cm from the incisors. Biopsied. - Medium-sized hiatal hernia. - Multiple gastric polyps. - Normal second portion of the duodenum. Recommendation: - Discharge patient to home. - Resume previous diet. - Continue present medications. - Await pathology results. - Repeat upper endoscopy for surveillance. Procedure Code(s): --- Professional --- 98612, Esophagogastroduodenoscopy, flexible, transoral; with biopsy, single or multiple CPT copyright 2017 [employer]. All rights reserved. The codes documented in this report are preliminary and upon ply splicer review may be revised to meet current compliance requirements. Hay Ayala DO 09/13/2022 9:57:36 AM This report has been signed electronically. Number of Addenda: 0 Note Initiated On: 09/13/2022 9:32 AM
--- NOTE | 2022-09-13 09:58 | OP.CCLET_ITS ---
09/13/2022 Margot Asencio Re : Upper GI endoscopy procedure for Ruthann Medina Dear Jan This procedure was performed on Tuesday, September 13, 2022. My impressions and recommendations are as follows: Impressions : - Z-line irregular, 37 cm from the incisors. Biopsied. - Medium-sized hiatal hernia. - Multiple gastric polyps. - Normal second portion of the duodenum. Recommendations : - Discharge patient to home. - Resume previous diet. - Continue present medications. - Await pathology results. - Repeat upper endoscopy for surveillance. My findings are described in the full procedure note, which is enclosed. If I can be of further assistance, please feel free to contact me at . Sincerely, Hay Ayala, 09/13/2022 9:57:36 AM This report has been signed electronically.
[2022-09-13 10:00] VITALS: BP 130/71; BP 136/68; PULSE 64; RESP 18; O2SAT 97
[2022-09-13 10:04] VITALS: BP 130/71; BP 138/78; PULSE 62; RESP 18; TEMP 36.5; O2SAT 97
[2022-09-13 10:23] VITALS: BP 130/71
== END 2022-09-13 10:36 | disposition home or self-care (01) ==
LOC: EN 08:06 → AC 08:09
PROVIDERS: PCP Nurse Practitioner Family; Referring Provider Internal Medicine Gastroenterology; Visit Provider Internal Medicine Gastroenterology
PROC: 0DJ08ZZ Inspection of Upper Intestinal Tract, Via Natural or Artificial Opening Endoscopic (ICD-10-PCS; CPT 43235; principal; 2022-09-13 08:55)
DX: K22.70 Barrett's esophagus without dysplasia (principal); K44.9 Diaphragmatic hernia without obstruction or gangrene; K31.7 Polyp of stomach and duodenum; K76.0 Fatty (change of) liver, not elsewhere classified; Z87.891 Personal history of nicotine dependence; Z79.899 Other long term (current) drug therapy; I10 Essential (primary) hypertension; E78.00 Pure hypercholesterolemia, unspecified
CPT/HCPCS: 43239; 88305; 88313; 88341; 88342; J7120; J2405

== ENCOUNTER → 2022-09-29 | Outpatient (CLI) | payer MEDICARE, SELFPAY ==
[2022-09-29 15:46] LABS: Anion Gap 6 (5-15); BUN 11 mg/dL (7-18); Calcium,Total 9.2 mg/dL (8.5-10.1); Chloride 101 mmol/L (98-107); Creatinine, Serum 0.69 mg/dL (0.55-1.02); EST Glomerular Filtration Rate 87 mL/min (>60); Est Glom Filt Rate - Afr Amer 106 mL/min (>60); Glucose 98 mg/dL (74-106); Potassium 4.1 mmol/L (3.5-5.1); Sodium Level 133 mmol/L (136-145)
[2022-09-29 16:37] LABS: Protein, Urine (Random) 7.3 mg/dL (<11.9); Protein:Creat Ratio 151 mg/g CRE (0-200)
[2022-10-02 16:09] LABS: Cytoplasmic Ab (C-ANCA) <1:20 titer (Neg:<1:20); Perinuclear Ab (P-ANCA) <1:20 titer (Neg:<1:20)
== END | disposition home or self-care (01) ==
LOC: MTLAB 11:54
PROVIDERS: PCP Nurse Practitioner Family; Referring Provider Internal Medicine Nephrology; Visit Provider Internal Medicine Nephrology
DX: N18.2 Chronic kidney disease, stage 2 (mild) (principal)
CPT/HCPCS: 36415; 80048; 82570; 84156; 86256

== ENCOUNTER → 2022-10-13 | Outpatient (CLI) | payer MEDICARE, SELFPAY ==
[2022-10-13 15:36] LABS: Absolute Lymphocyte Count 1.12 X10^3/uL (0.83-4.51); Absolute Neutrophil Count 3.2 X10^3/uL (2.0-7.7); Basophil# 0.06 X10^3/uL; Basophil% 1.2 % (0-1); Eosinophil# 0.17 X10^3/uL; Eosinophils% 3.3 % (0-5); Hematocrit 40.5 % (37-47); Hemoglobin 13.3 g/dL (12.0-15.0); Lymphocyte # 1.12 X10^3/ul (0.83-4.51); Lymphocyte % 21.6 % (19-41); Mean Corp Hgb Conc 32.8 g/dL (32-36); Mean Corpuscular Hgb 32.3 pg (27.0-32.0); Mean Corpuscular Volume 98.3 fL (81-99); Mean Platelet Vol. 9.4 fl (6.2-12.0); Monocyte% 11.6 % (0-10); NRBC Flagged by Analyzer 0 % (0-5); Neutrophil % 61.7 % (47-70); Platelet Count 366 K/mm3 (150-450); RBC Distribution Width CV 13.8 % (11.6-14.6); RBC Distribution Width SD 49.6 fl (35.1-43.9); Red Blood Count 4.12 M/mm3 (4.2-5.4); White Blood Count 5.2 K/mm3 (4.4-11.0)
[2022-10-13 15:46] LABS: ALB/GLOB Ratio 0.9 RATIO (0.9-2.4); AST(SGOT) 21 U/L (15-37); Alanine Aminotransfer ALT/SGPT 20 U/L (13-56); Albumin, Serum 3.5 g/dL (3.2-5.0); Alkaline Phosphatase 87 U/L (45-117); Anion Gap 5 (5-15); BUN 10 mg/dL (7-18); BUN/Creat Ratio 14.2 RATIO (10-20); Calcium,Total 8.9 mg/dL (8.5-10.1); Chloride 102 mmol/L (98-107); EST Glomerular Filtration Rate 85 mL/min (>60); Est Glom Filt Rate - Afr Amer 103 mL/min (>60); Globulin 3.7 g/dL (2.2-4.2); Glucose 102 mg/dL (74-106); Potassium 4.2 mmol/L (3.5-5.1); Protein, Total 7.2 g/dL (6.4-8.2); Sodium Level 134 mmol/L (136-145)
== END | disposition home or self-care (01) ==
LOC: MTLAB 13:27
PROVIDERS: PCP Nurse Practitioner Family; Referring Provider Internal Medicine Rheumatology; Visit Provider Internal Medicine Rheumatology
DX: M06.4 Inflammatory polyarthropathy (principal); Z79.899 Other long term (current) drug therapy
CPT/HCPCS: 36415; 80053; 85025

== ENCOUNTER → 2022-12-15 | Outpatient (CLI) | payer MEDICARE, SELFPAY ==
[2022-12-15 14:57] LABS: Absolute Lymphocyte Count 1.25 X10^3/uL (0.83-4.51); Basophil# 0.05 X10^3/uL; Eosinophil# 0.09 X10^3/uL; Eosinophils% 1.8 % (0-5); Hematocrit 39.9 % (37-47); Hemoglobin 13.3 g/dL (12.0-15.0); Lymphocyte # 1.25 X10^3/ul (0.83-4.51); Lymphocyte % 24.7 % (19-41); Mean Corp Hgb Conc 33.3 g/dL (32-36); Mean Corpuscular Hgb 32.4 pg (27.0-32.0); Mean Corpuscular Volume 97.1 fL (81-99); Mean Platelet Vol. 9.3 fl (6.2-12.0); Monocyte# 0.71 X10^3/uL; NRBC Flagged by Analyzer 0 % (0-5); Neutrophil # 2.96 X10^3/uL (2.7-7.7); Neutrophil % 58.3 % (47-70); Platelet Count 383 K/mm3 (150-450); RBC Distribution Width CV 14.2 % (11.6-14.6); Red Blood Count 4.11 M/mm3 (4.2-5.4); White Blood Count 5.1 K/mm3 (4.4-11.0)
[2022-12-15 15:37] LABS: AST(SGOT) 22 U/L (15-37); Alanine Aminotransfer ALT/SGPT 32 U/L (13-56); Albumin, Serum 3.7 g/dL (3.2-5.0); Alkaline Phosphatase 95 U/L (45-117); Anion Gap 7 (5-15); BUN 10 mg/dL (7-18); BUN/Creat Ratio 14.3 RATIO (10-20); Calcium,Total 9.3 mg/dL (8.5-10.1); Chloride 99 mmol/L (98-107); EST Glomerular Filtration Rate 86 mL/min (>60); Est Glom Filt Rate - Afr Amer 104 mL/min (>60); Globulin 3.8 g/dL (2.2-4.2); Glucose 90 mg/dL (74-106); Potassium 4.4 mmol/L (3.5-5.1); Protein, Total 7.5 g/dL (6.4-8.2); Sodium Level 132 mmol/L (136-145)
== END | disposition home or self-care (01) ==
LOC: MTLAB 13:16
PROVIDERS: PCP Nurse Practitioner Family; Referring Provider Internal Medicine Rheumatology; Visit Provider Internal Medicine Rheumatology
DX: M06.4 Inflammatory polyarthropathy (principal); M19.041 Primary osteoarthritis, right hand; M18.11 Unilateral primary osteoarthritis of first carpometacarpal joint, right hand; M16.0 Bilateral primary osteoarthritis of hip; Z79.899 Other long term (current) drug therapy
CPT/HCPCS: 36415; 80053; 85025

== ENCOUNTER → 2023-02-28 | Outpatient (CLI) | payer MEDICARE, SELFPAY ==
--- NOTE | 2023-02-28 13:06 | US_ITS ---
ACR Level 3 findings have been noted. An addendum which confirms receipt of the report will follow. EXAM: US PELVIS TRANSABDOMINAL LIMITED AND TRANSVAGINAL CLINICAL INDICATION: right lower quadrant pain, CRAMPING X 4 MONTHS TECHNIQUE: Transabdominal (limited) and transvaginal pelvic ultrasound was performed with grayscale and color Doppler imaging. Transvaginal imaging was used for better evaluation of the endometrium and adnexa. COMPARISON: No relevant prior studies available. FINDINGS: UTERUS/CERVIX: The uterus measures 5.9 x 3.7 x 2.4 cm. The endometrial stripe measures 0.7 cm in thickness which is abnormal for patient''s age. Nabothian cysts are identified. The endometrium is fluid-filled with either a polyp or small submucosal thyroid measuring up to approximately 6 mm. Anteverted. There is no uterine mass. RIGHT OVARY: The right ovary is not visualized. LEFT OVARY: 3.1 cm left ovarian cyst which is anechoic although with slight lobulations of the margins. Blood flow is present in the left ovary. The left ovary measures 3.4 x 3.9 x 2.6 cm. FREE FLUID: None. BLADDER: Normal as visualized. Wall is normal thickness for degree of distention. US/Pelvic (Non ) IMPRESSION: 1. The endometrial stripe measures 0.7 cm in thickness which is abnormal for patient''s age. Findings could be due to endometrial hyperplasia or endometrial cancer. The endometrium is fluid-filled with either a polyp or small submucosal thyroid measuring up to approximately 6 mm. Recommend gynecology consultation. 2. 3.1 cm left ovarian cyst which is anechoic although with slight lobulations of the margins. SRU Consensus Conference guidelines (Kellogg, et. al. Radiology 2019;293:359-371) suggest that this simple cyst is almost certainly benign. Recommend follow-up pelvic ultrasound in 3-6 months to document resolution or to further characterize the cyst if it does not resolve. Electronically Signed: Sánchez Olmos DO at 21:55 EST ,
== END | disposition home or self-care (01) ==
LOC: US 13:02
PROVIDERS: PCP Nurse Practitioner Family; Referring Provider Nurse Practitioner Family; Visit Provider Nurse Practitioner Family
DX: R10.31 Right lower quadrant pain (principal)
CPT/HCPCS: 76830; 76856; 93976

== ENCOUNTER → 2023-03-12 | Outpatient (CLI) | payer MEDICARE, SELFPAY ==
[2023-03-12 17:58] LABS: Absolute Lymphocyte Count 1.52 X10^3/uL (0.83-4.51); Absolute Neutrophil Count 3.3 X10^3/uL (2.0-7.7); Basophil# 0.06 X10^3/uL; Basophil% 1.1 % (0-1); Eosinophil# 0.09 X10^3/uL; Eosinophils% 1.6 % (0-5); Hematocrit 41.6 % (37-47); Hemoglobin 13.6 g/dL (12.0-15.0); Lymphocyte # 1.52 X10^3/ul (0.83-4.51); Lymphocyte % 26.8 % (19-41); Mean Corp Hgb Conc 32.7 g/dL (32-36); Mean Corpuscular Hgb 32.1 pg (27.0-32.0); Mean Corpuscular Volume 98.1 fL (81-99); Monocyte# 0.69 X10^3/uL; Monocyte% 12.2 % (0-10); NRBC Flagged by Analyzer 0 % (0-5); Neutrophil # 3.29 X10^3/uL (2.7-7.7); Neutrophil % 57.9 % (47-70); Platelet Count 407 K/mm3 (150-450); RBC Distribution Width CV 14.6 % (11.6-14.6); RBC Distribution Width SD 52.5 fl (35.1-43.9); Red Blood Count 4.24 M/mm3 (4.2-5.4); White Blood Count 5.7 K/mm3 (4.4-11.0)
[2023-03-12 18:15] LABS: AST(SGOT) 24 U/L (15-37); Alanine Aminotransfer ALT/SGPT 32 U/L (13-56); Albumin, Serum 3.9 g/dL (3.2-5.0); Alkaline Phosphatase 92 U/L (45-117); Anion Gap 8 (5-15); BUN 9 mg/dL (7-18); BUN/Creat Ratio 11.3 RATIO (10-20); Calcium,Total 9.2 mg/dL (8.5-10.1); Chloride 95 mmol/L (98-107); EST Glomerular Filtration Rate 74 mL/min (>60); Est Glom Filt Rate - Afr Amer 89 mL/min (>60); Globulin 3.8 g/dL (2.2-4.2); Glucose 82 mg/dL (74-106); Potassium 4.1 mmol/L (3.5-5.1); Protein, Total 7.7 g/dL (6.4-8.2); Sodium Level 128 mmol/L (136-145)
== END | disposition home or self-care (01) ==
LOC: MTLAB 16:10
PROVIDERS: PCP Nurse Practitioner Family; Referring Provider Internal Medicine Rheumatology; Visit Provider Internal Medicine Rheumatology
DX: M06.4 Inflammatory polyarthropathy (principal); M19.041 Primary osteoarthritis, right hand; M18.11 Unilateral primary osteoarthritis of first carpometacarpal joint, right hand; M16.0 Bilateral primary osteoarthritis of hip
CPT/HCPCS: 36415; 80053; 85025

== ENCOUNTER → 2023-03-29 | Outpatient (CLI) | payer MEDICARE, SELFPAY ==
--- NOTE | 2023-03-29 13:52 | BI_ITS ---
MAMMOGRAPHY - BILATERAL SCREENING REASON FOR EXAM: Female, 77 years old. Routine annual screening examination. PERTINENT HISTORY: Non-contributory. TECHNIQUE: Digital bilateral breast maria e (3D mammographic acquisition) in the CC and MLO projections. 2-D mediolateral oblique (MLO) and craniocaudad (CC) views of both breasts were obtained. CAD: Full Field Digital Mammography with Computer Added Detection was performed. COMPARISON: Comparison is made with prior study dated January 31, 2022 and December 23, 2020. FINDINGS: Breast Composition: The breasts are heterogeneously dense, which may obscure small masses. There are no dominant masses or suspicious calcifications. No other significant abnormalities are identified. There has been no significant change since the prior study. BI/SCRN MAMM (CAD)W/MARIA E BILAT IMPRESSION: Stable bilateral screening mammogram. Yearly follow-up mammogram recommended. (A) ASSESSMENT CATEGORY: BIRADS Category 1: Negative. A letter regarding these results will be sent to the patient by the facility within 30 days. Approximately 10% of breast cancers are not detected by mammography. A normal mammogram should not delay biopsy of a clinically suspicious abnormality. [id number] Electronically Signed: Dimitry Franco MD at 14:52 EST ,
--- NOTE | 2023-03-29 13:56 | BD_ITS ---
STUDY: DUAL ENERGY X-RAY ABSORPTIOMETRY / DXA REASON FOR EXAM: Female, 77 years old. 733.00OsteoporosisBONE DENSITY REASON FOR EXAM TECHNIQUE: Bone Mineral Density (BMD) measurements of lumbar spine and both forearms were obtained. COMPARISON: Comparison is made with prior study dated December 23, 2020. FINDINGS: Lumbar Spine (L1-L4): g/cm2 (1.083) / T-score (0.3) / Z-score (3.0) Findings are suggestive of normal bone density with a low fracture risk. Right Forearm: g/cm2 (0.484) / T-score (-1.8) / Z-score (1.2) Left Forearm: g/cm2 (0.509) / T-score (-1.3) / Z-score (1.6) The T-Scores on the most recent prior examination were: Lumbar Spine (L1-L4): There has been improvement of bone density since the previous examination. BD/Dexa Bone Density Study IMPRESSION: The patient is considered osteopenic as outlined below according to World [employer] Organization (WHO) criteria with a high fracture risk. There has been improvement of bone density since the previous examination. Reference Information: The T-score is the number of standard deviations above or below the standard which is normal for young adults at their peak bone mineral density. The World Health Organization (WHO) interprets the T-scores as follows: Above -1 Normal bone density Between -1 and -2.5 Osteopenia Equal to / or below -2.5 Osteoporosis As a practical clinical guideline, osteopenia may be graded as follows: Mild -1 through -1.5 Moderate -1.6 through -2.0 Severe -2.1 through -2.4 The Z-score is the number of standard deviations above or below age-matched controls. A Z-score of less than -1.5 would be considered abnormal. References: 1. NIH Osteoporosis and Related Bone Diseases www osteo.org 2. International Society for Clinical Densitometry www iscd.org 3. National Osteoporosis Foundation www nof.org Electronically Signed: Dimitry Franco MD at 14:46 EST ,
== END | disposition home or self-care (01) ==
LOC: OPBD 13:51
PROVIDERS: PCP Nurse Practitioner Family; Referring Provider Registered Nurse; Visit Provider Registered Nurse
DX: Z12.31 Encounter for screening mammogram for malignant neoplasm of breast (principal); M81.0 Age-related osteoporosis without current pathological fracture
CPT/HCPCS: 77063; 77067; 77080

== ENCOUNTER → 2023-06-14 | Outpatient (CLI) | payer MEDICARE, SELFPAY ==
[2023-06-14 15:35] LABS: Absolute Lymphocyte Count 1.06 X10^3/uL (0.83-4.51); Absolute Neutrophil Count 3.1 X10^3/uL (2.0-7.7); Basophil# 0.04 X10^3/uL; Basophil% 0.8 % (0-1); Hematocrit 41.1 % (37-47); Hemoglobin 13.6 g/dL (12.0-15.0); Lymphocyte # 1.06 X10^3/ul (0.83-4.51); Lymphocyte % 21.2 % (19-41); Mean Corp Hgb Conc 33.1 g/dL (32-36); Mean Corpuscular Hgb 32.6 pg (27.0-32.0); Mean Corpuscular Volume 98.6 fL (81-99); Mean Platelet Vol. 8.7 fl (6.2-12.0); Monocyte# 0.65 X10^3/uL; NRBC Flagged by Analyzer 0 % (0-5); Neutrophil # 3.11 X10^3/uL (2.7-7.7); Neutrophil % 62.4 % (47-70); Platelet Count 371 K/mm3 (150-450); RBC Distribution Width CV 13.4 % (11.6-14.6); Red Blood Count 4.17 M/mm3 (4.2-5.4)
[2023-06-14 16:13] LABS: ALB/GLOB Ratio 0.9 RATIO (0.9-2.4); AST(SGOT) 27 U/L (15-37); Alanine Aminotransfer ALT/SGPT 28 U/L (13-56); Albumin, Serum 3.5 g/dL (3.2-5.0); Alkaline Phosphatase 111 U/L (45-117); Anion Gap 9 (5-15); BUN 9 mg/dL (7-18); BUN/Creat Ratio 11.7 RATIO (10-20); Calcium,Total 9.2 mg/dL (8.5-10.1); Chloride 98 mmol/L (98-107); Creatinine, Serum 0.77 mg/dL (0.55-1.02); EST Glomerular Filtration Rate 77 mL/min (>60); Est Glom Filt Rate - Afr Amer 93 mL/min (>60); Glucose 101 mg/dL (74-106); Potassium 4.1 mmol/L (3.5-5.1); Protein, Total 7.5 g/dL (6.4-8.2); Sodium Level 132 mmol/L (136-145)
== END | disposition home or self-care (01) ==
LOC: MTLAB 13:53
PROVIDERS: PCP Nurse Practitioner Family; Referring Provider Internal Medicine Rheumatology; Visit Provider Internal Medicine Rheumatology
DX: M06.4 Inflammatory polyarthropathy (principal); M19.041 Primary osteoarthritis, right hand; M18.11 Unilateral primary osteoarthritis of first carpometacarpal joint, right hand; M16.0 Bilateral primary osteoarthritis of hip; Z79.899 Other long term (current) drug therapy
CPT/HCPCS: 36415; 80053; 85025

== ENCOUNTER 2023-07-19 14:29 | Outpatient (CLI) | payer MEDICARE, SELFPAY ==
[2023-07-19] MEDS: DENOSUMAB 60 MG/ML SC (14:37)
[2023-07-19 14:39] VITALS: BP 134/66; PULSE 64; RESP 16; TEMP 35.9; O2SAT 100; BMI 24.4
== END 2023-07-19 14:30 | disposition home or self-care (01) ==
LOC: MEDOUTP 14:30
PROVIDERS: PCP Nurse Practitioner Family; Referring Provider Nurse Practitioner Family; Visit Provider Nurse Practitioner Family
DX: M81.0 Age-related osteoporosis without current pathological fracture (principal)
CPT/HCPCS: 96372; J0897

== ENCOUNTER → 2023-07-23 | Outpatient (CLI) | payer MEDICARE, SELFPAY ==
--- NOTE | 2023-07-23 15:00 | CT_ITS ---
STUDY: CT ABDOMEN AND PELVIS WITH CONTRAST REASON FOR EXAM: Female, 77 years old. r/o divertiulitis, mass, abscess RADIATION DOSAGE (If Supplied By Facility): CTDIvol = ( 14.94 ) mGy, DLP = ( 421.48 ) mGycm TECHNIQUE: Transaxial images were obtained from the dome of the diaphragm to the symphysis pubis with oral contrast. Oral and amp; IV Readi-CAT and amp; 75mL Isovue-300 was administered. Sagittal and coronal images were reconstructed. Individualized dose optimization techniques were used for this CT. COMPARISON: None. FINDINGS: Incompletely imaged 1 cm noncalcified nodule in the right middle lobe and correlation with CT the chest with contrast is recommended. The visualized portions of the heart are within normal limits. Normal liver. Normal gallbladder and extrahepatic biliary system. Normal spleen. Normal pancreas. Normal bilateral adrenal glands. 2 mm obstructing stone in the mid right ureter on image 60 with mild hydronephrosis. Retrograde hologram may be useful. Normal left kidney. Normal visualized stomach. Normal small intestine. There are multiple colonic diverticula consistent with diverticulosis. The appendix is visualized and appears normal. There is diffuse atherosclerotic calcification of the abdominal aorta, without a demonstrated aneurysm. Normal inferior vena cava. Normal retroperitoneum. Normal urinary bladder. 2.5 cm round mass of water attenuation within the left adnexa likely consistent with a physiologic cyst or par ovarian cyst. Normal abdominal wall. Status post bilateral hip arthroplasty which produces streak artifact and obscures the pelvis. Mild levoscoliosis of the thoracic lumbar spine with degenerative disc disease. CT/Abdomen/Pelvis WITH Contrast IMPRESSION: 1. Suspect 2 mm obstructing stone in the mid right ureter with mild hydronephrosis. Retrograde pyelogram may be useful. 2. Sigmoid diverticulosis without diverticulitis. 3. Suspect 2.5 cm left ovarian physiologic cyst or part ovarian cyst. 4. Incompletely imaged 1 cm noncalcified nodule in the right middle lobe and correlation with CT the chest with contrast is recommended. Electronically Signed: Jacob Ya MD at 23:08 EDT ,
[2023-07-23 15:38] LABS: CREATININE FINGERSTICK 1.2 mg/dL (0.55-1.02)
== END | disposition home or self-care (01) ==
PROVIDERS: PCP Nurse Practitioner Family; Visit Provider Nurse Practitioner Family
DX: R10.31 Right lower quadrant pain (principal)
CPT/HCPCS: 74177; Q9967; A4216

== ENCOUNTER 2023-08-17 13:25 | Outpatient (CLI) | payer MEDICARE, SELFPAY ==
[2023-08-17 14:17] LABS: Hemoglobin 13.2 g/dL (12.0-15.0); Mean Corpuscular Hgb 32.7 pg (27.0-32.0); Mean Platelet Vol. 8.7 fl (6.2-12.0); Platelet Count 336 K/mm3 (150-450); RBC Distribution Width CV 14.2 % (11.6-14.6); RBC Distribution Width SD 51.6 fl (35.1-43.9); Red Blood Count 4.04 M/mm3 (4.2-5.4); White Blood Count 4.6 K/mm3 (4.4-11.0)
[2023-08-17 14:41] LABS: Anion Gap 6 (5-15); BUN 10 mg/dL (7-18); BUN/Creat Ratio 14.8 RATIO (10-20); Chloride 97 mmol/L (98-107); Creatinine, Serum 0.68 mg/dL (0.55-1.02); EST Glomerular Filtration Rate 89 mL/min (>60); Est Glom Filt Rate - Afr Amer 108 mL/min (>60); Glucose 110 mg/dL (74-106); Potassium 4.3 mmol/L (3.5-5.1); Sodium Level 130 mmol/L (136-145)
== END 2023-08-17 23:59 | disposition home or self-care (01) ==
LOC: LAB 13:27
PROVIDERS: PCP Nurse Practitioner Family; Referring Provider Urology; Visit Provider Urology
DX: Z01.812 Encounter for preprocedural laboratory examination (principal)
CPT/HCPCS: 36415; 80048; 85027

== ENCOUNTER → 2023-08-23 | Outpatient (CLI) | payer MEDICARE, SELFPAY ==
--- NOTE | 2023-08-23 11:08 | EKG12_ITS ---
Test Reason : PRE OP Blood Pressure : / mmHG Vent. Rate : 064 BPM Atrial Rate : 064 BPM P-R Int : 182 ms QRS Dur : 088 ms QT Int : 456 ms P-R-T Axes : 052 063 057 degrees QTc Int : 470 ms Normal sinus rhythm Normal ECG Confirmed by FANNY CAMPBELL, JENNIFER ([id number]), script editor SCOTT STONE ([id number]) on 08/23/2023 1:40:42 PM Referred By: Charbel Paula Confirmed By:DONNELL ESCOBEDO MD
== END | disposition home or self-care (01) ==
LOC: PSN 10:57
PROVIDERS: PCP Nurse Practitioner Family; Referring Provider Urology; Visit Provider Urology
DX: Z01.810 Encounter for preprocedural cardiovascular examination (principal)
CPT/HCPCS: 93005

== ENCOUNTER 2023-08-28 14:11 | Emergency (ER) | payer MEDICARE, SELFPAY ==
[2023-08-28] VITALS (7 sets, daily range): BP systolic 112–156; BP diastolic 64–82; PULSE 69–81; RESP 14–20; TEMP 35.7–36.6; O2SAT 94–98; BMI 22.9
--- NOTE | 2023-08-28 14:45 | EKG12_ITS ---
Test Reason : DIZZY Blood Pressure : / mmHG Vent. Rate : 063 BPM Atrial Rate : 063 BPM P-R Int : 170 ms QRS Dur : 090 ms QT Int : 452 ms P-R-T Axes : 008 013 015 degrees QTc Int : 462 ms Normal sinus rhythm Normal ECG Confirmed by Jarrell Grey ([id number]), industrial editor SCOTT STONE ([id number]) on 08/29/2023 1:06:33 PM Referred By: Confirmed By:Jarrell Grey
[2023-08-28 15:07] LABS: Absolute Lymphocyte Count 0.91 X10^3/uL (0.83-4.51); Absolute Neutrophil Count 5.5 X10^3/uL (2.0-7.7); Basophil# 0.03 X10^3/uL; Basophil% 0.4 % (0-1); Eosinophil# 0.07 X10^3/uL; Hematocrit 40.7 % (37-47); Hemoglobin 13.6 g/dL (12.0-15.0); Lymphocyte # 0.91 X10^3/ul (0.83-4.51); Mean Corp Hgb Conc 33.4 g/dL (32-36); Mean Corpuscular Hgb 32.4 pg (27.0-32.0); Mean Corpuscular Volume 96.9 fL (81-99); Mean Platelet Vol. 8.4 fl (6.2-12.0); Monocyte# 0.44 X10^3/uL; Monocyte% 6.3 % (0-10); NRBC Flagged by Analyzer 0 % (0-5); Neutrophil % 78.6 % (47-70); Platelet Count 332 K/mm3 (150-450); RBC Distribution Width CV 13.8 % (11.6-14.6); RBC Distribution Width SD 48.6 fl (35.1-43.9)
[2023-08-28 15:14] LABS: Prothrombin Time (Protime)PT. 13.3 SECONDS (11.7-14.9)
[2023-08-28 15:15] LABS: Partial Thromboplast Time 28.9 Seconds (24.1-36.2)
[2023-08-28 15:19] LABS: Anion Gap 11 (5-15); BUN 13 mg/dL (7-18); BUN/Creat Ratio 16.8 RATIO (10-20); Calcium,Total 8.8 mg/dL (8.5-10.1); Chloride 96 mmol/L (98-107); Creatinine, Serum 0.78 mg/dL (0.55-1.02); EST Glomerular Filtration Rate 76 mL/min (>60); Est Glom Filt Rate - Afr Amer 92 mL/min (>60); Glucose 106 mg/dL (74-106); Potassium 4.1 mmol/L (3.5-5.1); Sodium Level 129 mmol/L (136-145)
--- NOTE | 2023-08-28 15:50 | RAD_ITS ---
STUDY: X-RAY CHEST REASON FOR EXAM: Female, 78 years old. DIZZINESS TECHNIQUE: Single AP portable view of the chest. COMPARISON: 05/16/2016. FINDINGS: There is hyperinflation of the lungs consistent with chronic obstructive lung disease (COPD). Ill-defined 2 cm focal pulmonary opacity in the lower right lung which could be a neoplasm. CT of the chest is indicated. No infiltrates. There is no demonstrated pleural abnormality. Normal size heart. Normal mediastinum and claudette. There is prominence of the pulmonary hilar arteries without peripheral pulmonary vascular congestion, suggesting pulmonary hypertension. There is atherosclerotic calcification of the aortic arch with tortuosity. There are diffuse degenerative changes of the visualized thoracic spine. There is degenerative osteoarthritis of the bilateral shoulders. There is no demonstrated abnormality of the visualized soft tissue structures of the upper abdomen. RAD/Chest 1 View (Portable) IMPRESSION: COPD. Ill-defined focal pulmonary opacity of the lower right lung. CT of the chest is indicated. Electronically Signed: Andrea Rdz MD at 16:12 EDT ,
--- NOTE | 2023-08-28 17:26 | EX.ED.DYSGE1 ---
HPI History of Present Illness Chief Complaint: Dizziness PFSH PFSH Medical History Alcohol use Alcohol use disorder Allergic dermatitis Anxiety Arthritis Barretts esophagus Depression Former moderate cigarette smoker (10-19 per day) Former smoker Gastric lesion Generalized anxiety disorder High cholesterol Hypertension Major depressive disorder, recurrent severe without psychotic features P-ANCA titer positive Post-menopausal Wears glasses Home Medications ?Medication ?Instructions ?Recorded ?Last Taken ?Type amlodipine 5 mg tablet 5 mg PO DAILY BP 30 days #30 tabs 07/08/18 09/13/22 History duloxetine 40 mg capsule,delayed 40 mg PO DAILY DEPRESSION 30 days 07/08/18 Unknown History release #30 caps cholecalciferol (vitamin D3) 50 2,000 unit PO DAILY SUPPLEMENT 02/25/19 Unknown History mcg (2,000 unit) capsule metoprolol tartrate 25 mg tablet 50 mg PO DAILY BP 02/25/19 09/13/22 History cholestyramine (with sugar) 4 gram 4 g PO DAILY #180 ea 09/27/21 Unknown Rx powder for susp in a packet denosumab 60 mg/mL subcutaneous 60 mg subcut .Q 6 MONTHS 09/08/22 Unknown History syringe (Prolia) folic acid 1 mg tablet 2 mg PO DAILY 09/08/22 Unknown History leucovorin calcium 15 mg tablet 15 mg PO QWEEK 09/08/22 Unknown History methotrexate sodium 2.5 mg tablet 17.5 mg PO QWEEK 09/08/22 Unknown History ciprofloxacin HCl 500 mg tablet 500 mg PO BID 08/28/23 Unknown History losartan 50 mg tablet 50 mg PO DAILY 08/28/23 Unknown History ondansetron 4 mg disintegrating 4 mg PO Q8H PRN PRN Nausea #10 tabs 08/28/23 Unknown Rx tablet phenazopyridine 100 mg tablet 100 mg PO TID 08/28/23 Unknown History tamsulosin 0.4 mg capsule 0.4 mg PO DAILY 08/28/23 Unknown History Allergy/AdvReac Type Severity Reaction Status Date / Time Penicillins Allergy Unknown Rash Verified 08/28/23 14:15 Surgical History History of colonoscopy History of esophagogastroduodenoscopy (EGD) History of hip replacement Hx of bilateral hip replacements Hx of tubal ligation Social History (Updated 08/28/23 @ 16:57 by Josi Viera) household members: family Smoking Status: Former smoker EXAM Physical Exam Const Vital Signs: 08/28/23 14:12 08/28/23 16:00 08/28/23 16:56 Temperature 96.3 F L Temperature Source Temporal Pulse Rate 70 69 Respiratory Rate 14 20 H Respiratory Effort Respiratory Pattern Blood Pressure 129/79 H 112/64 Blood Pressure Mean 95 80 Pulse Ox 97 98 98 Oxygen Delivery Method Room Air 08/28/23 17:00 08/28/23 18:01 08/28/23 20:00 Temperature Temperature Source Pulse Rate 70 79 Respiratory Rate 18 20 H Respiratory Effort Normal Non-Labored Respiratory Pattern Normal Blood Pressure 156/79 H 129/82 H Blood Pressure Mean 104 97 Pulse Ox 97 94 Oxygen Delivery Method Room Air 08/28/23 21:56 08/28/23 22:24 Temperature 97.8 F Temperature Source Pulse Rate 81 78 Respiratory Rate 14 16 Respiratory Effort Respiratory Pattern Blood Pressure 131/81 H 132/78 H Blood Pressure Mean 97 96 Pulse Ox 97 96 Oxygen Delivery Method Room Air MDM MDM MDM Narrative Medical decision making narrative: HISTORY OF PRESENT ILLNESS: 78-year-old female presents with nausea, vomiting dizziness diffuse weakness and confusion. She states she is 4 days post stent placement for kidney stone. She further states she is been feeling off last few days. Notes intermittent confusion nausea vomiting dizziness ever since she got a stent placed. Notes abdominal pain as well. Denies chest pain. Denies focal weakness REVIEW OF SYSTEMS: Pertinent positives: Weakness, dizziness, confusion, nausea vomit Pertinent negatives: Head trauma, headache, chest pain, shortness of breath PHYSICAL EXAM: Nursing triage notes reviewed, Vital signs reviewed Constitutional: please see mdm HENT: MMM Eyes: Pupils equal round and reactive to light, Extraocular muscles intact Neck: No stridor, no JVD, full neck ROM Lungs: Clear to auscultation, No wheezing or rales. No increased work of breathing, no conversational dyspnea, no accessory muscle use, no nasal flaring. No respiratory distress noted Heart: Regular rate and rhythm, No murmurs, No rubs and No gallops, 2+ distal pulses (radial, femoral, posterior tibial) in all extremities Abdomen: Soft, there is no tenderness, rigidity, rebound or guarding, no obvious peritoneal signs, no palpable pulsatile abdominal masses, no auscultated abdominal bruit : No CVAT Extremities: No edema Neuro: No focal neurological deficits, cranial nerves II through XII intact, 5/5 strength in all extremities. Intact sensation to light touch in all extremities, 2+ reflexes bilateral patella tendons. Normal gait. No ataxia. Skin: No rash or lesions noted MEDICAL DECISION MAKING: Chief Complaint: Weakness Factors affecting care: Hypertension, fatty liver, nephrolithiasis MDM Narrative: The patient was hemodynamically stable, afebrile and nontoxic-appearing. Exam without peritoneal signs. I considered the following differential diagnosis: Occluded stent, ureteral stent infection, arrhythmia, anemia, electrolyte disturbance, UTI, pyelonephritis ALL IMAGES (IF OBTAINED) HAVE BEEN PERSONALLY REVIEWED AND INTERPRETED BY MYSELF. BMP with hyponatremia, no other significant electrolyte normalities, no acute kidney injury, no signs of dehydration metabolic acidosis or endorgan hypoperfusion Coagulation factors within normal limits CBC without leukocytosis, severe anemia, no thrombocytopenia. Urinalysis shows no evidence of urinary inflammation suggestive of UTI (urine culture sent) CT scans of the head, chest, abdomen pelvis no evidence of acute pathology specifically no signs of stent occlusion, intracranial hemorrhage or stroke, infectious etiology of the chest. Incidental finding noted will be communicated to the patient Fast past referral made. Patient is appropriate for discharge home. No clear life-limiting etiology to be ascertained to her labs images physical exam and history The patient and/or family, caregivers express understanding. The patient and/or family, caregivers agrees with the plan. Shared decision making: I will have a discussion with the patient and or visitors regarding risk/benefits of further testing or admission. They will be made aware of of the risk/benefits inherent in this decision they will be given the opportunity to voice understanding. Total critical care time today provided was at least 0 minutes. This excludes separately billable procedures. Critical care time (if documented) is secondary to the patient having high probability of clinically significant/life threatening deterioration in the patient's condition which required my urgent intervention. Impression: 1. Weakness 2. Nausea vomiting 3. Hyponatremia Dispo: Discharge home This note was generated with [employer] dictation software. It may contain incorrect words, spelling, and punctuation that were not noted in review of the chart prior to signing. Lab Data Labs: Laboratory Results - last 24 hr 08/28/23 08/28/23 08/28/23 15:00 17:41 20:10 WBC 7.0 RBC 4.20 Hgb 13.6 Hct 40.7 MCV 96.9 MCH 32.4 H MCHC 33.4 RDW Std Deviation 48.6 H RDW Coeff of Jam 13.8 Plt Count 332 MPV 8.4 Immature Gran % (Auto) 0.700 Neut % (Auto) 78.6 H Lymph % (Auto) 13.0 L [place] % (Auto) 6.3 Eos % (Auto) 1.0 Baso % (Auto) 0.4 Absolute Neuts (auto) 5.5 Absolute Lymphs (auto) 0.91 Nucleated RBC % 0 PT 13.3 INR 1.0 APTT 28.9 Sodium 129 L Potassium 4.1 Chloride 96 L Carbon Dioxide 22.0 Anion Gap 11 BUN 13 Creatinine 0.78 Estim Creat Clear Calc 46.40 Est GFR (MDRD) Af Amer 92 Est GFR (MDRD) Non-Af 76 BUN/Creatinine Ratio 16.8 Glucose 106 Calcium 8.8 Troponin I High Sens < 3 L Urine Color Yellow Urine Clarity Clear Urine pH 7.0 Ur Specific [place] 1.010 Urine Protein 30 H Urine Glucose (UA) Normal Urine Ketones 15 H Urine Occult Blood 250 H Urine Nitrite Negative Urine Bilirubin Negative Urine Urobilinogen Normal Ur Leukocyte Esterase 100 H Urine RBC 10-25 SEEN Urine WBC 0-5 SEEN Ur Squamous Epith Cells 0 SEEN Urine Bacteria 0 SEEN Urine Mucus 0 SEEN Radiography Diagnostic Testing: Clinical Impression(s) from Imaging Studies Chest X-Ray 08/28/23 15:50 IMPRESSION: COPD. Ill-defined focal pulmonary opacity of the lower right lung. CT of the chest is indicated. Electronically Signed: Andrea Rdz MD at 16:12 EDT , Abdomen/Pelvis CT 08/28/23 18:05 IMPRESSION: Limited as above. 1. Abnormality in the right middle lobe-see separate report for CT of the chest. 2. Right ureteral stent in satisfactory position. No definite hydronephrosis or ureteral stone. 3. No other definite acute or significant abnormality seen. No other significant change. Electronically Signed: Andrea Rdz MD at 18:59 EDT , Brain CT 08/28/23 18:05 IMPRESSION: Normal unenhanced CT scan of the brain. Electronically Signed: Andrea Rdz MD at 18:49 EDT Reading Location ID and State: [facility] / [place] , Service support , Chest CT 08/28/23 18:05 IMPRESSION: 1. Confirmation of indeterminate suspicious focal pulmonary opacity of the right middle lobe which could be inflammatory or neoplastic. Consider further evaluation such as PET scan or bronchoscopy. 2. 2 small nodules in the right lower lobe should be followed with repeat CT in one year. 3. COPD with no evidence for infiltrates or effusions. Electronically Signed: Andrea Rdz MD at 18:47 EDT , Discharge Plan Triage Chief Complaint: Dizziness ED Provider: Casey Cunningham Dx/Rx/DC Orders Instructions: ED Dehydration (Adult) Prescriptions: New ondansetron 4 mg tablet,disintegrating 4 mg PO Q8H PRN PRN (Reason: Nausea) Qty: 10 0RF No Action amlodipine 5 mg tablet 5 mg PO DAILY 30 Days Qty: 30 duloxetine 40 mg capsule,delayed release(DR/EC) 40 mg PO DAILY 30 Days Qty: 30 cholestyramine (with sugar) 4 gram powder in packet 4 g PO DAILY Qty: 180 3RF Rx Instructions: administer w/meal; avoid other meds within 1hr before or 4-6hr after dose metoprolol tartrate 25 MG tablet 50 mg PO DAILY cholecalciferol (vitamin D3) 2,000 UNIT capsule 2,000 unit PO DAILY leucovorin calcium 15 mg tablet 15 mg PO QWEEK methotrexate sodium 2.5 mg tablet 17.5 mg PO QWEEK folic acid 1 mg tablet 2 mg PO DAILY Prolia 60 mg/mL syringe 60 mg SUBCUT .Q 6 MONTHS losartan 50 mg tablet 50 mg PO DAILY ciprofloxacin HCl 500 mg tablet 500 mg PO BID tamsulosin 0.4 mg capsule 0.4 mg PO DAILY phenazopyridine 100 mg tablet 100 mg PO TID Other Ambulatory Orders: Fast Pass: Oncology Referral [facility] (Routine) Facility: [facility] - Location: [facility] Ordered By: Dr. Casey Cunningham Primary Care Provider: Adela Montoya Referrals: Adela Montoya SPD MANAGER-C [Primary Care Provider] - Activity Restrictions/Additional Instructions: Thank you for trusting us with your care today! Please take Tylenol (2 pills, 650 mg), ibuprofen (2 pills, 400 mg) every 6 hours as needed for pain and fever co Please take Zofran as needed Please return to the emergency department if your symptoms change or worsen. Please follow with your primary care physician for further outpatient evaluation and management. Print Language: Namibian Disposition Disposition: Home, Self Care Discharge Date/Time: 08/28/23 22:25
[2023-08-28] MEDS: Ondansetron 4 MG/2 ML Vial IV (17:58)
[2023-08-28] MEDS: 0.9% Normal Saline (1000mL) 1,000 ML 999 ML IV (17:59)
--- NOTE | 2023-08-28 18:05 | CT_ITS ---
EXAM: CT CHEST WITHOUT INTRAVENOUS CONTRAST CLINICAL INDICATION: abnormal chest xray TECHNIQUE: Helically acquired images were obtained of the chest without intravenous contrast. This CT exam was performed using one or more of the following dose reduction techniques: automated exposure control, adjustment of the mA and/or kV according to patient size, and/or use of iterative reconstruction technique. RADIATION DOSE: CTDIvol = 7.77 mGy, DLP = 260.27 mGy-cm COMPARISON: Chest x-ray of the same day FINDINGS: LUNGS AND PLEURAL SPACES: Confirmation of a mixed density focal pulmonary opacity in the right middle lobe which is cavitary, has an irregular wall and spiculations. Greatest dimension approximately 2.4 cm greatest dimension. The appearance is nonspecific but most likely inflammatory or neoplastic. Further evaluation recommended. Hyperexpansion of the lungs and evidence of centrilobular emphysema including probable fibrotic changes in the right apex. Probable fibrotic changes in the posterior right lung base. 2 separate nonspecific nodules measuring approximately 5 mm in the lateral segment of the right lower lobe, axial images 79 and 81. These need follow-up. No pneumothorax. No focal infiltrates. No effusions. HEART: Calcified coronary arteries. Heart size is normal. No pericardial effusion. MEDIASTINUM: Although no gross mediastinal or hilar mass or adenopathy is seen, adenopathy is difficult to exclude without IV contrast was not given. Esophagus is unremarkable. No hiatal hernia. THYROID: Unremarkable. No thyroid lesions. BONES/JOINTS: Degenerative changes throughout the bones. VASCULATURE: Heavily calcified tortuous thoracic aorta with no aneurysm. CT/Chest without Contrast IMPRESSION: 1. Confirmation of indeterminate suspicious focal pulmonary opacity of the right middle lobe which could be inflammatory or neoplastic. Consider further evaluation such as PET scan or bronchoscopy. 2. 2 small nodules in the right lower lobe should be followed with repeat CT in one year. 3. COPD with no evidence for infiltrates or effusions. Electronically Signed: Andrea Rdz MD at 18:47 EDT ,
--- NOTE | 2023-08-28 18:05 | CT_ITS ---
STUDY: CT BRAIN WITHOUT CONTRAST REASON FOR EXAM: Female, 78 years old. confusion RADIATION DOSAGE (If Supplied By Facility): CTDIvol = ( 44.99 ) mGy, DLP = ( 745.49 ) mGycm TECHNIQUE: Transaxial CT imaging of the brain was performed without administration of intravenous contrast material. Individualized dose optimization techniques were used for this CT. COMPARISON: 10/07/2015 FINDINGS: Normal soft tissue structures. Normal calvarium. Normal size ventricles and extra-axial spaces for the patient''s age. Normal white matter tracts of the cerebral hemispheres. Normal basal ganglia and thalami. Normal brainstem. Normal cerebellum. There is no intracranial hemorrhage. There are no findings of an acute ischemic infarction. Normal visualized paranasal sinuses. CT/Brain/Head without Contrast IMPRESSION: Normal unenhanced CT scan of the brain. Electronically Signed: Andrea Rdz MD at 18:49 EDT ,
--- NOTE | 2023-08-28 18:05 | CT_ITS ---
EXAM: CT ABDOMEN AND PELVIS WITHOUT INTRAVENOUS CONTRAST CLINICAL INDICATION: abdominal pain TECHNIQUE: Helically acquired images were obtained of the abdomen and pelvis without intravenous contrast. This CT exam was performed using one or more of the following dose reduction techniques: automated exposure control, adjustment of the mA and/or kV according to patient size, and/or use of iterative reconstruction technique. RADIATION DOSE: CTDIvol = 12.56 mGy, DLP = 580.65 mGy-cm COMPARISON: 07/23/2023 FINDINGS: Exam is limited by improper positioning of patient''s arms resulting in significant streak artifact. LOWER THORAX: See separate report regarding an abnormality in the right middle lobe. ABDOMEN: LIVER: Unremarkable. Homogeneous. GALLBLADDER AND BILE DUCTS: Unremarkable. No calcified gallstones. No gallbladder distention or wall edema. No intra- or extrahepatic biliary ductal dilation. PANCREAS: Unremarkable. No focal cystic mass. SPLEEN: Unremarkable. Normal size without focal cystic or solid mass. ADRENALS: Unremarkable. No nodules. KIDNEYS AND URETERS: Since prior study patient has had placement of right ureteral stent which is in satisfactory position. Currently, no definite hydronephrosis. No definite renal or ureteral stones. Unremarkable left kidney. Normal renal size and position. STOMACH AND BOWEL: Evaluation of the GI tract is limited by absence of oral contrast. Cannot exclude stomach wall thickening. No dilated loops of bowel or evidence for obstruction. Cannot exclude segmental thickening of the berry of the small or large bowel. Cannot exclude enteritis or colitis. Moderate diffuse fecal retention. Diverticulosis without definite diverticulitis. Appendix within normal limits. PELVIS: Evaluation of the pelvis markedly limited by metal artifact from bilateral hip arthroplasties. APPENDIX: No evidence of acute appendicitis. BLADDER: Grossly negative. 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 Atrophic uterus. ABDOMEN and PELVIS: INTRAPERITONEAL SPACE: Unremarkable. No ascites or other fluid collection. No free air. BONES/JOINTS: Degenerative changes throughout the spine. No suspicious lytic or blastic abnormality. SOFT TISSUES: Unremarkable. No discrete abdominal or pelvic wall hernia. VASCULATURE: Heavily calcified aorta and iliac arteries with no aneurysm. LYMPH NODES: Unremarkable. No enlarged lymph nodes. CT/Abdomen/Pelvis without Cont IMPRESSION: Limited as above. 1. Abnormality in the right middle lobe-see separate report for CT of the chest. 2. Right ureteral stent in satisfactory position. No definite hydronephrosis or ureteral stone. 3. No other definite acute or significant abnormality seen. No other significant change. Electronically Signed: Andrea Rdz MD at 18:59 EDT ,
[2023-08-28 18:12] LABS: Troponin-I HS < 3 pg/mL (3.0-54.0)
[2023-08-28 20:14] LABS: Bacteria 0 SEEN /hpf (None Seen); Mucous, Urine 0 SEEN /hpf (<or=2+); Squamous Epithelial Cells - UA 0 SEEN /hpf (5-10)
[2023-08-28 20:23] LABS: Color, Urine Yellow (Yellow); Glucose, Dipstick Normal (Normal); Ketone-Dipstick 15 mg/dl (Negative); Leukocyte Esterase-Dipstick 100 /ul (Negative); Nitrite-Dipstick Negative (Negative); Occult Blood-Urine 250 /ul (Negative); Protein-Dipstick 30 mg/dl (Negative); Urine Bilirubin Dipstick Negative (Negative); Urine Clarity Clear (Clear); Urine Urobilinogen Normal (Normal)
[2023-08-28 20:38] LABS: Red Blood Cells-Urine 10-25 SEEN /hpf (0-5); White Blood Cells 0-5 SEEN /hpf (0-5)
== END 2023-08-28 22:25 | disposition home or self-care (01) ==
PROVIDERS: Emergency Provider Emergency Medicine; PCP Nurse Practitioner Family; Visit Provider Emergency Medicine
DX: R42 Dizziness and giddiness (principal); E87.1 Hypo-osmolality and hyponatremia; Z87.891 Personal history of nicotine dependence; K76.0 Fatty (change of) liver, not elsewhere classified; R41.0 Disorientation, unspecified; I10 Essential (primary) hypertension; R11.2 Nausea with vomiting, unspecified; E78.00 Pure hypercholesterolemia, unspecified; Z79.899 Other long term (current) drug therapy; Z98.890 Other specified postprocedural states
CPT/HCPCS: 70450; 71045; 71250; 74176; 80048; 81001; 84484; 85025; 85610; 85730; 87086; 93005; 96361; 96374; 99283; J7030; J2405

== ENCOUNTER 2023-09-17 12:51 | Observation (INO) | payer MEDICARE, SELFPAY ==
[2023-09-17] VITALS (7 sets, daily range): BP systolic 117–170; BP diastolic 54–114; PULSE 68–102; RESP 16–21; TEMP 35.6–36.9; O2SAT 96–100; BMI 22.3; BMI 20.8
[2023-09-17 13:32] LABS: Absolute Neutrophil Count 9.6 X10^3/uL (2.0-7.7); Basophil# 0.04 X10^3/uL; Basophil% 0.4 % (0-1); Hematocrit 40.1 % (37-47); Hemoglobin 13.3 g/dL (12.0-15.0); Lymphocyte % 2.8 % (19-41); Mean Corp Hgb Conc 33.2 g/dL (32-36); Mean Corpuscular Hgb 31.8 pg (27.0-32.0); Mean Corpuscular Volume 95.9 fL (81-99); Mean Platelet Vol. 8.5 fl (6.2-12.0); Monocyte# 0.58 X10^3/uL; Monocyte% 5.5 % (0-10); NRBC Flagged by Analyzer 0 % (0-5); Neutrophil # 9.59 X10^3/uL (2.7-7.7); Neutrophil % 90.8 % (47-70); POSITIVE DIFFERENTIAL YES; Platelet Count 314 K/mm3 (150-450); RBC Distribution Width CV 14.1 % (11.6-14.6); RBC Distribution Width SD 48.8 fl (35.1-43.9); Red Blood Count 4.18 M/mm3 (4.2-5.4); White Blood Count 10.6 K/mm3 (4.4-11.0)
[2023-09-17 13:53] LABS: Anion Gap 9 (5-15); BUN 10 mg/dL (7-18); BUN/Creat Ratio 11.9 RATIO (10-20); Calcium,Total 9.3 mg/dL (8.5-10.1); Chloride 91 mmol/L (98-107); Creatinine, Serum 0.84 mg/dL (0.55-1.02); EST Glomerular Filtration Rate 69 mL/min (>60); Est Glom Filt Rate - Afr Amer 84 mL/min (>60); Estimated Creatinine Clearance 44.19 ml/min; Glucose 159 mg/dL (74-106); Potassium 4.1 mmol/L (3.5-5.1); Sodium Level 124 mmol/L (136-145)
--- NOTE | 2023-09-17 14:09 | CT_ITS ---
STUDY: CT ABDOMEN AND PELVIS WITHOUT CONTRAST REASON FOR EXAM: Female, 78 years old. Renal colic right side -- stent removed 4 days ago RADIATION DOSAGE (If Supplied By Facility): CTDIvol = ( 7.79 ) mGy, DLP = ( 320.40 ) mGycm TECHNIQUE: Transaxial images were obtained from the dome of the diaphragm to the symphysis pubis without oral contrast, and without intravenous contrast. Sagittal and coronal images were reconstructed. Individualized dose optimization techniques were used for this CT. COMPARISON: Comparison is made with prior study dated August 28, 2023. FINDINGS: Heterogeneous 1.2 cm nodule in the posterior aspect of the right middle lobe. This is unchanged. Coronary calcification. Normal liver. Normal gallbladder and extrahepatic biliary system. Normal spleen. Normal pancreas. Normal bilateral adrenal glands. Right perinephric stranding. There is evidence of a mild to moderate degree of right hydronephrosis and proximal right hydroureter. The previously seen right double-J stent catheter has been removed. No obstructive uropathy is seen at this time. Normal left kidney. Normal visualized stomach. Normal small intestine. There are multiple colonic diverticula consistent with diverticulosis. The appendix is visualized and appears normal. There is diffuse atherosclerotic calcification of the abdominal aorta, without a demonstrated aneurysm. Normal inferior vena cava. Normal retroperitoneum. Normal urinary bladder. There is a 2.9 cm x 2 cm cyst in the left ovary. Normal abdominal wall. The patient is status post bilateral total hip replacement causing beam hardening artifact in the pelvis does limit the evaluation. Multilevel degenerative changes of the lumbar spine. CT/Abdomen/Pelvis without Cont IMPRESSION: Status post removal of the right double-J stent catheter with residual right hydronephrosis and right hydroureter with right perinephric stranding. Sigmoid diverticulosis. 2.9 cm x 2 cm cyst in the left ovary. Electronically Signed: Dimitry Franco MD at 15:18 EDT ,
--- NOTE | 2023-09-17 14:09 | EKG12_ITS ---
Test Reason : Blood Pressure : / mmHG Vent. Rate : 080 BPM Atrial Rate : 080 BPM P-R Int : 170 ms QRS Dur : 092 ms QT Int : 404 ms P-R-T Axes : 027 029 015 degrees QTc Int : 465 ms Normal sinus rhythm Normal ECG Confirmed by CARROL CAMPBELL, ORA ([id number]), primer expeditor and drier SCOTT STONE ([id number]) on 09/18/2023 8:18:07 AM Referred By: KEITH Confirmed By:ORA BRANHAM MD
--- NOTE | 2023-09-17 14:10 | EDS_ITS ---
HPI History of Present Illness Chief Complaint: Nausea/Vomiting Informant: patient Narrative Narrative: Nausea vomiting for the past 2 days. No hematemesis. 2 episodes since Sunday, 6 episodes today. Currently no appetite. Recent ureteral stent removal right side this past followed by Dr. Paula. She had a previous 2 mm urolithiasis for months that would not pass. Denies urine frequency. States overnight feeling chills increasing weakness and lightheaded symptoms. Yesterday had right lower abdominal pain similar to her kidney stone. Currently not nauseated. States only no appetite. Prior similar symptoms: Yes PFSH PFSH Medical History Rheumatoid arthritis Osteoporosis Kidney stones P-ANCA titer positive Gastric lesion Barretts esophagus Wears glasses Post-menopausal Anxiety Depression Alcohol use Arthritis High cholesterol Former smoker Allergic dermatitis Alcohol use disorder Major depressive disorder, recurrent severe without psychotic features Hypertension Generalized anxiety disorder Former moderate cigarette smoker (10-19 per day) Home Medications ?Medication ?Instructions ?Recorded ?Last Taken ?Type duloxetine 40 mg capsule,delayed 40 mg PO DAILY DEPRESSION 30 days 07/08/18 09/17/23 History release #30 caps cholecalciferol (vitamin D3) 50 2,000 unit PO DAILY SUPPLEMENT 02/25/19 09/17/23 History mcg (2,000 unit) capsule cholestyramine (with sugar) 4 gram 4 g PO DAILY #180 ea 09/27/21 09/17/23 Rx powder for susp in a packet denosumab 60 mg/mL subcutaneous 60 mg subcut .[id number] 09/08/22 09/17/23 History syringe (Prolia) folic acid 1 mg tablet 2 mg PO DAILY 09/08/22 09/17/23 History leucovorin calcium 15 mg tablet 15 mg PO HERNÁNDEZ 09/08/22 09/16/23 History methotrexate sodium 2.5 mg tablet 17.5 mg PO SA 09/08/22 09/15/23 History losartan 50 mg tablet 50 mg PO DAILY 08/28/23 09/17/23 History amlodipine 10 mg tablet 5 mg PO DAILY 09/17/23 09/17/23 History ibuprofen 600 mg tablet 600 mg PO Q6H PRN pain 09/17/23 09/17/23 History metoprolol succinate 50 mg 50 mg PO DAILY 09/17/23 09/17/23 History tablet,extended release 24 hr ondansetron 4 mg disintegrating 4 mg PO Q8H PRN Nausea 09/17/23 Unknown History tablet Allergy/AdvReac Type Severity Reaction Status Date / Time Penicillins Allergy Unknown Rash Verified 09/17/23 12:55 Surgical History History of esophagogastroduodenoscopy (EGD) History of colonoscopy Hx of tubal ligation Hx of bilateral hip replacements History of hip replacement Social History household members: family Smoking Status: Former smoker ROS ROS ED Constitutional Constitutional ED: Reports chills; Denies fever(s) or sweats Eyes Eyes: Denies change in vision ENT ENT ED: Denies dysphagia or sore throat Cardiovascular Cardiovascular: Reports other Details: Lightheaded ; Denies chest pain, leg edema, palpitations or racing heartbeat Respiratory/Chest Respiratory/Chest: Denies cough, dyspnea or dyspnea on exertion Gastrointestinal Gastrointestinal: Reports abdominal pain, nausea and vomiting; Denies diarrhea Genitourinary Genitourinary ED: Denies dysuria, hematuria or urinary frequency Musculoskeletal Musculoskeletal: Denies back pain, extremity pain or neck pain Integumentary Denies rash or wounds Neurologic Neurologic: Reports weakness; Denies headache(s) or paresthesias EXAM Physical Exam Const Vital Signs: 09/17/23 12:53 09/17/23 15:04 09/17/23 16:24 Temperature 96.1 F L 98.3 F Temperature Source Temporal Pulse Rate 102 H 83 85 Respiratory Rate 16 21 H 19 H Blood Pressure 143/91 H 151/67 H 170/82 H Blood Pressure Mean 108 95 111 Pulse Ox 99 100 96 Oxygen Delivery Method Room Air Room Air Positive well nourished and well developed Constitutional Narrative: Nontoxic General Appearance ED: well developed and NAD HEENT Reports dry mucous membranes normocephalic and atraumatic Mouth ED: Yes dry mucous membranes Mouth: dry mucous membranes Eyes EOMs intact bilaterally and conjunctivae normal General Eye ED: Yes normal appearance of both eyes Neck no lymphadenopathy and supple General: Negative for tenderness Chest Wall Chest: Negative for tenderness Resp normal respiratory effort and normal air movement Effort and Inspection: symmetric chest movement; Negative for respiratory distress Cardio regular rate, regular rhythm and no murmurs Peripheral Pulses: pulses 2+ throughout GI normal to inspection, nondistended, normoactive bowel sounds and non-tender GI Narrative: Negative Lewis's or McBurney's tenderness. Palpation: Negative for guarding or rebound tenderness present Back/Spine no CVA tenderness and no thoracic nor lumbar tenderness Extremity normal to inspection General Extremety ED: Negative for edema or tenderness General Extremity: Negative for edema Neuro oriented x3, CN's II-XII intact bilaterally and no sensory deficits noted Sensorium / Orientation: awake and alert Skin no rashes or lesions noted and no wounds MDM MDM MDM Narrative Medical decision making narrative: Interventions / MDM: Differential diagnosis: Electrolyte abnormalities, renal colic, dehydration Diagnosis considered but do not suspect: Residual kidney stone however CT negative My EKG interpretation: Sinus rhythm 88, no ST changes isolated T wave version in leads III. QTc 465. Imaging independently reviewed and interpreted by myself: CT scan abdomen pelvis: Residual right-sided hydro ureter. No obstructive uropathy. Left ovarian cyst 2.9 cm. Also read by radiology. External documents reviewed: N/A Test considered but not ordered:N/A ED course: Vital stable slight tachycardia in triage. Dry mucosal membranes. Vomiting with no appetite. No current nausea. IV will be established for fluids. She had labs drawn through triage shows a sodium of 124 much lower than her previous. Creatinine was 0.84 white count 10.16 with 13.3. Awaiting urine, she had colic pains yesterday, will CT to see if any residual stones or new stones present. No cough symptoms for concerns of pneumonia. CT negative. Urine did have signs of infection culture sent she does not have any current urinary symptoms. However with her hyponatremia, discussed with hospitalist Dr. Garcia for admission. Will hold off antibiotics pending culture as she is asymptomatic. Re-evaluation: stable Disposition discussed with patient/family/significant other: Patient Case discussed with consulting clinician: Hospitalist This note was generated with [employer] dictation software. It may contain incorrect words, spelling, and punctuation that were not noted in checking the note before signing. Lab Data Attestation: I reviewed the patient's lab results. Labs: Laboratory Results - last 24 hr 09/17/23 09/17/23 13:20 14:15 WBC 10.6 RBC 4.18 L Hgb 13.3 Hct 40.1 MCV 95.9 MCH 31.8 MCHC 33.2 RDW Std Deviation 48.8 H RDW Coeff of Jam 14.1 Plt Count 314 MPV 8.5 Immature Gran % (Auto) 0.500 Neut % (Auto) 90.8 H Lymph % (Auto) 2.8 L Williamson % (Auto) 5.5 Eos % (Auto) 0.0 Baso % (Auto) 0.4 Absolute Neuts (auto) 9.6 H Absolute Lymphs (auto) 0.30 L Nucleated RBC % 0 Sodium 124 L Potassium 4.1 Chloride 91 L Carbon Dioxide 24.0 Anion Gap 9 BUN 10 Creatinine 0.84 Estim Creat Clear Calc 44.19 Est GFR (MDRD) Af Amer 84 Est GFR (MDRD) Non-Af 69 BUN/Creatinine Ratio 11.9 Glucose 159 H Calcium 9.3 TSH 1.03 Urine Color Yellow Urine Clarity Sl. Cloudy Urine pH 6.0 Ur Specific [place] 1.020 Urine Protein 100 H Urine Glucose (UA) 100 H Urine Ketones 50 H Urine Occult Blood 150 H Urine Nitrite Negative Urine Bilirubin Negative Urine Urobilinogen Normal Ur Leukocyte Esterase 100 H Urine RBC 10-25 SEEN Urine WBC 10-25 SEEN Ur Squamous Epith Cells 0-5 SEEN Urine Bacteria 1+ Urine Mucus 0 SEEN Radiography Diagnostic Testing: Clinical Impression(s) from Imaging Studies Abdomen/Pelvis CT 09/17/23 14:09 IMPRESSION: Status post removal of the right double-J stent catheter with residual right hydronephrosis and right hydroureter with right perinephric stranding. Sigmoid diverticulosis. 2.9 cm x 2 cm cyst in the left ovary. Electronically Signed: Dimitry Franco MD at 15:18 EDT , Discharge Plan Dx/Rx/DC Orders Clinical Impression: Hyponatremia, Nausea & vomiting, Near syncope, Weakness, Cyst of left ovary Disposition Disposition: Acute Care Hospital [facility] Discharge Date/Time: 09/17/23 18:02
[2023-09-17] MEDS: 0.9% Normal Saline (1000mL) 1,000 ML 1000 ML IV (14:22)
[2023-09-17 14:31] LABS: Mucous, Urine 0 SEEN /hpf (<or=2+)
[2023-09-17 14:36] LABS: Color, Urine Yellow (Yellow); Glucose, Dipstick 100 mg/dl (Normal); Ketone-Dipstick 50 mg/dl (Negative); Leukocyte Esterase-Dipstick 100 /ul (Negative); Nitrite-Dipstick Negative (Negative); Occult Blood-Urine 150 /ul (Negative); Protein-Dipstick 100 mg/dl (Negative); Urine Bilirubin Dipstick Negative (Negative); Urine Clarity Sl. Cloudy (Clear); Urine Urobilinogen Normal (Normal)
[2023-09-17 14:51] LABS: Bacteria 1+ /hpf (None Seen); Red Blood Cells-Urine 10-25 SEEN /hpf (0-5); Squamous Epithelial Cells - UA 0-5 SEEN /hpf (5-10); White Blood Cells 10-25 SEEN /hpf (0-5)
--- NOTE | 2023-09-17 16:33 | NURSING ---
MED SURG OLEE HYPONATREMIA
[2023-09-17 17:26] LABS: Thyroid Stim Hormone (TSH) 1.03 uIU/mL (0.358-3.74)
[2023-09-17 18:05] LABS: Urine Sodium 37 mmol/L (Not Establ.)
--- NOTE | 2023-09-17 18:40 | HP.PCM_ITS ---
HPI - General General Date of Admission: 09/17/23 Date of Service: 09/17/23 Chief Complaint: Nausea and vomiting and feeling unwell HPI Narrative RORY MALDONADO, is a 78 F who recently had right ureteral stent removed for symptomatic ureteric calculi. Presented to hospital with nausea, vomiting and feeling unwell for 2 days now. In addition to this patient has had poor appetite but states that she has always notes been much of an eater and generally just eats once a day and even at that a small meal. Blood work showed hyponatremia with sodium of 124. Patient also did admit to having some chills and malaise last 1 to 2 days. Denies any dysuria or urinary frequency but does still have some right flank/lower quadrant pain. Denied having any fever. PFSH Medical History Rheumatoid arthritis Osteoporosis Kidney stones P-ANCA titer positive Gastric lesion Barretts esophagus Wears glasses Post-menopausal Anxiety Depression Alcohol use Arthritis High cholesterol Former smoker Allergic dermatitis Alcohol use disorder Major depressive disorder, recurrent severe without psychotic features Hypertension Generalized anxiety disorder Former moderate cigarette smoker (10-19 per day) Home Medications ?Medication ?Instructions ?Recorded ?Last Taken ?Type duloxetine 40 mg capsule,delayed 40 mg PO DAILY DEPRESSION 30 days 07/08/18 09/17/23 History release #30 caps cholecalciferol (vitamin D3) 50 2,000 unit PO DAILY SUPPLEMENT 02/25/19 09/17/23 History mcg (2,000 unit) capsule cholestyramine (with sugar) 4 gram 4 g PO DAILY #180 ea 09/27/21 09/17/23 Rx powder for susp in a packet denosumab 60 mg/mL subcutaneous 60 mg subcut .[id number] 09/08/22 09/17/23 History syringe (Prolia) folic acid 1 mg tablet 2 mg PO DAILY 09/08/22 09/17/23 History leucovorin calcium 15 mg tablet 15 mg PO HERNÁNDEZ 09/08/22 09/16/23 History methotrexate sodium 2.5 mg tablet 17.5 mg PO SA 09/08/22 09/15/23 History losartan 50 mg tablet 50 mg PO DAILY 08/28/23 09/17/23 History amlodipine 10 mg tablet 5 mg PO DAILY 09/17/23 09/17/23 History ibuprofen 600 mg tablet 600 mg PO Q6H PRN pain 09/17/23 09/17/23 History metoprolol succinate 50 mg 50 mg PO DAILY 09/17/23 09/17/23 History tablet,extended release 24 hr ondansetron 4 mg disintegrating 4 mg PO Q8H PRN Nausea 09/17/23 Unknown History tablet Allergy/AdvReac Type Severity Reaction Status Date / Time Penicillins Allergy Unknown Rash Verified 09/17/23 12:55 Surgical History History of esophagogastroduodenoscopy (EGD) History of colonoscopy Hx of tubal ligation Hx of bilateral hip replacements History of hip replacement Social History household members: family Smoking Status: Former smoker Vital Signs Vital Signs Vital Signs: 09/17/23 12:53 09/17/23 15:04 09/17/23 16:24 Temperature 35.6 C L 36.8 C Temperature Source Temporal Pulse Rate 102 H 83 85 Respiratory Rate 16 21 H 19 H Blood Pressure 143/91 H 151/67 H 170/82 H Blood Pressure Mean 108 95 111 Pulse Ox 99 100 96 Oxygen Delivery Method Room Air Room Air 09/17/23 17:38 09/17/23 17:57 Temperature 36.7 C Temperature Source Oral Pulse Rate 93 98 Respiratory Rate 17 17 Blood Pressure 152/114 H Blood Pressure Mean 126 Pulse Ox 98 96 Oxygen Delivery Method Room Air Room Air Weight Weight: 53.4 kg Body Mass Index (BMI) 20.8 Physical Exam Narrative General exam. Elderly male, not in any obvious distress and not particularly ill looking but weak appearing HEENT. Oral mucosa slightly dry, no jaundice or pallor Neck. Neck is supple Lungs. Clear to auscultation Heart. First and second heart sounds are heard and no murmurs Abdomen. Soft and full, right lower quadrant tenderness, no suprapubic tenderness Extremities. No pedal edema HAND SEWER SHOES. Conscious and alert and oriented x 3. Results Medical Records Data Attestation: I reviewed the patient's medical records Lab / Micro Data Attestation: I reviewed the patient's lab results. 09/17/23 13:20 09/17/23 13:20 Labs: Laboratory Results - last 24 hr 09/17/23 13:20: WBC 10.6, RBC 4.18 L, Hgb 13.3, Hct 40.1, MCV 95.9, MCH 31.8, MCHC 33.2, RDW Std Deviation 48.8 H, RDW Coeff of Jam 14.1, Plt Count 314, MPV 8.5, Immature Gran % (Auto) 0.500, Neut % (Auto) 90.8 H, Lymph % (Auto) 2.8 L, [place] % (Auto) 5.5, Eos % (Auto) 0.0, Baso % (Auto) 0.4, Absolute Neuts (auto) 9.6 H, Absolute Lymphs (auto) 0.30 L, Nucleated RBC % 0, Sodium 124 L, Potassium 4.1, Chloride 91 L, Carbon Dioxide 24.0, Anion Gap 9, BUN 10, Creatinine 0.84, Estim Creat Clear Calc 44.19, Est GFR (MDRD) Af Amer 84, Est GFR (MDRD) Non-Af 69, BUN/Creatinine Ratio 11.9, Glucose 159 H, Calcium 9.3, TSH 1.03 09/17/23 14:15: Urine Color Yellow, Urine Clarity Sl. Cloudy, Urine pH 6.0, Ur Specific [place] 1.020, Urine Protein 100 H, Urine Glucose (UA) 100 H, Urine Ketones 50 H, Urine Occult Blood 150 H, Urine Nitrite Negative, Urine Bilirubin Negative, Urine Urobilinogen Normal, Ur Leukocyte Esterase 100 H, Urine RBC 10- 25 SEEN, Urine WBC 10-25 SEEN, Ur Squamous Epith Cells 0-5 SEEN, Urine Bacteria 1+, Urine Mucus 0 SEEN 09/17/23 17:42: Ur Random Sodium 37 Imaging Radiology Impression Abdomen/Pelvis CT 09/17/23 14:09 IMPRESSION: Status post removal of the right double-J stent catheter with residual right hydronephrosis and right hydroureter with right perinephric stranding. Sigmoid diverticulosis. 2.9 cm x 2 cm cyst in the left ovary. Electronically Signed: Dimitry Franco MD at 15:18 EDT , Assessment & Plan Assessment/Plan (1) Hyponatremia: PLAN: Plan 1. Hyponatremia. Not CVA. Uncertain if this is the cause of the patient's symptoms. Patient does report poor fluid and caloric intake and I suspect this may be contributing. Patient is known to have lung nodule and so will need to consider the possibility of SIADH. Will check urine osmolality as well as plasma osmolality. Check urine sodium as well. Check cortisol levels and TSH levels. Start patient on normal saline at 100 cc an hour. Monitor BMP. 2. Abnormal urinalysis and recent ureteral stent removal. Given patient's nonspecific systemic symptoms of malaise and fatigue and chills may need to presume possible or complicated urinary tract infection. Will obtain urine cultures. Start patient empirically on IV antibiotic with Rocephin 2 g daily.
[2023-09-17] MEDS: Ibuprofen 600 MG Tablet PO (18:48)
[2023-09-17] MEDS: KCl 20MEQ in D5NS 20 MEQ/1,000 ML IV.SOLN. 100 MEQ IV (18:51)
[2023-09-17] MEDS: 0.9% Saline Lock 10 ML Syringe IV (18:58)
[2023-09-17] MEDS: Ceftriaxone 2 GM in 0.9% Normal Saline (50mL MB+) 50 ML IV (20:08)
[2023-09-17 21:06] LABS: Osmolality, Serum 264 mOsm/KG (280-301)
[2023-09-17 21:07] LABS: Osmolality, Urine 553 mOsm/KG
[2023-09-18] MEDS: Ibuprofen 600 MG Tablet PO ×3 (02:31→20:09)
[2023-09-18 02:39] VITALS: BP 149/61; PULSE 68; RESP 16; TEMP 36.9; O2SAT 100
[2023-09-18] MEDS: KCl 20MEQ in D5NS 20 MEQ/1,000 ML IV.SOLN. 100 MEQ IV ×2 (05:50→17:11)
[2023-09-18 06:12] LABS: Absolute Lymphocyte Count 0.92 X10^3/uL (0.83-4.51); Basophil# 0.02 X10^3/uL; Basophil% 0.3 % (0-1); Eosinophil# 0.02 X10^3/uL; Eosinophils% 0.3 % (0-5); Hematocrit 35.4 % (37-47); Hemoglobin 11.8 g/dL (12.0-15.0); Lymphocyte # 0.92 X10^3/ul (0.83-4.51); Lymphocyte % 12.1 % (19-41); Mean Corp Hgb Conc 33.3 g/dL (32-36); Mean Corpuscular Hgb 32.8 pg (27.0-32.0); Mean Corpuscular Volume 98.3 fL (81-99); Mean Platelet Vol. 8.5 fl (6.2-12.0); Monocyte# 0.63 X10^3/uL; Monocyte% 8.3 % (0-10); NRBC Flagged by Analyzer 0 % (0-5); Neutrophil # 5.96 X10^3/uL (2.7-7.7); Neutrophil % 78.6 % (47-70); Platelet Count 276 K/mm3 (150-450); RBC Distribution Width CV 13.9 % (11.6-14.6); RBC Distribution Width SD 50.4 fl (35.1-43.9); White Blood Count 7.6 K/mm3 (4.4-11.0)
[2023-09-18 06:45] LABS: Anion Gap 5 (5-15); BUN 6 mg/dL (7-18); Calcium,Total 7.9 mg/dL (8.5-10.1); Chloride 101 mmol/L (98-107); Creatinine, Serum 0.67 mg/dL (0.55-1.02); EST Glomerular Filtration Rate 91 mL/min (>60); Est Glom Filt Rate - Afr Amer 110 mL/min (>60); Glucose 139 mg/dL (74-106); Potassium 3.5 mmol/L (3.5-5.1); Sodium Level 131 mmol/L (136-145)
[2023-09-18 07:41] VITALS: BP 150/69; PULSE 71; RESP 16; TEMP 37.1; O2SAT 100
[2023-09-18] MEDS: Folic Acid 1 MG Tablet 2 MG PO (07:52)
--- NOTE | 2023-09-18 10:06 | CASEMGMT ---
Addendum entered by Martha White 09/18/23 10:27: Provided pt with a printed list of cleaning agencies per her request. She states she will call them and decide who she would like to pick. She denies further needs. Original Note: GIOVANNA HARGROVE Assessment: Face to Face with pt for initial transition planning/care coordination assessment. GIOVANNA HARGROVE introduced self and role at [facility], pt voices understanding and consents to assessment. Pt is A&O x4 and answers all questions appropriately at this time. Pt sitting up in bed in no distress, nurse at bedside. Pt became tearful during assessment as she states she cannot clean any longer. She wants a list of agencies that she can call. Care providers, pharmacy, and demographics verified/updated. Admitting Dx: hyponatremia PCP:Adela Montoya Specialists:Denies Preferred Pharmacy:[facility] Insurance: [employer] [facility] Prescription Benefit: yes LNOK: Robert Medina, ; Mounika Johnnie, dtr Living Arrangements: Pt lives with in a two story home with 1 step to enter. Pt reports she is I in ADL's and IADL's. Pt denies concerns at home other than needing someone to clean.. Transportation: Pt drives self and denies concerns with transportation. DME:walker, cane, shower chair- pt does not use AD HHC/SNF: Denies hx of Pt states no concerns with going home at time of dc. Pt states no further concerns/needs. CM to follow. Advised pt to ask CM if any further question/concerns/needs arise, voices understanding. Pt Goal: Home Plan: Home Ana Luisa HEREDIA CM
[2023-09-18] MEDS: Ceftriaxone 2 GM in 0.9% Normal Saline (50mL MB+) 50 ML IV (10:09)
[2023-09-18] MEDS: DULoxetine Hcl 20 MG Capsule 40 MG PO (10:10)
[2023-09-18] MEDS: Enoxaparin 40 MG/0.4 ML Syringe SC (10:10)
[2023-09-18] MEDS: Losartan Potassium 50 MG Tablet PO (10:10)
[2023-09-18 10:11] VITALS: PULSE 71
[2023-09-18] MEDS: Metoprolol(XL)Succ 50 MG Tablet PO (10:11)
[2023-09-18] MEDS: Cholestyramine/Sucrose 4 GM/PACKET PO (10:11)
[2023-09-18] MEDS: amLODIPine 5 MG Tablet PO (10:11)
--- NOTE | 2023-09-18 13:41 | PN_ITS ---
Subjective Subjective Patient seen and examined. She was admitted with a complaint of nausea, vomiting and general feeling of unwellness for 2 days prior to admission. She was found to be hyponatremic. She is being managed for acute hypernatremia. Paiten seen today. She said the nausea and vomiting have improved. She says she does not eat well at home and acknowledges that she has been a picky eater. She denies any nausea or vomiting. Review of systems is otherwise negative. Sodium is up to 131 today. Patient tells me that she usually takes acyclovir for cold sores when she feels the sudden onset of cold sores coming. Her will bring in her acyclovir. Objective Data Objective Data Vital Signs: Vital Signs Temp Pulse Resp BP Pulse Ox O2 Del Method 98.8 F 71 16 150/69 H 100 Room Air 09/18/23 07:41 09/18/23 10:11 09/18/23 07:41 09/18/23 07:41 09/18/23 07:41 09/18/23 07:41 Oxygen Delivery Method Room Air Weight: 117 lb 11.629 oz Body Mass Index (BMI) 20.8 Intake & Output: Intake and Output for Last 24 Hours 09/16/23 09/17/23 09/18/23 23:59 23:59 23:59 Intake Total 1173.33 / 1173.33 926.67 / 926.67 Balance 1173.33 / 1173.33 926.67 / 926.67 Medical Nutrition Assessment Dietitian: Malnutrition Criteria Met Start: 09/18/23 12:09 Freq: Status: Active Protocol: Document 09/18/23 12:09 LUIS (Rec: 09/18/23 12:09 LUIS [id number]) Nutrition Malnutrition Evidence of Malnutrition Exists Yes Malnutrition (severe): Acute Illness/Injury Evidenced By Suboptimal Energy Intake ( Severe),Weight Loss (Severe) Clinical Problem Acute Disease or Injury Related Malnutrition Etiology related to surgery x 1 mo ago and affected by anesthesia so inadequate energy intake Signs/Symptoms as evidenced by 6.6% unplanned wt loss and 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 Problem Recommendation Dietitian Recommendations/Changes Continue liberal Regular diet Will order 8 oz ensure plus high protein tid w/ meals for increased nutrition if consumed Consider appetite stimulant to help encourage increased po intake Lab / Micro Data 09/18/23 05:57 09/18/23 05:57 Labs: Laboratory Results - last 24 hr 09/17/23 13:20: Sodium 124 L, Potassium 4.1, Chloride 91 L, Carbon Dioxide 24.0, Anion Gap 9, BUN 10, Creatinine 0.84, Estim Creat Clear Calc 44.19, Est GFR (MDRD) Af Amer 84, Est GFR (MDRD) Non-Af 69, BUN/Creatinine Ratio 11.9, Glucose 159 H, Serum Osmolality 264 L, Calcium 9.3, TSH 1.03 09/17/23 14:15: Urine Color Yellow, Urine Clarity Sl. Cloudy, Urine pH 6.0, Ur Specific [place] 1.020, Urine Protein 100 H, Urine Glucose (UA) 100 H, Urine Ketones 50 H, Urine Occult Blood 150 H, Urine Nitrite Negative, Urine Bilirubin Negative, Urine Urobilinogen Normal, Ur Leukocyte Esterase 100 H, Urine RBC 10- 25 SEEN, Urine WBC 10-25 SEEN, Ur Squamous Epith Cells 0-5 SEEN, Urine Bacteria 1+, Urine Mucus 0 SEEN 09/17/23 17:42: Urine Osmolality 553, Ur Random Sodium 37 09/18/23 05:57: WBC 7.6, RBC 3.60 L, Hgb 11.8 L, Hct 35.4 L, MCV 98.3, MCH 32.8 H, MCHC 33.3, RDW Std Deviation 50.4 H, RDW Coeff of Jam 13.9, Plt Count 276, MPV 8.5, Immature Gran % (Auto) 0.400, Neut % (Auto) 78.6 H, Lymph % (Auto) 12.1 L, [place] % (Auto) 8.3, Eos % (Auto) 0.3, Baso % (Auto) 0.3, Absolute Neuts (auto) 6.0, Absolute Lymphs (auto) 0.92, Nucleated RBC % 0, Sodium 131 L, Potassium 3.5, Chloride 101, Carbon Dioxide 25.0, Anion Gap 5, BUN 6 L, Creatinine 0.67, Estim Creat Clear Calc 46.40, Est GFR (MDRD) Af Amer 110, Est GFR (MDRD) Non-Af 91, BUN/Creatinine Ratio 9.0 L, Glucose 139 H, Calcium 7.9 L, Cortisol 17.80 Radiography Diagnostic Testing: Radiology Impression Abdomen/Pelvis CT 09/17/23 14:09 IMPRESSION: Status post removal of the right double-J stent catheter with residual right hydronephrosis and right hydroureter with right perinephric stranding. Sigmoid diverticulosis. 2.9 cm x 2 cm cyst in the left ovary. Electronically Signed: Dimitry Franco MD at 15:18 EDT , Physical Exam Const alert and oriented x3 Constitutional Narrative: anxious General Appearance: cooperative HEENT normocephalic, head/scalp atraumatic, moist oral mucous membranes and oropharynx normal Eyes EOMs intact bilaterally Neck no lymphadenopathy, supple and no JVD Lymph Lymphatic: no lymphadenopathy noted and no lymphedema noted Resp normal respiratory effort, normal air movement and clear to auscultation bilaterally Cardio regular rate, regular rhythm, S1 normal heart sound, S2 normal heart sound and no murmurs GI normal to inspection, nondistended, normoactive bowel sounds, soft to palpation, non-tender and non-distended Extremity normal capillary refill, no clubbing, cyanosis or edema and no calf tenderness General Extremity: no tenderness to palpation of joints or extremities Skin General Skin Exam: no breakdown Neuro CN's II-XII intact bilaterally, no focal motor deficits, no sensory deficits noted and deep tendon reflexes 2+ bilaterally Motor Exam: strength 5/5 throughout and general weakness Psych thought process normal, cooperative and affect normal Appearance: appropriate Assessment & Plan Assessment/Plan (1) Nausea & vomiting: (2) Hyponatremia: PLAN: Plan #Acute hyponatremia * # Hypovolemic hypoosmolar hyponatremia which is likely due to decreased intake as well as vomiting. * Sodium came up from 05 02-05 09. Continue gentle hydration with IV fluids. * Serum osmolality was low and urine sodium was 37 with urine osmolality of 553. * Encourage oral hydration. * * #Probable UTI: * Urinalysis showed 1+ bacteria. * She did have nausea and vomiting which could also have been due to the UTI. * Urine leucocyte esterase also elevated, with wbc of 10-25. * on IV rocephin, pending urine cultures. * #History of kidney stones: * Status post recent removal of right double-J stents got to the with residual right-sided hydronephrosis and right-sided hydroureter with right perinephric stranding. * Urinalysis as above. 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 Takes acyclovir for it * feels the onset of the cold sores. * will order acyclovir 800mg PO q8prn * #Hypertension: on PO amlodipine and losartan as well as metoprolol. #Billings's esophagus: #Depression: on duloxetine #Right pulmonary nodule * CT of the chest,
[2023-09-18 14:38] VITALS: BP 141/65; PULSE 71; RESP 16; TEMP 36.8; O2SAT 98
[2023-09-18] MEDS: Acyclovir 800 MG Tablet PO (17:10)
[2023-09-18 20:04] VITALS: BP 154/77; PULSE 90; RESP 18; TEMP 37.1; O2SAT 98
[2023-09-19 02:22] VITALS: BP 149/69; PULSE 73; RESP 18; TEMP 36.6; O2SAT 100
[2023-09-19] MEDS: KCl 20MEQ in D5NS 20 MEQ/1,000 ML IV.SOLN. 100 MEQ IV (02:29)
[2023-09-19 06:46] LABS: Absolute Lymphocyte Count 0.83 X10^3/uL (0.83-4.51); Absolute Neutrophil Count 5.2 X10^3/uL (2.0-7.7); Basophil# 0.04 X10^3/uL; Basophil% 0.6 % (0-1); Eosinophil# 0.04 X10^3/uL; Eosinophils% 0.6 % (0-5); Hematocrit 36.9 % (37-47); Lymphocyte # 0.83 X10^3/ul (0.83-4.51); Lymphocyte % 11.6 % (19-41); Mean Corp Hgb Conc 32.5 g/dL (32-36); Mean Corpuscular Hgb 31.9 pg (27.0-32.0); Mean Corpuscular Volume 98.1 fL (81-99); Mean Platelet Vol. 8.8 fl (6.2-12.0); Monocyte# 0.99 X10^3/uL; Monocyte% 13.9 % (0-10); NRBC Flagged by Analyzer 0 % (0-5); Neutrophil % 72.9 % (47-70); Platelet Count 304 K/mm3 (150-450); RBC Distribution Width CV 13.9 % (11.6-14.6); RBC Distribution Width SD 49.2 fl (35.1-43.9); Red Blood Count 3.76 M/mm3 (4.2-5.4); White Blood Count 7.1 K/mm3 (4.4-11.0)
[2023-09-19 07:13] LABS: Anion Gap 7 (5-15); BUN 4 mg/dL (7-18); Chloride 100 mmol/L (98-107); Creatinine, Serum 0.57 mg/dL (0.55-1.02); EST Glomerular Filtration Rate 108 mL/min (>60); Est Glom Filt Rate - Afr Amer 130 mL/min (>60); Glucose 100 mg/dL (74-106); Potassium 3.7 mmol/L (3.5-5.1); Sodium Level 129 mmol/L (136-145)
[2023-09-19 08:09] VITALS: BP 145/66; PULSE 73; RESP 16; TEMP 36.5; O2SAT 98
[2023-09-19] MEDS: Folic Acid 1 MG Tablet 2 MG PO (08:19)
[2023-09-19] MEDS: 0.9% Normal Saline (500mL Bag) 500 ML 999 ML IV (09:40)
[2023-09-19] MEDS: Ceftriaxone 2 GM in 0.9% Normal Saline (50mL MB+) 50 ML IV (10:05)
--- NOTE | 2023-09-19 10:27 | CASEMGMT ---
Social Work- met with pt due to concerns about anxiety/depression. Pt state that she does have anxiety and over-thinks. Pt reports that this has been an issue intermittently throughout her life; particularly around change or health events. Pt states that she freezes due to overwhelm and is unable to function. Pt states that she feels nervous and unable to stop worrying the majority of days each week and uses beer to cope. Pt states alcoholism runs in her family, which is why she feels she gravitated towards that particular coping mechanism. Pt recognizes that it is unhealthy and that she is physically damaging her body. Pt states that she feels her alcohol use decreases when she is in treatment for mental health. Pt states that every 10 years or so, pt gets a bout of depression as well. Pt states that she is leaving her home of 45 years due to selling the property and that event has perpetuated an overwhelming amount of emotions. Pt states that she has good support with her daughter and grandsons. Pt states that her also tends to freeze and is not able to support pt in the ways that she needs at times. Pt reports that she called her PCP yesterday and has already discussed medication and counseling with her. Pt states that she will call today to set up an intake. Pt did accept the mental health resource list provided as well. Pt states that her daughter set up a cleaning service to come into the home today and brought groceries into the home. Pt states she does not eat much due to the consumption of alcohol. Pt states she is also picky and things often do not taste good to her, but the primary reason is the overwhelm of making decisions of what to eat and making it when she is already feeling overwhelmed. Pt states she would not want meals on wheels at this time. Pt denies needing any other resources at this time. TERESA Blanca
[2023-09-19] MEDS: Losartan Potassium 50 MG Tablet PO (11:06)
[2023-09-19 11:07] VITALS: PULSE 73
[2023-09-19] MEDS: amLODIPine 5 MG Tablet PO (11:07)
[2023-09-19] MEDS: DULoxetine Hcl 20 MG Capsule 40 MG PO (11:07)
[2023-09-19] MEDS: Metoprolol(XL)Succ 50 MG Tablet PO (11:07)
[2023-09-19] MEDS: Cholestyramine/Sucrose 4 GM/PACKET PO (11:08)
--- NOTE | 2023-09-19 12:07 | PCM.DC.SUM ---
Providers Date of Admission: 09/17/23 Date of Discharge: 09/19/23 Primary Care Physician: Adela Montoya, [facility] Reason For Visit: HYPONATREMIA Diagnosis Discharge Diagnosis (1) Nausea & vomiting: Status: Acute Code(s): R11.2 - Nausea with vomiting, unspecified (2) Hyponatremia: Status: Acute Code(s): E87.1 - Hypo-osmolality and hyponatremia Plan #Acute hyponatremia # Hypovolemic hypoosmolar hyponatremia which is likely due to decreased intake as well as vomiting. Sodium came up from 05 02-05 09. Continue gentle hydration with IV fluids. Serum osmolality was low and urine sodium was 37 with urine osmolality of 553. Encourage oral hydration. #Probable UTI: Urinalysis showed 1+ bacteria. She did have nausea and vomiting which could also have been due to the UTI. Urine leucocyte esterase also elevated, with wbc of 10-25. on IV rocephin, pending urine cultures. #History of kidney stones: Status post recent removal of right double-J stents got to the with residual right-sided hydronephrosis and right-sided hydroureter with right perinephric stranding. Urinalysis as above. 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 Takes acyclovir for it feels the onset of the cold sores. will order acyclovir 800mg PO q8prn #Hypertension: on PO amlodipine and losartan as well as metoprolol. #Billings's esophagus: #Depression: on duloxetine #Right pulmonary nodule CT of the chest, Medications at Discharge Home Medications duloxetine 40 mg capsule,delayed release 40 mg PO DAILY DEPRESSION 30 days #30 caps 07/08/18 cholecalciferol (vitamin D3) 50 mcg (2,000 unit) capsule 2,000 unit PO DAILY SUPPLEMENT 02/25/19 cholestyramine (with sugar) 4 gram powder for susp in a packet 4 g PO DAILY #180 ea 09/27/21 denosumab 60 mg/mL subcutaneous syringe (Prolia) 60 mg subcut .[id number] 09/08/22 folic acid 1 mg tablet 2 mg PO DAILY 09/08/22 leucovorin calcium 15 mg tablet 15 mg PO HERNÁNDEZ 09/08/22 methotrexate sodium 2.5 mg tablet 17.5 mg PO SA 09/08/22 losartan 50 mg tablet 50 mg PO DAILY 08/28/23 amlodipine 10 mg tablet 5 mg PO DAILY 09/17/23 ibuprofen 600 mg tablet 600 mg PO Q6H PRN pain 09/17/23 metoprolol succinate 50 mg tablet,extended release 24 hr 50 mg PO DAILY 09/17/23 ondansetron 4 mg disintegrating tablet 4 mg PO Q8H PRN Nausea 09/17/23 acyclovir 800 mg tablet 800 mg PO Q8H PRN coldsore 09/18/23 cefdinir 300 mg capsule 300 mg PO BID #10 caps 09/19/23 Hospital Course Operations None Procedures None Summary of Care Provided Minutes Spent on Discharge: 45 Hospital Course: Patient is an 78-year-old female with a past medical history as outlined which includes ureteral calculi for which she had had a right ureteral stent placed. The right ureteral stent had recently been removed. She came into the ED with a complaint of nausea and vomiting as well as generalized feeling of unwellness and poor appetite. She did have a history of poor appetite and says she usually eats just about once a day. Blood work done showed evidence of hyponatremia with sodium of 124. She did have chronic hyponatremia but this was lower than her usual. She also had some chills and malaise. Urinalysis does show evidence of UTI. She was admitted and managed for hyponatremia and UTI. She was started on IV ceftriaxone and urine cultures were ordered. She was hydrated with IV fluids. His sodium came up to 129 which is around her baseline. Urine cultures grew mixed gram positive organisms. Patient was informed this hospitalist that patient was sick heavy alcohol use and always had a 12 pack of beer with her at home. He says she drank at least 6 to 8 cans of beer daily. Patient and were counseled that her byron was likely contributing to her hyponatremia also and she was counseled to seek help for alcohol use disorder. Patient remained stable and was discharged on 09/19/2023. Patient was initially reluctant to go home and says she wanted to stay in the hospital because she felt safe here. When asked to clarify what she meant by if she felt safe in the hospital, patient stated that in the hospital she was not around alcohol and so did not have to drink because she felt like when she went home she would be exposed to alcohol. She explained that she knew she had to get her anxiety under control as she was self-medicating with alcohol and was going to see a counselor to get help with it. She was therefore willing to go home as she says she felt like going home would help her face her problems instead of hiding from them in the hospital. Patient was therefore discharged home on 09/19/2023. She is follow-up with her primary care doctor within 1 to 2 weeks. She was discharged with a prescription for p.o. cefdinir 300 mg twice daily for 5 days. Patient was seen and examined prior to discharge. She had no active complaints. She was initially a bit teary but subsequently was understanding about being discharged home. Review of systems otherwise negative. Labs and vitals reviewed. Home medication reviewed and reconciled. Physical Exam Const alert, oriented x3 and no apparent distress Constitutional Narrative: anxious General Appearance: cooperative, comfortable and well kempt Orientation / Consciousness: awake HEENT normocephalic, head/scalp atraumatic, hearing grossly normal bilaterally, moist oral mucous membranes and oropharynx normal Mouth: oral and palatal mucosa normal Eyes EOMs intact bilaterally Neck no lymphadenopathy, supple and no JVD Lymph Lymphatic: no lymphadenopathy noted and no lymphedema noted Resp normal respiratory effort, normal air movement and clear to auscultation bilaterally Cardio regular rate, regular rhythm, S1 normal heart sound, S2 normal heart sound and no murmurs GI normal to inspection, nondistended, normoactive bowel sounds, soft to palpation, non-tender and non-distended Extremity normal to inspection, full ROM, normal capillary refill, no clubbing, cyanosis or edema and no calf tenderness General Extremity: no tenderness to palpation of joints or extremities Skin no rashes or lesions noted and no wounds General Skin Exam: no breakdown Neuro oriented x3, CN's II-XII intact bilaterally, moves all extremities, no focal motor deficits, no sensory deficits noted and deep tendon reflexes 2+ bilaterally Sensorium / Orientation: awake and alert Motor Exam: strength 5/5 throughout and general weakness Psych thought process normal and cooperative Psych Narrative: initially tearful Mood & Affect: anxious Medical Records Data Medical Nutrition Assessment Dietitian: Malnutrition Criteria Met Start: 09/18/23 12:09 Freq: Status: Active Protocol: Document 09/18/23 12:09 LUIS (Rec: 09/18/23 12:09 SLA [id number]) Nutrition Malnutrition Evidence of Malnutrition Exists Yes Malnutrition (severe): Acute Illness/Injury Evidenced By Suboptimal Energy Intake ( Severe),Weight Loss (Severe) Clinical Problem Acute Disease or Injury Related Malnutrition Etiology related to surgery x 1 mo ago and affected by anesthesia so inadequate energy intake Signs/Symptoms as evidenced by 6.6% unplanned wt loss and pt meeting <75% of est nutritional needs x [address] [employer]. Status Active Problem Recommendation Dietitian Recommendations/Changes Continue liberal Regular diet Will order 8 oz ensure plus high protein tid w/ meals for increased nutrition if consumed Consider appetite stimulant to help encourage increased po intake Weight / BMI Weight Weight: 117 lb 11.629 oz Body Mass Index (BMI) 20.8 ABG / Lab / Microbiology Data 09/19/23 06:10 09/19/23 06:10 Laboratory: Laboratory Results - last 24 hr 09/19/23 06:10: WBC 7.1, RBC 3.76 L, Hgb 12.0, Hct 36.9 L, MCV 98.1, MCH 31.9, MCHC 32.5, RDW Std Deviation 49.2 H, RDW Coeff of Jam 13.9, Plt Count 304, MPV 8.8, Immature Gran % (Auto) 0.400, Neut % (Auto) 72.9 H, Lymph % (Auto) 11.6 L, [place] % (Auto) 13.9 H, Eos % (Auto) 0.6, Baso % (Auto) 0.6, Absolute Neuts (auto) 5.2, Absolute Lymphs (auto) 0.83, Nucleated RBC % 0, Sodium 129 L, Potassium 3.7, Chloride 100, Carbon Dioxide 22.0, Anion Gap 7, BUN 4 L, Creatinine 0.57, Estim Creat Clear Calc 46.40, Est GFR (MDRD) Af Amer 130, Est GFR (MDRD) Non-Af 108, BUN/Creatinine Ratio 7.0 L, Glucose 100, Calcium 8.0 L Microbiology: Microbiology 09/17/23 14:15 Urine, Clean Catch Urine Culture - Final Mixed Gram Positive Organisms D/C Instructions Discharge Diet: Low fat / Low cholesterol Discharge Activity: Return to Normal Activity Weight Bearing Status: Weight bearing as tolerated Call your doctor if you observe: Fever of 101 or Higher, Shortness of breath, Dizziness, Swelling in the ankles and Chest pain Meaningful Use Info Meaningful Use Meaningful Use Diagnoses (Choose all that apply): None applicable Ischemic Stroke Statin Dosing Therapy Reference: STATIN DOSE THERAPY REFERENCE: * Patients > 75 years receive moderate or high dose statin therapy. * Patients 75 years or YOUNGER should receive HIGH intensity statin dose unless contraindicated. You will be required to document reason for non-treatment if statin daily dose does not meet guidelines. HIGH DOSE STATIN THERAPY DAILY Atorvastatin > than or = to 40 mg Rosuvastatin > than or = to 20 mg Amlodipine + Atorvastatin > than or = to 2.5/40 mg Ezetimibe + Simvastatin 10/80 mg Simvastatin 80mg Discharge Plan Admission Admit Date/Time: 09/17/23 16:41 Primary Reason for Your Visit: hyponatremia Attending Provider: Jaqueline Mcdonald Primary Care Provider: Adela Montoya Consulting Providers: Camden Garcia Instructions Patient Instructions: Hyponatremia Dc, Hyponatremia Ch Dc Additional Instructions / Restrictions: Patient counseled to see her PCP to seek help for her alcohol use disorder. Discharge Orders/Prescriptions Prescriptions: New cefdinir 300 mg capsule 300 mg PO BID Qty: 10 0RF Continued duloxetine 40 mg capsule,delayed release(DR/EC) 40 mg PO DAILY 30 Days Qty: 30 cholestyramine (with sugar) 4 gram powder in packet 4 g PO DAILY Qty: 180 3RF Patient Comments: pt takes prn Rx Instructions: administer w/meal; avoid other meds within 1hr before or 4-6hr after dose cholecalciferol (vitamin D3) 2,000 UNIT capsule 2,000 unit PO DAILY leucovorin calcium 15 mg tablet 15 mg PO HERNÁNDEZ methotrexate sodium 2.5 mg tablet 17.5 mg PO SA folic acid 1 mg tablet 2 mg PO DAILY Prolia 60 mg/mL syringe 60 mg SUBCUT .[id number] metoprolol succinate 50 mg tablet extended release 24 hr 50 mg PO DAILY ibuprofen 600 mg tablet 600 mg PO Q6H PRN (Reason: pain) amlodipine 10 mg tablet 5 mg PO DAILY ondansetron 4 mg tablet,disintegrating 4 mg PO Q8H PRN (Reason: Nausea) acyclovir 800 mg tablet 800 mg PO Q8H PRN (Reason: coldsore) Rx Instructions: take 1 tablet at first onsent of coldsore, then three times daily as needed for up to 5 doses losartan 50 mg tablet 50 mg PO DAILY Referrals / Follow Up: dAela Montoya, [facility] [Primary Care Provider] - Disposition Disposition (needs filled in before D/C Order can be placed): Home, Self Care Charges/Coding Visit Charges Inpatient E&M: 12098 Disch Hosp >30min
--- NOTE | 2023-09-19 13:10 | PHA.DC_ITS ---
Pharmacy [facility] has performed discharge medication reconciliation and counseling for this patient. 1. CEFDINIR 300MG PO BID x 5 days The patient's discharge medication list was reviewed for discrepancies and discrepancies were resolved. The patient was counseled on the following discharge medications and changes in medications for homegoing were reviewed. The Reason for Use, instructions for use, and potential side effects were reviewed for all new medications. The patient's questions regarding all of their medications were answered. The patient was able to verbally demonstrate an understanding of their discharge medications. Patient counseled by pharmacy order entry technicianSavannah. Medications at Discharge Home Medications duloxetine 40 mg capsule,delayed release 40 mg PO DAILY DEPRESSION 30 days #30 caps 07/08/18 cholecalciferol (vitamin D3) 50 mcg (2,000 unit) capsule 2,000 unit PO DAILY SUPPLEMENT 02/25/19 cholestyramine (with sugar) 4 gram powder for susp in a packet 4 g PO DAILY #180 ea 09/27/21 denosumab 60 mg/mL subcutaneous syringe (Prolia) 60 mg subcut .[id number] 09/08/22 folic acid 1 mg tablet 2 mg PO DAILY 09/08/22 leucovorin calcium 15 mg tablet 15 mg PO HERNÁNDEZ 09/08/22 methotrexate sodium 2.5 mg tablet 17.5 mg PO SA 09/08/22 losartan 50 mg tablet 50 mg PO DAILY 08/28/23 amlodipine 10 mg tablet 5 mg PO DAILY 09/17/23 ibuprofen 600 mg tablet 600 mg PO Q6H PRN pain 09/17/23 metoprolol succinate 50 mg tablet,extended release 24 hr 50 mg PO DAILY 09/17/23 ondansetron 4 mg disintegrating tablet 4 mg PO Q8H PRN Nausea 09/17/23 acyclovir 800 mg tablet 800 mg PO Q8H PRN coldsore 09/18/23 cefdinir 300 mg capsule 300 mg PO BID #10 caps 09/19/23
[2023-09-19] MEDS: Ibuprofen 600 MG Tablet PO (14:42)
== END 2023-09-19 14:47 | disposition home or self-care (01) | DRG 640 ==
LOC: ED 16:37 → MS3 16:57
PROVIDERS: Admitting Provider Internal Medicine; Emergency Provider Emergency Medicine; PCP Nurse Practitioner Family; Visit Provider Student in an Organized Health Care Education/Training Program
DX: E87.1 Hypo-osmolality and hyponatremia (principal); E43 Unspecified severe protein-calorie malnutrition; I10 Essential (primary) hypertension; F32.A Depression, unspecified; K22.70 Barrett's esophagus without dysplasia; F41.9 Anxiety disorder, unspecified; B00.1 Herpesviral vesicular dermatitis; R91.1 Solitary pulmonary nodule; Z87.891 Personal history of nicotine dependence; Z79.899 Other long term (current) drug therapy; Z68.20 Body mass index [BMI] 20.0-20.9, adult; E78.00 Pure hypercholesterolemia, unspecified
CPT/HCPCS: 36415; 74176; 80048; 81001; 82533; 83930; 83935; 84300; 84443; 85025; 87086; 87088; 93005; 96361; 96365; 96366; 96367; 96368; 96372; 97802; 99221; 99285; A4216; G0378; J0696

== ENCOUNTER 2023-10-09 08:00 | Outpatient (RCR) | payer MEDICARE, SELFPAY ==
--- NOTE | 2023-10-09 10:10 | BH.SGPN.GN ---
Behaviors/Verbalizations/Mental Status: []Pt alert and oriented, causally dressed and groomed. Eye contact fair. Motor activity appropriate. Speech within normal limits. Affect congruent, mood euthymic. Thoughts linear, logical, no signs of hallucinations or delusions. Client Response/Progress/Benefit: [] Pt was actively engaged, providing input, and taking notes throughout session. Connected with the topic of pitfalls and listened to group discussion on internal and external barriers that prevent from choosing a healthier path to mental wellness. Group worked together to identify examples of personal internal pitfalls. Engaged in activity and worked cooperatively with peers. Shared personal pitfalls to include avoidance, difficulty regulating emotions, self doubt, and negative self-talk. Pt engaged in learning about the difference between external triggers and self-sabotaging behaviors. Seemed to benefit from increased awareness of personal pitfalls. Pt will continue IOP tx to decrease avoidance, challenge negative thoughts, and prevent decompensation.
--- NOTE | 2023-10-09 11:15 | BH.SGPN.GN ---
Behaviors/Verbalizations/Mental Status: []Pt alert and oriented, casually dressed and groomed. Eye contact good. Motor activity appropriate. Speech within normal limits. Affect congruent, mood anxious and depressed. Thoughts linear, logical, no signs of hallucinations or delusions. Client Response/Progress/Benefit: [] Pt receptive of session, engaged throughout AEB actively contributing and listening to discussion, as well as taking notes. Pt participated in the experiential activity and processed with group how their emotions, perspective, and reactions positively and negatively impacted the outcome. Pt identified pitfalls they struggle with and shared wanting to work on pitfall of avoiding taking actionable steps by challenging herself to break things down into small attainable steps. Benefited from identifying personal pitfalls and strategies to overcome these pitfalls. Will continue IOP tx to prevent decompensation, improve daily functioning, and promote mood stability. Narrative Note: []
--- NOTE | 2023-10-09 14:25 | BH.MTP ---
Master Treatment Plan Patient Information Program Physician:: Dr. Worthington Primary Therapist:: Angella Guzman [facility] Psychiatric Diagnoses Psychiatric Diagnoses:: 1. Major depressive disorder, recurrent, severe without psychosis 2. Generalized anxiety disorder 3. Alcohol use disorder (sober x 2 weeks) 4. Primary support and housing issues Diagnosis Code(s):: F33.2 Estimated LOS Estimated LOS (in weeks):: 6 Problem/Goal #1 Problem/Goal #1 Stated Goal:: Stabilize anxiety level while increasing ability to function on daily basis. Description of Barriers: Potential barriers: avoidance of doing anxious provoking tasks, not following through on goals/use of skills, negative perspective, limited support, and distorted thoughts. Functional Impact: The patient is an 78-year-old female with a history of depression, anxiety and alcohol use disorder who was referred to the [facility] behavioral health IOP by her primary care doctor for worsening symptoms of depression, anxiety. The patient is known to us as she did the IOP in 2019. The patient states that her depression and anxiety worsened about 6 weeks ago after she had complications after a kidney stone stent inserted in her ureter. The worsening medical issues and the stress from recently selling their [address] property because of the deterioration in her mental health. Patient states when I get depressed I drink more alcohol and she admits to drinking 4-6 beers a day instead of eating most of her meals. This resulted in her being admitted to the hospital for medical admission from September 16 to September 18 where she presented with dehydration, low sodium, low potassium and diminished nutrition. She admits to sadness, worry, avoidance. The patient is currently worried because she has continued chronic marital issues with her who she says is almost a hoarder and she feels it can be very hard to clear their house out in order to move. She has been sober from alcohol for 2 weeks and she admits to cravings but no withdrawal symptoms. She is worried about where they will live after they move from their current property because this is a big change in their life. Objectives Objective #1: Stated Objective: Client will learn and implement 2-3 calming skills to reduce overall anxiety and manage anxiety symptoms. Interventions: Therapist and group sessions will help client identify physiological warning signs of anxiety, increase awareness of thoughts that increase anxiety, and identify behaviors that reinforce anxious symptoms. Group and individual counseling will teach client calming skills to help manage anxious symptoms. Discharge Criteria: Client will have achieved this goal when can verbalize at least 2 calming skills and reports skills successfully help reduce anxious symptoms. Target Date: 11/20/23 Review Date: 11/06/23 Objective #2: Stated Objective: Client will identify 2-3 anxiety triggers and 2 coping skills to use when feeling anxious. Interventions: Therapist will assist client in exploring what triggers anxiety and teach client coping strategies to effectively manage anxiety symptoms. Discharge Criteria: Client will have met this goal when can identify at least 2 triggers to anxiety and verbalize two healthy ways to cope with feelings of anxiety. Target Date: 11/20/23 Review Date: 11/06/23 Problem/Goal #2 Problem/Goal #2 Stated Goal:: Client will decrease depression, anhedonia, and isolation due to Major Depression Disorder through Intensive Outpatient Program. Description of Barriers: Potential barriers: avoidance of doing anxious provoking tasks, not following through on goals/use of skills, negative perspective, limited support, and distorted thoughts. Functional Impact: The patient is an 78-year-old female with a history of depression, anxiety and alcohol use disorder who was referred to the [facility] behavioral health IOP by her primary care doctor for worsening symptoms of depression, anxiety. The patient is known to us as she did the IOP in 2019. The patient states that her depression and anxiety worsened about 6 weeks ago after she had complications after a kidney stone stent inserted in her ureter. The worsening medical issues and the stress from recently selling their [address] because of the deterioration in her mental health. Patient states when I get depressed I drink more alcohol and she admits to drinking 4-6 beers a day instead of eating most of her meals. This resulted in her being admitted to the hospital for medical admission from September 16 to September 18 where she presented with dehydration, low sodium, low potassium and diminished nutrition. She admits to sadness, worry, avoidance. The patient is currently worried because she has continued chronic marital issues with her who she says is almost a hoarder and she feels it can be very hard to clear their house out in order to move. She has been sober from alcohol for 2 weeks and she admits to cravings but no withdrawal symptoms. She is worried about where they will live after they move from their current property because this is a big change in their life. Objectives Objective #1: Stated Objective: Client will learn and utilize 2-3 healthy coping strategies to manage depressive symptoms. Interventions: Therapist will utilize CBT techniques to assist client with understanding the connection between thoughts, feelings and behaviors. Education will be provided on behavioral activation. Therapist will assist client in learning internal coping strategies to manage depressive symptoms, along with helping client identify triggers. Discharge Criteria: Client will have achieved this goal when can verbalize and has practiced at least 2 healthy coping strategies that successfully manage depressive symptoms. Target Date: 11/20/23 Review Date: 11/06/23 Objective #2: Stated Objective: Client will identify and replace 2-3 negative thinking patterns that reinforce depressive symptoms. Interventions: Therapist will assist client in developing an awareness of the cognitive messages that reinforce depressive thinking. Therapist will also assist client in challenging negative thinking patterns. Discharge Criteria: Client will have achieved this goal when can identify at least 2 negative thinking patterns, replace negative thinking with more positive, affirmative messages. Target Date: 11/20/23 Review Date: 11/06/23
--- NOTE | 2023-10-09 15:59 | BH.MDN ---
Multi-Disciplinary Note Note 30-min Individual: Time Started:: 09:00 Date: 10/09/23 Purpose of session/treatment goals addressed:: Purpose of session was to gather background, build rapport, and identify treatment goals for IOP. Eye Contact:: Fair Motor Activity:: Appropriate Appearance:: Casual Speech:: Appropriate Mood:: Anxious and Depressed Affect:: Constricted Thoughts:: Linear, Logical and No evidence of hallucinations/delusions noted Staff Interventions:: thought challenging, CBT techniques, rapport building, strengths perspective and treatment planning Client Response:: Client reported she is seeking IOP treatment again because she started to go into a depressed episode after Diane anesthesia for kidney stones. Client stated she has past history of going into depressive episodes when she has given anesthesia. Client stated when she was in this depressed episode she started to drink alcohol four to six beers every day. Client reported she also was isolating and not doing much of anything. Client stated this caused complications because she would drink alcohol and not eat. Client stated this led to her going to the hospital for dehydration and then ultimately was referred back to IOP. Client stated in addition to the medical issues she also is extremely stressed about what to do about their property now that they have decided to sell it. Client reported they're finalizing the sale next week of their [address] property. Client stated they are allowed to stay on the property for two years before they have to move, however she doesn't want to stay for this time but her is avoiding talking about what they're going to do. Client stated she feels frustrated because she can't get her to sit down and make a plan on how they're going to get the property ready because there is a lot to do. Client stated she has been able to maintain sobriety for two weeks but is having some urges to drink. Client reported relationship with is distant and she gets frustrated because he doesn't want to discuss or follow through with anything they do talk about. Client stated she would like to develop a plan and what they're going to do moving forward in regards to where they're gonna move or live but he doesn't want to talk about it until it's time to leave in two years. Client reported while she's in IOP she would like to review and reinforce healthy coping skills to help her manage anxiety and depression. Client agreed it could be helpful to start to get back involved in activities she used to enjoy because she stopped doing those things for a while now. Client would also like to have assistance in helping her process the loss of their property they've been on for over 40 years And start to help develop a plan on what to do moving forward. Risks/Concerns:: Client denies suicidal ideation, plan, or intention. Progress Toward Goals/Plan:: No progress observed given first day in IOP. Client expresses desire to learn skills/strategies to help manage depression and anxiety. Client seeking guidance with processing sale of property she has lived on for over 40 years and help with organizing next steps. Client to continue IOP to maintain sobriety, improve daily functioning, and prevent decompensation. Time Stopped:: 09:30
--- NOTE | 2023-10-09 16:48 | BH.PSA ---
Source of Information Presenting Problems/Circumstances Problems, Referral Source, Mental Status, Client: The patient is an 78-year-old female with a history of depression, anxiety and alcohol use disorder who was referred to the [facility] behavioral health IOP by her primary care doctor for worsening symptoms of depression, anxiety. The patient is known to us as she did the IOP in 2019. The patient states that her depression and anxiety worsened about 6 weeks ago after she had complications after a kidney stone stent. The worsening medical issues and the stress from recently selling their [address] property because of the deterioration in her mental health. Patient states when I get depressed I drink more alcohol and she admits to drinking 4-6 beers a day instead of eating most of her meals. This resulted in her being admitted to the hospital for medical admission from September 16 to September 18 where she presented with dehydration, low sodium, low potassium and diminished nutrition. She admits to sadness, worry, avoidance. Psychiatric Presentation Psych Issues & Need for Admission Psychiatric Issues:: 1 psychiatric admission about 60 years ago around age 18. No suicide attempts ever. She did the [place] IOP in 2017 and again in 2019 and found it beneficial. She says she has been depressed since she was very young. Past meds include Prozac and Cymbalta. She drinks 1 cup of tea in the morning only but no other caffeine use. Past Psychiatric History MH Treatment Hx Treatment History: 1 psychiatric admission about 60 years ago around age 18. No suicide attempts ever. She did the [place] IOP in 2018 and again in 2019 and found it beneficial. She says she has been depressed since she was very young. Past meds include Prozac and Cymbalta. She drinks 1 cup of tea in the morning only but no other caffeine use. First hospitalization:: 60 years ago for depression Development & Family of Origin Childhood Significant Childhood Events: She was born and raised in [facility]. She is youngest of 2 children and grew up with her parents and her older brother. She denies abuse growing up but her father was an alcoholic and was as good a father as he could be. Her mother was loving. Family Who currently lives in your home?: Lives with Describe family composition:: She has been for about 60 years and describes her marriage as tense and not great. She lives in [place] with her on [address] property that they recently sold and are trying to clear out to move. She has 2 daughters and 1 lives near her. Describes a good relationship with her daughters. Family History Family Hx of Psychiatric or AOD Problems: Father, paternal uncles and maternal grandfather were all alcoholics. She feels her mother and grandson have depression and she had a maternal great uncle who by suicide. Ethnicity Sexuality Sexual Orientation: Heterosexual Mental Status Memory Recent Memory: Fair Remote Memory: Fair Concentration Concentration: Fair Eye Contact Eye Contact: Good Speech Speech: Articulate Thought Process Thought Process: Logical and Ruminations Insight: Fair Judgment: Fair Behavior: Normal Orientation Orientation: Time, Person, Place and Situation Mood Mood: Anxious and Depressed Affect Affect: Appropriate/calm Suicide Assessment Suicidal Ideation Have you ever felt like hurting yourself?: No Physician Notification Violent Behavior/Abuse History Homicidal Ideation Do you have any homicidal thoughts? If so, explain:: No Abuse Have you ever been abused?: No Safety Do you ever feel threatened in your home? If yes, describe:: No Adult Social History Age 16 to Present Describe your current support system:: family Substance Use Specific Drugs What specific drugs have you used?: First used alcohol in college and has been drinking alcohol heavily off-and-on all of her life. She drinks at most 4-6 beers daily. Pt states she is currently trying to not drink alcohol since her inpatient medical admission. She has had occasional abstinence times like in 2017 and 2018. She smoked cigarettes 20 years ago for 5 years but quit. No rehab ever and no other drug use. 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 Service Service Have you ever been in the ?: No Legal History Records Have you had any past legal charges?: No Do you have any current legal charges?: No Have you ever been incarcerated? If yes, describe:: No Court Orders Have you had any past court orders for psychiatric treatment?: No Do you have a present court order for psychiatric treatment?: No Problem Checklist Current Problem Areas Problem List: Nutritional/Eating pattern changes (loss of appetite), Depressed mood/sad, Anxiety, Anger/aggression (irritability), Substance use and Additional psychosocial stressors (Selling [address] property) Director Transition's Assessment Client's Needs What are the client's feelings about the program?: Client stated she knows the program has helped her in the past and is looking forward to getting a refresh on skills. What are the client's goals?: Client stated she would like help with processing thoughts/emotions of selling her property she's been living at for over 40 years. Client reported also learning skills to manage depression and helping develop plan on how to get property/house ready for moving out. What are the client's strengths?: Client is resilient and motivated to get better. 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 The patient is known to us as she did the IOP in 2019. The patient states that her depression and anxiety worsened about 6 weeks ago after she had complications after a kidney stone stent. The worsening medical issues and the stress from recently selling their [address] because of the deterioration in her mental health. The patient states that the anesthesia for the catheter or stent insertion caused her to be depressed and this happened to her in the past when she received anesthesia also. Patient states when I get depressed I drink more alcohol and she admits to drinking 4-6 beers a day instead of eating most of her meals. This resulted in her being admitted to the hospital for medical admission from September 16 to September 18 where she presented with dehydration, low sodium, low potassium and diminished nutrition. She admits to sadness, worry, avoidance. The patient is currently worried because she has continued chronic marital issues with her who she says is almost a hoarder and she feels it can be very hard to clear their house out in order to move. She has been sober from alcohol for 2 weeks and she admits to cravings but no withdrawal symptoms. She is worried about where they will live after they move from their current property because this is a big change in their life. She currently lives in the property that she owns with her . Her has always been somewhat critical her of her. She has limited primary support. She denies any seizures or blackouts ever from alcohol use. She is somewhat irritable, overwhelmed and frustrated. She lost 5 pounds recently due to increased alcohol use and decreased food intake. She is sleeping a little more than usual at 10 hours a night and energy level is low. She lacks motivation but says her concentration is okay. She denies passive thoughts of , suicidal ideation, plan for suicide, homicidal ideation, history of self-harm, history of byron, seizures, head trauma, OCD, panic attacks, eating disorder, trauma or PTSD. She does admit that she is a worrier by nature. Treatment Plan Recommendations Recommendations Guidelines Recommendations:: The patient will start the IOP at [facility] as the structure, support, education and group therapy will hopefully prevent worsening of the patient's symptoms that could require hospitalization.
--- NOTE | 2023-10-10 09:05 | BH.SGPN.GN ---
Behaviors/Verbalizations/Mental Status: [] Eye contact is good. Motor activity is appropriate. Appearance is casual. Speech is Appropriate. Mood is depressed and irritable. Affect is congrent. Thoughts are linear and logical. No evidence of psychosis. Reviewed daily check in sheet and no reports of suicidal ideations or intent. Client Response/Progress/Benefit: [] Pt participated at times during the group discussions. Attentive. Daily symptom tracker notes 5 for anxiety and depression as well as 5 for self-harm urges. Today was pt?s first day in IOP. She briefly introduced herself stating ? I?ve been depressed for awhile and I need to reset?. Shared that her family and physicians have been telling her that ? I need to do something?. Mental health exacerbates her medical issues. Shared that she has been isolating and depressed. ? I?ve been going to the dark side?. No progress as this was her first day in IOP. Benefited from group support, empathy, and feedback. Will continue in IOP to prevent decompensation, improve functioning, and increase healthy coping. Narrative Note: []
--- NOTE | 2023-10-10 10:30 | BH.NA_ITS ---
Physical Data Vital Signs Pulse Rate: 59 Blood Pressure: 148/76 Height/Weight Height: 1.6 m Weight:: 56.699 kg Weight in Pounds: 125.0 lbs Current Medication Compliance Medication Compliance Do you take your medication as prescribed?: Yes Nutritional History Appetite Nutritional Instructions: Describe your appetite:: Fair Additional nutritional information:: Client states her appetite has been decreased in the last month, stating she lost about 6lbs around the time she was in the hospital last month with dehydration and hyponatremia. Functional Assessment Sleep Pattern Describe any problems with sleeping: Client states she sleeps 8-9 hours per day. Sensory/Communication Assess Communication Problems Do you have difficulty understanding what people are saying?: No Medical Problems/History Cardiac Conditions Cardiovascular: Hypertension and Other (See comments) (high cholesterol) Genitourinary Conditions Genitourinary: Other (See comments) (recent stent for kidney stones, recent UTI) Gastrointestinal Conditions Gastrointestinal: Other (See comments) (GERD, Barretts esophagus) Musculoskeletal Conditions Musculoskeletal: Other (See comments) (osteoporosis, rheumatoid arthritis) Surgical History Surgical History Have you had any surgeries? If so, list type and date:: Yes (bilat hip replacements, tubal ligation, stents for kidney stones) Substance Abuse Substance Abuse Please describe substance abuse in the last 30 days:: Client states she had been drinking 3-4 beers per day, but states she has been sober from alcohol for about 2 weeks. Client states she was a cigarette smoker in the past. Client denies substance use. Client states she drinks 1 cup of tea per day. Mental Status Summary Mental Status Significant Findings/Observations on Appearance and Mood:: Client is alert and oriented x 4. Client is casually groomed. Client is cooperative with assessment. Client makes good eye contact. Client's voice has normal rate and volume. Client has an appropriate affect. Client makes logical associations and has normal processing. Client denies delusions/hallucinations. Suicide Assessment Suicidal Ideation Are you currently or have you been suicidal in the past?: Yes Suicidal Intentional Rating Scale (SIRS): Suicidal thoughts (past) (denies current SI) Physician Notification Past Psychiatric History MH Treatment Hx Past Psychiatric Medications:: Prozac, Cymbalta, doesn't remember the names of others Age of first mental health symptoms: Client was hospitalized for depression around the age of 18. Describe (age, circumstance, etc) any past hospitalizations: Client was hospitalized for depression around the age of 18. Current providers for mental health treatment (counselor, psychiatrist, correctional case records supervisor, etc.): None. Fall Risk Assessment Age Age: 71 or older Mental Status Mental Status: Willing & able to ask for assistance when needed Physical Status Physical Status: No problems Impairments Impairments: None Elimination Elimination: Continent AND independent Gait or Balance Gait or Balance: Walks independently Hx of Falls History of falls in the past 6 months: No known history Medications/Substances Psychotropics:: Antidepressants Others:: Antihypertensives Medications/substances used within the past 24 hours or ordered to administer: 1 -2 of the medications/substances listed above Total Score Total Points:: 3 RN Summary of Impressions Impressions Recommendations Impressions: Psychiatric Issues: major depressive disorder, alcohol use disorder Impression: General Medical Conditions: Client was hospitalized 09/16-09/19/23 for hyponatremia, dehydration. Client states her PCP has lab orders for her to get blood work to recheck sodium and potassium and Client states she is going to do that soon. Level of Care How do the client's current symptoms and functional deficits support need for this level of care?: Client was referred to IOP by her PCP after client has been having increased anxiety and depression over the last 6 weeks. Client had a stent in place for kidney stones, and client states she has had depression symptoms after having anesthesia in the past and she has had increased depression after this stent. Client also states she knows she had been drinking too much beer to cope with stressors before being hospitalized. 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 Client states they have 2 years to find a place to live but client states she is stressed about all the things that need to be done at their current home they are selling. Client denies SI. Client endorses increased worry, decreased motivation, decreased energy, and avoidance. IOP will promote gains and prevent further decompensation while providing social support and skills training.
--- NOTE | 2023-10-10 11:10 | BH.SGPN.GN ---
Behaviors/Verbalizations/Mental Status: []Pt alert and oriented, casually dressed and groomed. Eye contact good. Motor activity appropriate. Speech within normal limits. Affect congruent, mood agitated. Thoughts linear, logical, no signs of hallucinations or delusions. Client Response/Progress/Benefit: [] Pt was an attentive, though semi-active participant in group discussions and experiential activity, at times appearing agitated and wanting to opt out of the activity. Attentive during psychoeducation on the 4 A's (Avoid, adapt, alter, accept) of coping with stress. Shared that they would benefit most from adapting her expectations in order to establish more realistic goals, as well as altering her responses when addressing her stressors with her . Was able to identify the connection between the experiential activity and utilization of stress management skills. Benefited from increased awareness of stress management strategies. Pt will continue IOP tx to prevent decompensation, improve daily functioning, and increase self-care. ? Narrative Note: []
--- NOTE | 2023-10-10 12:08 | PCM.BH.PSYEV ---
Psychiatric Evaluation Initial Evaluation Initial Evaluation: History of Present Illness: [] The patient is an 78-year-old female with a history of depression, anxiety and alcohol use disorder who was referred to the [facility] behavioral health IOP by her primary care doctor for worsening symptoms of depression, anxiety. The patient is known to us as she did the IOP in 2019. The patient states that her depression and anxiety worsened about 6 weeks ago after she had complications after a kidney stone stent inserted in her ureter. The worsening medical issues and the stress from recently selling their [address] property because of the deterioration in her mental health. The patient states that the anesthesia for the catheter or stent insertion caused her to be depressed and this happened to her in the past when she received anesthesia also. Patient states when I get depressed I drink more alcohol and she admits to drinking 4-6 beers a day instead of eating most of her meals. This resulted in her being admitted to the hospital for medical admission from September 16 to September 18 where she presented with dehydration, low sodium, low potassium and diminished nutrition. She admits to sadness, worry, avoidance. The patient is currently worried because she has continued chronic marital issues with her who she says is almost a hoarder and she feels it can be very hard to clear their house out in order to move. She has been sober from alcohol for 2 weeks and she admits to cravings but no withdrawal symptoms. She is worried about where they will live after they move from their current property because this is a big change in their life. She currently lives in the property that she owns with her . Her has always been somewhat critical her of her. She has limited primary support. She denies any seizures or blackouts ever from alcohol use. She is somewhat irritable, overwhelmed and frustrated. She lost 5 pounds recently due to increased alcohol use and decreased food intake. She is sleeping a little more than usual at 10 hours a night and energy level is low. She lacks motivation but says her concentration is okay. She denies passive thoughts of , suicidal ideation, plan for suicide, homicidal ideation, history of self-harm, history of byron, seizures, head trauma, OCD, panic attacks, eating disorder, trauma or PTSD. She does admit that she is a worrier by nature. Current Psychiatric Medications: [] Duloxetine 60 mg p.o. daily (on this over 10 years and the dose was increased from 40 mg 2 weeks ago). Past Psychiatric History: [] 1 psychiatric admission about 60 years ago around age 18. No suicide attempts ever. She did the [place] IOP in 2018 and again in 2019 and found it beneficial. She says she has been depressed since she was very young. Past meds include Prozac and Cymbalta. She drinks 1 cup of tea in the morning only but no other caffeine use. Substance Use History: [] First used alcohol in college and has been drinking alcohol heavily off-and-on all of her life. She drinks at most 4-6 beers daily. She has had occasional abstinence times like in 2017 and 2018. She smokes cigarettes 20 years ago for 5 years but quit. No rehab ever and no other drug use. Allergies: [] Penicillin Medications: [] Psych meds plus hydrochlorothiazide, amlodipine, vitamin D, probiotic, folic acid, medication for GERD, methotrexate Past Medical History: [] Hypertension, elevated cholesterol, recent UTI and recent placement of a stent in her ureter. History of arthritis, fatty liver, 2 hip replacement surgeries. She is a 2 para 2 postmenopausal female. Family Psychiatric History: [] Mother in at age 102 in 2016. Father, paternal uncles and maternal grandfather were all alcoholics. She feels her mother and grandson have depression and she had a maternal great uncle who committed suicide. Personal/Social History: [] She was born and raised in [facility]. She is youngest of 2 children and grew up with her parents and her older brother. She denies abuse growing up but her father was an alcoholic and was as good a father as he could be. Her mother was loving. 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 She has been for about 60 years and describes her marriage as tense and not great. She lives in [place] with her on [address] property that they recently sold and are trying to clear out to move. She tries to walk when she can for exercise. She has 2 daughters and 1 lives near her. Legal History: [] Negative Review of Systems: [] Symptoms of GERD and recent urinary symptoms but otherwise negative except as noted in present illness. Vital Signs: [] Vital signs reviewed in the nurses notes and the medical records and updated and the patient is deemed medically able to participate in the IOP. Mental Status Examination: [] The patient is an 78-year-old slender, female who appears normal for stated age and is casually dressed and groomed with good hygiene. She has no psychomotor agitation or retardation. Eye contact is good and speech is normal rate and rhythm and fluent with no pressure. Mood is depressed and anxious and affect is mildly constricted. Thought process is goal-directed and organized. Thought content: The patient is very worried about clearing everything out of their house and worried about where they will live since they now sold their property. There is no evidence of passive thoughts of , suicidal ideation, homicidal ideation, hallucinations or delusions. Reality testing is intact. Judgment is intact. Insight is good. Impulsivity is moderate. Diagnoses: [] 1. Major depressive disorder, recurrent, severe without psychosis 2. Generalized anxiety disorder 3. Alcohol use disorder (sober x 2 weeks) 4. Primary support and housing issues Plan: [] The patient will start the IOP at [facility] as the structure, support, education and group therapy will hopefully prevent worsening of the patient's symptoms that could require hospitalization. She felt safe during the interview and if it anytime she does not feel safe she agrees to let us know or go to the emergency room. No medication changes were done today as the Cymbalta was increased 2 weeks ago. She is given an offer of naltrexone to decrease alcohol cravings and she agrees to think about this and possibly take it in the near future but she has to think about it. She agrees to stay sober from all alcohol use. I will see the patient in follow-up in 2 weeks and she will continue to follow-up with her outpatient medical and psychiatric providers.
--- NOTE | 2023-10-10 12:20 | BH.DR.ITP ---
Initial Treatment Plan Patient Information Visit Information: ADMISSION DATE: EXPECTED LOS: 4-6 weeks Problems/Symptoms Problem #1:: Anxiety Symptom:: Worry, rumination, avoidance Problem #2:: Depression Symptom:: Sadness, occasional hopelessness, irritability, increased sleep, low energy, no motivation, anhedonia
[2023-10-10 12:22] VITALS: BP 148/76; PULSE 59
--- NOTE | 2023-10-12 09:05 | BH.SGPN.GN ---
Behaviors/Verbalizations/Mental Status: [] Eye contact is good. Motor activity is appropriate. Appearance is casual. Speech is Appropriate. Mood is depressed and irritable. Affect is congruent. Thoughts are linear and logical. No evidence of psychosis. Reviewed daily check in sheet and no reports of suicidal ideations or intent. Client Response/Progress/Benefit: [] Pt participated at times during the group discussions. Attentive. Daily symptom tracker notes 3/5 for depression/anxiety and 2/5 for irritability. Reports being ?overwhelmed? and anxious. She has been 4 weeks sober and reports recent difficulty with urges to use. Elaborated on triggers to use which include mainly being upset, frustrated, or hopeless. Upcoming task of cleaning out her property and house of 40 years, finding a new place to live, and moving seem impossible. Tearful at times regarding the idea of moving away from her home. Beneifted from group support, encouragement, and feedback. Will continue in IOP to prevent decompensation, stabilize mood, increase healthy coping, and improve functioning Narrative Note: []
--- NOTE | 2023-10-12 10:10 | BH.SGPN.GN ---
Behaviors/Verbalizations/Mental Status: []Eye contact is good. Motor activity is appropriate. Appearance is casual. Speech is Appropriate. Mood is euthymic. Affect is congruent. Thoughts are linear and logical. No evidence of psychosis. Client Response/Progress/Benefit: [] Pt was an engaged participant AEB listening attentively to others, taking notes, and providing feedback in small group discussions. Attentive during psychoeducation AEB by note taking and providing some input. Pt worked along with peers in small groups to define inappropriate guilt and appropriate guilt. Interactive discussion on examples of both inappropriate and appropriate guilt. Pt able to connect impact inappropriate guilt can have on MH. Pt gave an example of having inappropriate guilt about not being able to make a decision about her property. Benefited from increased awareness of guilt and the differences between appropriate and inappropriate guilt. Will continue in IOP to improve decision making, maintain sobriety, and prevent decompensation.
--- NOTE | 2023-10-12 11:15 | BH.SGPN.GN ---
Behaviors/Verbalizations/Mental Status: []Pt alert and oriented, casually dressed and groomed. Eye contact poor. Motor activity appropriate. Speech within normal limits. Affect constricted, mood depressed. Thoughts linear, logical, no signs of hallucinations or delusions. Client Response/Progress/Benefit: []Pt engaged participant AEB listening attentively to others and providing input throughout group. Pt worked within their small group to identify strategies to manage inappropriate guilt. Pt worked with group to identify strategies for both appropriate and inappropriate guilt. Pt selected challenging emotional reasoning when she begins to feel inappropriate guilt. Pt seemed to benefit from learning about strategies to manage appropriate and inappropriate guilt. Pt will continue IOP tx to reduce isolation, improve mood stability, and reduce the use of unhealthy coping skills. Narrative Note: []
--- NOTE | 2023-10-16 09:05 | BH.SGPN.GN ---
Behaviors/Verbalizations/Mental Status: [] Eye contact is good. Motor activity is appropriate. Appearance is casual. Speech is Appropriate. Mood is euthymic. Affect is full. Thoughts are linear and logical. No evidence of psychosis. Reviewed daily check in sheet and no reports of suicidal ideations or intent. Client Response/Progress/Benefit: [] Pt was an active participant in group discussions. Attentive. Pt was able to identify mental health wins and healthy habits. States ? I stuck with something that I didn?t want to do and finished it?. Utilizing opposite action and behavioral feedback to complete tasks and ? do something fun?. States that in recent months she has declined and avoided offers from family to participate in activities and trips ? why was I turning down fun things??. ? I would say no and then go to sleep?. She saif yes to recent event which turned out to be very beneficial for her mental health. Progress noted. Benefited from group support, encouragement, and feedback. Will continue in IOP to prevent decompensation, stabilize mood, and improve functioning. Narrative Note: []
--- NOTE | 2023-10-16 10:20 | BH.SGPN.GN ---
Behaviors/Verbalizations/Mental Status: []Pt alert and oriented, neatly dressed and groomed. Eye contact good. Motor activity appropriate. Speech within normal limits. Affect congruent, mood anxious. Thoughts linear, logical, no signs of hallucinations or delusions. Client Response/Progress/Benefit: [] Pt responded well to session, contributing to discussion, and engaged during the activity. Group identified the benefits of change which included: increased confidence, improving mental health, and making progress. Worked with the group to identify barriers to change, which included: uncomfortable emotions such as anxiety and fear, lack of energy, worried about what others will think, and fear of the unknown. Pt participated along with group in activity where they identified and discussed the emotions related to change. Pt connected with peers that one can have many conflicting emotions when faced with change. Benefited from increased awareness and understanding of emotions, benefits, and barriers related to change. Will continue IOP tx to improve daily functioning, challenge negative/distorted thoughts, and prevent decompensation.
--- NOTE | 2023-10-16 11:15 | BH.SGPN.GN ---
Behaviors/Verbalizations/Mental Status: [] Client alert and oriented, casually dressed and groomed. Eye contact good. Motor activity appropriate. Speech within normal limits. Affect congruent, mood agitated and depressed. Thoughts linear, logical, no signs of hallucinations or delusions. Client Response/Progress/Benefit: [] Client responded well to session, attentive throughout. Did well to actively listen and contributed as group worked to process activity. Pt worked with group to relate the strategies used to overcome barriers in the activity to managing change in own life. Client identified a change they would like to make is improving communication and advocating for her needs with her . Client identified currently being in preparation stage for this particular change. Client said better understanding her own emotions and healthy ways to approach conflict can help get her to next stage. Appeared to benefit from identifying a change they want and how to progress. Client will continue IOP tx to prevent decompensation, gain healthy coping skills, and improve daily functioning. Narrative Note: []
--- NOTE | 2023-10-16 14:44 | BH.MDN ---
Multi-Disciplinary Note Note 60-min Individual: Time Started:: 12:05 Date: 10/16/23 Purpose of session/treatment goals addressed:: Purpose of session was to address goals 1 and 2 from MTP. Eye Contact:: Good Motor Activity:: Appropriate Appearance:: Casual Speech:: Appropriate Mood:: Anxious and Dysthymic Affect:: Congruent Thoughts:: Linear, Logical and No evidence of hallucinations/delusions noted Staff Interventions:: thought challenging, motivational interviewing, CBT techniques, strengths perspective and goal setting Client Response:: Client stated feeling status quo because there is so many things that need to be done at there house/property and gets overwhelmed when sees all that needs done. Client reported she also gets frustrated with her because he is avoiding dealing with the fact they need to get their property ready to move off of it in 2 years. Client stated her will find new projects that are unrelated to the property which serve as distractions from dealing with projects at home. Client encouraged client to create a list of all the areas of the house/property that needs to be taken care of. Then once she as the list she can have a meeting with her to identify which area to focus on and create small steps together on how to get that one area completed. Client reported she does think it would be helpful to have a guide/list of what to tackle on the property so she can feel more organized and see progress as one area is completed. Client reported the biggest barrier will be getting her to follow through on what they discuss. Client stated she has been recently having urges to drink alcohol at home. Client reported she has beer in the fridge and when she sees it she does have the urge to sit on the porch and drink. Therapist discussed potential consequences of going back to drinking alcohol. Client stated she knows it's not healthy for her and not helpful to have beer in her house. Therapist encouraged client to dump the alcohol, but client was uncommitted. Client reported she would think about it, but agreed it was a good idea. Client did set goal to get back to the gym by next week because she knows that was something she used to enjoy doing that was good for her. Risks/Concerns:: Denies suicidal ideation, plan or intention to date. Progress Toward Goals/Plan:: Client progress limited. Client continues to report feeling depressed/anxious because not sure what she wants to do with her future once they have to move off their property and also stressed/overwhelmed about all the things that need to be done at their house. Client stated she is unsure how cooperative her will be with following through on the projects that need to be done in order to there property ready for the final move day in 2 years. Client doesn't think they will stay on the property for the full 2 years because she imagines it will hard for them to see all the changes that occur. Client's anxiety has contributed to lack of action. Client is reporting feeling ready to start tackling small projects so she can see some success/progress. Client to continue IOP to improve daily functioning, decrease alcohol consumption, and prevent decompensation. Time Stopped:: 13:00
--- NOTE | 2023-10-18 09:00 | BH.SGPN.GN ---
Behaviors/Verbalizations/Mental Status: []Pt alert and oriented, casually dressed and groomed. Eye contact good. Motor activity appropriate. Speech within normal limits. Affect congruent, mood content. Thoughts linear, logical, no signs of hallucinations or delusions. Reviewed pt?s symptom tracker, no risk for suicidal ideation, plan, or intent 10/18/23 Client Response/Progress/Benefit: []Pt responded well to session, attentive and engaged. Pt reports feeling pleased with myself this morning as pt took some action on one of the changes she has been wanting to make. Pt shared she can be a procrastinator, but pt addressed a stressor about moving head-on with her . Pt reports she is still anxious about the follow-through and sad about the move, but she is trying to cope better. Pt appeared to benefit from positive feedback that reinforced pt's healthy decisions. Pt will continue IOP tx to prevent decompensation, reduce isolation, and improve daily functioning. Narrative Note: []
--- NOTE | 2023-10-18 10:10 | BH.SGPN.GN ---
Behaviors/Verbalizations/Mental Status: [] Eye contact is good. Motor activity is appropriate. Appearance is casual. Speech is Appropriate. Mood is anxious and depressed. Affect is congruent. Thoughts are linear and logical. No evidence of psychosis. Client Response/Progress/Benefit: [] Pt receptive of session, actively engaged throughout AEB taking notes, providing input, and contributing in small group discussion. Appeared to connect with group topic of automatic thoughts and cognitive distortions, as well as the impact of thought patterns on mental health, coping behaviors, and relationships. This particular group is very heavy on psychoeducation and pt appeared to connect with distortions and how they can impact functioning. Identified struggling with all or nothing thinking and disqualifying the positives distortions. Pt appeared to benefit from gaining insight on distorted thinking patterns and how this impacts overall mental health. Will continue IOP to stabilize mood, improve ability to establish and maintain boundaries, and prevent decompensation. Narrative Note: []
--- NOTE | 2023-10-18 11:20 | BH.SGPN.GN ---
Behaviors/Verbalizations/Mental Status: []Pt alert and oriented, casually dressed and groomed. Eye contact fair. Motor activity appropriate. Speech within normal limits. Affect congruent, mood euthymic. Thoughts linear, logical, no signs of hallucinations or delusions Client Response/Progress/Benefit: [] Pt was an active participant during group discussion. Pt was placed in a smaller group and participated in combatting example distortions with peers. Pt was engaged in the smaller group, participated in group interactions to brainstorm answers, and appeared to be comprehending cognitive distortions. Pt could connect with all or nothing and mental filter distortions that negatively impact her. Benefited from gaining further insight and awareness of cognitive distortions as well as practicing ways to reframe and challenge thoughts. Will continue in IOP tx to increase consistent use of healthy coping skills, challenge perspective, and prevent decompensation.
--- NOTE | 2023-10-22 09:05 | BH.SGPN.GN ---
Behaviors/Verbalizations/Mental Status: [] Eye contact is good. Motor activity is appropriate. Appearance is casual. Speech is Appropriate. Mood is depressed. Affect is flat. Thoughts are linear and logical. No evidence of psychosis. Reviewed daily check in sheet and no reports of suicidal ideations or intent. Client Response/Progress/Benefit: [] Pt participated at times during the group discussions. Attentive. Daily symptom tracker notes 3/5 for anxiety and 2/5 for depression. Unable to identify a mental health win since last IOP session. Admits to cancelling IOP on 10/18 stating I just didn't want to get out of bed. States that she did nothing all weekend except ruin dinner. Disinterested in feedback and reframing. Regression noted from last week. Increased avoidance. Struggling with energy, motivation, and utilizing skills. Limited benefit from group this AM. Will continue in IOP to prevent decompensation, increase healthy coping skills, and improve functioning. Narrative Note: []
--- NOTE | 2023-10-22 10:10 | BH.SGPN.GN ---
Behaviors/Verbalizations/Mental Status: []Pt alert and oriented, casually dressed and groomed. Eye contact good. Motor activity appropriate. Speech within normal limits. Affect congruent, mood euthymic. Thoughts linear, logical, no signs of hallucinations or delusions. Client Response/Progress/Benefit: [] Pt connected with topic of anxiety and participated throughout, providing input and taking notes. Participated throughout interactive discussion defining anxiety and identifying cognitive and physiological symptoms of anxiety. Group discussed how anxiety can prevent them from trying new things. Pt identified their physical signs of anxiety as: nausea, increased heart rate, and headaches. Pt identified safety behaviors as: isolation, cancel plans, and reassurance seeking. Benefited from increased awareness and insight on anxiety and its impact. Pt will continue IOP tx to increase consistent use of healthy coping skills/strategies, improve action/follow through, and prevent decompensation.
--- NOTE | 2023-10-22 11:15 | BH.SGPN.GN ---
Behaviors/Verbalizations/Mental Status: []Pt alert and oriented, casually dressed and groomed. Eye contact good. Motor activity appropriate. Speech within normal limits. Affect congruent, mood anxious. Thoughts linear, logical, no signs of hallucinations or delusions. Client Response/Progress/Benefit: []Pt was an active participant AEB pt providing input and listening attentively to peers. Attentive during psychoeducation on mindfulness coping skills and their impact on reducing anxiety and improving overall mental health wellness. Group was able to identify self-soothing and mind-based coping skills which included: 5-senses, meditation, deep breathing, TIPP, thought challenging, and progressive muscle relaxation. Pt also participated with peers in practicing mindfulness skills in session including deep breathing and PMR. Pt would like to work on using getting back into physical activity to manage anxiety. Appeared to benefit from increasing repertoire of anxiety reduction skills. Pt will continue in [facility] tx to improve self-care practices, improve emotional regulation skills, and reduce isolation Narrative Note: []
--- NOTE | 2023-10-25 09:00 | BH.SGPN.GN ---
Behaviors/Verbalizations/Mental Status: [] Eye contact is good. Motor activity is appropriate. Appearance is casual. Speech is Appropriate. Mood is depressed/irritable. Affect is congruent. Thoughts are linear and logical. No evidence of psychosis. Reviewed daily check in sheet and no reports of suicidal ideations or intent. Client Response/Progress/Benefit: [] Pt was an active participant in group discussions. Attentive. Daily symptom tracker note 3/5 for anxiety and 2/5 for depression. Pt states I'm alright. Shared with the group that she developed a list of areas to clean or trash on her property. She had felt significantly overwhelmed and uncertain regarding upcoming move which led to isolation, alcohol use, and mental health decompensation for the past several months. Along with program therapist she is creating a plan with smaller goals which has made her feel more in control. Viewing the process as more manageable. Progress noted. Benefited from group support, encouragement, and feedback. Will continue in IOP to maintain safety, increase healthy coping, and improve functioning. Narrative Note: []
--- NOTE | 2023-10-25 10:10 | BH.SGPN.GN ---
Behaviors/Verbalizations/Mental Status: []Pt alert and oriented, neatly dressed and groomed. Eye contact good. Motor activity appropriate. Speech within normal limits. Affect congruent, mood euthymic. Thoughts linear, logical, no signs of hallucinations or delusions Client Response/Progress/Benefit: [] Pt was an active participate AEB listening attentively to others, participating in group discussions, and taking notes throughout. Participated as the group identified ways we can hurt others or sabotage self by not regulating our emotions. Participated with peers to identified ways emotions impact communication which pt shared she can lash out when she is angry. Participated during group activity and took a role that was outside pt?s comfort zone. Pt benefited from session by gaining an increased understanding on the importance of managing emotions to improve daily functioning. Will continue IOP tx to prevent decompensation, improve daily functioning, and increase emotional regulation skills. Narrative Note: []
--- NOTE | 2023-10-25 11:10 | BH.SGPN.GN ---
Behaviors/Verbalizations/Mental Status: []Pt alert and oriented, casually dressed and fairly groomed. Eye contact good. Motor activity appropriate. Speech within normal limits. Affect congruent, mood euthymic. Thoughts linear, logical, no signs of hallucinations or delusions. Client Response/Progress/Benefit: [] Pt engaged in session AEB Pt listening attentively to peers and providing input. Attentive during psychoeducation on 4 zones of regulation. Pt able to identify feelings and behaviors for each zone. Pt identified coping skills one can use to support self in each zone. Identified being in the green zone today wants to stay in this zone, so she is going to go for a walk and be productive around the house when she gets home. ?Benefited from increased education on zones of regulation or stages of alertness for emotions and healthy coping skills to use for each zone. Will continue IOP tx to promote mood stability, increase use of healthy coping skills, and improve daily functioning. ? Narrative Note: []
--- NOTE | 2023-10-26 09:05 | BH.SGPN.GN ---
Behaviors/Verbalizations/Mental Status: [] Eye contact is good. Motor activity is appropriate. Appearance is casual. Speech is Appropriate. Mood is euthymic. Affect is full. Thoughts are linear and logical. No evidence of psychosis. Reviewed daily check in sheet and no reports of suicidal ideations or intent. Client Response/Progress/Benefit: [] Pt was an active participant in group discussions. Attentive. Daily symptom tracker notes 04/13 for depression and anxiety. According to pt she is more engaged and less isolative in the past few weeks. She is accomplishing tasks and challenges rather than avoiding them. Her anxiety and sleep have also improved. I want to do things. She reached out to friends to set up a dinner which is something she has not done in several months. Communicating assertively with and feels less overwhelmed and in more control of her upcoming move. Progress noted per pt report. Benefited from group support, encouragement, and feedback. Will continue in IOP to prevent decompensation, stabilize mood, increase healthy coping, and improve functioning. Narrative Note: []
--- NOTE | 2023-10-26 10:15 | BH.SGPN.GN ---
Behaviors/Verbalizations/Mental Status: []Pt alert and oriented, neatly dressed and groomed. Eye contact good. Motor activity appropriate. Speech within normal limits. Affect congruent, mood euthymic. Thoughts linear, logical, no signs of hallucinations or delusions. Client Response/Progress/Benefit: [] Pt responded well to session AEB sharing and listening attentively to others. Group identified types of social support (family, pets, professionals, spiritual, etc) and provided examples of benefits of having social support, including: decreased stress, increased self-esteem, encouragement, distraction, etc. Pt also participated in group discussion regarding the barriers to accessing support which pt stated she can isolate and withdrawn from support. Pt participated in experiential activity illustrating the impact communication, boundaries, and patience play in creating healthy support systems. Pt appeared to benefit from increased knowledge of the benefits of social support and greater self-awareness. Will continue IOP to reduce avoidance, improve emotional regulation skills, and improve daily functioning. ? Narrative Note: []
--- NOTE | 2023-10-26 11:15 | BH.SGPN.GN ---
Behaviors/Verbalizations/Mental Status: []Pt alert and oriented, neatly dressed and groomed. Eye contact good. Motor activity appropriate. Speech within normal limits. Affect congruent, mood euthymic. Thoughts linear, logical, no signs of hallucinations or delusions. Client Response/Progress/Benefit: [] Pt was an active participant throughout AEB contributing to discussion, providing personal examples, and taking notes. Pt processed emotions felt in the activity and how they coped in the moment. Pt provided input during discussion on the types of support our supports can provide. Pt able to identify current support system and barriers that get in the way of using supports by drawing out their own support net. Pt reported after identifying what type of supports they receive; they gained awareness that they could benefit from getting more social support. Pt plans to do this by getting back to the gym. ?Pt seemed to benefit from identifying the type of support Pt needs to work on improving. Pt recommended to continue IOP tx to reduce isolation, improve mood, and increase daily functioning. ? Narrative Note: []
--- NOTE | 2023-10-26 12:00 | BH.MDN ---
Multi-Disciplinary Note Note 30-min Individual: Time Started:: 12:00 Date: 10/26/23 Purpose of session/treatment goals addressed:: Reviewed progress and current symptoms. Pt's program therapist was out today. Requested that this therapist meet with client to discuss ongoing treatment goals. Eye Contact:: Good Motor Activity:: Appropriate Appearance:: Disheveled Speech:: Appropriate Mood:: Anxious Affect:: Congruent Thoughts:: Linear, Logical and No evidence of hallucinations/delusions noted Staff Interventions:: other (Relapse prevention skills) Client Response:: During the last individual session pt and therapist identified short-term goals which included; going to the gym, creating a list of what needs done prior to the move; sitting down with to develop plan; and throwing out the alcohol in her house. Pt did not follow up with going to the gym or throwing out the alcohol. She did however create a list and develop a plan with her to prepare for their upcoming move. Pt has also begun to make phone calls to secure help in clearing out a barn on her property. According to pt she is isolating less and is not avoiding challenges/tasks which has improved her overall mood and decreased feeling overwhelmed. Pt admits to relapsing on alcohol two days ago. States that she drank two beers. She could not recall the trigger or event which led to relapse. In talking with patient when she gets urge to drink she will convince herself that she has earned the drink, deserves it, and that it won't hurt anything. She states that she is good at convincing herself to drink. In order to combat this we worked on a tentative list of reasons not to drink (Health, kidney stones, isolation, avoidance, she avoids family, family avoids her due to her anger, etc.) which she agreed to elaborate on being as specific as possible. She agreed to review this list when she has an urge to consume alcohol. She also agreed to throw out the beer that has been in her house. Risks/Concerns:: Denies suicidal ideations, plan, or intent. No concerns noted Progress Toward Goals/Plan:: Progress noted per pt report. Decreased depression, isolation, and avoidance. She is completing tasks, communicating assertively with , and appears to be engaged in life. According to pt she believes that group support, medication changes, education, and consistent work on her mental health have been beneficial. On the other hand she continues to struggle with extended sobriety and relapse after 2 months sober. She admits that the trigger to relapse was small even to the point that she cannot recall it today. Today was focused on relapse prevention skills. Will continue in IOP to prevent decompensation, increase healthy coping, and improve functioning. Time Stopped:: 12:25
--- NOTE | 2023-10-29 09:05 | BH.SGPN.GN ---
Behaviors/Verbalizations/Mental Status: [] Eye contact is good. Motor activity is appropriate. Appearance is casual. Speech is Appropriate. Mood is euthymic. Affect is full. Thoughts are linear and logical. No evidence of psychosis. Reviewed daily check in sheet and no reports of suicidal ideations or intent. Client Response/Progress/Benefit: [] Pt was an active participant in group discussion. Attentive. Daily symptom tracker notes 2/5 for irritability. According to pt I feel pretty good. I'm getting back to my old self. Reports feeling positive with increased energy and motivation. Decreased isolation and avoidance. She had a family pizza constitution party yesterday and is also planning to go on a family getaway. I'm so much better than I was. She is fearful that she will regress and that progress will not be consistent. Peers reframed and challenged this thought emphasizing the effort she has made which was beneficial. Will continue in IOP to prevent decompensation, increase healthy coping, and improve functioning. Narrative Note: []
--- NOTE | 2023-10-29 10:15 | BH.SGPN.GN ---
Behaviors/Verbalizations/Mental Status: []Pt alert and oriented, neatly dressed and groomed. Eye contact good. Motor activity appropriate. Speech within normal limits. Affect congruent, mood calm. Thoughts linear, logical, no signs of hallucinations or delusions. Client Response/Progress/Benefit: [] Pt was attentive during psychoeducation and participated in group activity. Group discussed what contributes to a person?s perspective and how perspective can positively or negatively impact mental health treatment. Pt reflected on their perspective today and how it is impacting them. Pt shared their perspective today is ?hopeful and optimistic? today as pt ?feels like my old self.? Pt recognizes this perspective impacts her willingness to communicate and participate. Pt appeared to benefit from increasing awareness of different perspectives and how they can affect mental health. Pt will continue IOP tx to promote mood stability, increase interpersonal effectiveness skills, and improve daily functioning. ?? Narrative Note: []
--- NOTE | 2023-10-29 12:44 | BH.MDN ---
Multi-Disciplinary Note Note 45-min Individual: Time Started:: 11:15 Date: 10/29/23 Purpose of session/treatment goals addressed:: Purpose of session was to address goals 1 and 2 from MTP. Eye Contact:: Good Motor Activity:: Appropriate Appearance:: Casual Speech:: Appropriate Mood:: Euthymic Affect:: Congruent Thoughts:: Linear, Logical and No evidence of hallucinations/delusions noted Staff Interventions:: thought challenging, motivational interviewing, CBT techniques, strengths perspective, reviewed DSM-5, goal setting and taught coping skills Client Response:: Client reported she is doing better the last few days with feeling less depressed, finding herself laughing more, getting things done around the house, and maintaining sobriety since her relapse last week. Client stated she also is less irritable now that she has stopped drinking alcohol. Client stated she followed through with goal of making a list of what needs to be done to get their property ready in the next 2 years. Client reported she sat down with her after she made the list and he did take action on one of the steps discussed. Client stated now they are on hold for some of the other tasks because waiting on response from others. Client agreed with therapist it could be helpful if she made a list of things she can do on her own so she can feel a sense of accomplishment. Client stated she can find herself constantly focusing on what her isn't doing to help get things done and deflects from what she could be doing. Client reported she could start in the pantry of the kitchen. Client agreeable to make a list over the week on tasks she can work on independently. Client reflected on progress thus far in program and can note some improvement in mood, less agitation, getting more done, and starting to make decisions. Client agreed she has been struggling with follow through on getting back to the gym and not getting rid of alcohol in the home. Discussed potential consequences of continuing to keep alcohol in home. Client stated instead of making it to the gym she wants to focus on at least walking around her property. Risks/Concerns:: Denies suicidal ideation, plan, or intention to date. future oriented. Progress Toward Goals/Plan:: Progress noted with client reporting improved mood, decreased depression, decreased agitation, starting to make decisions, and started conversation about tasks to accomplish with . Client did have a relapse one day last week with alcohol, has been sober since. Encouraged pt to get all alcohol out of house, she states she is open to this but did not explicitly agree. Pt is to continue IOP to increase consistent use of healthy coping skills, challenge negative thoughts, and prevent decompensation. Time Stopped:: 12:00
--- NOTE | 2023-10-31 15:15 | BH.TPR ---
Treatment Plan Review Demographics Date of Admission:: 10/09/23 Date of Treatment Plan Review:: 10/31/23 Admitting Diagnoses:: 1. Major depressive disorder, recurrent, severe without psychosis F33.2 2. Generalized anxiety disorder 3. Alcohol use disorder 4. Primary support and housing issues Current Diagnoses:: 1. Major depressive disorder, recurrent, severe without psychosis F33.2 2. Generalized anxiety disorder 3. Alcohol use disorder 4. Primary support and housing issues Patient Status Patient's Response to Treatment:: Pt has responded well to treatment AEB consistent treatment attendance, improved engagement in group sessions, and engagement in individual sessions. Pt does struggle with follow through on some goals set in sessions. Status of Current Problems and Symptoms: Ongoing problems. Client has reported relapse on drinking alcohol last week when she drank 2 beers. Client reported she often can rationalize why it is okay to drink a couple of beers. Client recognizes she does not want to get back to how she was drinking daily and not eating. Client knows if she goes back to drinking daily she will cause more health issues and agitation. Client has reported recent decreased in depression and anxiety since she starting making plans on what projects need completed around the house. Client recently starting to identify tasks she can complete independently so she can see progress and feel accomplishment. Per DSM 5 client's mental health symptoms have decreased by 73%. Progress Problem #1: Problem Name:: Anxiety Status of Goals:: Obj 1- met, ongoing work encouraged. Client able to identify calming skills to include belly breathing, grounding, and being active. Client has reported use of skills to manage her anxiety, but could benefit from increased consistency. Obj 2 - ongoing work encouraged. Client is able to identify some anxiety triggers like lack of action around the house and not being active. Client has recently started to take some action with planning, but historically has struggled with follow through on goals. Team Recommendations:: Team recommends continue current goal and objectives with focus on maintaining sobriety, following through on plan to ready house/property for move, and continue discussing future plans for when they have to move. Team would like to see consistency in skills and mood improvement. Problem #2: Problem Name:: Depression Status of Goals:: Obj 1 - met. Client identifying healthy coping skills like opposite action, assertive communication, and getting out of the house. Client reporting starting to create plans on how to tackle her house/property has also improved her mood significantly. Obj 2 - met, ongoing work encouraged. Client able to catch her negative thinking more consistently and working on challenging thoughts. Client stated her reduced drinking of alcohol also has decreased negative perspective and attitude. Team Recommendations:: Team recommends continue current goal and objectives with focus on maintaining sobriety, following through on plan to ready house/property for move, and continue discussing future plans for when they have to move. Team would like to see consistency in skills and mood improvement.
--- NOTE | 2023-11-05 09:05 | BH.SGPN.GN ---
Behaviors/Verbalizations/Mental Status: [] Eye contact is good. Motor activity is appropriate. Appearance is casual. Speech is Appropriate. Mood is euthymic. Affect is full. Thoughts are linear and logical. No evidence of psychosis. Reviewed daily check in sheet and no reports of suicidal ideations or intent. Client Response/Progress/Benefit: [] Pt was an active participant in the group discussion. Attentive. Daily symptom tracker notes 04/13 for depression. Pt reports successful week. She spent last week with her daughter and granddaughters. She was social, engaged, and denied any significant struggles with mood management. Reports feeling more at ease. Significant improvement in the past weeks as she is not isolating, not drinking to self-medicate, and not feeling stuck/hopeless. She reports that she made another list last night of tasks and goals this week. Time to get back at it. Progress noted. Benefited from group support, encouragment, and feedback. Will continue in IOP to prevent decompensation, increase healthy coping, and improve functioning. Narrative Note: []
--- NOTE | 2023-11-05 10:15 | BH.SGPN.GN ---
Behaviors/Verbalizations/Mental Status: []Client alert and oriented, casually dressed and groomed. Eye contact good. Motor activity appropriate. Speech within normal limits. Affect congruent, mood euthymic. Thoughts linear, logical, no signs of hallucinations or delusions. Client Response/Progress/Benefit: []Pt was an active participant, AEB taking notes and providing input in group discussions and activities. Attentive during psychoeducation. Pt engaged during interactive discussion in which the group defined self-care and discussed its benefits. Group discussed barriers to engaging in self-care. Group members together came up with guilt, time, urge to put others first, not knowing what to do for self-care, and perception that its unproductive as barriers to engage in self care. Pt stated their personal barrier is ?convincing myself I have no time.? Pt participated in small groups where they worked to identified and challenged common self-care ?myths?. Benefited from increased awareness of self-care, its benefits, and the consequences of not utilizing self-care strategies. Will continue IOP tx to promote mood stability, maintain sobriety, and increase motivation. Narrative Note: []
--- NOTE | 2023-11-05 11:15 | BH.SGPN.GN ---
Behaviors/Verbalizations/Mental Status: [] Client alert and oriented, casually dressed and groomed. Eye contact good. Motor activity appropriate. Speech within normal limits. Affect congruent, mood content. Thoughts linear, logical, no signs of hallucinations or delusions. Client Response/Progress/Benefit: []Client engaged in discussion reviewing different areas of self-care and completing self-assessment of current self care, as well as providing input throughout discussion. Client completed worksheet identifying current self-care practices and what self-care activities client wants to start using. Client selected spiritual self-care to begin practicing more consistently. Client plans to do this by starting a regular yoga/meditation practice. Appeared to benefit from completing the self-care evaluation and gaining insights into current self-care practices, as well as identifying areas in which client would like to improve upon. Client will continue IOP tx to prevent decompensation and increase emotional regulation and behavior activation skills. Narrative Note: []
--- NOTE | 2023-11-07 09:00 | BH.SGPN.GN ---
Behaviors/Verbalizations/Mental Status: [] Eye contact good. Motor activity appropriate. Speech within normal limits. Affect congruent, mood content. Thoughts linear, logical, no signs of hallucinations or delusions. Reviewed client?s symptom tracker, denies SI, plan, or intent as of 11/07/2023. Client Response/Progress/Benefit: [] Client receptive of session, attentive and willing to process with group. Reports improved sx of anxiety ?(0/5) and depression (0/5) per daily sx tracker. ?Identified mental health ?madhav as successfully getting up earlier than usual this morning and realizing she was not dreading the day. Shared in the past she would feel overwhelmed by everything needing done, but instead today was able to focus on gratitude. Additional madhav noted as being able to communicate more calmly with her than she usually does. Attributes this to improved mood and reduced anxiety. Current stressor is a goal pt reports she has been procrastinating on. Did well to identify skills she can use to start working on this goal. Benefitted from encouragement and support of the group. Recommended continued IOP tx to further maintain mood stability, promote consistent skill application, well as prevent decompensation. Narrative Note: []
--- NOTE | 2023-11-07 10:10 | BH.SGPN.GN ---
Behaviors/Verbalizations/Mental Status: []Eye contact is good. Motor activity is appropriate. Appearance is causal. Speech is Appropriate. Mood is euthymic. Affect is congruent. Thoughts are linear and logical. No evidence of psychosis Client Response/Progress/Benefit: [] Pt was an active participant in group discussion and experiential activity. Attentive during psychoeducation on resilience. Participated during interactive discussion with peers on the definition of resilience. Able to relate experiential activity of group juggle to topics of resilience. Group worked together to identify what can impact one's ability to be resilient which included past experiences, trauma, toxic support system, lack of resources, and current mental/physical health state. Worked well with peers in small group in which they identified factors that contribute to building resilience. Pt?s group worked on the importance of move toward goals. Benefited from increased awareness of resilience and the factors that contribute to building resilience. Will continue in IOP to improve follow through on goals, challenge negative thoughts, and prevent decompensation.
--- NOTE | 2023-11-07 12:14 | PCM.BH.PN ---
Progress Note Progress Note: History of Present Illness/Interim History: The patient is an 78-year-old female with a history of depression, anxiety and alcohol use disorder who is seen in follow-up at the [facility]. I last saw the patient 1 month ago and at that time the patient refused naltrexone to help with alcohol cravings. She has a history of complications after kidney stone stent was inserted under anesthesia which resulted in the patient getting more depressed and then drinking excess alcohol. She ended up admitted to the hospital in September 2023 for medical admission with dehydration, low sodium, low potassium and poor nutrition. Patient states that she feels she is steadily improving and feels less depressed now than she did before. She has more energy and has more motivation also. She is isolating less often and her anxiety has also improved. She did relapse on at alcohol 1 times since 1 month ago and where she had 1 beer only 5 days ago. She does admit to still having daily alcohol cravings. She has not used any other alcohol or other drugs. 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 Marital issues with her also persist. She is no longer losing weight and her weight is back up to normal and stable at 127 pounds. She denies passive thoughts of , suicidal ideation, plan for suicide, homicidal ideation, hallucinations or delusions. Current Psychiatric Medications: [] Duloxetine 60 mg p.o. daily (dose increased 6 weeks ago) Mental Status Examination: [] The patient is a 78-year-old slender, female who appears younger than stated age and is casually dressed and groomed with good hygiene. She is ambulatory with a normal gait and has no psychomotor agitation or retardation. Eye contact is good and speech is normal rate and rhythm and fluent with no pressure. Mood is depressed but much less so. Affect is full and normal. Thought process is goal-directed and organized. Thought content: Patient is much more relaxed about her ongoing stressors. There is no evidence of passive thoughts of , suicidal ideation, homicidal ideation, hallucinations or delusions. Reality testing is intact. Judgment is intact. Insight is good. Impulsivity is moderate. Diagnoses: [] 1. Major depressive disorder, recurrent, severe without psychosis 2. Generalized anxiety disorder 3. Alcohol use disorder 4. Primary support and housing issues Plan: [] The patient will continue the IOP at [facility] as the structure, support, education and group therapy will hopefully prevent worsening of the patient's symptoms. She felt safe during the interview and if it anytime she does not feel safe she agrees to let us know or go to the emergency room. The patient is ready to try naltrexone now to decrease alcohol cravings as she understands the importance of remaining sober from alcohol. Prescription is sent in for naltrexone 50 mg p.o. daily. The risk, options, possible complications and side effects of the medications were again discussed with the patient and she understands and accepts these. She will continue to follow-up with her outpatient providers and I will see the patient in follow-up on a regular basis while she is in the IOP.
--- NOTE | 2023-11-07 15:54 | BH.MDN_ITS ---
Multi-Disciplinary Note Note 45-min Individual: Time Started:: 11:10 Date: 11/07/23 Purpose of session/treatment goals addressed:: Purpose of session was to address goals 1 and 2 from MTP. Eye Contact:: Good Motor Activity:: Appropriate Appearance:: Casual Speech:: Appropriate Mood:: Euthymic Affect:: Congruent Thoughts:: Linear, Logical and No evidence of hallucinations/delusions noted Staff Interventions:: thought challenging, CBT techniques, mindfulness skills, strengths perspective, goal setting and taught coping skills Client Response:: Client reported her trip with family to watch her granddaughter compete in [employer] competition went really well. Client stated she did a lot of walking which she enjoyed. Client reported she also focused on relaxation and self-care. Client reported she did have a relapse with having a beer while hanging out with her family one of the days. Client stated she only had one drink, but recognizes she needs to stop completely. Client reported she likes herself better when she isn't drinking alcohol. Client agreed today with IOP psychiatrist to take Vivitrol to help decrease alcohol cravings. Client stated since she's stopped drinking she has found herself to be less irritable, improved perspective, and has been finding it easier to be around her . Client shared she is thinking maybe the reason she had a hard time being around her was because of her alcohol use. Client stated in addition to not drinking she does think starting to develop a action plan for getting their property ready has also helped decrease some anxiety. Client reported she also has been doing better with challenging negative thoughts and perspective. Client stated today she noticed being able to get up in the morning and not dreading the day. Therapist provided psychoeducation about skills/strategies that can help with formation of habits. Client connected with idea of taking steps to make it easier for her to get back into the habit of walking at the gym. Client reported goal for tomorrow is to go to the gym. Discussed putting her walking shoes near her bedroom door could provide visual cue to go to the gym. Risks/Concerns:: Denies suicidal ideation, plan, or intention to date. Progress Toward Goals/Plan:: Decompensation noted with her sobriety AEB client reporting drinking a beer while with family. Client has agreed to start taking Vivitrol to help decrease her alcohol cravings. Progress can be noted with client following through on making a list of things she can do on their property to start preparing for their move in 2 years. Client has struggled with follow through with some of her goals from therapy. Plan is to focus on the goals that have been a struggle for her to complete. Plan is for client to continue IOP to improve follow through, challenge distortions, and prevent decompensation. Time Stopped:: 12:00
== END 2023-11-07 23:59 ==
LOC: BHIOP 08:00
PROVIDERS: PCP Nurse Practitioner Family; Referring Provider Psychiatry & Neurology Psychiatry; Visit Provider Psychiatry & Neurology Psychiatry
DX: F33.2 Major depressive disorder, recurrent severe without psychotic features (principal); F41.1 Generalized anxiety disorder; F10.90 Alcohol use, unspecified, uncomplicated; Z79.899 Other long term (current) drug therapy
CPT/HCPCS: S9480; 90832; 90834; 90837; 90853

== ENCOUNTER → 2023-10-22 | Outpatient (CLI) | payer MEDICARE, SELFPAY ==
[2023-10-22 15:29] LABS: Absolute Lymphocyte Count 1.66 X10^3/uL (0.83-4.51); Absolute Neutrophil Count 5.4 X10^3/uL (2.0-7.7); Basophil# 0.03 X10^3/uL; Basophil% 0.4 % (0-1); Eosinophil# 0.11 X10^3/uL; Eosinophils% 1.4 % (0-5); Hematocrit 40.6 % (37-47); Lymphocyte # 1.66 X10^3/ul (0.83-4.51); Lymphocyte % 21.3 % (19-41); Mean Corpuscular Hgb 31.3 pg (27.0-32.0); Mean Corpuscular Volume 97.6 fL (81-99); Monocyte% 7.7 % (0-10); NRBC Flagged by Analyzer 0 % (0-5); Neutrophil # 5.39 X10^3/uL (2.7-7.7); Neutrophil % 68.9 % (47-70); Platelet Count 353 K/mm3 (150-450); RBC Distribution Width CV 13.3 % (11.6-14.6); RBC Distribution Width SD 47.6 fl (35.1-43.9); Red Blood Count 4.16 M/mm3 (4.2-5.4); White Blood Count 7.8 K/mm3 (4.4-11.0)
[2023-10-22 16:30] LABS: ALB/GLOB Ratio 0.9 RATIO (0.9-2.4); AST(SGOT) 31 U/L (15-37); Alanine Aminotransfer ALT/SGPT 41 U/L (13-56); Albumin, Serum 3.6 g/dL (3.2-5.0); Alkaline Phosphatase 108 U/L (45-117); Anion Gap 8 (5-15); BUN 22 mg/dL (7-18); BUN/Creat Ratio 24.5 RATIO (10-20); Calcium,Total 9.4 mg/dL (8.5-10.1); Chloride 101 mmol/L (98-107); EST Glomerular Filtration Rate 64 mL/min (>60); Est Glom Filt Rate - Afr Amer 78 mL/min (>60); Globulin 3.9 g/dL (2.2-4.2); Glucose 105 mg/dL (74-106); Potassium 4.5 mmol/L (3.5-5.1); Protein, Total 7.5 g/dL (6.4-8.2); Sodium Level 133 mmol/L (136-145)
== END | disposition home or self-care (01) ==
PROVIDERS: PCP Nurse Practitioner Family; Referring Provider Internal Medicine Rheumatology; Visit Provider Internal Medicine Rheumatology
DX: M06.4 Inflammatory polyarthropathy (principal); Z79.899 Other long term (current) drug therapy; M19.041 Primary osteoarthritis, right hand; M18.11 Unilateral primary osteoarthritis of first carpometacarpal joint, right hand; M16.0 Bilateral primary osteoarthritis of hip
CPT/HCPCS: 36415; 80053; 85025

== ENCOUNTER 2023-11-08 07:14 | Outpatient (RCR) | payer MEDICARE, SELFPAY ==
[2023-11-08 00:50] VITALS: BP 148/76; PULSE 59
--- NOTE | 2023-11-13 09:00 | BH.SGPN.GN ---
Behaviors/Verbalizations/Mental Status: [] Eye contact good. Motor activity appropriate. Speech within normal limits. Affect congruent, mood content. Thoughts linear, logical, no signs of hallucinations or delusions. Reviewed client?s symptom tracker, denies SI, plan, or intent as of 11/13/2023. Client Response/Progress/Benefit: [] Client receptive of session, attentive and willing to process with group. Reports improved sx of depression?(0/5) but ongoing anxiety (0/5) per daily sx tracker. ?Identified mental health ?win as successfully continuing to say yes to things rather than continue to isolate. Shared she has been glad she is being more social as she is enjoying her time with her family. Additional win noted as an overall reduction in depressive sx. Stated that she feels this cycle of depression has been easier for her to manage and prevent symptoms for maintaining. Current stressor noted as a CT scan she had yesterday. Pt did not go into detail about this but noted wanting to focus on acceptance regardless of the results, as well as take time to focus on what's in her control moving forward. Benefitted from encouragement and support of the group. Recommended continued IOP tx to further maintain mood stability, promote ongoing consistent skill application, well as prevent decompensation. Narrative Note: []
--- NOTE | 2023-11-13 10:10 | BH.SGPN.GN ---
Behaviors/Verbalizations/Mental Status: []Eye contact is good. Motor activity is appropriate. Appearance is casual. Speech is Appropriate. Mood is content. Affect is congruent. Thoughts are linear and logical. No evidence of psychosis. Client Response/Progress/Benefit: [] Attentive and engaged throughout the group discussions. Attentive during psychoeducation on the 4 communication styles (Passive, Passive-Aggressive, Aggressive, and Assertive) and the obstacles to effective communication. Attentive during interactive discussion on the benefits of communicating effectively, as well as the benefits and disadvantages to the different communication styles. Reports connecting most with the assertive communication style now, but pt shared she used to be passive and ?just agree.? Pt has awareness that this style led to pt feeling frustrated. Benefited from increased understanding of communication styles and how these can impact effective communication. Will continue in IOP to promote mood stability, reinforce healthy coping skills, and further improve functioning. Narrative Note: []
--- NOTE | 2023-11-13 11:10 | BH.SGPN.GN ---
Behaviors/Verbalizations/Mental Status: []Pt alert and oriented, casually dressed. Eye contact fair. Motor activity appropriate. Speech within normal limits. Affect congruent, mood euthymic. Thoughts linear, logical, no signs of hallucinations or delusions. Client Response/Progress/Benefit: [] Pt responded well to session AEB Pt listening attentively to others and providing input during group discussion on the pay offs and costs of the different communication styles. Pt able to connect how current communication style impacts mental health. Connected with peers? comments about importance of using assertive communication. Pt did well with practicing being assertive in the group activity and worked with group to identify potential skills for improving communication skills. Pt seemed to benefit from increasing awareness of healthy strategies to improve communication. Will continue IOP tx to promote use of healthy coping skills, maintain boundaries, and prevent decompensation.
--- NOTE | 2023-11-15 10:10 | BH.SGPN.GN ---
Behaviors/Verbalizations/Mental Status: [] Eye contact is good. Motor activity is appropriate. Appearance is casual. Speech is Appropriate. Mood is content. Affect is congruent. Thoughts are linear and logical. No evidence of psychosis. Client Response/Progress/Benefit: [] Pt engaged participant AEB listening to others, engaging in activity, and providing feedback at times. Attentive during psychoeducation and provided insight into obstacles that impede mental wellness. Pt shared with group current mental health reality and desired mental health reality. Stating she would like to have more confidence in her ability to accomplish her goals before becoming overwhelmed by them, as well as improved distress tolerance. Identified barriers to desired reality include: poor communication, lack of motivation, and catastrophizing. Benefited from taking look at current mental health state and obstacles for progress. Pt to continue IOP tx to improve mood stability, increase confidence and coping application, and prevent decompensation. Narrative Note: []
--- NOTE | 2023-11-15 11:10 | BH.SGPN.GN ---
Behaviors/Verbalizations/Mental Status: [] Eye contact is good. Motor activity is appropriate. Appearance is casual. Speech is Appropriate. Mood is euthymic. Affect is congruent. Thoughts are linear and logical. No evidence of psychosis. Client Response/Progress/Benefit: [] Pt was an engaged participant in group discussion and activity. Worked with group to identify strategies to help overcome barriers and obstacles to desired reality. Group developed strategies for the common barriers. Identified personal barriers to desired reality and choose one obstacle to work. Pt stated she wants to work on barrier of motivation by starting with small goals and building on those, plans to start with clearing the loft. Pt seemed to benefit from increased repertoire of healthy coping skills/strategies to overcome common barriers to moving forward. Pt is to continue IOP to promote mood stability, and prevent decompensation. Narrative Note: []
--- NOTE | 2023-11-15 12:17 | BH.MDN_ITS ---
Multi-Disciplinary Note Note 45-min Individual: Time Started:: 09:15 Date: 11/15/23 Purpose of session/treatment goals addressed:: Purpose of session was to address goals 1 and 2 from MTP. Eye Contact:: Good Motor Activity:: Appropriate Appearance:: Casual Speech:: Appropriate Mood:: Euthymic Affect:: Congruent Thoughts:: Linear, Logical and No evidence of hallucinations/delusions noted Staff Interventions:: thought challenging, motivational interviewing, CBT techniques, discharge planning, strengths perspective and goal setting Client Response:: Client reported she had a positive time while in [place] with family for a equestrian event. Client stated she was able to do some walking over the weekend away which she recognizes is helping. Client reported she did have 1-2 beers a few times in the last week. Client stated she knows she wants to stop drinking alcohol, but does struggle when she is socializing with her family. 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 Client stated she isn't quite sure why she hasn't started the medication, but admits it might be because she's not ready to give it up. Client and therapist worked together to complete cost-benefit analysis of taking medication to decrease urges to drink alcohol. Client stated she did wear her gym clothes today so she can go walking at the gym after IOP today. Client reported she used skill of visual cue yesterday by laying out her walking pants last night so it would trigger her this morning to go to the gym. Client reported she also has not followed through with starting list of cleaning out the loft. Therapist provided psychoeducation about habit stacking. Encouraged client to stack a fun habit like listening to audiobooks while she is organizing/cleaning the loft. Therapist encouraged client to set a 15 minute timer and get as much as she can get done in that time frame done in the loft. Discussed importance of chunking tasks down to manageable parts. Reviewed assertive communication and encouraged client to talk with her again about doing a weekly check-in on how they are doing with their house projects to get ready to move from property. Risks/Concerns:: Denies suicidal ideation, plan, or intention. Progress Toward Goals/Plan:: Progress noted with client reporting improved mood, decreased anxiety, and starting to take action on preparing for her move from her property. Client has struggled with drinking beer when in a social setting. Client stated she no longer has beer in the home. Client reported she is open to starting the medication that helps reduce alcohol urges. Client noted she recognizes when she isn't drinking she is less irritable and improved mood. Plan is for client to discharge in two weeks from IOP. Client to continue IOP to increase healthy coping skills, challenge distortions, and prevent decompensation. Time Stopped:: 10:00
--- NOTE | 2023-11-19 09:05 | BH.SGPN.GN ---
Behaviors/Verbalizations/Mental Status: [] Client alert and oriented, casually dressed and groomed. Eye contact good. Motor activity appropriate. Speech within normal limits. Affect congruent, mood euthymic. Thoughts linear, logical, no signs of hallucinations or delusions. Reviewed client?s symptom tracker, no risk for suicidal ideation, plan, or intent as of 11/19/23. Client Response/Progress/Benefit: [] Client responded well to session, offering ideas to peers and providing encouragement. Client reports feeling calm this morning and is doing really well. Client discussed that she had a good weekend and was busy. Client reflected on progress and gave input throughout group as other group members shared. Client appeared to benefit from reflecting on her growth. Client will continue IOP tx as client continues to struggle with follow through with goals. Narrative Note: []
--- NOTE | 2023-11-19 10:10 | BH.SGPN.GN ---
Behaviors/Verbalizations/Mental Status: [] Pt alert and oriented, appropriate grooming/appearance. Eye contact good. Motor activity appropriate. Speech within normal limits. Affect congruent, mood content, euthymic. Thoughts linear, logical, no signs of hallucinations or delusions. Client Response/Progress/Benefit: [] Pt was an active participant in group discussions. Attentive during psychoeducation. Contributed during interactive discussions in which peers attempted to define crisis. Group identified examples of potential crisis. Group also worked together to identify unhealthy responses to crisis which included lashing out, isolation, self-harm, substance abuse, and shutting down. Pt identified personal warning signs as isolation, irritability/defensiveness, decreased appetite, and increased sleep. Benefited from increased understanding of crisis and awareness of personal responses to crisis. Pt will continue IOP tx to increase consistency of healthy coping skills, promote mood stability, and prevent decompensation. Narrative Note: []
--- NOTE | 2023-11-19 13:34 | BH.MDN_ITS ---
Multi-Disciplinary Note Note 45-min Individual: Time Started:: 11:05 Purpose of session/treatment goals addressed:: Purpose of session was to address goals 1 and 2 from MTP. Eye Contact:: Good Motor Activity:: Appropriate Appearance:: Neat Speech:: Appropriate Mood:: Euthymic Affect:: Full Thoughts:: Linear Staff Interventions:: thought challenging, CBT techniques, mindfulness skills, rapport building and strengths perspective Client Response:: Client reported her trip with family to watch her granddaughter compete in [employer] competition went really well. Client stated she did a lot of walking which she enjoyed. Client reported she also focused on relaxation and self-care. Client reported she did have a relapse with having a beer while hanging out with her family one of the days. Client stated she only had one drink, but recognizes she needs to stop completely. Client reported she likes herself better when she isn't drinking alcohol. Client agreed today with [facility] psychiatrist to take Vivitrol to help decrease alcohol cravings. Client stated since she's stopped drinking she has found herself to be less irritable, improved perspective, and has been finding it easier to be around her . Client shared she is thinking maybe the reason she had a hard time being around her was because of her alcohol use. Client stated in addition to not drinking she does think starting to develop a action plan for getting their property ready has also helped decrease some anxiety. Client reported she also has been doing better with challenging negative thoughts and perspective. Client stated today she noticed being able to get up in the morning and not dreading the day. Therapist provided psychoeducation about skills/strategies that can help with formation of habits. Client connected with idea of taking steps to make it easier for her to get back into the habit of walking at the gym. Client reported goal for tomorrow is to go to the gym. Discussed putting her walking shoes near her bedroom door could provide visual cue to go to the gym. Risks/Concerns:: Denies suicidal ideation, plan, or intention.
--- NOTE | 2023-11-19 13:34 | BH.MDN ---
Multi-Disciplinary Note Note 45-min Individual: Time Started:: 11:05 Date: 11/19/23 Purpose of session/treatment goals addressed:: Purpose of session was to address goals 1 and 2 from MTP. Eye Contact:: Good Motor Activity:: Appropriate Appearance:: Neat Speech:: Appropriate Mood:: Euthymic Affect:: Full Thoughts:: Linear Staff Interventions:: thought challenging, CBT techniques, mindfulness skills, rapport building and strengths perspective Client Response:: Client discussed progress towards goals she set from last session. Client indicated that overall her mood is better and she felt like she had a busy weekend, which she enjoyed. Client reported that she has not taken the Vivitrol yet with indicating that she has concerns on side effects and possible interactions with other medications. Client went on to discuss that another reason she did not take it was the possibility of it taking all her cravings away and that she enjoys to have one beer once in awhile, but knows that she should stop altogether. Client stated on having a beer in the past couple of days. Client discussed progress towards other goals made with indicating she did not go to the gym last week like she wanted, however, did go for long walks and felt very good after completing them. Client stated she feels like she is communicating better with her with continuing having intentional conversations with him each week. Client also reported she has made no progress on getting her property ready and reflected on thought processes that she has that lead to her avoidance. Client acknowledged desire to make changes, but frequently will talk herself out of taking steps, even when paired with a reward. Client made plan to identify positives of accomplishing tasks and having them written out for her to reflect on them. Risks/Concerns:: Denies suicidal ideation, plan, or intention. Progress Toward Goals/Plan:: Progress noted with client reported overall increased positive mood and better communication with . Client is continuing to struggle with follow through, but is motivated and has desire to accomplish goals. Plan is to continue on working towards goals and desired changes. Plan is for client to continue IOP to improve follow through, challenge distortions, and prevent decompensation. Time Stopped:: 11:50
--- NOTE | 2023-11-22 09:05 | BH.SGPN.GN ---
Behaviors/Verbalizations/Mental Status: [] Client alert and oriented, casually dressed and groomed. Eye contact good. Motor activity appropriate. Speech within normal limits. Affect congruent, mood euthymic. Thoughts linear, logical, no signs of hallucinations or delusions. Reviewed client?s symptom tracker, no risk for suicidal ideation, plan, or intent as of 11/22/23. Client Response/Progress/Benefit: [] Client responded well to session, offering ideas to peers and providing encouragement. Client reports feeling at ease this morning. Client discussed mental health win of starting to clean out her loft, something that she has been putting off for months. Client reflected that she was just in the right mindset and did it. Client also shared how yesterday she was with family and had a great time with lots of laughs. Client went on to say that even though getting some of the cleaning started was a win for her, it's still a constant stressor knowing how much work she has left to do. Client was receptive to encourage from other group members on being able to start the cleaning. Client appeared to benefit from reflecting on her growth. Client will continue IOP tx as Client continues to struggle with avoidance. Narrative Note: []
--- NOTE | 2023-11-22 10:10 | BH.SGPN.GN ---
Behaviors/Verbalizations/Mental Status: []Pt alert and oriented, neatly dressed and groomed. Eye contact good. Motor activity appropriate. Speech within normal limits. Affect congruent, mood euthymic. Thoughts linear, logical, no signs of hallucinations or delusions. Client Response/Progress/Benefit: []Pt was an active participant in group discussion. Attentive during psychoeducation on the CBT [place] (Thoughts, Behaviors, Emotions). Engaged in group discussion on how thoughts and behaviors can contribute to maintaining adverse feelings, such as depression, anxiety, and irritability. Completed worksheet in which pt identified a thought that is keeping them stuck or is in obstacle to increased mental wellness. The thoughts that pt identified were ?I?m worthless and others don?t care.? Shared this maintains depression and anxiety cycles. Pt benefited from increased awareness of the basis of CBT therapy as well as specific thoughts that are impacting pt's progress. Will continue in IOP to promote mood stability, increase distress tolerance, and reinforce healthy coping skills. Narrative Note: []
--- NOTE | 2023-11-22 11:10 | BH.SGPN.GN ---
Behaviors/Verbalizations/Mental Status: []Pt alert and oriented, neatly dressed and groomed. Eye contact good. Motor activity appropriate. Speech within normal limits. Affect congruent, mood euthymic. Thoughts linear, logical, no signs of hallucinations or delusions. Client Response/Progress/Benefit: [] Pt responded well to session, contributing to discussion and attentive throughout discussion. Pt identified a negative thought that has kept them stuck. Pt's thought was others don?t care.? Pt reported when they think this way, pt isolates and does not communicate with supports. Pt worked to reframe the thought by finding more rational, realistic ways to look at the thoughts and then processed them within group setting. Pt reframed the thought to ?I can remind myself that others do care.? Pt appeared to benefit from practicing challenging negative thinking with peers and gaining coping skills. Pt will continue IOP tx to promote mood stability, increase distress tolerance, and further increase self-confidence. Narrative Note: []
--- NOTE | 2023-11-26 09:05 | BH.SGPN.GN ---
Behaviors/Verbalizations/Mental Status: []Eye contact is good. Motor activity is appropriate. Appearance is casual. Speech is Appropriate. Mood is euthymic. Affect is full. Thoughts are linear and logical. No evidence of psychosis. Reviewed daily check in sheet and no reports of suicidal ideations or intent. Client Response/Progress/Benefit: []Pt responded well to session, attentive and engaged. Pt reports feeling satisfied this morning as pt shared she has been applying things she has learned in IOP. Pt has been feeling stable and she enjoyed time with family this weekend. Pt stated she has no big stressors to talk about today, but pt is still working on processing and coping with moving, but pt feels she is doing better with managing this. Pt was given encouragement and gentle thought challenging which pt reported she benefitted from this. Pt will continue IOP tx to reinforce healthy coping skills and establish aftercare plan. Narrative Note: []
--- NOTE | 2023-11-26 10:15 | BH.SGPN.GN ---
Behaviors/Verbalizations/Mental Status: [] Eye contact is good. Motor activity is appropriate. Appearance is casual. Speech is Appropriate. Mood is euthymic. Affect is congruent. Thoughts are linear and logical. No evidence of psychosis. Client Response/Progress/Benefit: [] Pt did well to participate in activity and was engaged and attentive during psychoeducation and interactive discussion on coping skills, why people use unhealthy coping skills, how to replace unhealthy coping skills, and internal vs external coping skills. Attentive as peers came up with list of negative coping skills including not asking for help, avoidance, isolating, sleeping, shopping, substance use, and several others. Pt stated I use escape and avoidance as unhealthy coping skills to deal with some of her struggles. Recognizes this doesn't help the situation. Group discussed the effects of how negative coping skills can impact mental health in a negative way. Benefited from increased understanding of unhealthy coping skills and the need for developing healthy internal and external coping skills. Will continue in IOP to maintain gains, increase use of healthy coping skills, and prevent decompensation.l
--- NOTE | 2023-11-26 11:15 | BH.SGPN.GN ---
Behaviors/Verbalizations/Mental Status: []Pt alert and oriented, casually dressed and groomed. Eye contact good. Motor activity appropriate. Speech within normal limits. Affect congruent, mood content. Thoughts linear, logical, no signs of hallucinations or delusions. Client Response/Progress/Benefit: [] Pt responded well to session, taking notes and contributing when prompted. Group discussed the different categories of coping skills which included distraction, emotional release, grounding, self-love, and thought challenging. Pt participated in creating a coping skills ?menu? from the five categories of coping skills. Pt's coping skill menu included: exercising, drawing, meditation, affirmations, and paying attention to her warning signs. Appeared to benefit from increasing repertoire of healthy coping skills. Will d/c tomorrow and continue in outpatient counseling to maintain mood stability and prevent decompensation. Narrative Note: []
--- NOTE | 2023-11-27 09:05 | BH.SGPN.GN ---
Behaviors/Verbalizations/Mental Status: [] Eye contact is good. Motor activity is appropriate. Appearance is casual. Speech is Appropriate. Mood is euthymic. Affect is full. Thoughts are linear and logical. No evidence of psychosis. Reviewed daily check in sheet and no reports of suicidal ideations or intent. Client Response/Progress/Benefit: [] Pt was an active participant in group discussions. Attentive. Shared with the group that today is her last day as she is set to successfully discharge from IOP today. States ? I?m back on track? and feels ?renewed?. Briefly shared her struggles prior to IOP and the progress that she has noticed. ? I?ve learned a lot about myself?. The biggest change she has noticed is that she is taking action rather than avoiding. Also reports increased awareness of cognitive distortions and her ability to challenge them. Benefited from group support, encouragement, and feedback. Will be discharged from [facility] today. Narrative Note: []
--- NOTE | 2023-11-27 10:10 | BH.SGPN.GN ---
Behaviors/Verbalizations/Mental Status: [] Eye contact is good. Motor activity is appropriate. Appearance is casual. Speech is Appropriate. Mood is content. Affect is congruent. Thoughts are linear and logical. No evidence of psychosis. Client Response/Progress/Benefit: [] Client receptive to session AEB listening attentively to others and taking notes. Pt attentive and contributing throughout psychoeducation on the cognitive triangle and maintenance cycles. Actively engaged during group discussion reviewing the impact of daily activities and behaviors in either reinforcing unhealthy maintenance cycles and depression or assisting in reducing symptoms (?down? vs ?up? activities). Client identified personal ?down? activities they engage in as: isolating, neg. self-talk, not eating. Attentive during discussion on Common ?Up? activities client identified theirs to include: sunlight, hydration, movement. Appeared to benefit from increased awareness of current behaviors and impact these have on mental health. Will continue d/c from IOP and continue in outpatient counseling to stabilize mood, prevent decompensation. Narrative Note: []
--- NOTE | 2023-11-27 11:10 | BH.SGPN.GN ---
Behaviors/Verbalizations/Mental Status: []Eye contact is good. Motor activity is appropriate. Appearance is neat. Speech is Appropriate. Mood is euthymic. Affect is full. Thoughts are linear and logical. No evidence of psychosis. Client Response/Progress/Benefit: [] Pt responded well to session, attentive and engaged in group discussions and activity. Group discussed values and the benefits that knowing one's values can have on one's mental health. Pt explored own values and identified personal top values. Pt stated a personally important value is family. ?Pt set a goal to spend quality time with her grandkids. Pt also reported benefitting from the activity and the group encouragement today. Will discharge from IOP tx as pt has accomplished her tx goals. Narrative Note: []
--- NOTE | 2023-11-27 13:53 | BH.MDN ---
Multi-Disciplinary Note Note 45-min Individual: Time Started:: 12:05 Date: 11/27/23 Purpose of session/treatment goals addressed:: Purpose of session was to review treatment progress, complete maintenance plan, and solidify aftercare plans. Eye Contact:: Good Motor Activity:: Appropriate Appearance:: Casual Speech:: Appropriate Mood:: Euthymic Affect:: Full Thoughts:: Linear, Logical and No evidence of hallucinations/delusions noted Staff Interventions:: CBT techniques, discharge planning, strengths perspective, reviewed DSM-5 and other (completed maintenance plan) Client Response:: Client reported she did not see progress in herself since starting IOP with improved decision making, decreased anxiety, decreased alcohol consumption, and decrease isolation. Client stated throughout the time in IOP she was able to get out and spend more time with her family by going to various events instead of just sitting at home either on her deck or in her house doing not much of anything. Client stated she does feel like she has more of a direction on how to tackle getting their property ready for moving out eventually. Client states she recognizes there are things she needs to continually work on liking improving and following through and focusing on what is within her control. Client stated when she first started the program she really had no direction and felt overwhelmed by the entire process but now still knows she has a lot to do but has a tentative plan. Client stated she has also been doing better with being more direct and assertive with her instead of just being frustrated and ignoring him. Client worked with therapist to complete maintenance plan in which she identified triggers, warning signs, self-care activities, and healthy coping skills. Client stated she also is open to starting the [facility] aftercare program because she thinks the support would be good for her. Risks/Concerns:: Denies suicidal ideation, plan, intention. Future oriented. Progress Toward Goals/Plan:: Per client's DSM 5 cross-cutting measure at discharge client's depression decreased by 72%, anxiety decreased by 67%, and overall mental health symptoms decreased by 85%. Client has started making some decisions in regards to getting their house/property ready to move. This indicates progress because prior to IOP her anxiety about what to do paralyzed her decision making skills. Client was using alcohol as a way to self medicate for numerous psychosocial stressors. Although client hasn't completing stopped drinking alcohol her use has significantly decreased. Client was drinking 4-6 beers daily prior to IOP. Client reports usually having 1-2 beers when socializing with family. Client states a couple times of drinking one beer when on her own. Client able to see significant difference in her mood since cutting back on her drinking. Client reports decrease in agitation and improved outlook on life. Client is waiting to hear back from Xuan from [facility] to get established with individual counseling. Client is established with Adela Montoya for medication management. Client will start [facility] Aftercare Program in two weeks. Time Stopped:: 12:45
--- NOTE | 2023-11-27 13:54 | BH.DS_ITS ---
Discharge Summary Demographics Date of Admission:: 10/09/23 Discharge Date: 11/27/23 Presenting Problems at Admission:: The patient is an 78-year-old female with a history of depression, anxiety and alcohol use disorder who was referred to the [facility] behavioral health IOP by her primary care doctor for worsening symptoms of depression, anxiety. The patient is known to us as she did the IOP in 2019. The patient states that her depression and anxiety worsened about 6 weeks ago after she had complications after a kidney stone stent inserted in her ureter. The worsening medical issues and the stress from recently selling their [address] acre property because of the deterioration in her mental health. Patient states when I get depressed I drink more alcohol and she admits to drinking 4-6 beers a day instead of eating most of her meals. This resulted in her being admitted to the hospital for medical admission from September 16 to September 18 where she presented with dehydration, low sodium, low potassium and diminished nutrition. She admits to sadness, worry, avoidance. The patient is currently worried because she has continued chronic marital issues with her who she says is almost a hoarder and she feels it can be very hard to clear their house out in order to move. She has been sober from alcohol for 2 weeks and she admits to cravings but no withdrawal symptoms. She is worried about where they will live after they move from their current property because this is a big change in their life. Discharge Diagnoses:: 1. Major depressive disorder, recurrent, severe without psychosis F33.2 2. Generalized anxiety disorder 3. Alcohol use disorder Reason for Discharge:: client has shown significant treatment progress and no longer meets criteria for IOP level of care. Treatment Progress During Treatment & Response: Per client's DSM 5 cross-cutting measure at discharge client's depression decreased by 72%, anxiety decreased by 67%, and overall mental health symptoms decreased by 85%. Client has started making some decisions in regards to getting their house/property ready to move. This indicates progress because prior to IOP her anxiety about what to do paralyzed her decision making skills. Client was using alcohol as a way to self medicate for numerous psychosocial stressors. Although client hasn't completing stopped drinking alcohol her use has significantly decreased. Client was drinking 4-6 beers daily prior to IOP. Client reports usually having 1-2 beers when socializing with family. Client states a couple times of drinking one beer when on her own. Client able to see significant difference in her mood since cutting back on her drinking. Client reports decrease in agitation and improved outlook on life. Issues Still to be Addressed:: Client could benefit from continued reinforcement of healthy coping skills, processing the loss of moving from her house/property that she's been on for majority of her life, and continued work on sticking with her goals to move forward. Discharge Recommendations/Instructions:: Client is waiting to hear back from Xuan from [facility] to get established with individual counseling. Client is established with Adela Montoya for medication management. Client will start [facility] Aftercare Program in two weeks. Discharge Handout
== END 2023-11-27 12:50 | disposition home or self-care (01) ==
LOC: BHIOP 07:14
PROVIDERS: PCP Nurse Practitioner Family; Referring Provider Psychiatry & Neurology Psychiatry; Visit Provider Psychiatry & Neurology Psychiatry
DX: F33.2 Major depressive disorder, recurrent severe without psychotic features (principal); F41.1 Generalized anxiety disorder; F10.91 Alcohol use, unspecified, in remission
CPT/HCPCS: S9480; 90834; 90853

== ENCOUNTER → 2023-11-12 | Outpatient (CLI) | payer MEDICARE, SELFPAY ==
--- NOTE | 2023-11-12 15:46 | CT_ITS ---
STUDY: CT CHEST WITHOUT CONTRAST REASON FOR EXAM: Female, 78 years old. Lung Nodule RADIATION DOSAGE (If Supplied By Facility): CTDIvol = ( 6.22 ) mGy, DLP = ( 220.63 ) mGycm TECHNIQUE: Transaxial imaging was performed without the administration of intravenous contrast material. Multiplanar coronal and sagittal images were reformatted. Individualized dose optimization techniques were used for this CT. COMPARISON: Comparison is made with prior study August 28, 2023. FINDINGS: CHEST Focal scarring in the right lung apex. Stable appearance of the 2.4 cm irregular partially cavitated nodule with irregular berry and spiculation in the right middle lobe as seen on axial image #73. Correlation with the PET scan is recommended. Stable 5 mm nodule seen in the lateral aspect of the right lower lobe as seen on axial image #71 and 72. Hyperinflation and mild degree of the emphysema. There are calcifications of the coronary arteries. There are multiple small lymph nodes within the mediastinum, which are normal in size and morphology most compatible with reactive lymph hyperplasia. Normal hilar regions. Normal unenhanced pulmonary arteries. There is atherosclerotic calcification of the aortic arch with tortuosity and elongation of the aortic arch and descending thoracic aorta. There are multi-level degenerative changes of the thoracic spine. There is no demonstrated abnormality of the visualized upper abdomen. CT/Chest without Contrast IMPRESSION: Essentially stable examination with a complex cystic and irregular nodule in the impression aspect of the right middle lobe. Correlation with a PET scan is recommended for further evaluation. Electronically Signed: Dimitry Franco MD at 9:22 EDT ,
== END | disposition home or self-care (01) ==
LOC: CT 15:45
PROVIDERS: PCP Nurse Practitioner Family; Referring Provider Internal Medicine Critical Care Medicine; Visit Provider Internal Medicine Critical Care Medicine
DX: R91.1 Solitary pulmonary nodule (principal)
CPT/HCPCS: 71250

== ENCOUNTER 2023-12-13 14:08 | Outpatient (RCR) | payer MEDICARE, SELFPAY ==
--- NOTE | 2023-12-13 14:00 | BH.SGPN.GN ---
Behaviors/Verbalizations/Mental Status: []Pt alert and oriented, casually dressed and groomed. Eye contact good. Motor activity appropriate. Speech within normal limits. Affect congruent, mood content. Thoughts linear, logical, no signs of hallucinations or delusions. Client Response/Progress/Benefit: [] Pt receptive of session, engaged throughout. Pt shared she has appointments scheduled with outpatient therapist and has been consistent with meds. Reports the coping skills used throughout the week included: acceptance, sitting with the uncomfortable, reduced isolation, and thought challenging. Receptive of discussion on the three components of the Wellness [place] (social, mental health, and physical) and the importance of balancing each of these areas. Pt contributed to the discussion on the variables impacting each area of wellness including: biology, environment, attitude, behavior, technology, and social support network. Completed an assessment reviewing personal wellness in each pillar of the wellness triangle. Identified wanting to work on mental wellness by challenging herself to improve communication and express her needs with supports daily. Pt seemed to benefit from support from peers and increasing understanding of the relationship between different areas of wellness. Will remain in the aftercare program to maintain gain and prevent decompensation. Narrative Note: []
--- NOTE | 2023-12-13 14:33 | BH.MTP_ITS ---
Master Treatment Plan Patient Information Program Physician:: Dr. Worthington Primary Therapist:: Angella Guzman [facility] Psychiatric Diagnoses Psychiatric Diagnoses:: 1. Major depressive disorder, recurrent, severe without psychosis 2. Generalized anxiety disorder 3. Alcohol use disorder Diagnosis Code(s):: F33.2 Estimated LOS Estimated LOS (in weeks):: 6 Problem/Goal #1 Problem/Goal #1 Stated Goal:: client will maintain or see a reduction in symptoms AEB client score on the DSM 5 cross-cutting measure and improve client's daily functioning. Objectives Objective #1: Stated Objective: Client will continue to consistently apply healthy coping skills to maintain progress made in IOP tx. Interventions: Through group therapy, client will review warning signs and triggers as well as healthy coping skills learned in IOP tx to successfully maintain gains while transitioning into outpatient therapy. Discharge Criteria: Client will have accomplished this goal when client's score on the DSM-5 cross-cutting measure has maintained or reduced over a 8 week period. Target Date: 02/07/24 Review Date: 01/10/24 Objective #2: Stated Objective: Client will learn and utilize 2-3 maintenance strategies to prevent decompensation from original IOP DSM-5 scores. Interventions: Through group therapy, client will be provided with education on healthy maintenance behaviors, relapse prevention techniques, and healthy coping strategies. Discharge Criteria: Client will have accomplished this goal when can report using at least 2 maintenance skills to prevent decompensation compared to original IOP DSM-5 scores. Target Date: 02/07/24 Review Date: 01/10/24
--- NOTE | 2023-12-27 14:00 | BH.SGPN.GN ---
Behaviors/Verbalizations/Mental Status: []Pt alert and oriented, casually dressed. Eye contact good. Motor activity appropriate. Speech within normal limits. Affect congruent, mood euthymic. Thoughts linear, logical, no signs of hallucinations or delusions. Client Response/Progress/Benefit: []Pt receptive of session, engaged and providing supportive feedback throughout group. Pt reports being consistent with medications, but pt has not found a therapist yet. Pt shared using coping skills this week including pausing before reacting and using calming skills. Pt engaged in the discussion about self-love and participated in the experiential activity that highlighted the acceptance component of self-love. Pt responded well to discussion of self-acceptance and ?no bad parts? and pt wants to work on reflecting on goals and dreams she has accomplished. Seemed to benefit from reviewing treatment progress and strategies for managing current stressors, as well as learning about how to increase self-love. Pt to continue IOP aftercare tx to promote mood stability, reinforce gains made in IOP, and review coping skills from IOP. Narrative Note: []
== END 2024-01-07 23:59 ==
LOC: BHOG 14:08
PROVIDERS: PCP Nurse Practitioner Family; Visit Provider Psychiatry & Neurology Psychiatry
DX: F33.2 Major depressive disorder, recurrent severe without psychotic features (principal); F41.1 Generalized anxiety disorder; F10.90 Alcohol use, unspecified, uncomplicated
CPT/HCPCS: 90853

== ENCOUNTER → 2023-12-18 | Outpatient (CLI) | payer MEDICARE, SELFPAY ==
--- NOTE | 2023-12-18 11:30 | PET_ITS ---
EXAMINATION: FDG PET-CT INDICATIONS: An 78-year-old female with history of abnormal findings in the lung field-pulmonary nodularity. COMPARISON EXAMINATION: CT of the chest dated 11/12/23 INDEX LESION SIZE SUV INTERPRETATION Right lung field, right middle lobe 12.6-mm 2.9 Quantitative criteria for viable neoplasm are fulfilled, histopathologic analysis recommended TECHNIQUE: Following the intravenous administration of 12.3 mCi of F-18 deoxyglucose via the right antecubital fossa, multiplanar image acquisitions of the neck, chest, abdomen and pelvis to level of mid thigh, obtained at one hour post radiopharmaceutical administration contemporaneously interpreted with the current CT of the neck, chest, abdomen and pelvis, to level of mid thigh, dated 12/18/[address] of the chest dated 11/12/23 reveals: BLOOD GLUCOSE LEVEL:?? 99 mg/dl?HEIGHT:?63 inches?WEIGHT: 128 lbs. FINDINGS: HEAD/NECK: There is no evidence of abnormal increased glucose metabolism in the pharyngeal mucosal space, parapharyngeal space, bilateral-lateral and anterior neck, hypopharynx and distribution of the laryngeal structures. The visualized portion of the cerebral cortical-subcortical structures demonstrate symmetric and preserved glucose metabolism. CHEST: Radiopharmaceutical concentration is noted in the right lower lateral lung zone, right middle lobe. The calculated maximal standard uptake value is 2.9. The maximal axial diameter of the metabolic, morphologic abnormality is 12.6-mm. Pertinent chest CT findings are as follows. There is atherosclerotic calcification defined in the thoracic aorta without evidence of dilatation-aneurysm formation. Coronary arterial calcification is observed. Right and left axillary soft tissue densities are non-glucose avid. Emphysematous changes are defined in the bilateral upper-mid lung zones. ABDOMEN/PELVIS: Normal physiologic distribution of the radiopharmaceutical is apparent in the hepatic (3.5) and splenic parenchyma, both renal units, bladder and visualized intestinal tract. The abdomen and pelvis CT findings are as follows. Calcified granuloma formation is noted in the splenic parenchyma. Cyst formation is defined in the left adnexal region. There is atherosclerotic calcification defined in the abdominal aorta without evidence of dilatation-aneurysm formation. Pelvic arterial calcification is observed. SKELETAL: Degenerative changes are noted in the cervical, thoracic and lumbar spine without evidence of increased radiopharmaceutical concentration. PET/PET/CT Tumor Base -Thigh Init IMPRESSION: 1. Facilitated FDG concentration noted in the right lung, right middle lobe, fulfills quantitative criteria for viable neoplasm with single point technique. Histopathologic analysis is recommended. 2. No other quantitatively significant hypermetabolic abnormalities are noted. Electronic Signature Jacob Higgins D.O. Accurate Quantification of SUVs for this report are calculated using the exclusive [employer], ([place] Patent No. [id number] [phone] [place] patent [phone] ). Standardization and correction of the FDG SUV metric exclusively available with [employer] intellectual property, allow for vendor non-specific objective quantitative sequential FDG PET-CT comparison and otherwise unobtainable optimization of the sensitivity and specificity of the examination. [email or web address] Electronically Signed: Jacob Higgins DO at 8:25 EDT ,
== END | disposition home or self-care (01) ==
LOC: ONC 11:37
PROVIDERS: PCP Nurse Practitioner Family; Referring Provider Nurse Practitioner Acute Care; Visit Provider Nurse Practitioner Acute Care
DX: R91.1 Solitary pulmonary nodule (principal)
CPT/HCPCS: 78815; A9552

== ENCOUNTER → 2023-12-25 | Outpatient (CLI) | payer MEDICARE, SELFPAY ==
[2023-12-25 09:19] LABS: Platelet Count 357 K/mm3 (150-450)
[2023-12-25 09:56] LABS: Partial Thromboplast Time 27.6 Seconds (24.1-36.2)
== END | disposition home or self-care (01) ==
LOC: LAB 08:53
PROVIDERS: PCP Nurse Practitioner Family; Referring Provider Nurse Practitioner Acute Care; Visit Provider Nurse Practitioner Acute Care
DX: I48.91 Unspecified atrial fibrillation (principal); K22.70 Barrett's esophagus without dysplasia; R06.00 Dyspnea, unspecified
CPT/HCPCS: 36415; 85049; 85610; 85730

== ENCOUNTER 2024-01-08 08:06 | Outpatient (RCR) | payer MEDICARE, SELFPAY ==
--- NOTE | 2024-01-31 14:40 | BH.DS_ITS ---
Discharge Summary Demographics Date of Admission:: 12/13/23 Discharge Date: 01/31/24 Presenting Problems at Admission:: Pt discharged from [facility] tx and transitioned to [facility] aftercare to maintain gains pt made in IOP and to reinforce healthy coping skills. At admission to [facility] aftercare, pt continued to report mild symptoms of depression and anxiety, but of reduced intensity. Pt had psychosocial stressors of coping with selling their house and [address] property and trying to com municate openly with her about plans to keep moving forward with getting the house ready. Discharge Diagnoses:: 1. Major depressive disorder, recurrent, severe without psychosis F33.2 2. Generalized anxiety disorder 3. Alcohol use disorder Reason for Discharge:: Client has been diagnosed with a medical illness that will require her to attend numerous appointments each week. As a result client stated she feels like it is in her best interest to discharge from aftercare program at this time. Treatment Progress During Treatment & Response: Progress noted with client reporting continuing to use her healthy coping skills, challenging negative thoughts, and making steps to work on different projects at home. Client continuing to work on openly communicating with her , which she has admitted can be difficult for her. Client continues to report optimistic outlook, improved mood, and decreased anxiety. Client did not although this new medical diagnosis is anxiety provoking she does feel like it's early enough to treat. Issues Still to be Addressed:: Client could benefit from support with processing new medical diagnosis. Continued work on openly communicating with , identifying tasks/projects she can tackle at home, and challenging distortions. Discharge Recommendations/Instructions:: Client is established with Xuan at [facility] for counseling and she sees Adela Collado for medication management. Discharge Handout
== END 2024-01-31 09:25 | disposition home or self-care (01) ==
LOC: BHOG 08:06
PROVIDERS: PCP Nurse Practitioner Family; Visit Provider Psychiatry & Neurology Psychiatry
DX: F33.2 Major depressive disorder, recurrent severe without psychotic features (principal); F41.1 Generalized anxiety disorder; F10.90 Alcohol use, unspecified, uncomplicated; Z79.899 Other long term (current) drug therapy

== ENCOUNTER → 2024-01-10 | Outpatient (CLI) | payer MEDICARE, SELFPAY ==
[2024-01-10] VITALS (17 sets, daily range): BP systolic 106–146; BP diastolic 64–78; PULSE 61–65; RESP 12–18; TEMP 36.6; O2SAT 94–100; BMI 22.1
--- NOTE | 2024-01-10 | IMM_PTH ---
PATIENT: RORY MALDONADO LOC: CT U#:[id number] AGE/SX: 78/F ROOM: RE01/10/[address]: BUNNY Valentine : 1945 BED: DIS: 01/10/2024 SPEC #: [id number] RECD: 01/11/24 10:04 STATUS: JUNO REQ #: [id number] GRACY: 01/10/24 00:[address]: Raquel Spears NP DEPT: IMMUNOHISTOCHEMISTRY RECD BY: Andrea Aquino ENTERED: 01/11/24 10:05 SP TYPE: IMMUNO OTHR DR: BUNNY Asencio Tissues: Lung, NOS Procedures: RCC (add) NAPSIN A (add) CK20 (add) CK5-6 (add) CK7 (add) CK8 (add) HEP PAR (add) TN (add) TTF1 (add) Pankeratin (add) P40 (add) ER (initial) PHYSICIAN & [address] [address] SPECIMEN INFORMATION: Tissue Source: Right middle lobe lung biopsy Clinical Info: Mass of middle lobe of right lung Specimen Number: [id number] CPT code: 00372,[id number] METHODOLOGY: Deparaffinized sections of prefer/formalin-fixed tissue or PAP/DQ stained slides are incubated with monoclonal/polyclonal antibodies/oligonucleotide probes. Localization is made via biotin free immunoperoxidase method. Appropriate controls are performed and reacted as expected. Results on target cell population are indicated in the following table: RESULTS: ANTIBODY / CLONE RESULT ER (6F11) negative TN (1E2) negative AE1-3 (AE1/AE3/PCK26) positive CK7 (OV-TL12/30) positive CK8 (84dmdnB36) positive CK20 (KS20.8) negative TTF-1 (8G7G3/1) positive Napsin A (Rabbit Polyclonal) positive HepPar (OCh1E5) negative RCC (PN-15) negative CK5-6 (D5 & 1684) negative P40 (BC28) negative These tests were developed and their performance characteristics determined by [facility]. They may not have been cleared or approved by the U.S. Food and Drug Administration. The FDA has determined that such clearance or approval is not necessary. The above immunohistochemical/dualISH markers are ordered and reviewed by the Pathologist. INTERPRETATION: Right middle lobe lung, CT guided core biopsy: Well differentiated adenocarcinoma, bronchioloalveolar type. See comment. Comment: IHC profile favors lung primary. SJ/mr 01/14/2024
[2024-01-10] MEDS: 0.9% Normal Saline (250mL Bag) 250 ML 15 ML IV (09:57)
[2024-01-10] MEDS: Midazolam 2 MG/2 ML Syringe IV ×2 (09:57→10:05)
[2024-01-10] MEDS: fentaNYL 100 MCG/2 ML Ampul IV (09:58)
[2024-01-10] MEDS: Lidocaine 2% (20 ml mdv) 20 ML Vial INFILT (10:07)
--- NOTE | 2024-01-10 10:15 | ASPIGT_PTH ---
PATIENT: RORY MALDONADO LOC: [place] U#:[id number] AGE/SX: 78/F ROOM: RE01/10/[address]: BUNNY Valentine : 1945 BED: DIS: 01/10/2024 SPEC #: [id number] RECD: 01/10/24 10:30 STATUS: JUNO RELuca #: [id number] GRACY: 01/10/24 10:[address]: Raquel Spears NP DEPT: SURGICAL PATHOLOGY RECD BY: Eduarda Valadez ENTERED: 01/10/24 10:42 SP TYPE: ASP RAD OTHR DR: BUNNY Asencio Tissues: Lung, NOS Procedures: FNA Specimen Adequacy Special Stain Group II Surgery Specimen Level IV Imprint (control) HEADER OPERATION: CT guided right middle lobe lung biopsy PRE-OP DIAGNOSIS: Mass of middle lobe of right lung TISSUE SUBMITTED: 20 gauge x 6 cores MICROSCOPIC DIAGNOSIS Right middle lobe lung, CT guided core biopsy: Well differentiated adenocarcinoma, bronchioloalveolar type. See note. NOTE: Immunohistochemistry ([id number]) supports the above diagnosis and favors lung primary. See comment. 01/11/2024 COMMENT The specimen is evaluated at the time of biopsy by Dr. Wilson. Immediate Evaluation = Atypical cells noted. Molecular studies on the tumor can be performed if clinically indicated. Please notify the laboratory if it is needed. MICROSCOPIC DESCRIPTION Slides are reviewed. GROSS DESCRIPTION Received in fixative is one container labeled with the patient's name and designated Right lung. The specimen consists of multiple irregular fragments of berrios soft tissue that in aggregate measure 1.5 x 0.1 x 0.1 cm. The specimen is totally submitted in one cassette. 01/10/2024 TC:0 CPT:57173,19805
--- NOTE | 2024-01-10 10:30 | RAD_ITS ---
STUDY: X-RAY CHEST REASON FOR EXAM: Female, 78 years old. Post lung biopsy -- Immediately post lung biopsy TECHNIQUE: AP inspiration and expiration views. COMPARISON: None. FINDINGS: The patient is status post right lung biopsy. There is a tiny right apical pneumothorax. RAD/Chest Insp/Exp 2 View IMPRESSION: There is a tiny right apical pneumothorax. The patient is asymptomatic. Electronically Signed: Dimitry Franco MD at 10:52 EDT ,
--- NOTE | 2024-01-10 10:31 | PCM.OP.PRO ---
Procedure Report Date of Procedure: 01/10/24 Assessment & Plan Assessment/Plan (1) Mass of middle lobe of right lung: PLAN: PROCEDURE: CT GUIDED CORE NEEDLE LUNG BIOPSY ORDERING PROVIDER: Raquel Spears CNP INDICATION: Female, 78 years old. Mass of middle lobe of right lung. PROVIDER: RODDY Adorno CONSENT: Written informed consent was obtained having explained the risks, benefits and alternatives in detail with the patient who accepted the risks and agreed to proceed. Laboratory review and clinical assessment was performed. PRE-PROCEDURE SEDATION ASSESSMENT: Current history and physical dictated by referring physician and reviewed. No clinical changes since date of exam. Patient has a Mallampati Score of Class 1 and ASA Class of 2. PROCEDURAL SEDATION PROTOCOL: The Drugs used were: 2 mg Versed, IV, and 50 mcg Fentanyl, IV. The sedation time was: 28 minutes, starting at 9:57 AM and terminated at 10:25 AM. The procedural sedation protocol was independently monitored by the department nurse. RADIATION DOSAGE (Supplied By Facility): CTDIvol = 18.16 mGy, DLP = 416.71 mGycm Individualized dose optimization techniques were used for this CT. TECHNIQUE: The patient was placed in a supine position. A noncontrast CT was performed to localize the lesion in the middle lobe of the right lung. The skin surface was prepped with chlorhexidine and draped in a sterile fashion. 2% lidocaine was used for local anesthesia. Using CT guidance, a 20-gauge coaxial biopsy device was advanced to the periphery of the lesion. A total of 6 core specimens were obtained. Specimens were microscopically reviewed by pathology in the CT suite and placed in formalin solution. BioSentry tract sealant system was deployed at the biopsy site, and the biopsy needle was removed. A sterile occlusive dressing was applied to the biopsy site. The patient tolerated the procedure well. An immediate chest xray was ordered, per protocol. A negative biopsy does not exclude malignancy. Further imaging or clinical followup based on patient condition and degree of clinical suspicion for malignancy. Suggest rebiopsy, if biopsy results do not match with clinical scenario. IMPRESSION: CT directed core needle biopsy of right middle lobe mass using CT image guidance with image documentation as described. Pathology results are pending. Procedural Sedation protocol utilized with independent monitoring by the department nurse. Procedures Radiology Radiology CT Procedures: 14228 Biopsy Lung
--- NOTE | 2024-01-10 12:15 | RAD_ITS ---
STUDY: X-RAY CHEST REASON FOR EXAM: Female, 78 years old. Post lung biopsy -- 2 hours post lung biopsy TECHNIQUE: AP inspiration and expiration views. COMPARISON: Comparison is made with prior study done earlier today. FINDINGS: Stable tiny right apical pneumothorax. The patient is asymptomatic. RAD/Chest Insp/Exp 2 View IMPRESSION: Stable tiny right apical pneumothorax. The patient is asymptomatic. Electronically Signed: Dimitry Franco MD at 13:06 EDT ,
== END | disposition home or self-care (01) ==
LOC: CT 08:59
PROVIDERS: PCP Nurse Practitioner Family; Referring Provider Nurse Practitioner Acute Care; Visit Provider Nurse Practitioner Acute Care
DX: R91.8 Other nonspecific abnormal finding of lung field (principal)
CPT/HCPCS: 32408; 71046; 77012; 88172; 88305; 88313; 88341; 88342; 99156; J7050; C2613

== ENCOUNTER 2024-01-18 10:34 | Outpatient (CLI) | payer MEDICARE, SELFPAY ==
[2024-01-18 10:38] VITALS: BP 130/63; PULSE 63; RESP 16; TEMP 35.9; O2SAT 98; BMI 22.4
[2024-01-18] MEDS: DENOSUMAB 60 MG/ML SC (10:44)
== END 2024-01-18 23:59 | disposition home or self-care (01) ==
LOC: MEDOUTP 10:34
PROVIDERS: PCP Nurse Practitioner Family; Referring Provider Nurse Practitioner Family; Visit Provider Nurse Practitioner Family
DX: M81.0 Age-related osteoporosis without current pathological fracture (principal)
CPT/HCPCS: 96372; J0897

== ENCOUNTER → 2024-01-22 | Outpatient (CLI) | payer MEDICARE, SELFPAY ==
[2024-01-22 15:35] LABS: Absolute Lymphocyte Count 1.18 X10^3/uL (0.83-4.51); Absolute Neutrophil Count 4.2 X10^3/uL (2.0-7.7); Basophil# 0.04 X10^3/uL; Basophil% 0.7 % (0-1); Eosinophil# 0.05 X10^3/uL; Eosinophils% 0.8 % (0-5); Hematocrit 39.8 % (37-47); Lymphocyte # 1.18 X10^3/ul (0.83-4.51); Lymphocyte % 19.7 % (19-41); Mean Corp Hgb Conc 32.7 g/dL (32-36); Mean Corpuscular Hgb 32.2 pg (27.0-32.0); Mean Corpuscular Volume 98.5 fL (81-99); Mean Platelet Vol. 8.9 fl (6.2-12.0); Monocyte# 0.53 X10^3/uL; Monocyte% 8.8 % (0-10); NRBC Flagged by Analyzer 0 % (0-5); Neutrophil # 4.18 X10^3/uL (2.7-7.7); Neutrophil % 69.8 % (47-70); Platelet Count 352 K/mm3 (150-450); RBC Distribution Width CV 14.9 % (11.6-14.6); RBC Distribution Width SD 54.3 fl (35.1-43.9); Red Blood Count 4.04 M/mm3 (4.2-5.4)
[2024-01-22 15:58] LABS: ALB/GLOB Ratio 0.9 RATIO (0.9-2.4); AST(SGOT) 26 U/L (15-37); Alanine Aminotransfer ALT/SGPT 36 U/L (13-56); Albumin, Serum 3.5 g/dL (3.2-5.0); Alkaline Phosphatase 103 U/L (45-117); Anion Gap 8 (5-15); BUN 21 mg/dL (7-18); BUN/Creat Ratio 27.6 RATIO (10-20); Calcium,Total 8.9 mg/dL (8.5-10.1); Chloride 97 mmol/L (98-107); Creatinine, Serum 0.76 mg/dL (0.55-1.02); EST Glomerular Filtration Rate 78 mL/min (>60); Est Glom Filt Rate - Afr Amer 94 mL/min (>60); Globulin 3.7 g/dL (2.2-4.2); Glucose 106 mg/dL (74-106); Potassium 3.8 mmol/L (3.5-5.1); Protein, Total 7.2 g/dL (6.4-8.2); Sodium Level 130 mmol/L (136-145)
== END | disposition home or self-care (01) ==
LOC: MTLAB 13:27
PROVIDERS: PCP Nurse Practitioner Family; Referring Provider Internal Medicine Rheumatology; Visit Provider Internal Medicine Rheumatology
DX: M06.4 Inflammatory polyarthropathy (principal); Z79.899 Other long term (current) drug therapy
CPT/HCPCS: 36415; 80053; 85025

== ENCOUNTER → 2024-02-01 | Outpatient (CLI) | payer MEDICARE, SELFPAY | END | disposition home or self-care (01) | LOC: PSN 08:14 | PROVIDERS: PCP Nurse Practitioner Family; Referring Provider Internal Medicine Hematology & Oncology; Visit Provider Internal Medicine Hematology & Oncology | DX: C34.91 Malignant neoplasm of unspecified part of right bronchus or lung (principal); R91.8 Other nonspecific abnormal finding of lung field | CPT/HCPCS: 94060; 94726; 94729 ==

== ENCOUNTER → 2024-02-22 | Outpatient (CLI) | payer MEDICARE, SELFPAY ==
--- NOTE | 2024-02-22 11:01 | STE_ITS ---
Reason For Study: Pre-Op Stress Results Protocol: Bernardo Protocol Maximum Predicted HR: 140 bpm Target HR: 119 bpm % Maximum Predicted HR: 84 % DurationHeart Rate Stage (mm:ss) (bpm) BP Comment Baseline 65 138/80No Chest Pain Bernardo Protocol Stage I 3:00 85 146/72No Chest Pain; Mild Dyspnea Bernardo Protocol Stage II 3:00 108 158/76No Chest Pain; Mod Dyspnea Bernardo Protocol Stage III 0:30 117 / No Chest Pain; Mod Dyspnea Recovery 74 130/72No Chest Pain Stress Duration: 6:30 mm:ss Maximum Stress HR: 117 bpm METS: 7 Baseline Echocardiogram Findings The estimated ejection fraction is 65 %. post exercise EF is 70. Stress Echo Wall motion Data Resting WM Intermediate WM Stress WM Resting Wall Motion Wall Motion Stress No regional wall motion No regional wall motion abnormalities noted. abnormalities noted. Stress Results Exercise was stopped due to dyspnea. Normal blood pressure response to exercise. EKG Data The baseline ECG displays normal sinus rhythm. No significant ischemic changes. Symptoms with Stress The patient experinced No chest pain . ECHO/Stress Test Echo w/o Contrast Interpretation Summary The estimated ejection fraction is 65 %. Exercise echo is negative for exercise-induced chest pain or EKG or echocardiog raphic changes of ischemia. Functional capacity is excellent for age Ordering Physician: MERRY CHAMBERLAIN Referring Physician: MERRY CHAMBERLAIN Performed By: Helen Castaneda RCS
== END | disposition home or self-care (01) ==
LOC: CVS 10:56
PROVIDERS: PCP Nurse Practitioner Family
DX: C34.91 Malignant neoplasm of unspecified part of right bronchus or lung (principal); R06.09 Other forms of dyspnea
CPT/HCPCS: 93017; 93350

== ENCOUNTER → 2024-02-27 | Outpatient (CLI) | payer MEDICARE, SELFPAY ==
--- NOTE | 2024-02-27 07:55 | MRI_ITS ---
STUDY: MRI BRAIN WITH AND WITHOUT CONTRAST REASON FOR EXAM: Female, 78 years old. eval for metastatic disease -- lung cancer TECHNIQUE: Standardized multiplanar fat and water weighted pulse sequences were obtained. IV 12ML Clariscan was administered for the contrast portion of the examination. COMPARISON: None. FINDINGS: There is mild cerebral atrophy with widening of the extra-axial spaces and ventricular dilatation. There are a limited number of small white matter hyperintensities, distributed throughout the deep white matter tracts of the cerebral hemispheres, consistent with mild chronic white matter ischemic changes. There is no evidence for recent intracranial ischemia or other cause of cytotoxic edema on diffusion weighted imaging (DWI). Normal T2* images of the brain without demonstrated susceptibility artifact. There is no demonstrated hemosiderin stain. Normal bilateral basal ganglia. Normal thalami. There is no extra-axial fluid accumulation. Normal flow voids within the major intracranial circulation suggesting patency by spin echo criteria. Normal venous enhancement. There is no enhancing intra-axial or extra-axial abnormality. Normal sella turcica, pituitary gland, infundibular stalk, optic chiasm and hypothalamus. Normal tectal plate and pineal gland. Normal midbrain, macario and medulla. Normal cerebellum. Normal basal cisterns. Normal bilateral temporal bones. Normal bilateral internal auditory canals. There are bilateral ocular lens implants with otherwise normal intraorbital contents. Normal visualized paranasal sinuses. Normal calvarium and skull base. Normal visualized soft tissue structures. Normal visualized upper cervical spine. MRI/Brain W/WO Contrast IMPRESSION: Involutional changes of the brain, as described above. No MR evidence of metastatic disease. Electronically Signed: Jacob Ya MD at 13:40 EST ,
== END | disposition home or self-care (01) ==
LOC: MRI 07:52
PROVIDERS: PCP Nurse Practitioner Family; Referring Provider Student in an Organized Health Care Education/Training Program; Visit Provider Student in an Organized Health Care Education/Training Program
DX: C34.91 Malignant neoplasm of unspecified part of right bronchus or lung (principal)
CPT/HCPCS: 70553; A9575

== ENCOUNTER → 2024-05-21 | Outpatient (CLI) | payer MEDICARE, SELFPAY ==
[2024-05-21 16:45] LABS: Absolute Lymphocyte Count 1.91 X10^3/uL (0.83-4.51); Absolute Neutrophil Count 5.5 X10^3/uL (2.0-7.7); Basophil# 0.07 X10^3/uL; Basophil% 0.8 % (0-1); Eosinophil# 0.15 X10^3/uL; Eosinophils% 1.8 % (0-5); Hematocrit 40.5 % (37-47); Hemoglobin 13.5 g/dL (12.0-15.0); Lymphocyte # 1.91 X10^3/ul (0.83-4.51); Mean Corp Hgb Conc 33.3 g/dL (32-36); Mean Corpuscular Hgb 31.3 pg (27.0-32.0); Mean Corpuscular Volume 93.8 fL (81-99); Mean Platelet Vol. 8.9 fl (6.2-12.0); Monocyte# 0.69 X10^3/uL; Monocyte% 8.3 % (0-10); NRBC Flagged by Analyzer 0 % (0-5); Neutrophil # 5.45 X10^3/uL (2.7-7.7); Neutrophil % 65.5 % (47-70); Platelet Count 348 K/mm3 (150-450); RBC Distribution Width CV 13.3 % (11.6-14.6); RBC Distribution Width SD 45.6 fl (35.1-43.9); Red Blood Count 4.32 M/mm3 (4.2-5.4); White Blood Count 8.3 K/mm3 (4.4-11.0)
[2024-05-21 17:07] LABS: AST(SGOT) 21 U/L (15-37); Alanine Aminotransfer ALT/SGPT 18 U/L (13-56); Albumin, Serum 3.8 g/dL (3.2-5.0); Alkaline Phosphatase 86 U/L (45-117); Anion Gap 10 (5-15); BUN 12 mg/dL (7-18); BUN/Creat Ratio 16.6 RATIO (10-20); Calcium,Total 8.9 mg/dL (8.5-10.1); Chloride 96 mmol/L (98-107); Creatinine, Serum 0.72 mg/dL (0.55-1.02); EST Glomerular Filtration Rate 83 mL/min (>60); Est Glom Filt Rate - Afr Amer 100 mL/min (>60); Glucose 91 mg/dL (74-106); Protein, Total 7.8 g/dL (6.4-8.2); Sodium Level 129 mmol/L (136-145)
== END | disposition home or self-care (01) ==
LOC: LAB 15:50
PROVIDERS: PCP Nurse Practitioner Family; Referring Provider Internal Medicine Rheumatology; Visit Provider Internal Medicine Rheumatology
DX: M06.4 Inflammatory polyarthropathy (principal); Z79.899 Other long term (current) drug therapy
CPT/HCPCS: 36415; 80053; 85025

== ENCOUNTER → 2024-06-23 | Outpatient (CLI) | payer MEDICARE, SELFPAY ==
--- NOTE | 2024-06-23 14:55 | CT_ITS ---
PROCEDURE: CHEST WITHOUT CONTRAST 06/23/2024 REASON FOR EXAM: LUNG CA Recent right upper lobectomy. TECHNIQUE: Chest CT without contrast. Coronal and Sagittal reconstruction series were provided. One or more dose reduction techniques were used (e.g., Automated exposure control, adjustment of the mA and/or kV according to patient size, use of iterative reconstruction technique COMPARISON: Comparison is made with prior study dated November 12, 2023. RADIATION DOSE SUMMARY: CTDlvol: 5.39 mGy DLP: 183.4 mGycm FINDINGS: Hardware: None Lymph nodes: None Heart and Vasculature: Atherosclerotic calcifications of the thoracic aorta. Thoracic aorta and pulmonary arteries have normal contours; noncontrast technique limits evaluation. Coronary Artery Calcifications: Present Lungs and Airways: Mild emphysematous changes are present. The patient is status post right upper lobectomy. The previously seen complex cystic structure in the right upper lobe is not seen at this time. Pleura: Unremarkable Upper Abdomen: Unremarkable Bones: Degenerative changes of the thoracic spine. CT/Chest without Contrast IMPRESSION: Status post right upper lobectomy. The previously seen complex cystic nodule i n the right upper lobe has been resected. Reading Location: [place] [address]
== END | disposition home or self-care (01) ==
LOC: CT 14:49
PROVIDERS: PCP Nurse Practitioner Family
DX: C34.2 Malignant neoplasm of middle lobe, bronchus or lung (principal)
CPT/HCPCS: 71250

== ENCOUNTER 2024-07-21 13:00 | Outpatient (CLI) | payer MEDICARE, SELFPAY ==
[2024-07-21 13:16] VITALS: BP 140/68; PULSE 62; RESP 16; TEMP 36; O2SAT 99; BMI 22.4
[2024-07-21] MEDS: DENOSUMAB 60 MG/ML SC (13:20)
== END 2024-07-21 23:59 | disposition home or self-care (01) ==
LOC: MEDOUTP 13:00
PROVIDERS: PCP Nurse Practitioner Family; Referring Provider Nurse Practitioner Family; Visit Provider Nurse Practitioner Family
DX: M81.0 Age-related osteoporosis without current pathological fracture (principal)
CPT/HCPCS: 96372; J0897

== ENCOUNTER → 2024-07-21 | Outpatient (CLI) | payer MEDICARE, SELFPAY ==
--- NOTE | 2024-07-21 14:45 | BI_ITS ---
EXAM: SCRN MAMM (CAD)W/MARIA E BILAT DATE: 07/21/2024 CLINICAL HISTORY: F, Age 78 y/o , SCREENING BREAST CANCER RISK ASSESSMENT: Has not been calculated TECHNIQUE: Bilateral screening digital breast tomosynthesis with 2D and 3D images. Computer aided detection. COMPARISON: Mammogram studies dated 03/29/2023 and 01/31/2022. FINDINGS: TISSUE DENSITY: The breast tissue is composed of scattered area of fibroglandular density. Bilateral Breast Mammographic Findings: There are no suspicious masses, suspicious microcalcifications, architectural distortion or secondary sign of malignancy identified in either breast. Benign-appearing macrocalcifications are seen in both breasts. Benign-appearing round microcalcifications are seen in the right breast. BI/SCRN MAMM (CAD)W/MARIA E BILAT IMPRESSION: Right Breast: BIRADS 2 BENIGN FINDING. Left Breast: BIRADS 2 BENIGN FINDING. OVERALL FINAL ASSESSMENT: BIRADS 2 BENIGN FINDING RECOMMENDATION: Routine annual follow-up in 1 Year A letter with findings and recommendations will be mailed to the patient. Reading Location: [id number]
== END | disposition home or self-care (01) ==
LOC: OPBI 14:44
PROVIDERS: PCP Nurse Practitioner Family; Referring Provider Nurse Practitioner Family; Visit Provider Nurse Practitioner Family
DX: Z12.31 Encounter for screening mammogram for malignant neoplasm of breast (principal)
CPT/HCPCS: 77063; 77067

== ENCOUNTER → 2024-08-06 | Outpatient (CLI) | payer MEDICARE, SELFPAY ==
[2024-08-06 17:56] LABS: Basophil# 0.05 X10^3/uL; Basophil% 0.8 % (0-1); Eosinophil# 0.08 X10^3/uL; Eosinophils% 1.3 % (0-5); Hematocrit 40.8 % (37-47); Hemoglobin 13.9 g/dL (12.0-15.0); Lymphocyte % 20.8 % (19-41); Mean Corp Hgb Conc 34.1 g/dL (32-36); Mean Corpuscular Hgb 31.4 pg (27.0-32.0); Mean Corpuscular Volume 92.1 fL (81-99); Mean Platelet Vol. 8.8 fl (6.2-12.0); Monocyte# 0.83 X10^3/uL; Monocyte% 13.3 % (0-10); NRBC Flagged by Analyzer 0 % (0-5); Neutrophil # 3.96 X10^3/uL (2.7-7.7); Neutrophil % 63.5 % (47-70); Platelet Count 358 K/mm3 (150-450); RBC Distribution Width CV 14.9 % (11.6-14.6); RBC Distribution Width SD 50.7 fl (35.1-43.9); Red Blood Count 4.43 M/mm3 (4.2-5.4); White Blood Count 6.2 K/mm3 (4.4-11.0)
[2024-08-06 18:06] LABS: ALB/GLOB Ratio 1.5 RATIO (0.9-2.4); AST(SGOT) 24 U/L (<=31); Alanine Aminotransfer ALT/SGPT 15 U/L (<=34); Albumin, Serum 4.5 g/dL (3.4-4.8); Alkaline Phosphatase 82 U/L (35-104); Anion Gap 12 (5-15); BUN 10 mg/dL (4-19); BUN/Creat Ratio 13.1 RATIO (10-20); Calcium,Total 9.6 mg/dL (7.6-11.0); Carbon Dioxide 24.1 mmol/L (21.0-32.0); Chloride 90 mmol/L (98-108); Creatinine, Serum 0.78 mg/dL (0.70-1.20); EST Glomerular Filtration Rate 77 (>60); Globulin 2.9 g/dL (2.2-4.2); Glucose 108 mg/dL (70-99); Potassium 4.2 mmol/L (3.3-5.1); Protein, Total 7.4 g/dL (5.9-8.4); Sodium Level 126 mmol/L (133-145); Total Bilirubin 0.39 mg/dL (0.00-1.30)
== END | disposition home or self-care (01) ==
LOC: MTLAB 15:23
PROVIDERS: PCP Nurse Practitioner Family; Referring Provider Internal Medicine Rheumatology; Visit Provider Internal Medicine Rheumatology
DX: M06.4 Inflammatory polyarthropathy (principal); M19.041 Primary osteoarthritis, right hand; M18.11 Unilateral primary osteoarthritis of first carpometacarpal joint, right hand; M16.0 Bilateral primary osteoarthritis of hip; Z79.899 Other long term (current) drug therapy
CPT/HCPCS: 36415; 80053; 85025

== ENCOUNTER → 2024-10-31 | Outpatient (CLI) | payer MEDICARE, SELFPAY ==
[2024-10-31 15:11] LABS: Hematocrit 39.1 % (37-47); Hemoglobin 13.3 g/dL (12.0-15.0); Immature Granulocytes Count 0.030 X10^3/uL (0.0-0.0); Mean Corp Hgb Conc 34.0 g/dL (32-36); Mean Corpuscular Volume 95.4 fL (81-99); Mean Platelet Vol. 9.2 fl (6.2-12.0); NRBC Flagged by Analyzer 0 % (0-5); Platelet Count 370 K/mm3 (150-450); RBC Distribution Width CV 14.1 % (11.6-14.6); RBC Distribution Width SD 49.0 fl (35.1-43.9); Red Blood Count 4.10 M/mm3 (4.2-5.4); White Blood Count 5.5 K/mm3 (4.4-11.0)
[2024-10-31 15:58] LABS: AST(SGOT) 27 U/L (<=31); Alanine Aminotransfer ALT/SGPT 16 U/L (<=34); Albumin, Serum 4.2 g/dL (3.4-4.8); Alkaline Phosphatase 89 U/L (35-104); Anion Gap 14 (5-15); BUN 10 mg/dL (4-19); BUN/Creat Ratio 13.4 RATIO (10-20); Calcium,Total 9.5 mg/dL (7.6-11.0); Carbon Dioxide 20.7 mmol/L (21.0-32.0); Chloride 91 mmol/L (98-108); Globulin 2.9 g/dL (2.2-4.2); Glucose 101 mg/dL (70-99); Potassium 4.6 mmol/L (3.3-5.1)
== END | disposition home or self-care (01) ==
LOC: MTLAB 13:17
PROVIDERS: PCP Nurse Practitioner Family; Referring Provider Internal Medicine Rheumatology; Visit Provider Internal Medicine Rheumatology
DX: M06.4 Inflammatory polyarthropathy (principal); M19.041 Primary osteoarthritis, right hand; M18.11 Unilateral primary osteoarthritis of first carpometacarpal joint, right hand; Z79.899 Other long term (current) drug therapy
CPT/HCPCS: 36415; 80053; 85025

== ENCOUNTER 2024-11-15 16:35 | Emergency (ER) | payer MEDICARE, SELFPAY ==
[2024-11-15 16:36] VITALS: BP 150/85; PULSE 71; RESP 18; TEMP 36.8; O2SAT 99; BMI 63.3
[2024-11-15 17:11] LABS: Mucous, Urine 0 SEEN /hpf (<or=2+); Red Blood Cells-Urine 0 SEEN /hpf (0-5)
[2024-11-15 17:21] LABS: Color, Urine Yellow (Yellow); Glucose, Dipstick Normal (Normal); Ketone-Dipstick Negative (Negative); Leukocyte Esterase-Dipstick Negative /ul (Negative); Nitrite-Dipstick Negative (Negative); Occult Blood-Urine Negative /ul (Negative); Protein-Dipstick Negative (Negative); Specific Gravity, Urine 1.010 (1.002-1.030); Urine Bilirubin Dipstick Negative (Negative)
[2024-11-15 17:34] LABS: Squamous Epithelial Cells - UA 0-5 SEEN /hpf (5-10)
--- NOTE | 2024-11-15 17:53 | EDS_ITS ---
HPI History of Present Illness Chief Complaint: Complaint Informant: patient Onset/Context/Timing Onset: Days (4) Context: Gradual Onset Timing: Intermittent Quality: Aching Location: Right flank and abdomen Worsened by: Nothing Relieved by: Heat Narrative Narrative: Patient presents with right flank and abdominal pain that began 4 days ago. Patient states it has been intermittent. Patient states it came on gradually. Patient describes it as aching. Patient states nothing makes it worse. Patient states it is better with heat. Patient admits to some nausea but denies any vomiting. Patient denies any fevers or chills. Patient denies any dysuria, frequency, or hematuria. Patient states she did not want to wait until Sunday to see her primary care physician for this. PFSH PFSH Medical History Acute myringitis, right ear Ureteral stent present Cyst of left ovary Hyponatremia Hyponatremia Rheumatoid arthritis Osteoporosis Kidney stones P-ANCA titer positive Gastric lesion Barretts esophagus Wears glasses Post-menopausal Anxiety Depression Alcohol use Arthritis High cholesterol Former smoker Allergic dermatitis Alcohol use disorder Major depressive disorder, recurrent severe without psychotic features Hypertension Generalized anxiety disorder Former moderate cigarette smoker (10-19 per day) Home Medications ?Medication ?Instructions ?Recorded ?Last Taken ?Type cholecalciferol (vitamin D3) 50 2,000 unit PO DAILY HERNÁNDEZ PPLEMENT 02/25/19 09/17/23 History mcg (2,000 unit) capsule denosumab 60 mg/mL subcutaneous 60 mg subcut .[id number] 09/08/22 09/17/23 History syringe (Prolia) amlodipine 10 mg tablet 5 mg PO DAILY 09/17/2309/16 History metoprolol succinate 50 mg 50 mg PO DAILY 09/17/2301/30 History tablet,extended release 24 hr acyclovir 800 mg tablet 800 mg PO Q8H PRN coldsore 0 09/18/23 Unknown History duloxetine 60 mg capsule,delayed 60 mg PO QDAY 4 Unknown History release losartan 50 mg tablet 50 mg PO QDAY 12/14/23 Unkno wn History cholestyramine (with sugar) 4 gram 4 g PO DAILY #180 e a 02/05/24 Unknown Rx powder for susp in a packet folic acid 1 mg tablet 2 mg PO DAILY 07/21/24 Unkno wn History leucovorin calcium 15 mg tablet 15 mg PO QWEEK 04/14/2 5 Unknown History methotrexate sodium 2.5 mg tablet 20 mg PO QWEEK 07/21 Unknown History hydrocodone-acetaminophen 5-325mg 1 tab PO Q6H PRN PRN Pain 3 days 11/15/24 Unknown Rx 5mg-325mg #10 TABLETS Allergy/AdvReac Type Severity Reaction Status Date / Time Penicillins Allergy Unknown Rash Verified 07/30/24 14:32 Family History Father Heart disease Surgical History History of lung biopsy History of esophagogastroduodenoscopy (EGD) History of colonoscopy Hx of tubal ligation Hx of bilateral hip replacements History of hip replacement Social History household members: family Smoking Status: Former smoker Tobacco: How many years used: 40 alcohol intake: current alcohol intake frequency: a few times a week Alcohol type: beer substance use type: does not use ROS ROS ED Constitutional Constitutional ED: Denies chills or fever(s) Eyes Eyes: Denies blurry vision or change in vision ENT ENT ED: Denies rhinorrhea or sore throat Cardiovascular Cardiovascular: Denies chest pain or palpitations Respiratory/Chest Respiratory/Chest: Denies cough or dyspnea Gastrointestinal Gastrointestinal: Reports nausea; Denies vomiting Genitourinary Genitourinary ED: Denies dysuria or hematuria Musculoskeletal Musculoskeletal: Reports back pain; Denies neck pain Integumentary Denies abscess or rash Neurologic Neurologic: Denies headache(s) or weakness Allergic/Immunologic Allergic/Immunologic ED: Denies mouth swelling or urticaria EXAM Physical Exam Const Vital Signs: 11/15/24 16:36 11/15/24 18:35 11/15/24 20:00 Temperature 98.3 F Temperature Source Oral Pulse Rate 71 71 65 Respiratory Rate 18 16 18 Blood Pressure 150/85 H 132/88 H 175/99 H Blood Pressure Mean 106 102 124 Pulse Ox 99 99 98 Oxygen Delivery Method Room Air Room Air Room Air 11/15/24 21:00 Temperature 98.3 F Temperature Source Pulse Rate 66 Respiratory Rate 16 Blood Pressure 162/75 H Blood Pressure Mean 104 Pulse Ox 98 Oxygen Delivery Method Positive well nourished and well developed General Appearance ED: well developed and NAD HEENT Reports moist mucous membranes Neck supple and no JVD Resp normal respiratory effort and clear to auscultation bilaterally Cardio regular rate and regular rhythm GI non-distended Palpation: soft and tender RLQ; Negative for guarding or rebound tenderness present Back/Spine General Back: CVA tenderness right Neuro oriented x3, CN's II-XII intact bilaterally and no sensory deficits noted Sensorium / Orientation: alert Motor Exam: strength 5/5 throughout Psych mental status grossly normal MDM MDM MDM Narrative Medical decision making narrative: Differential diagnosis includes tract infection, pyelonephritis, ureteral calculus, dehydration, electrolyte abnormality, acute kidney injury, and hyperglycemia. Urinalysis will be obtained to assess for urinary tract infection and hematuria. CBC will be obtained to assess for leukocytosis and anemia. Basic metabolic profile will be obtained to assess for electrolyte abnormality and renal function. CT of the abdomen and pelvis will be obtained to assess for ureteral calculus, bowel obstruction, perforation. History & Record Review Additional record(s) reviewed:: Prior outpatient record and Prior labs Lab Data Attestation: I reviewed the patient's lab results. Lab results narrative: CBC was reviewed and was within normal notes. Basic metabolic profile was reviewed. Sodium was slightly low at 122 and chloride was 87. This is essentially unchanged from previous results. Urinalysis was reviewed. There is no evidence of urinary tract infection or hematuria. Labs: Laboratory Results - last 24 hr 11/15/24 11/15/24 17:07 18:28 WBC 6.6 RBC 4.03 L Hgb 13.3 Hct 38.5 MCV 95.5 MCH 33.0 H MCHC 34.5 RDW Std Deviation 49.4 H RDW Coeff of Jam 14.3 Plt Count 333 MPV 8.6 Immature Gran % (Auto) 0.500 Neut % (Auto) 57.6 Lymph % (Auto) 26.9 Craven % (Auto) 11.8 H Eos % (Auto) 2.0 Baso % (Auto) 1.2 H Absolute Neuts (auto) 3.8 Absolute Lymphs (auto) 1.78 Nucleated RBC % 0 Sodium 122 L Potassium 4.5 Chloride 87 L Carbon Dioxide 19.1 L Anion Gap 16 H BUN 7 Creatinine 0.67 L Estim Creat Clear Calc 45.41 L Est GFR (MDRD) Non-Af 88 BUN/Creatinine Ratio 10.5 Glucose 78 Calcium 9.3 Urine Color Yellow Urine Clarity Clear Urine pH 6.0 Ur Specific [place] 1.010 Urine Protein Negative Urine Glucose (UA) Normal Urine Ketones Negative Urine Occult Blood Negative Urine Nitrite Negative Urine Bilirubin Negative Urine Urobilinogen Normal Ur Leukocyte Esterase Negative Urine RBC 0 SEEN Urine WBC 0 SEEN Ur Squamous Epith Cells 0-5 SEEN Urine Bacteria 0 SEEN Urine Mucus 0 SEEN Radiography Diagnostic Testing: Clinical Impression(s) from Imaging Studies Abdomen/Pelvis CT 11/15/24 17:58 IMPRESSION: No acute abdominopelvic finding. Chronic findings as described. Reading Location: [id number] scan of the abdomen and pelvis was obtained. There is no evidence of ureteral calculus. There is no evidence of bowel obstruction or perforation. There is no acute abnormality noted. This was interpreted by the radiologist and was also independently reviewed by myself. Treatment and Re-Evaluation :: Patient was advised of her findings. Patient was given a prescription for a short course of [place]. Patient was instructed to follow-up with her primary care physician in 3 to 5 days for further evaluation. Patient was instructed to return if worse in any way. Patient understood and was agreeable with the plan. All questions were answered. Discharge Plan Triage Chief Complaint: Complaint ED Provider: Ryan Quiroz Dx/Rx/DC Orders Clinical Impression: Acute right flank pain, Elevated blood pressure reading Instructions: ED Flank Pain, Uncertain Cause Prescriptions: New hydrocodone-acetaminophen 5-325 mg tablet 1 tab PO Q6H PRN PRN (Reason: Pain) 3 Days Qty: 10 0RF No Action losartan 50 mg tablet 50 mg PO QDAY duloxetine 60 mg capsule,delayed release(DR/EC) 60 mg PO QDAY cholecalciferol (vitamin D3) 2,000 UNIT capsule 2,000 unit PO DAILY Prolia 60 mg/mL syringe 60 mg SUBCUT .[id number] metoprolol succinate 50 mg tablet extended release 24 hr 50 mg PO DAILY amlodipine 10 mg tablet 5 mg PO DAILY acyclovir 800 mg tablet 800 mg PO Q8H PRN (Reason: coldsore) Rx Instructions: take 1 tablet at first onsent of coldsore, then three times daily as needed for up to 5 doses leucovorin calcium 15 mg tablet 15 mg PO QWEEK methotrexate sodium 2.5 mg tablet 20 mg PO QWEEK folic acid 1 mg tablet 2 mg PO DAILY cholestyramine (with sugar) 4 gram powder in packet 4 g PO DAILY Qty: 180 3RF Patient Comments: pt takes prn Rx Instructions: administer w/meal; avoid other meds within 1hr before or 4-6hr after dose Primary Care Provider: Adela Montoya Referrals: Adela Montoya, TELEPHONE SERVICE REPRESENTATIVE-C [Primary Care Provider] - 3-5 Days Print Language: Montserratian Disposition Disposition: Home, Self Care Discharge Date/Time: 11/15/24 21:05
--- NOTE | 2024-11-15 17:58 | CT_ITS ---
PROCEDURE: ABDOMEN/PELVIS WITHOUT CONT 11/15/2024 REASON FOR EXAM: RIGHT FLANK PAIN TECHNIQUE: ABDOMEN/PELVIS WITHOUT CONT Noncontrast technique limits evaluation of the abdominal and pelvic viscera. Coronal and Sagittal reconstruction series were provided. One or more dose reduction techniques were used (e.g., Automated exposure control, adjustment of the mA and/or kV according to patient size, use of iterative reconstruction technique). RADIATION DOSE SUMMARY: DLP: 300 mGycm COMPARISON: CT abdomen pelvis 09/17/2023. FINDINGS: Lung bases: Stable findings of pulmonary fibrosis including bronchiectasis, ground-glass opacities and cysts. Nonvisualization of the known right middle lobe pulmonary mass. Liver: The unopacified liver is normal in size. No biliary ductal dilation. Gallbladder: No radiopaque stones within the gallbladder. Spleen: Normal size. Pancreas: The unopacified pancreas is unremarkable. Adrenals: No adrenal mass. Kidneys: Continued improvement in the now minimal right hydroureteronephrosis with unchanged punctate stone within the mid right ureter (series 2, image 83). This is unchanged since at least 2023. unremarkable left kidney. Bladder: Visualization is limited by adjacent streak artifact. Grossly unremarkable. Reproductive Organs: Visualization is limited by streak artifact. Stable left ovarian cyst. Bowel: The bowel loops are nondilated. No ascites or pneumoperitoneum. Normal appendix. Lymph nodes: Visualization is limited without the use of IV contrast. No large lymphadenopathy. Vasculature: Severe calcific plaque of the aortoiliac vessels. Ectasia of the abdominal aorta, grossly unchanged. Bones: Prior bilateral total hip arthroplasties. Thoracolumbar spondylosis. CT/Abdomen/Pelvis without Cont IMPRESSION: No acute abdominopelvic finding. Chronic findings as described. Reading Location: [id number]
[2024-11-15 18:34] LABS: Hematocrit 38.5 % (37-47); Hemoglobin 13.3 g/dL (12.0-15.0); Immature Granulocytes Count 0.030 X10^3/uL (0.0-0.0); Mean Corp Hgb Conc 34.5 g/dL (32-36); Mean Corpuscular Volume 95.5 fL (81-99); Mean Platelet Vol. 8.6 fl (6.2-12.0); NRBC Flagged by Analyzer 0 % (0-5); Platelet Count 333 K/mm3 (150-450); RBC Distribution Width CV 14.3 % (11.6-14.6); RBC Distribution Width SD 49.4 fl (35.1-43.9); Red Blood Count 4.03 M/mm3 (4.2-5.4); White Blood Count 6.6 K/mm3 (4.4-11.0)
[2024-11-15 18:35] VITALS: BP 132/88; PULSE 71; RESP 16; O2SAT 99
[2024-11-15 18:55] LABS: Anion Gap 16 (5-15); BUN 7 mg/dL (4-19); BUN/Creat Ratio 10.5 RATIO (10-20); Calcium,Total 9.3 mg/dL (7.6-11.0); Carbon Dioxide 19.1 mmol/L (21.0-32.0); Chloride 87 mmol/L (98-108); Estimated Creatinine Clearance 45.41 ml/min (50-250); Glucose 78 mg/dL (70-99); Potassium 4.5 mmol/L (3.3-5.1)
[2024-11-15 20:00] VITALS: BP 175/99; PULSE 65; RESP 18; O2SAT 98
[2024-11-15 21:00] VITALS: BP 162/75; PULSE 66; RESP 16; TEMP 36.8; O2SAT 98
== END 2024-11-15 21:05 | disposition home or self-care (01) ==
PROVIDERS: Emergency Provider Emergency Medicine; PCP Nurse Practitioner Family; Visit Provider Emergency Medicine
DX: R10.9 Unspecified abdominal pain (principal); Z87.891 Personal history of nicotine dependence; R11.0 Nausea; R03.0 Elevated blood-pressure reading, without diagnosis of hypertension; E78.00 Pure hypercholesterolemia, unspecified; N94.9 Unspecified condition associated with female genital organs and menstrual cycle
CPT/HCPCS: 74176; 80048; 81001; 85025; 99284; A4216

== ENCOUNTER → 2024-12-29 | Outpatient (CLI) | payer MEDICARE, SELFPAY ==
[2024-12-29 13:49] LABS: Anion Gap 11 (5-15); BUN 13 mg/dL (4-19); BUN/Creat Ratio 14.9 RATIO (10-20); Calcium,Total 10.0 mg/dL (7.6-11.0); Carbon Dioxide 25.4 mmol/L (21.0-32.0); Chloride 93 mmol/L (98-108); Glucose 114 mg/dL (70-99); Potassium 5.7 mmol/L (3.3-5.1)
== END | disposition home or self-care (01) ==
PROVIDERS: PCP Nurse Practitioner Family; Referring Provider Nurse Practitioner Family; Visit Provider Nurse Practitioner Family
DX: E87.5 Hyperkalemia (principal)
CPT/HCPCS: 80048

== ENCOUNTER → 2025-01-22 | Outpatient (CLI) | payer MEDICARE, SELFPAY ==
--- NOTE | 2025-01-22 14:21 | CT_ITS ---
PROCEDURE: CHEST WITHOUT CONTRAST 01/22/2025 REASON FOR EXAM: HX NSCLC TECHNIQUE: Chest CT without contrast. Coronal and Sagittal reconstruction series were provided. One or more dose reduction techniques were used (e.g., Automated exposure control, adjustment of the mA and/or kV according to patient size, use of iterative reconstruction technique RADIATION DOSE SUMMARY: CTDlvol: 5.52 mGy DLP: 181.07 mGycm COMPARISON: CT chest without contrast, 06/23/2024 FINDINGS: Lower neck:There are stable hypodense nodules in both thyroid lobes measuring 1.9 cm in diameter on the left and 1.3 cm in diameter on the right. There is no supraclavicular lymphadenopathy. Mediastinum:No abnormal masses or lymphadenopathy. Heart and Vasculature:The heart size is normal. There is no pericardial effusion. There is moderate calcific vascular disease of the coronary arteries and thoracic aorta. Esophagus:Normal. Upper Abdomen:The visualized abdominal aorta is heavily calcified. There is a hypodense cortical focus in the interpolar region of the left kidney most likely a cyst. Chest wall:There is a sebaceous cyst in the left posterolateral chest measuring 10 mm in diameter. There is no axillary lymphadenopathy. There is severe diffuse degenerative disc disease of the thoracic and visualized lumbar spine. There is moderate levoscoliosis of the thoracolumbar spine. Lungs, airways and pleura: Status post right upper lobectomy. There is moderate upper lung zone predominant paraseptal emphysema. There are stable soft tissue density nodules in the lower lobe of the right lung (image 69, 70). There are no pleural effusions. CT/Chest without Contrast IMPRESSION: 1. Status post right upper lobectomy. 2. Emphysema. 3. Stable right lower lobe pulmonary nodules. 4. Calcific vascular disease. 5. Other findings as noted, not significantly changed. Reading Location: [place] [id number]
== END | disposition home or self-care (01) ==
LOC: CT 14:17
PROVIDERS: PCP Nurse Practitioner Family
DX: Z85.118 Personal history of other malignant neoplasm of bronchus and lung (principal)
CPT/HCPCS: 71250

== ENCOUNTER 2025-01-23 12:59 | Outpatient (CLI) | payer MEDICARE, SELFPAY ==
[2025-01-23 13:11] VITALS: BP 149/78; PULSE 61; RESP 16; TEMP 35.8; O2SAT 99; BMI 22.3
[2025-01-23] MEDS: DENOSUMAB 60 MG/ML SC (13:13)
== END 2025-01-23 23:59 | disposition home or self-care (01) ==
LOC: MEDOUTP 12:59
PROVIDERS: PCP Nurse Practitioner Family; Referring Provider Nurse Practitioner Family; Visit Provider Nurse Practitioner Family
DX: M81.0 Age-related osteoporosis without current pathological fracture (principal)
CPT/HCPCS: 96372; J0897

== ENCOUNTER → 2025-02-18 | Outpatient (CLI) | payer MEDICARE, SELFPAY ==
[2025-02-18 17:51] LABS: Hematocrit 40.3 % (37-47); Hemoglobin 14.0 g/dL (12.0-15.0); Immature Granulocytes Count 0.030 X10^3/uL (0.0-0.0); Mean Corp Hgb Conc 34.7 g/dL (32-36); Mean Corpuscular Volume 96.2 fL (81-99); Mean Platelet Vol. 9.0 fl (6.2-12.0); NRBC Flagged by Analyzer 0 % (0-5); Platelet Count 354 K/mm3 (150-450); RBC Distribution Width CV 13.7 % (11.6-14.6); RBC Distribution Width SD 48.1 fl (35.1-43.9); Red Blood Count 4.19 M/mm3 (4.2-5.4); White Blood Count 5.9 K/mm3 (4.4-11.0)
[2025-02-18 18:14] LABS: AST(SGOT) 28 U/L (<=31); Alanine Aminotransfer ALT/SGPT 20 U/L (<=34); Albumin, Serum 4.4 g/dL (3.4-4.8); Alkaline Phosphatase 105 U/L (35-104); Anion Gap 12 (5-15); BUN 7 mg/dL (4-19); BUN/Creat Ratio 11.1 RATIO (10-20); Calcium,Total 9.6 mg/dL (7.6-11.0); Carbon Dioxide 24.3 mmol/L (21.0-32.0); Chloride 92 mmol/L (98-108); Globulin 2.9 g/dL (2.2-4.2); Glucose 119 mg/dL (70-99); Potassium 4.4 mmol/L (3.3-5.1)
== END | disposition home or self-care (01) ==
LOC: MTLAB 16:22
PROVIDERS: PCP Nurse Practitioner Family; Referring Provider Internal Medicine Rheumatology; Visit Provider Internal Medicine Rheumatology
DX: M06.4 Inflammatory polyarthropathy (principal); M19.041 Primary osteoarthritis, right hand; M18.11 Unilateral primary osteoarthritis of first carpometacarpal joint, right hand; M16.0 Bilateral primary osteoarthritis of hip; Z79.899 Other long term (current) drug therapy
CPT/HCPCS: 36415; 80053; 85025

== ENCOUNTER → 2025-03-31 | Outpatient (CLI) | payer MEDICARE, SELFPAY ==
--- NOTE | 2025-03-31 10:34 | BD_ITS ---
PROCEDURE: DEXA BONE DENSITY STUDY 03/31/2025 REASON FOR EXAM: F, age 79 y/o . Postmenopausal. TECHNIQUE: Procedure Code: BDDBD Modality: DX Procedure: DEXA BONE DENSITY STUDY COMPARISON: DEXA examination dated 03/29/2023 FINDINGS: BMD and T-SCORES Lumbar spine: 1.143 g/cm2, T-score 0.9 Levels: L1 through L4 Change from prior: There has been a significant increase in the bone mineral density of the lumbar spine by 5.5% since the prior study dated 03/29/2023. Left 1/3 radius: 0.643 g/cm2, T-score -0.8 Change from prior: There has been a significant increase in the bone mineral density of the distal left forearm by 4.8% since the prior study dated 03/29/2023. Right 1/3 radius: 0.610 g/cm2, T-score -1.4 Change from prior: There has been an increase in the bone mineral density of the distal right forearm by 1.6% since the prior study dated 03/29/2023. The World Health Organization has defined the following categories based on bone density: Normal bone density: T-score equal to or greater than -1.0 Osteopenia: T-score between -1.0 and -2.5 Osteoporosis: T-score equal to or less than -2.5 FRAX (or Comparable) Fracture Risk Assessment: FRAX not reported due to no reportable hip. (Note: FRAX is not to be reported in setting of normal range bone density, osteoporosis on DEXA, known history of osteoporosis, prior osteoporotic hip or vertebral fracture, or for any patient undergoing pharmacological treatment for bone loss.) The National Osteoporosis Foundation (NOF) recommends pharmacological treatment for patients with a FRAX 10-year risk of 3% or higher for a hip fracture, or 20% or higher for a major osteoporotic fracture, to prevent osteoporosis and reduce fracture risk. The patient does not meet the pharmacological treatment recommendations for prevention of osteoporosis. BD/Dexa Bone Density Study IMPRESSION: OSTEOPENIA. Recommend follow-up in 1 year. Reading Location: [id number]
== END | disposition home or self-care (01) ==
PROVIDERS: PCP Nurse Practitioner Family; Referring Provider Nurse Practitioner Family; Visit Provider Nurse Practitioner Family
DX: Z78.0 Asymptomatic menopausal state (principal)
CPT/HCPCS: 77080